=== PATIENT | female | born 1980 | race Caucasian/White ===

== ENCOUNTER 2016-08-10 13:18 | Emergency (ER) | payer MEDICARE, OTHER ==
[2016-08-10] MEDS ORDERED: SODIUM CHLORIDE 0.9% 1,000 ML IV ONE (17:32)
[2016-08-10] MEDS ORDERED: ONDANSETRON 4 MG/2 ML VIAL IVP STA ×2 (17:33→19:52)
[2016-08-10 17:48] LABS: Basophils # (A) 0.3 k/uL (0-0.2); Basophils % (A) 2 %; CH 31.5; CHCM 34.5; Eosinophils # (A) 0.4 k/uL (0-0.7); Eosinophils % (A) 3 %; HCT 42.1 % (34.0-46.0); HDW 2.36; HGB 14.2 gm/dL (11.4-16.0); Luc # (Auto) 0.11; Luc % (Auto) 1; Lymphocytes # (A) 3.6 k/uL (1.0-4.8); Lymphocytes % (A) 23 %; MCHC 33.8 g/dL (31.0-37.0); MCV 91.7 fL (80.0-100.0); Mean Platelet Volume 8.2; Monocytes # (A) 0.7 k/uL (0-1.0); Monocytes % (A) 4 %; Neutrophils % (A) 68 %; RBC 4.59 m/uL (3.80-5.40); RDW 12.4 % (11.5-15.5); WBC 16.1 k/uL (3.8-10.6); WBC (Perox) 16.97
[2016-08-10 17:57] LABS: ALT 35 U/L (9-52); AST 26 U/L (14-36); Alkaline Phosphatase 75 U/L (38-126); Amylase 57 U/L (30-110); Anion Gap 15 mmol/L; Blood Urea Nitrogen 8 mg/dL (7-17); Calcium 8.8 mg/dL (8.4-10.2); Carbon Dioxide 18 mmol/L (22-30); Chloride 107 mmol/L (98-107); Glucose 98 mg/dL (74-99); Non-African American GFR(MDRD) >60 (>60 ml/min/1.73 sqM); Potassium 3.8 mmol/L (3.5-5.1); Sodium 140 mmol/L (137-145); Total Bilirubin 0.5 mg/dL (0.2-1.3); Total Protein 7.7 g/dL (6.3-8.2)
--- NOTE | 2016-08-10 18:13 | ED ---
Nausea/Vomiting/Diarrhea HPI - General Chief complaint: Nausea/Vomiting/Diarrhea Stated complaint: Abd Pain,Vomiting Time Seen by Provider: 08/10/16 17:03 Source: patient, RN notes reviewed Mode of arrival: ambulatory - History of Present Illness Initial comments: Patient is a 36-year-old female presents to the emergency room for evaluation of lower abdominal pain. Patient states that she has been having abdominal pain for the past 3 days. Patient states been getting worse over the past day. Patient states that she is having nausea, vomiting or diarrhea. Patient states her pain is located in her left lower quadrant and right lower quadrant. Patient states she has a history of tubal ligation and partial hysterectomy. Patient denies vaginal bleeding. Patient denies pain or burning during urination, trouble urinating or blood in urine. Patient denies fevers or chills. Patient denies chest pain or shortness of breath. Patient denies headache or dizziness. Patient denies any history of STDs. Patient has recent travel outside the country. Patient denies sick contacts. Patient denies trying a new foods. - Related Data Home Medications Medication Instructions Recorded Confirmed Albuterol Sulfate [Proair Hfa] 2 puff INHALATION Q4H PRN 07/08/16 08/10/16 Atorvastatin [Lipitor] 40 mg PO HS 07/08/16 08/10/16 Divalproex ER [Depakote ER] 500 mg PO BID 07/08/16 08/10/16 Lipase/Protease/Amylase [[place] 1 cap PO AC-TID 07/08/16 08/10/16 36,000 Units Capsule] Omeprazole 20 mg PO DAILY 07/08/16 08/10/16 QUEtiapine [SEROquel] 200 mg PO HS 07/08/16 08/10/16 Sertraline [Zoloft] 50 mg PO DAILY 07/08/16 08/10/16 Sertraline [Zoloft] 100 mg PO DAILY 07/08/16 08/10/16 clonazePAM [KlonoPIN] 1 mg PO TID PRN 07/08/16 08/10/16 Previous Rx's Medication Instructions Recorded Nicotine 14Mg/24Hr Patch [Habitrol] 1 patch TRANSDERM DAILY 14 Days 07/11/16 traZODone HCL [Desyrel] 100 mg PO HS 30 Days 07/11/16 Dicyclomine [Bentyl] 10 mg PO TID PRN #12 capsule 08/10/16 Ondansetron Odt [Zofran Odt] 4 mg PO Q8HR PRN #12 tab 08/10/16 Allergies Allergy/AdvReac Type Severity Reaction Status Date / Time cephalexin [From Keflex] Allergy Severe Swelling Verified 08/10/16 17:05 levofloxacin Allergy Rash/Hives Verified 08/10/16 17:05 Penicillins Allergy Swelling Verified 08/10/16 17:05 sulfamethoxazole Allergy Rash/Hives Verified 08/10/16 17:05 [From Bactrim] trimethoprim [From Bactrim] Allergy Rash/Hives Verified 08/10/16 17:05 Review of Systems ROS Statement: Those systems with pertinent positive or pertinent negative responses have been documented in the HPI. ROS Other: All systems not noted in ROS Statement are negative. Past Medical History Past Medical History: GERD/Reflux Additional Past Medical History / Comment(s): Migraines, Pancreatic Deficiency, Lower lumbar disease, hypoglycemia. History of Any Multi-Drug Resistant Organisms: MRSA Date of last positivie culture/infection: 2013 MDRO Source:: hip Past Surgical History: Cholecystectomy, Hysterectomy, Tonsillectomy Additional Past Surgical History / Comment(s): (R) hand surgery, (L) hip from spider bite r/t MRSA Past Anesthesia/Blood Transfusion Reactions: No Reported Reaction Past Psychological History: Anxiety, Depression Smoking Status: Current every day smoker Past Alcohol Use History: Occasional Additional Past Alcohol Use History / Comment(s): Pt. recently started drinking excessive amounts of alcohol. She reports her last drink was this past TuesdayJuly 03. Past Drug Use History: None Reported - Past Family History Father History Unknown: Yes Family Medical History: No Reported History (Father is 50 year old does not know much about him.) Mother Family Medical History: Cancer Additional Family Medical History / Comment(s): Mother at the age of 50 years from Cancer metastasis. Mother also had an aneurysm. Sister(s) Additional Family Medical History / Comment(s): Bipolar and Schizoprenia. Son(s) Family Medical History: No Reported History (one son no major medical problems.) Daughter(s) Family Medical History: No Reported History (2 daughters no major medical problems.) General Exam - General Exam Comments Initial Comments: Sitting in exam room no acute distress. Limitations: no limitations General appearance: alert, in no apparent distress Head exam: Present: atraumatic, normocephalic, normal inspection Eye exam: Present: normal appearance ENT exam: Present: normal exam Neck exam: Present: normal inspection Respiratory exam: Present: normal lung sounds bilaterally. Absent: respiratory distress Cardiovascular Exam: Present: regular rate, normal rhythm, normal heart sounds GI/Abdominal exam: Present: soft, tenderness (Right lower quadrant left lower quadrant), normal bowel sounds. Absent: distended, guarding, rebound, rigid Extremities exam: Present: normal inspection Back exam: Present: normal inspection Neurological exam: Present: alert, oriented X3, CN II-XII intact, normal gait Psychiatric exam: Present: normal affect, normal mood Skin exam: Present: warm, dry, intact, normal color. Absent: rash Course Vital Signs 08/10/16 14:06 Temperature 99.8 F H Pulse Rate 108 H Respiratory 18 Rate Blood Pressure 120/76 O2 Sat by Pulse 97 Oximetry Medical Decision Making - Medical Decision Making Patient is a 36-year-old female presents to the emergency room for evaluation of abdominal pain, nausea and vomiting. Patient does have an elevated white count. Other labs show no significant findings. Urinalysis shows no significant findings. CT of abdomen and pelvis show no significant findings. Patient states she is feeling better after medications given. Will send patient home with antinausea medications and bentyl. Advised patient to follow- up with her primary care provider for reevaluation in 24-48 hours. Patient states she understands everything that was discussed with her. Return parameters discussed. Case discussed with Dr. Hopper. - Lab Data Result diagrams: 08/10/16 17:30 08/10/16 17:30 Lab Results 08/10/16 08/10/16 08/10/16 Range/Units 17:30 17:30 18:25 WBC 16.1 H (3.8-10.6) k/uL RBC 4.59 (3.80-5.40) m/uL Hgb 14.2 (11.4-16.0) gm/dL Hct 42.1 (34.0-46.0) % MCV 91.7 (80.0-100.0) fL MCH 31.0 (25.0-35.0) pg MCHC 33.8 (31.0-37.0) g/dL RDW 12.4 (11.5-15.5) % Plt Count 298 (150-450) k/uL Neutrophils % 68 % Lymphocytes % 23 % Monocytes % 4 % Eosinophils % 3 % Basophils % 2 % Neutrophils # 11.0 H (1.3-7.7) k/uL Lymphocytes # 3.6 (1.0-4.8) k/uL Monocytes # 0.7 (0-1.0) k/uL Eosinophils # 0.4 (0-0.7) k/uL Basophils # 0.3 H (0-0.2) k/uL Sodium 140 (137-145) mmol/L Potassium 3.8 (3.5-5.1) mmol/L Chloride 107 (98-107) mmol/L Carbon Dioxide 18 L (22-30) mmol/L Anion Gap 15 mmol/L BUN 8 (7-17) mg/dL Creatinine 0.82 (0.52-1.04) mg/dL Est GFR (MDRD) Af Amer >60 (>60 ml/min/1.73 sqM) Est GFR (MDRD) Non-Af >60 (>60 ml/min/1.73 sqM) Glucose 98 (74-99) mg/dL Calcium 8.8 (8.4-10.2) mg/dL Total Bilirubin 0.5 (0.2-1.3) mg/dL AST 26 (14-36) U/L ALT 35 (9-52) U/L Alkaline Phosphatase 75 (38-126) U/L Total Protein 7.7 (6.3-8.2) g/dL Albumin 4.5 (3.5-5.0) g/dL Amylase 57 (30-110) U/L Lipase 144 (23-300) U/L Urine Color Yellow Urine Appearance Clear (Clear) Urine pH 6.0 (5.0-8.0) Ur Specific Lando 1.015 (1.001-1.035) Urine Protein Negative (Negative) Urine Glucose (UA) Negative (Negative) Urine Ketones Negative (Negative) Urine Blood Negative (Negative) Urine Nitrate Negative (Negative) Urine Bilirubin Negative (Negative) Urine Urobilinogen <2.0 (<2.0) mg/dL Ur Leukocyte Esterase Negative (Negative) - Radiology Data Radiology results: report reviewed, image reviewed Disposition Clinical Impression: Nausea vomiting and diarrhea Disposition: HOME SELF-CARE Condition: Good Instructions: Gastroenteritis (ED) Additional Instructions: Take medications as needed for nausea and pain. Drink plenty of fluids. Please follow up with primary care provider in 24-48 hours for reevaluation. If any new symptom arises or symptoms worsen, return to ER as soon as possible. Prescriptions: Ondansetron Odt [Zofran Odt] 4 mg PO Q8HR PRN #12 tab PRN Reason: Nausea Dicyclomine [Bentyl] 10 mg PO TID PRN #12 capsule PRN Reason: Pain Referrals: Nonstaff,Physician [Primary Care Provider] - 1-2 days Time of Disposition: 20:54
[2016-08-10 18:45] LABS: Appearance,Urine Clear (Clear); Bilirubin,Urine Negative (Negative); Glucose,Urine (UA) Negative (Negative); Ketones,Urine Negative (Negative); Leukocyte Esterase,Urine Negative (Negative); Nitrite,Urine Negative (Negative); Protein,Urine Negative (Negative); Specific Gravity,Urine 1.015 (1.001-1.035); UA Billing (MACRO vs. MICRO) CHEM; Urobilinogen,Urine <2.0 mg/dL (<2.0)
[2016-08-10] MEDS ORDERED: HYDROmorphone 1 MG/ML 1 ML SYRINGE IVP STA (19:52)
[2016-08-10] MEDS ORDERED: RX INFO: IV CONTRAST WAS GIVEN 1 EACH MISC MISCELLANE PRN (19:52)
--- NOTE | 2016-08-10 20:50 | CT ---
EXAMINATION TYPE: CT abdomen pelvis w con DATE OF EXAM: 08/10/2016 8:36 PM COMPARISON: NONE HISTORY: Pt states of upper abdominal pain, diarrhea, and vomiting. CT DLP: 1499.4 mGycm Automated exposure control for dose reduction was used. TECHNIQUE: Helical acquisition of images was performed from the lung bases through the pelvis. CONTRAST: Performed without Oral Contrast and with IV Contrast, patient injected with 100 mL of Omnipaque 300. FINDINGS: Lung bases are clear. There is no pleural effusion. Heart size is normal. Liver spleen pancreas appear normal. There are clips from cholecystectomy. Pelvis are not dilated. Th ere is no adrenal mass. Kidneys show satisfactory contrast opacification. There is no hydronephrosis. Ureters are not dilated. Appendix appears normal. There is no ascites. There is no retroperitoneal a denopathy. I see no intestinal wall thickening. There are no dilated loops. Bladder distends smoothly. There is no sign of a pelvic mass. The bony structures are intact. IMPRESSION: NEGATIVE CT SCAN OF THE ABDOMEN AND PELVIS. I DO NOT SEE A CAUSE FOR UPPER ABDOMINAL PAIN.
[2016-08-10 21:17] VITALS: BP 118/61; PULSE 85; RESP 16; TEMP 98.2
== END 2016-08-10 21:14 | disposition home or self-care (01) ==
LOC: EC 13:18
DX: R11.2 Nausea with vomiting, unspecified (principal); R19.7 Diarrhea, unspecified; Z79.899 Other long term (current) drug therapy; K21.9 Gastro-esophageal reflux disease without esophagitis; Z88.0 Allergy status to penicillin; Z88.1 Allergy status to other antibiotic agents; Z88.2 Allergy status to sulfonamides; Z88.8 Allergy status to other drugs, medicaments and biological substances; F41.9 Anxiety disorder, unspecified; F32.9 Major depressive disorder, single episode, unspecified; F17.200 Nicotine dependence, unspecified, uncomplicated
CPT/HCPCS: 36415; 80053; 82150; 83690; 85025; 81003; 74177; 96374; 96375; 96376; 96361; 99284; J2405; J1170; Q9967

== ENCOUNTER → 2016-08-24 | Outpatient (CLI) | payer MEDICAID, MEDICARE ==
--- NOTE | 2016-08-24 08:36 | US ---
EXAMINATION TYPE: US abdomen complete DATE OF EXAM: 08/24/2016 8:22 AM COMPARISON: CT abdomen and pelvis August 10, 2016. Complete abdominal ultrasound May 05, 2012. CLINICAL HISTORY: R10.13 EPIGASTRIC PAIN. EXAM MEASUREMENTS: Liver Length: 13.9 cm Gallbladder Wall: Surgically absent cm CBD: 0.3 cm Spleen: 9.4 cm Right Kidney: 10.7 x 4.2 x 5.4 cm Left Kidney: 11.9 x 4.7 x 4.8 cm TECHNOLOGIST IMPRESSION: Patient of large body habitus Pancreas: tail obscured by bowel gas, remainder pancreas within normal limits Liver: Increased attenuation Gallbladder: Surgically absent Evidence for sonographic Caraballo's sign: No CBD: wnl Spleen: wnl Right Kidney: wnl Left Kidney: wnl Upper IVC: wnl Abd Aorta: wnl The liver is heterogeneous hyperechoic without intrahepatic ductal dilatation. Evaluation for focal m asses is limited due to the heterogeneity. The intrahepatic portion of the IVC and visualized proxima l and mid abdominal aorta are within normal limits. Distal abdominal aorta is obscured by overlying b owel gas. Gallbladder surgically absent. Common bile duct is unremarkable. The visualized portions of the pancreas are homogenous. The spleen is unremarkable. Kidneys are symmetric and free of hydro nephrosis. No renal lesions are seen. IMPRESSION: No significant finding is seen to account for patient's symptoms. Mild diffuse fatty infi ltration of liver is suspected.
== END | disposition home or self-care (01) ==
LOC: RADUSWWP 07:58
PROVIDERS: ATTEND Legal Medicine
DX: R10.13 Epigastric pain (principal)
CPT/HCPCS: 76700

== ENCOUNTER 2017-04-03 10:41 | Emergency (ER) | payer MEDICARE, OTHER ==
--- NOTE | 2017-04-03 11:58 | ED ---
General Adult HPI - General Chief complaint: Skin/Abscess/Foreign Body Stated complaint: SKIN PROBLEM Time Seen by Provider: 04/03/17 11:45 Source: patient, RN notes reviewed Mode of arrival: ambulatory Limitations: no limitations - History of Present Illness Initial comments: 36-year-old female presents to the emergency department with a chief complaint of painful rash to the right back area. Patient states started a few days ago just continues to be painful and irritated so she was concerned. Patient denies any fever chills. Patient denies any nausea vomiting. Patient was concerned due to the continued discomfort from the rash so she thought that she should be evaluated. Patient denies any recent fever, chills, shortness of breath, chest pain, back pain, abdominal pain, nausea vomiting, numbness or tingling, dysuria or hematuria, constipation or diarrhea, headaches or visual changes, or any other current symptoms. - Related Data Home Medications Medication Instructions Recorded Confirmed Albuterol Sulfate [Proair Hfa] 2 puff INHALATION Q4H PRN 07/08/16 08/10/16 Atorvastatin [Lipitor] 40 mg PO HS 07/08/16 08/10/16 Divalproex ER [Depakote ER] 500 mg PO BID 07/08/16 08/10/16 Lipase/Protease/Amylase [Creon Dr 1 cap PO AC-TID 07/08/16 08/10/16 36,000 Units Capsule] Omeprazole 20 mg PO DAILY 07/08/16 08/10/16 QUEtiapine [SEROquel] 200 mg PO HS 07/08/16 08/10/16 Sertraline [Zoloft] 50 mg PO DAILY 07/08/16 08/10/16 Sertraline [Zoloft] 100 mg PO DAILY 07/08/16 08/10/16 clonazePAM [KlonoPIN] 1 mg PO TID PRN 07/08/16 08/10/16 Previous Rx's Medication Instructions Recorded Nicotine 14Mg/24Hr Patch [Habitrol] 1 patch TRANSDERM DAILY 14 Days 07/11/16 traZODone HCL [Desyrel] 100 mg PO HS 30 Days 07/11/16 Dicyclomine [Bentyl] 10 mg PO TID PRN #12 capsule 08/10/16 Ondansetron Odt [Zofran Odt] 4 mg PO Q8HR PRN #12 tab 08/10/16 Famciclovir [Famvir] 500 mg PO Q8HR #21 tablet 04/03/17 Hydrocodone/Acetaminophen [[place] 1 each PO Q6HR PRN #20 tab 04/03/17 5-325] predniSONE 50 mg PO DAILY #5 tab 04/03/17 Allergies Allergy/AdvReac Type Severity Reaction Status Date / Time cephalexin [From Keflex] Allergy Severe Swelling Verified 04/03/17 11:40 levofloxacin Allergy Rash/Hives Verified 04/03/17 11:40 Penicillins Allergy Swelling Verified 04/03/17 11:40 sulfamethoxazole Allergy Rash/Hives Verified 04/03/17 11:40 [From Bactrim] trimethoprim [From Bactrim] Allergy Rash/Hives Verified 04/03/17 11:40 Review of Systems ROS Statement: Those systems with pertinent positive or pertinent negative responses have been documented in the HPI. ROS Other: All systems not noted in ROS Statement are negative. Past Medical History Past Medical History: GERD/Reflux Additional Past Medical History / Comment(s): Migraines, Pancreatic Deficiency, Lower lumbar disease, hypoglycemia. History of Any Multi-Drug Resistant Organisms: MRSA Date of last positivie culture/infection: 2013 MDRO Source:: hip Past Surgical History: Cholecystectomy, Hysterectomy, Tonsillectomy Additional Past Surgical History / Comment(s): (R) hand surgery, (L) hip from spider bite r/t MRSA Past Anesthesia/Blood Transfusion Reactions: No Reported Reaction Past Psychological History: Anxiety, Depression Smoking Status: Current every day smoker Past Alcohol Use History: Heavy Past Drug Use History: None Reported - Past Family History Father History Unknown: Yes Family Medical History: No Reported History (Father is 50 year old does not know much about him.) Mother Family Medical History: Cancer Additional Family Medical History / Comment(s): Mother at the age of 50 years from Cancer metastasis. Mother also had an aneurysm. Sister(s) Additional Family Medical History / Comment(s): Bipolar and Schizoprenia. Son(s) Family Medical History: No Reported History (one son no major medical problems.) Daughter(s) Family Medical History: No Reported History (2 daughters no major medical problems.) General Exam Limitations: no limitations General appearance: alert, in no apparent distress Head exam: Present: atraumatic, normocephalic, normal inspection Neck exam: Present: normal inspection. Absent: tenderness, meningismus, lymphadenopathy Respiratory exam: Present: normal lung sounds bilaterally. Absent: respiratory distress, wheezes, rales, rhonchi, stridor Cardiovascular Exam: Present: regular rate, normal rhythm, normal heart sounds. Absent: systolic murmur, diastolic murmur, rubs, gallop, clicks Neurological exam: Present: alert, oriented X3 Psychiatric exam: Present: normal affect, normal mood Skin exam: Present: warm, dry, rash (Patient appears to have a vesicular type rash along the right shoulder into the right arm. Consistent with herpes zoster ) Course Vital Signs 04/03/17 11:38 Temperature 98.3 F Pulse Rate 110 H Respiratory 20 Rate Blood Pressure 124/78 O2 Sat by Pulse 99 Oximetry Medical Decision Making - Medical Decision Making 28-year-old female presents to the emergency department with what appears to be a herpes zoster rash. This time we was patient on appropriate treatment. We did discuss follow-up with her doctor. We discussed return parameters all patient's family's questions. They state [facility] management plan. All questions have been answered. This and will be discharged home. Disposition Clinical Impression: Herpes zoster dermatitis Disposition: HOME SELF-CARE Condition: Stable Instructions: Shingles (ED) Additional Instructions: Please use medication as discussed. Please follow up with family doctor if symptoms have not improved over the next two days. Please return to the emergency room if your symptoms increase or worsen or for any other concerns. Prescriptions: Famciclovir [Famvir] 500 mg PO Q8HR #21 tablet Hydrocodone/Acetaminophen [[place] 5-325] 1 each PO Q6HR PRN #20 tab PRN Reason: Pain predniSONE 50 mg PO DAILY #5 tab Referrals: Awais Lepe MD [Primary Care Provider] - 1-2 days Time of Disposition: 11:57
[2017-04-03 12:08] VITALS: BP 123/90; PULSE 112; RESP 18; TEMP 98.4
== END 2017-04-03 12:08 | disposition home or self-care (01) ==
LOC: EC 10:41
DX: B02.8 Zoster with other complications (principal); F32.9 Major depressive disorder, single episode, unspecified; F41.9 Anxiety disorder, unspecified; K21.9 Gastro-esophageal reflux disease without esophagitis; F17.200 Nicotine dependence, unspecified, uncomplicated; Z86.14 Personal history of Methicillin resistant Staphylococcus aureus infection; Z88.1 Allergy status to other antibiotic agents; Z88.0 Allergy status to penicillin; Z88.2 Allergy status to sulfonamides; Z79.899 Other long term (current) drug therapy
CPT/HCPCS: 99282

== ENCOUNTER 2019-08-05 11:27 | Emergency (ER) | payer MEDICARE, OTHER ==
[2019-08-05 12:18] VITALS: TEMP 98.1
[2019-08-05] MEDS ORDERED: SODIUM CHLORIDE 0.9% 1,000 ML IV STA (12:21)
[2019-08-05] MEDS ORDERED: DIAZEPAM 5 MG/ML 2 ML INJ IVP STA (12:21)
[2019-08-05] MEDS ORDERED: ONDANSETRON 4 MG/2 ML VIAL IVP STA (12:21)
[2019-08-05 12:49] LABS: Basophils # (A) 0.2 k/uL (0-0.2); Basophils % (A) 2 %; Eosinophils # (A) 0.3 k/uL (0-0.7); Eosinophils % (A) 2 %; HGB 14.6 gm/dL (11.4-16.0); Lymphocytes % (A) 51 %; MCH 30.7 pg (25.0-35.0); MCHC 33.1 g/dL (31.0-37.0); MCV 92.7 fL (80.0-100.0); Mean Platelet Volume 7.6; Monocytes # (A) 0.5 k/uL (0-1.0); Monocytes % (A) 4 %; Neutrophils # (A) 4.6 k/uL (1.3-7.7); Neutrophils % (A) 39 %; Platelet Count 321 k/uL (150-450); RBC 4.74 m/uL (3.80-5.40); RDW 12.2 % (11.5-15.5); WBC 11.8 k/uL (3.8-10.6)
[2019-08-05 12:57] LABS: ALT 56 U/L (4-34); AST 40 U/L (14-36); African American GFR (CKD) >90 (>60 ml/min/1.73 sqM); Albumin 4.3 g/dL (3.5-5.0); Alkaline Phosphatase 79 U/L (38-126); Anion Gap 8 mmol/L; Blood Urea Nitrogen 9 mg/dL (7-17); Calcium 9.5 mg/dL (8.4-10.2); Carbon Dioxide 22 mmol/L (22-30); Chloride 109 mmol/L (98-107); Glucose 113 mg/dL (74-99); Non-African American GFR(CKD) 88 (>60 ml/min/1.73 sqM); Potassium 3.8 mmol/L (3.5-5.1); Sodium 139 mmol/L (137-145); Total Bilirubin 0.5 mg/dL (0.2-1.3); Total Protein 7.5 g/dL (6.3-8.2)
[2019-08-05 13:02] LABS: Valproic Acid (Depakene) <10.0 ug/mL
--- NOTE | 2019-08-05 13:06 | ED ---
Dizziness HPI - General Chief Complaint: Dizziness Stated Complaint: lightheaded/fever Time Seen by Provider: 08/05/19 11:35 Source: patient Mode of arrival: wheelchair Limitations: no limitations - History of Present Illness Initial Comments: The patient is a 39-year-old female with past medical history of GERD, migraines and depression who presents to the emergency room with reported vertiginous symptoms. She states that the symptoms started approximatly 48 hours prior to arrival and have been worsening since onset. She states that she feels as if the room is spinning on her. Admits that it is worse with positional changes. No reported headache. No fevers or chills. Does admit to nausea with vomiting. It is nonbilious and nonbloody. No history of similar events in the past. No recent blunt head trauma. Denies unilateral numbness or weakness. Does admit to generalized weakness. Also states that she has blurred vision with loss of peripheral vision. Admits ataxia when ambulating. Did not take any medications at home for her symptoms. Denies any chest pain or shortness of breath. No abdominal pain. Denies any changes in her bowel or bladder habits. No recent medication changes. No reported drug use. There are no other alleviating, precipitating or modifying factors - Related Data Home Medications Medication Instructions Recorded Confirmed Albuterol Sulfate [Proair Hfa] 2 puff INHALATION Q4H PRN 07/08/16 08/10/16 Atorvastatin [Lipitor] 40 mg PO HS 07/08/16 08/10/16 Divalproex ER [Depakote ER] 500 mg PO BID 07/08/16 08/10/16 Lipase/Protease/Amylase [Homer Dr 1 cap PO AC-TID 07/08/16 08/10/16 36,000 Units Capsule] Omeprazole 20 mg PO DAILY 07/08/16 08/10/16 QUEtiapine [SEROquel] 200 mg PO HS 07/08/16 08/10/16 Sertraline [Zoloft] 50 mg PO DAILY 07/08/16 08/10/16 Sertraline [Zoloft] 100 mg PO DAILY 07/08/16 08/10/16 clonazePAM [KlonoPIN] 1 mg PO TID PRN 07/08/16 08/10/16 Previous Rx's Medication Instructions Recorded Nicotine 14Mg/24Hr Patch [Habitrol] 1 patch TRANSDERM DAILY 14 Days 07/11/16 patch traZODone HCL [Desyrel] 100 mg PO HS 30 Days tab 07/11/16 Dicyclomine [Bentyl] 10 mg PO TID PRN #12 capsule 08/10/16 Ondansetron Odt [Zofran Odt] 4 mg PO Q8HR PRN #12 tab 08/10/16 Famciclovir [Famvir] 500 mg PO Q8HR #21 tablet 04/03/17 Hydrocodone/Acetaminophen [Cammal 1 each PO Q6HR PRN #20 tab 04/03/17 5-325] predniSONE 50 mg PO DAILY #5 tab 04/03/17 Allergies Allergy/AdvReac Type Severity Reaction Status Date / Time cephalexin [From Keflex] Allergy Severe Swelling Verified 08/05/19 11:37 levofloxacin Allergy Rash/Hives Verified 08/05/19 11:37 Penicillins Allergy Swelling Verified 08/05/19 11:37 sulfamethoxazole Allergy Rash/Hives Verified 08/05/19 11:37 [From Bactrim] trimethoprim [From Bactrim] Allergy Rash/Hives Verified 08/05/19 11:37 Review of Systems ROS Statement: Those systems with pertinent positive or pertinent negative responses have been documented in the HPI. ROS Other: All systems not noted in ROS Statement are negative. Past Medical History Past Medical History: GERD/Reflux Additional Past Medical History / Comment(s): Migraines, Pancreatic Deficiency, Lower lumbar disease, hypoglycemia. History of Any Multi-Drug Resistant Organisms: MRSA Date of last positivie culture/infection: 2013 MDRO Source:: hip Past Surgical History: Cholecystectomy, Hysterectomy, Tonsillectomy Additional Past Surgical History / Comment(s): (R) hand surgery, (L) hip from spider bite r/t MRSA Past Anesthesia/Blood Transfusion Reactions: No Reported Reaction Past Psychological History: Anxiety, Depression Smoking Status: Current every day smoker Past Alcohol Use History: Heavy Past Drug Use History: None Reported - Past Family History Father History Unknown: Yes Family Medical History: No Reported History (Father is 50 year old does not know much about him.) Mother Family Medical History: Cancer Additional Family Medical History / Comment(s): Mother at the age of 50 years from Cancer metastasis. Mother also had an aneurysm. Sister(s) Additional Family Medical History / Comment(s): Bipolar and Schizoprenia. Son(s) Family Medical History: No Reported History (one son no major medical problems.) Daughter(s) Family Medical History: No Reported History (2 daughters no major medical problems.) General Exam Limitations: no limitations General appearance: alert, in no apparent distress Head exam: Present: atraumatic, normocephalic, normal inspection Eye exam: Present: normal appearance, PERRL, EOMI. Absent: scleral icterus, conjunctival injection, periorbital swelling ENT exam: Present: normal exam, mucous membranes moist Neck exam: Present: normal inspection. Absent: tenderness, meningismus, lymphadenopathy Respiratory exam: Present: normal lung sounds bilaterally. Absent: respiratory distress, wheezes, rales, rhonchi, stridor Cardiovascular Exam: Present: regular rate, normal rhythm, normal heart sounds. Absent: systolic murmur, diastolic murmur, rubs, gallop, clicks GI/Abdominal exam: Present: soft, normal bowel sounds. Absent: distended, tenderness, guarding, rebound, rigid Extremities exam: Present: normal inspection, full ROM, normal capillary refill. Absent: tenderness, pedal edema, joint swelling, calf tenderness Back exam: Present: normal inspection Neurological exam: Present: alert, oriented X3, CN II-XII intact, other (Heel to leach is symmetric bilaterally. Finger to nose is symmetric bilaterally. NIH is 0. No truncal ataxia. 5 out of 5 home coordinator strength in her bilateral upper extremity. 5/5 muscle strength in her bilateral lower extremities to include her hip flexors, knee extensors, ankle and great toe dorsiflexors and foot plantar flexors. 2 out of 4 reflexes in her bilateral upper and lower extremities. Patient has difficulty with peripheral vision testing and reports seeing double the count of fingers. Vision testing is 2/200 left, right and with both eyes.) Psychiatric exam: Present: normal affect, normal mood Skin exam: Present: warm, dry, intact, normal color. Absent: rash Course Vital Signs 08/05/19 08/05/19 08/05/19 11:34 12:00 12:12 Temperature 98 F 98.2 F 98.1 F Pulse Rate 103 H 97 97 Respiratory 16 20 18 Rate Blood Pressure 116/78 114/84 114/84 O2 Sat by Pulse 98 98 99 Oximetry 08/05/19 08/05/19 14:15 15:59 Temperature 98.1 F Pulse Rate 98 96 Respiratory 20 20 Rate Blood Pressure 109/79 116/80 O2 Sat by Pulse 100 98 Oximetry EKG Findings - EKG Comments: EKG Findings:: EKG demonstrates a normal sinus rhythm with a ventricular rate of 99. OK interval 150. QRS 78. QTC of 462. No acute ST segment elevations or depressions concerning for ischemic changes. Medical Decision Making - Medical Decision Making Upon arrival the patient is placed in room 7. A thorough history and physical exam was performed. I recommended laboratory studies and a CT of the patient's brain. PIV was established and the patient was given 5 mg of Valium. Lab oratory studies were performed and demonstrated leukocytosis of 11.8. 40 AST, 56 ALT. Troponin is negative. Urinalysis is clear. Valproic acid is undetectable. I did discuss this with the patient and she states she has forgotten her dose over the past couple of days. CT of the patient's brain d [facility] no acute findings. I reevaluated the patient she continues to complain of vertiginous symptoms and blurred vision. Because of this I did provide the patient with a dose of meclizine. The patient sent back for a CT angios of her head and neck because reported ataxia symptoms persist which demonstrates no significant abnormality. Patient is reevaluated and continues to complain of her similar symptoms present at admission. Because of this I did discuss diagnosis, differential and treatment options. Neurology is not available at her facility and therefore the patient will be transferred to [facility] as this is her hospital choice. I discussed the case with Dr. Shelton who accepted transfer the patient. The patient signed COBRA forms and will be transferred in stable condition - Lab Data Result diagrams: 08/05/19 12:40 08/05/19 12:40 Lab Results 08/05/19 08/05/19 08/05/19 Range/Units 12:40 12:40 12:40 WBC 11.8 H (3.8-10.6) k/uL RBC 4.74 (3.80-5.40) m/uL Hgb 14.6 (11.4-16.0) gm/dL Hct 44.0 (34.0-46.0) % MCV 92.7 (80.0-100.0) fL MCH 30.7 (25.0-35.0) pg MCHC 33.1 (31.0-37.0) g/dL RDW 12.2 (11.5-15.5) % Plt Count 321 (150-450) k/uL Neutrophils % 39 % Lymphocytes % 51 % Monocytes % 4 % Eosinophils % 2 % Basophils % 2 % Neutrophils # 4.6 (1.3-7.7) k/uL Lymphocytes # 6.0 H (1.0-4.8) k/uL Monocytes # 0.5 (0-1.0) k/uL Eosinophils # 0.3 (0-0.7) k/uL Basophils # 0.2 (0-0.2) k/uL Manual Slide Review Performed Sodium 139 (137-145) mmol/L Potassium 3.8 (3.5-5.1) mmol/L Chloride 109 H (98-107) mmol/L Carbon Dioxide 22 (22-30) mmol/L Anion Gap 8 mmol/L BUN 9 (7-17) mg/dL Creatinine 0.83 (0.52-1.04) mg/dL Est GFR (CKD-EPI)AfAm >90 (>60 ml/min/1.73 sqM) Est GFR (CKD-EPI)NonAf 88 (>60 ml/min/1.73 sqM) Glucose 113 H (74-99) mg/dL Calcium 9.5 (8.4-10.2) mg/dL Total Bilirubin 0.5 (0.2-1.3) mg/dL AST 40 H (14-36) U/L ALT 56 H (4-34) U/L Alkaline Phosphatase 79 (38-126) U/L Troponin I <0.012 (0.000-0.034) ng/mL Total Protein 7.5 (6.3-8.2) g/dL Albumin 4.3 (3.5-5.0) g/dL Urine Color Urine Appearance (Clear) Urine pH (5.0-8.0) Ur Specific [place] (1.001-1.035) Urine Protein (Negative) Urine Glucose (UA) (Negative) Urine Ketones (Negative) Urine Blood (Negative) Urine Nitrite (Negative) Urine Bilirubin (Negative) Urine Urobilinogen (<2.0) mg/dL Ur Leukocyte Esterase (Negative) Urine HCG, Qual (Not Detectd) Valproic Acid <10.0 ug/mL 08/05/19 08/05/19 Range/Units 14:11 14:11 WBC (3.8-10.6) k/uL RBC (3.80-5.40) m/uL Hgb (11.4-16.0) gm/dL Hct (34.0-46.0) % MCV (80.0-100.0) fL MCH (25.0-35.0) pg MCHC (31.0-37.0) g/dL RDW (11.5-15.5) % Plt Count (150-450) k/uL Neutrophils % % Lymphocytes % % Monocytes % % Eosinophils % % Basophils % % Neutrophils # (1.3-7.7) k/uL Lymphocytes # (1.0-4.8) k/uL Monocytes # (0-1.0) k/uL Eosinophils # (0-0.7) k/uL Basophils # (0-0.2) k/uL Manual Slide Review Sodium (137-145) mmol/L Potassium (3.5-5.1) mmol/L Chloride (98-107) mmol/L Carbon Dioxide (22-30) mmol/L Anion Gap mmol/L BUN (7-17) mg/dL Creatinine (0.52-1.04) mg/dL Est GFR (CKD-EPI)AfAm (>60 ml/min/1.73 sqM) Est GFR (CKD-EPI)NonAf (>60 ml/min/1.73 sqM) Glucose (74-99) mg/dL Calcium (8.4-10.2) mg/dL Total Bilirubin (0.2-1.3) mg/dL AST (14-36) U/L ALT (4-34) U/L Alkaline Phosphatase (38-126) U/L Troponin I (0.000-0.034) ng/mL Total Protein (6.3-8.2) g/dL Albumin (3.5-5.0) g/dL Urine Color Yellow Urine Appearance Clear (Clear) Urine pH 5.5 (5.0-8.0) Ur Specific [place] 1.010 (1.001-1.035) Urine Protein Negative (Negative) Urine Glucose (UA) Negative (Negative) Urine Ketones Negative (Negative) Urine Blood Negative (Negative) Urine Nitrite Negative (Negative) Urine Bilirubin Negative (Negative) Urine Urobilinogen <2.0 (<2.0) mg/dL Ur Leukocyte Esterase Negative (Negative) Urine HCG, Qual Not Detected (Not Detectd) Valproic Acid ug/mL Disposition Clinical Impression: Vertigo, Ataxia, Nausea & vomiting Disposition: OTHER INSTITUTION NOT DEFINED Condition: Stable Is patient prescribed a controlled substance at d/c from ED?: No Referrals: Awais Lepe MD [Primary Care Provider] - 1-2 days - Out of Hospital Transfer - Req. Specs Out of Hospital Transfer - Requested Specifics: Other Emergency Center ([facility])
--- NOTE | 2019-08-05 13:15 | CT ---
EXAMINATION TYPE: CT brain wo con DATE OF EXAM: 08/05/2019 COMPARISON: NONE HISTORY: Lightheadedness and fever CT DLP: 1048.4 mGycm Automated exposure control for dose reduction was used. FINDINGS: Central structures are midline. There is no evidence of hydrocephalus. No acute focal lesion, mass ef fect or midline shift is seen. I do not see evidence of intracranial blood. Visualized portions of the paranasal sinuses and mastoids are clear. The bony calvarium is intact. IMPRESSION: NORMAL CT SCAN OF THE BRAIN.
[2019-08-05] MEDS ORDERED: MECLIZINE 12.5 MG TAB PO STA (14:14)
[2019-08-05 14:16] VITALS: RESP 20
[2019-08-05 14:23] LABS: Appearance,Urine Clear (Clear); Bilirubin,Urine Negative (Negative); Blood,Urine Negative (Negative); Color,Urine Yellow; Glucose,Urine (UA) Negative (Negative); Ketones,Urine Negative (Negative); Leukocyte Esterase,Urine Negative (Negative); Nitrite,Urine Negative (Negative); PH, Urine 5.5 (5.0-8.0); Protein,Urine Negative (Negative); Urobilinogen,Urine <2.0 mg/dL (<2.0)
--- NOTE | 2019-08-05 15:03 | CT ---
EXAMINATION TYPE: CT angio head neck DATE OF EXAM: 08/05/2019 COMPARISON: None HISTORY: Intractable vertigo. CT DLP: 546.2 mGycm CONTRAST: Performed with IV Contrast, patient injected with 65 mL of Isovue 370. Combination Contrast CTA cervical carotids and [place] CTA cervical carotids with 3-D recons truction Contrast CTA of the cervical carotids was performed 3-D reconstruction imaging obtained at a separate workstation. Right carotid system: No significant plaque is seen of the right common carotid artery. There is No significant plaque also noted at the carotid bulb and proximal ICA. No significant diameter reductio n. ECA is patent. Right vertebral artery appears unremarkable. Left carotid system: No significant plaque is seen of the left common carotid artery. There is No si gnificant plaque also noted at the carotid bulb and proximal ICA. No significant diameter reduction. ECA is patent. Left vertebral artery appears unremarkable. IMPRESSION: 1. No significant diameter reduction to account for the patient's symptoms. CTA [place] with 3-D reconstruction Contrast CTA of the [place] was performed 3-D reconstruction imaging obtained at a separate workstation. Vertebrobasilar system as well as intracranial portions of the internal carotid arteries and their ma charan tributaries are patent. I do not see evidence for sizable aneurysm or vascular malformation. Pl ease note MRI provides greater sensitivity and specificity. Visualized brain appears grossly unremar kable. IMPRESSION: 1. No significant abnormality.
[2019-08-05 16:00] VITALS: BP 116/80; PULSE 96
== END 2019-08-05 16:56 | disposition other institution (70) ==
LOC: EC 11:27
DX: R42 Dizziness and giddiness (principal); R11.2 Nausea with vomiting, unspecified; R53.1 Weakness; H53.8 Other visual disturbances; R50.9 Fever, unspecified; K21.9 Gastro-esophageal reflux disease without esophagitis; F41.9 Anxiety disorder, unspecified; F32.9 Major depressive disorder, single episode, unspecified; F17.200 Nicotine dependence, unspecified, uncomplicated; Z86.14 Personal history of Methicillin resistant Staphylococcus aureus infection; Z79.899 Other long term (current) drug therapy; Z88.1 Allergy status to other antibiotic agents; Z88.0 Allergy status to penicillin; Z88.2 Allergy status to sulfonamides
CPT/HCPCS: 36415; 93005; 80164; 80053; 84484; 85025; 81003; 81025; 70496; 70450; 70498; 99285; 96374; 96375; 96361; J3360; J2405; Q9967

== ENCOUNTER 2020-04-07 11:07 | Inpatient (IN) | payer MEDICARE, OTHER ==
[2020-04-07] MEDS ORDERED: MORPHINE SULFATE 4 MG/ML SYRINGE IV STA (11:29)
[2020-04-07] MEDS ORDERED: ONDANSETRON 4 MG/2 ML VIAL IVP STA (11:29)
[2020-04-07] MEDS ORDERED: SODIUM CHLORIDE 0.9% 1,000 ML IV STA ×2 (11:29→12:59)
[2020-04-07] MEDS ORDERED: MORPHINE SULFATE 4 MG/ML SYRINGE IVP STA (11:48)
[2020-04-07 12:11] LABS: Albumin 4.1 g/dL (3.5-5.0); Calcium 9.5 mg/dL (8.4-10.2); Total Protein 7.6 g/dL (6.3-8.2)
[2020-04-07 12:13] LABS: Basophils # (A) 0.1 k/uL (0-0.2); Basophils % (A) 0 %; Eosinophils # (A) 0.3 k/uL (0-0.7); Eosinophils % (A) 1 %; HCT 47.3 % (34.0-46.0); HGB 15.7 gm/dL (11.4-16.0); Lymphocytes % (A) 9 %; MCH 29.8 pg (25.0-35.0); MCHC 33.2 g/dL (31.0-37.0); MCV 89.6 fL (80.0-100.0); Monocytes # (A) 0.8 k/uL (0-1.0); Monocytes % (A) 3 %; Neutrophils # (A) 19.6 k/uL (1.3-7.7); Neutrophils % (A) 86 %; Platelet Count 232 k/uL (150-450); RBC 5.27 m/uL (3.80-5.40); RDW 11.9 % (11.5-15.5)
--- NOTE | 2020-04-07 12:19 | ED ---
Abdominal Pain HPI - General Source: patient Mode of arrival: ambulatory Limitations: no limitations <Kaila Leon - Last Filed: 04/07/20 15:13> <May Henderson - Last Filed: 04/12/20 13:47> - General Chief Complaint: Abdominal Pain Stated Complaint: appendix pain Time Seen by Provider: 04/07/20 11:18 - History of Present Illness Initial Comments: Patient is a 40-year-old female presenting to the emergency Department with complaints of severe right lower quadrant pain that started 3 days ago. Patient states she has had some nausea and vomiting as well. She states the pain has been very severe of the last few days but she did not want to come into the ER right away. Patient admits to history of hysterectomy, cholecystectomy, no other abdominal surgeries. She states she thinks she still has her ovaries in, has history of ovarian cyst. Patient denies any fever or chills. She denies any chest pain or shortness of breath. She has no further complaints at this time. Upon arrival to the ER, patient's pulse is elevated at 121, rest of vitals are normal, patient is in severe amount of pain. (Kaila Leon) - Related Data Previous Rx's Medication Instructions Recorded Docusate [Colace] 100 mg PO BID #30 capsule 04/11/20 Hydrocodone/Acetaminophen [Dendron 1 tab PO Q4HR PRN 3 Days #18 tab 04/11/20 5-325] Allergies Allergy/AdvReac Type Severity Reaction Status Date / Time cephalexin [From Keflex] Allergy Severe Swelling Verified 04/07/20 12:58 levofloxacin Allergy Rash/Hives Verified 04/07/20 12:58 Penicillins Allergy Swelling Verified 04/07/20 12:58 sulfamethoxazole Allergy Rash/Hives Verified 04/07/20 12:58 [From Bactrim] trimethoprim [From Bactrim] Allergy Rash/Hives Verified 04/07/20 12:58 Review of Systems ROS Other: All systems not noted in ROS Statement are negative. <Kaila Leon - Last Filed: 04/07/20 15:13> ROS Other: All systems not noted in ROS Statement are negative. <May Henderson - Last Filed: 04/12/20 13:47> ROS Statement: Those systems with pertinent positive or pertinent negative responses have been documented in the HPI. Past Medical History Past Medical History: GERD/Reflux Additional Past Medical History / Comment(s): Migraines, Pancreatic Deficiency, Lower lumbar disease, hypoglycemia. History of Any Multi-Drug Resistant Organisms: MRSA Date of last positivie culture/infection: 2013 MDRO Source:: hip Past Surgical History: Cholecystectomy, Hysterectomy, Tonsillectomy Additional Past Surgical History / Comment(s): (R) hand surgery, (L) hip from spider bite r/t MRSA Past Anesthesia/Blood Transfusion Reactions: No Reported Reaction Past Psychological History: Anxiety, Depression Smoking Status: Current every day smoker Past Alcohol Use History: None Reported Past Drug Use History: None Reported - Past Family History Father History Unknown: Yes Family Medical History: No Reported History (Father is 50 year old does not know much about him.) Mother Family Medical History: Cancer Additional Family Medical History / Comment(s): Mother at the age of 50 years from Cancer metastasis. Mother also had an aneurysm. Sister(s) Additional Family Medical History / Comment(s): Bipolar and Schizoprenia. Son(s) Family Medical History: No Reported History (one son no major medical problems.) Daughter(s) Family Medical History: No Reported History (2 daughters no major medical problems.) <Kaila Leon L - Last Filed: 04/07/20 15:13> General Exam Limitations: no limitations <Kaila Leon - Last Filed: 04/07/20 15:13> - General Exam Comments Initial Comments: GENERAL: Patient is well-developed and well-nourished. Patient is in moderate distress holding lower abdominal region. HEAD: Atraumatic, normocephalic. EYES: Pupils equal round and reactive to light, extraocular movements intact, sclera anicteric, conjunctiva are normal. Eyelids were unremarkable. ENT: TMs normal, nares patent, oropharynx clear without exudates. Moist mucous membranes. NECK: Normal range of motion, supple without lymphadenopathy or JVD. LUNGS: Unlabored respirations. Breath sounds clear to auscultation bilaterally and equal. No wheezes rales or rhonchi. HEART: Regular rate and rhythm without murmurs, rubs or gallops. ABDOMEN: Severe tenderness with palpation of the right lower quadrant, right side of the abdomen. Patient is guarding significantly. Hypoactive bowel sounds. No masses appreciated. : Deferred MUSCULOSKELETAL: Normal extremities with adequate strength and normal range of motion, no pitting or edema. No clubbing or cyanosis. NEUROLOGICAL: Patient is alert and oriented x 3. Motor and sensory are also intact. Cranial nerves II through XII grossly intact. Symmetrical smile. Normal speech, normal gait. PSYCH: Normal mood, normal affect. SKIN: Warm, Dry, normal turgor, no rashes or lesions noted. (Kaila Leon) Course Vital Signs 04/07/20 04/07/20 04/07/20 11:11 12:29 13:00 Temperature 98.1 F 99.3 F Pulse Rate 121 H 99 Pulse Rate [ 87 Pulse Oximetery ] Respiratory 16 18 18 Rate Blood Pressure 110/74 105/71 Blood Pressure 115/79 [Left Arm] O2 Sat by Pulse 98 96 99 Oximetry 04/07/20 04/07/20 13:53 13:54 Temperature 98.1 F Pulse Rate 89 89 Pulse Rate [ Pulse Oximetery ] Respiratory 18 18 Rate Blood Pressure 113/75 113/75 Blood Pressure [Left Arm] O2 Sat by Pulse 96 96 Oximetry Medical Decision Making - Lab Data Result diagrams: 04/07/20 11:44 04/07/20 11:44 <Kaila Leon - Last Filed: 04/07/20 15:13> - Lab Data Result diagrams: 04/12/20 05:25 04/12/20 05:25 <May Henderson - Last Filed: 04/12/20 13:47> - Medical Decision Making Patient is a 40-year-old female here for severe right lower quadrant pain that started 3 days ago. Patient was extremely uncomfortable upon arrival, tach at 121, afebrile. Labs reveal a white count of 23, lactic acid was 3.3, liver enzymes slightly elevated. CT of the abdomen and pelvis shows appendicitis with focal collection of fluid suggestive of an abscess or possible rupture. Patient is given fluids, pain control, Zofran. Patient will be admitted, Dr. Flowers is accepting. Patient was started on antibiotics. Case discussed with Dr. Henderson. (Kaila Leon) I was available for consultation in the emergency department. The history and physical exam were done by the midlevel provider. I was consulted for this patients care. I reviewed the case with the midlevel provider and based on their presentation of the patient, I agree with the assessment, medical decision making and plan of care as documented. I evaluated the patient myself. Updated as to CT findings and need for hospitalization. Patient understood. Antibiotics are being administered. Chart was dictated using My[employer] dictation software. Attempts were made to correct any dictation errors however some typographical errors may persist. Patient was seen during a national state of emergency due to the Covid-19 pandemic. (May Henderson) - Lab Data Lab Results 04/07/20 04/07/20 04/07/20 Range/Units 11:44 11:44 11:44 WBC 23.0 H (3.8-10.6) k/uL RBC 5.27 (3.80-5.40) m/uL Hgb 15.7 (11.4-16.0) gm/dL Hct 47.3 H (34.0-46.0) % MCV 89.6 (80.0-100.0) fL MCH 29.8 (25.0-35.0) pg MCHC 33.2 (31.0-37.0) g/dL RDW 11.9 (11.5-15.5) % Plt Count 232 (150-450) k/uL Neutrophils % 86 % Lymphocytes % 9 % Monocytes % 3 % Eosinophils % 1 % Basophils % 0 % Neutrophils # 19.6 H (1.3-7.7) k/uL Lymphocytes # 2.0 (1.0-4.8) k/uL Monocytes # 0.8 (0-1.0) k/uL Eosinophils # 0.3 (0-0.7) k/uL Basophils # 0.1 (0-0.2) k/uL PT 9.4 (9.0-12.0) sec INR 0.9 (<1.2) APTT 28.0 (22.0-30.0) sec Sodium (137-145) mmol/L Potassium (3.5-5.1) mmol/L Chloride (98-107) mmol/L Carbon Dioxide (22-30) mmol/L Anion Gap mmol/L BUN (7-17) mg/dL Creatinine (0.52-1.04) mg/dL Est GFR (CKD-EPI)AfAm (>60 ml/min/1.73 sqM) Est GFR (CKD-EPI)NonAf (>60 ml/min/1.73 sqM) Glucose (74-99) mg/dL Lactic Ac Sepsis Rflx Plasma Lactic Acid [place] (0.7-2.0) mmol/L Calcium (8.4-10.2) mg/dL Total Bilirubin (0.2-1.3) mg/dL AST (14-36) U/L ALT (4-34) U/L Alkaline Phosphatase (38-126) U/L Total Protein (6.3-8.2) g/dL Albumin (3.5-5.0) g/dL Amylase (30-110) U/L Lipase (23-300) U/L Urine Color Yellow Urine Appearance Cloudy H (Clear) Urine pH 6.5 (5.0-8.0) Ur Specific [place] 1.041 H (1.001-1.035) Urine Protein Negative (Negative) Urine Glucose (UA) Negative (Negative) Urine Ketones Negative (Negative) Urine Blood Negative (Negative) Urine Nitrite Negative (Negative) Urine Bilirubin Negative (Negative) Urine Urobilinogen <2.0 (<2.0) mg/dL Ur Leukocyte Esterase Negative (Negative) Urine RBC 1 (0-5) /hpf Urine WBC 3 (0-5) /hpf Ur Squamous Epith Cells 11 H (0-4) /hpf 04/07/20 04/07/20 04/07/20 Range/Units 11:44 11:44 12:22 WBC (3.8-10.6) k/uL RBC (3.80-5.40) m/uL Hgb (11.4-16.0) gm/dL Hct (34.0-46.0) % MCV (80.0-100.0) fL MCH (25.0-35.0) pg MCHC (31.0-37.0) g/dL RDW (11.5-15.5) % Plt Count (150-450) k/uL Neutrophils % % Lymphocytes % % Monocytes % % Eosinophils % % Basophils % % Neutrophils # (1.3-7.7) k/uL Lymphocytes # (1.0-4.8) k/uL Monocytes # (0-1.0) k/uL Eosinophils # (0-0.7) k/uL Basophils # (0-0.2) k/uL PT (9.0-12.0) sec INR (<1.2) APTT (22.0-30.0) sec Sodium 131 L (137-145) mmol/L Potassium 4.7 (3.5-5.1) mmol/L Chloride 102 (98-107) mmol/L Carbon Dioxide 15 L (22-30) mmol/L Anion Gap 14 mmol/L BUN 9 (7-17) mg/dL Creatinine 0.97 (0.52-1.04) mg/dL Est GFR (CKD-EPI)AfAm 84 (>60 ml/min/1.73 sqM) Est GFR (CKD-EPI)NonAf 73 (>60 ml/min/1.73 sqM) Glucose 130 H (74-99) mg/dL Lactic Ac Sepsis Rflx Y Plasma Lactic Acid [place] 3.3 H* (0.7-2.0) mmol/L Calcium 9.5 (8.4-10.2) mg/dL Total Bilirubin 1.0 (0.2-1.3) mg/dL AST 48 H (14-36) U/L ALT 36 H (4-34) U/L Alkaline Phosphatase 115 (38-126) U/L Total Protein 7.6 (6.3-8.2) g/dL Albumin 4.1 (3.5-5.0) g/dL Amylase 32 (30-110) U/L Lipase 39 (23-300) U/L Urine Color Urine Appearance (Clear) Urine pH (5.0-8.0) Ur Specific [place] (1.001-1.035) Urine Protein (Negative) Urine Glucose (UA) (Negative) Urine Ketones (Negative) Urine Blood (Negative) Urine Nitrite (Negative) Urine Bilirubin (Negative) Urine Urobilinogen (<2.0) mg/dL Ur Leukocyte Esterase (Negative) Urine RBC (0-5) /hpf Urine WBC (0-5) /hpf Ur Squamous Epith Cells (0-4) /hpf Disposition Decision Date: 04/07/20 Decision Time: 13:06 <Kaila Leon - Last Filed: 04/07/20 15:13> <May Henderson - Last Filed: 04/12/20 13:47> Clinical Impression: Acute appendicitis with appendiceal abscess, Leukocytosis, Lactic acidosis Disposition: ADMITTED IP TO THIS HOSP Condition: Stable
[2020-04-07 12:23] LABS: Potassium 4.7 mmol/L (3.5-5.1)
[2020-04-07] MEDS ORDERED: HYDROmorphone 0.5 MG/0.5 ML SYRINGE IVP STA (12:34)
--- NOTE | 2020-04-07 12:40 | CT ---
EXAMINATION TYPE: CT abdomen pelvis w con DATE OF EXAM: 04/07/2020 COMPARISON: Prior CT 08/10/2016 HISTORY: RLQ pain with nausea for [address] DLP: 1656.4 mGycm Automated exposure control for dose reduction was used. TECHNIQUE: Helical acquisition of images from the lung bases through the pelvis have been completed. CONTRAST: Performed without Oral Contrast and with IV Contrast, patient injected with 100 mL of Isovue 300. FINDINGS: LUNG BASES: No significant abnormality is appreciated. AORTA: No significant abnormality is appreciated. LIVER/GB: Patient is post cholecystectomy. Low attenuation within the liver likely due to hepatic kristina atosis, no evident mass PANCREAS: No significant abnormality is seen. SPLEEN: No significant abnormality is seen. ADRENALS: Right adrenal mass has grown and now measures approximately 2.7 cm in AP dimension compared to prior exam when it measured 1.6 cm, there is some associated low-attenuation. KIDNEYS: No significant abnormality is seen. REPRODUCTIVE ORGANS: Uterus is not seen, ovaries thought to be in place there are small BOWEL: There is inflammatory change in the periappendiceal location. The appendix shows abnormal thi ckening. Small extraluminal fluid collection is present adjacent to the appendix measuring 3 cm in AP dimension by 3.2 cm in transverse dimension on coronal image 60, there is some local inflammatory ch arnoldo at the terminal ileum level, local wall thickening. FREE AIR: No Free Air visible. ASCITES: None visible. PELVIC ADENOPATHY: None visualized. RETROPERITONEAL ADENOPATHY: No Retroperitoneal Adenopathy visible. URINARY BLADDER: No significant abnormality is seen. OSSEOUS STRUCTURES: No significant abnormality is seen. IMPRESSION: APPENDICITIS WITH FOCAL EXTRALUMINAL SMALL COLLECTION OF FLUID without clear wall to suggest abscess. Hepatic steatosis. Postop changes. Probable right adrenal adenoma.
[2020-04-07 12:48] LABS: INR 0.9 (<1.2); Prothrombin Time 9.4 sec (9.0-12.0)
[2020-04-07] MEDS ORDERED: metroNIDAZOLE-NS PMX 500 MG in SALINE 1 100ML.BAG IVPB STA (12:59)
[2020-04-07] MEDS ORDERED: LEVOFLOXACIN 500MG-D5W PMX 500 MG in DEXTROSE/WATER 1 100ML.BAG IVPB STA (13:01)
[2020-04-07] MEDS ORDERED: NALOXONE 0.4 MG/ML 1 ML VIAL IV PRN ×2 (13:03→17:33)
[2020-04-07] MEDS ORDERED: diphenhydrAMINE 50 MG/ML 1 ML VIAL IVP STA (13:14)
[2020-04-07 13:20] LABS: Appearance,Urine Cloudy (Clear); Bilirubin,Urine Negative (Negative); Blood,Urine Negative (Negative); Color,Urine Yellow; Glucose,Urine (UA) Negative (Negative); Ketones,Urine Negative (Negative); Leukocyte Esterase,Urine Negative (Negative); Nitrite,Urine Negative (Negative); PH, Urine 6.5 (5.0-8.0); Protein,Urine Negative (Negative); RBC,Urine 1 /hpf (0-5); Specific Gravity,Urine 1.041 (1.001-1.035); Squamous Epithelial Cell,Urine 11 /hpf (0-4); Urobilinogen,Urine <2.0 mg/dL (<2.0); WBC,Urine 3 /hpf (0-5)
--- NOTE | 2020-04-07 14:15 | P.GSHP ---
History of Present Illness H&P Date: 04/07/20 CHIEF COMPLAINT: Right lower quadrant abdominal pain HISTORY OF PRESENT ILLNESS: This is a 40-year-old female with a known history of hyperlipidemia, GERD, degenerative disc disease of the lumbar spine, chronic pancreatitis related to prior history of chronic alcohol use and history of depression. Patient presents to the emergency room with complaints of right lower quadrant abdominal pain for the last 4 days. Patient has had some nausea and vomiting. Patient has had very severe sharp right lower quadrant pain. She come to the ER right away because it was her birthday celebration. She also has a prior history of hysterectomy and cholecystectomy. She denies any fever or chills. Computed tomography scan has shown evidence of appendicitis with focal extraluminal small collection of fluid without clear wall to suggest abscess. PAST MEDICAL HISTORY: See list. PAST SURGICAL HISTORY: See list. MEDICATIONS: See list. ALLERGIES: See list. SOCIAL HISTORY: No illicit drug use. REVIEW OF SYSTEMS: CONSTITUTIONAL: Denies fever or chills. HEENT: Denies blurred vision, vision changes, or eye pain. Denies hemoptysis CARDIOVASCULAR: Denies chest pain or pressure. RESPIRATORY: No shortness of breath. GASTROINTESTINAL: See HPI for pertinent findings HEMATOLOGIC: Denies bleeding disorders. GENITOURINARY: Denies any blood in urine or increased urinary frequency. SKIN: Denies pruitis. Denies rash. PHYSICAL EXAM: VITAL SIGNS: Reviewed GENERAL: Well-developed in no acute distress. HEENT: No sclera icterus. Extraocular movements grossly intact. Moist buccal mucosa. Head is atraumatic, normocephalic. No nasal drainage. ABDOMEN: Soft. Tenderness in the right lower quadrant NEUROLOGIC: Alert and oriented. Cranial nerves II through XII grossly intact. LABORATORY DATA: WBC 23 lactic 3.3 AST 48 ALT 36 lipase 39 IMAGING: Computed tomography scan abdomen and pelvis shown evidence of appendicitis with focal extraluminal small collection of fluid without clear wall to suggest abscess. ASSESSMENT: 1. Acute appendicitis 2. Hyperlipidemia 3. GERD 4. History of chronic pancreatitis related to prior history of chronic alcohol use PLAN: -Patient scheduled for laparoscopic appendectomy today with Dr. Reddy -Keep patient nothing by mouth -Continue with IV antibiotics -Continue with IV pain medication as needed -Consult medicine for medical management Physician Public Address System Installer note has been reviewed by physician. Signing provider agrees with the documented findings, assessment, and plan of care. Past Medical History Past Medical History: GERD/Reflux Additional Past Medical History / Comment(s): Migraines, Pancreatic Deficiency, Lower lumbar disease, hypoglycemia. History of Any Multi-Drug Resistant Organisms: MRSA Date of last positivie culture/infection: 2013 MDRO Source:: hip Past Surgical History: Cholecystectomy, Hysterectomy, Tonsillectomy Additional Past Surgical History / Comment(s): (R) hand surgery, (L) hip from spider bite r/t MRSA Past Anesthesia/Blood Transfusion Reactions: No Reported Reaction Past Psychological History: Anxiety, Depression Smoking Status: Current every day smoker Past Alcohol Use History: None Reported Past Drug Use History: None Reported - Past Family History Father History Unknown: Yes Family Medical History: No Reported History (Father is 50 year old does not know much about him.) Mother Family Medical History: Cancer Additional Family Medical History / Comment(s): Mother at the age of 50 years from Cancer metastasis. Mother also had an aneurysm. Sister(s) Additional Family Medical History / Comment(s): Bipolar and Schizoprenia. Son(s) Family Medical History: No Reported History (one son no major medical problems.) Daughter(s) Family Medical History: No Reported History (2 daughters no major medical problems.) Medications and Allergies Home Medications Medication Instructions Recorded Confirmed Type No Known Home Medications 04/07/20 04/07/20 History Allergies Allergy/AdvReac Type Severity Reaction Status Date / Time cephalexin [From Keflex] Allergy Severe Swelling Verified 04/07/20 12:58 levofloxacin Allergy Rash/Hives Verified 04/07/20 12:58 Penicillins Allergy Swelling Verified 04/07/20 12:58 sulfamethoxazole Allergy Rash/Hives Verified 04/07/20 12:58 [From Bactrim] trimethoprim [From Bactrim] Allergy Rash/Hives Verified 04/07/20 12:58 Surgical - Exam Vital Signs Temp Pulse Resp BP Pulse Ox 98.1 F 121 H 16 110/74 98 04/07/20 11:11 04/07/20 11:11 04/07/20 11:11 04/07/20 11:11 04/07/20 11:11 Results - Labs 04/07/20 11:44 04/07/20 11:44 Abnormal Lab Results - Last 24 Hours (Table) 04/07/20 04/07/20 04/07/20 Range/Units 11:44 11:44 11:44 WBC 23.0 H (3.8-10.6) k/uL Hct 47.3 H (34.0-46.0) % Neutrophils # 19.6 H (1.3-7.7) k/uL Sodium 131 L (137-145) mmol/L Carbon Dioxide 15 L (22-30) mmol/L Glucose 130 H (74-99) mg/dL Plasma Lactic Acid Maykel (0.7-2.0) mmol/L AST 48 H (14-36) U/L ALT 36 H (4-34) U/L Urine Appearance Cloudy H (Clear) Ur Specific [place] 1.041 H (1.001-1.035) Ur Squamous Epith Cells 11 H (0-4) /hpf 04/07/20 Range/Units 11:44 WBC (3.8-10.6) k/uL Hct (34.0-46.0) % Neutrophils # (1.3-7.7) k/uL Sodium (137-145) mmol/L Carbon Dioxide (22-30) mmol/L Glucose (74-99) mg/dL Plasma Lactic Acid Maykel 3.3 H* (0.7-2.0) mmol/L AST (14-36) U/L ALT (4-34) U/L Urine Appearance (Clear) Ur Specific [place] (1.001-1.035) Ur Squamous Epith Cells (0-4) /hpf Diabetes panel 04/07/20 Range/Units 11:44 Sodium 131 L (137-145) mmol/L Potassium 4.7 (3.5-5.1) mmol/L Chloride 102 (98-107) mmol/L Carbon Dioxide 15 L (22-30) mmol/L BUN 9 (7-17) mg/dL Creatinine 0.97 (0.52-1.04) mg/dL Glucose 130 H (74-99) mg/dL Calcium 9.5 (8.4-10.2) mg/dL AST 48 H (14-36) U/L ALT 36 H (4-34) U/L Alkaline Phosphatase 115 (38-126) U/L Total Protein 7.6 (6.3-8.2) g/dL Albumin 4.1 (3.5-5.0) g/dL Calcium panel 04/07/20 Range/Units 11:44 Calcium 9.5 (8.4-10.2) mg/dL Albumin 4.1 (3.5-5.0) g/dL Pituitary panel 04/07/20 Range/Units 11:44 Sodium 131 L (137-145) mmol/L Potassium 4.7 (3.5-5.1) mmol/L Chloride 102 (98-107) mmol/L Carbon Dioxide 15 L (22-30) mmol/L BUN 9 (7-17) mg/dL Creatinine 0.97 (0.52-1.04) mg/dL Glucose 130 H (74-99) mg/dL Calcium 9.5 (8.4-10.2) mg/dL Adrenal panel 04/07/20 Range/Units 11:44 Sodium 131 L (137-145) mmol/L Potassium 4.7 (3.5-5.1) mmol/L Chloride 102 (98-107) mmol/L Carbon Dioxide 15 L (22-30) mmol/L BUN 9 (7-17) mg/dL Creatinine 0.97 (0.52-1.04) mg/dL Glucose 130 H (74-99) mg/dL Calcium 9.5 (8.4-10.2) mg/dL Total Bilirubin 1.0 (0.2-1.3) mg/dL AST 48 H (14-36) U/L ALT 36 H (4-34) U/L Alkaline Phosphatase 115 (38-126) U/L Total Protein 7.6 (6.3-8.2) g/dL Albumin 4.1 (3.5-5.0) g/dL
[2020-04-07] MEDS: SODIUM CHLORIDE 0.9% 1,000 ML IV SCH ×2 (15:09→19:18)
--- NOTE | 2020-04-07 16:14 | P.CONS ---
History of Present Illness - Reason for Consult Consult date: 04/07/20 Medical management Requesting physician: Jamie Reddy - Chief Complaint Appendicitis - History of Present Illness 40-year-old F with PMH of dyslipidemia, GERD, chronic pancreatitis, history of alcohol abuse presents to the ED for abdominal pain. Patient states that she was eating dinner on [place] night when she experienced sudden onset right lower quadrant abdominal pain. Pain was sharp and stabbing in nature and twisting. Pain was 10 out of 10 in severity. Pain was nonradiating. There are no alleviating or aggravating factors. Her pain was associated with nausea and chills. She also had an episode of loose stool. When her pain did not improve this prompted patient to come to the ED for evaluation. In the ED, she had a pulse of 121 and T-max of 99.3 Fahrenheit. CBC showed leukocytosis of 23. CMP showed sodium 131, bicarb of 15, glucose of 130. Lactic acid was 3.3. AST was 48, ALT 36. CT of the abdomen and pelvis showed appendicitis with focal extraluminal small collection of fluid with right adrenal adenoma. Review of Systems Pertinent positives and negatives as discussed in HPI, a complete review of systems was performed and all other systems are negative. Past Medical History Past Medical History: GERD/Reflux Additional Past Medical History / Comment(s): Migraines, Pancreatic Deficiency, Lower lumbar disease, hypoglycemia. History of Any Multi-Drug Resistant Organisms: MRSA Year Discovered:: 2013 MDRO Source:: hip Past Surgical History: Cholecystectomy, Hysterectomy, Tonsillectomy Additional Past Surgical History / Comment(s): (R) hand surgery, (L) hip from spider bite r/t MRSA Past Anesthesia/Blood Transfusion Reactions: No Reported Reaction Additional Past Anesthesia/Blood Transfusion Reaction / Comm: SEVERE CLAUSTERPHOBIA INCLUDING A MASK ON HER FACE. Past Psychological History: Anxiety, Depression Smoking Status: Current every day smoker Past Alcohol Use History: None Reported Past Drug Use History: None Reported - Past Family History Father History Unknown: Yes Family Medical History: No Reported History (Father is 50 year old does not know much about him.) Additional Family Medical History / Comment(s): Father is but pt does not know past medical history-they were not in much contact with each other. Mother Family Medical History: Cancer Additional Family Medical History / Comment(s): Mother at the age of 50 years from Cancer metastasis. Mother also had an aneurysm. Sister(s) Additional Family Medical History / Comment(s): Bipolar and Schizoprenia. Son(s) Family Medical History: No Reported History (one son no major medical problems.) Daughter(s) Family Medical History: No Reported History (2 daughters no major medical probl ems.) Medications and Allergies Home Medications Medication Instructions Recorded Confirmed Type No Known Home Medications 04/07/20 04/07/20 History Allergies Allergy/AdvReac Type Severity Reaction Status Date / Time cephalexin [From Keflex] Allergy Severe Swelling Verified 04/07/20 12:58 levofloxacin Allergy Rash/Hives Verified 04/07/20 12:58 Penicillins Allergy Swelling Verified 04/07/20 12:58 sulfamethoxazole Allergy Rash/Hives Verified 04/07/20 12:58 [From Bactrim] trimethoprim [From Bactrim] Allergy Rash/Hives Verified 04/07/20 12:58 Physical Exam Vitals: Vital Signs Temp Pulse Pulse Resp BP BP Pulse Ox 04/07/20 14:50 87 18 04/07/20 14:12 99.3 F 87 18 115/79 99 04/07/20 13:54 98.1 F 89 18 113/75 96 04/07/20 13:53 89 18 113/75 96 04/07/20 12:29 99 18 105/71 96 04/07/20 11:11 98.1 F 121 H 16 110/74 98 Intake and Output 04/07/20 04/07/20 04/07/20 06:59 14:59 22:59 Other: Voiding Method Toilet Weight 106.594 kg General: [non toxic], [no distress], [appears at stated age] Derm: [warm], [dry] Head: [atraumatic], [normocephalic], [symmetric] Eyes: [EOMI], [no lid lag], [anicteric sclera] Mouth: [no lip lesion], [mucus membranes moist] Cardiovascular: [S1S2 reg], [no murmur], [positive DP pulse bilateral], Lungs: [CTA bilateral], [no rhonchi, no rales] , [no accessory muscle use] Abdominal: [soft], [right lower quadrant tenderness to palpation without rebound], [no guarding], [no appreciable organomegaly] Ext: [no gross muscle atrophy], [no edema], [no contractures] Neuro: [ CN II-XI grossly intact], [no focal neuro deficits] Psych: [Alert], [oriented], [appropriate affect] Results CBC & Chem 7: 04/07/20 11:44 04/07/20 11:44 Labs: Abnormal Lab Results - Last 24 Hours (Table) 04/07/20 04/07/20 04/07/20 Range/Units 11:44 11:44 11:44 WBC 23.0 H (3.8-10.6) k/uL Hct 47.3 H (34.0-46.0) % Neutrophils # 19.6 H (1.3-7.7) k/uL Sodium 131 L (137-145) mmol/L Carbon Dioxide 15 L (22-30) mmol/L Glucose 130 H (74-99) mg/dL Plasma Lactic Acid Maykel (0.7-2.0) mmol/L AST 48 H (14-36) U/L ALT 36 H (4-34) U/L Urine Appearance Cloudy H (Clear) Ur Specific [place] 1.041 H (1.001-1.035) Ur Squamous Epith Cells 11 H (0-4) /hpf 04/07/20 Range/Units 11:44 WBC (3.8-10.6) k/uL Hct (34.0-46.0) % Neutrophils # (1.3-7.7) k/uL Sodium (137-145) mmol/L Carbon Dioxide (22-30) mmol/L Glucose (74-99) mg/dL Plasma Lactic Acid Maykel 3.3 H* (0.7-2.0) mmol/L AST (14-36) U/L ALT (4-34) U/L Urine Appearance (Clear) Ur Specific [place] (1.001-1.035) Ur Squamous Epith Cells (0-4) /hpf Assessment and Plan Assessment: Sepsis related to acute appendicitis Lactic acidosis Transaminitis Adrenal adenoma GERD Chronic pancreatitis with history of alcohol abuse Smoker Morbid obesity with BMI 40.3 Patient meets sepsis criteria (tachycardia, leukocytosis positive source of infection). Plans: Continue Levaquin and Flagyl. Continue normal saline at 100 mL per hour. General surgery plans for appendectomy today. Patient is nothing by mouth. Follow blood culture. Plans: IV hydration as above. Repeat until negative. AST 48, ALT 36. Patient is postcholecystectomy. Plans: Continue to monitor. Incidental finding on CT. Plans: Follow-up with PCP. Plans: Continue Protonix. Plans: Continue to monitor. Plans: Patient offered nicotine patch. Plans: Patient would benefit from a structured loss program. [Patient admitted for acute appendicitis. Plans for appendectomy today. She is nothing by mouth.] Thank you for this consult. We will continue to follow the patient through their clinical course. Please do not hesitate to Contact sound physicians for further questions or concerns.
[2020-04-07] MEDS ORDERED: HEPARIN SODIUM,PORCINE 5,000 UNIT/ML 1 ML VIAL ONE (16:18)
[2020-04-07] MEDS ORDERED: LACTATED RINGERS 1,000 ML IV ONE ×4 (16:18→17:33)
[2020-04-07] MEDS ORDERED: fentaNYL (PF) 50 MCG/ML 2 ML AMP ONE (16:23)
[2020-04-07] MEDS ORDERED: SUCCINYLCHOLINE CHLORIDE 100 MG/5 ML SYR IV ONE (16:23)
[2020-04-07] MEDS ORDERED: GLYCOPYRROLATE 0.2 MG/ML 2 ML VIAL ONE (16:23)
[2020-04-07] MEDS ORDERED: KETOROLAC 15 MG/ML 1 ML VIAL ONE (16:23)
[2020-04-07] MEDS ORDERED: KETAMINE 10 MG/ML 20 ML VIAL ONE (16:23)
[2020-04-07] MEDS ORDERED: PROPOFOL 10 MG/ML 20 ML VIAL IV ONE (16:23)
[2020-04-07] MEDS ORDERED: ROCURONIUM 10 MG/ML (5 ML VIAL) IV ONE (16:23)
[2020-04-07] MEDS ORDERED: LIDOCAINE 1% INJ 10MG/ML (20 ML MDV) ONE (16:23)
[2020-04-07] MEDS ORDERED: HYDROmorphone (PF) 1 MG/ML ONE (16:23)
[2020-04-07] MEDS ORDERED: MIDAZOLAM 2 MG/2 ML VIAL ONE (16:23)
[2020-04-07] MEDS ORDERED: NEOSTIGMINE 1 MG/ML 10 ML VIAL ONE (16:23)
--- NOTE | 2020-04-07 17:33 | P.OP ---
Date of Procedure: 04/07/20 Preoperative Diagnosis: Acute appendicitis Postoperative Diagnosis: Acute ruptured appendicitis with abscess Procedure(s) Performed: Diagnostic laparoscopy Appendectomy Small bowel resection Anesthesia: YOANA Surgeon: Jamie Reddy Estimated Blood Loss (ml): 50 Pathology: other (Appendix) Condition: stable Disposition: PACU Description of Procedure: The patient's placed on the operating table in the supine position. The patient received general anesthesia. The abdomen was prepped and draped in the usual sterile fashion. The skin was anesthetized 1% local Xylocaine at the trocar sites. Using an 11 blade the skin was incised at the umbilicus. The umbilicus was grasped with a Hilham clamp and then a Veress needle was placed into the peritoneal cavity. Position of the Veress needle was confirmed with positive drop test. After adequate insufflation a 5 mm trocar was placed into the peritoneal cavity. The abdomen was further insufflated. And then the laparoscope was placed in the peritoneal cavity. Next a 5 mm trocar was placed in the midline suprapubic position. And then a 10 mm trocar was placed in the midline epigastric position. The patient was rotated with the right side up and in Trendelenburg. The appendix was visualized. The appendix appeared to be inflamed. There was dense inflammatory reaction around the appendix and terminal ileum. With gentle traction dissection and abscess cavity is entered. The appendix was grossly inflamed and was unable to be dissected off of the cecum. At this point the procedure was converted to a open procedure. The trochars withdrawn. The skin was incised in midline. Then using cautery and subcutaneous tissue divided. The fascia was then opened midline. The Bookwalter tract with wound. The cecum was mobilized from the wound. There appeared to be significantly inflamed or changes terminal ileum. The terminal ileum had been adherent to the appendix. There was dense scarring of the terminal ileum. At this point decided to perform a small bowel resection. The terminal ileum was then transected proximal and distally to the inflamed area and then using the Enseal device the mesentery the bowel was divided. The specimens of pathology. The appendix was then dissected off the cecum and then the appendiceal stump was ligated with a Endoloop. Specimens of pathology. A [id number] and then stabilized was then created between the terminal ileum and the cecum. Using the CHANTALE and TA stapler. 3-0 GI silk sutures used to use as a crotch stitch. The abdomen was areas of bleeding seen. A drain was placed in the right lower quadrant and brought through separate stab incision the fascia is closed loop #1 PDS suture. Skin was closed lilian. Telfa nico were placed in the wound. Patient top she will was sent to recovery room stable condition.
[2020-04-07] MEDS ORDERED: MEPERIDINE 50 MG/ML SYRINGE IVP ONE (17:45)
[2020-04-07] MEDS ORDERED: HYDROmorphone 1 MG/ML 1 ML SYRINGE IVP ONE ×2 (17:50→17:55)
[2020-04-07] MEDS ORDERED: MIDAZOLAM 2 MG/2 ML VIAL IVP ONE (18:00)
[2020-04-07] MEDS: KETOROLAC 15 MG/ML 1 ML VIAL IVP SCH ×2 (19:02→23:04)
[2020-04-07] MEDS: METOCLOPRAMIDE 5 MG/ML 2 ML VIAL IVP PRN (19:08)
[2020-04-07] MEDS: metroNIDAZOLE-NS PMX 500 MG in SALINE 1 100ML.BAG IVPB SCH (19:59)
[2020-04-07] MEDS: HYDROmorphone 1 MG/ML 1 ML SYRINGE IVP PRN (21:00)
[2020-04-07] MEDS: ONDANSETRON 4 MG/2 ML VIAL IVP PRN (23:08)
[2020-04-08] MEDS: HYDROmorphone 1 MG/ML 1 ML SYRINGE IVP PRN ×4 (03:39→19:58)
[2020-04-08] MEDS: KETOROLAC 15 MG/ML 1 ML VIAL IVP SCH ×4 (05:14→23:10)
[2020-04-08] MEDS: metroNIDAZOLE-NS PMX 500 MG in SALINE 1 100ML.BAG IVPB SCH ×4 (05:14→23:36)
[2020-04-08 05:17] LABS: Basophils # (A) 0.1 k/uL (0-0.2); Basophils % (A) 0 %; Eosinophils # (A) 0.1 k/uL (0-0.7); Eosinophils % (A) 0 %; HCT 41.3 % (34.0-46.0); HGB 13.1 gm/dL (11.4-16.0); Lymphocytes # (A) 1.7 k/uL (1.0-4.8); Lymphocytes % (A) 9 %; MCHC 31.8 g/dL (31.0-37.0); MCV 91.3 fL (80.0-100.0); Mean Platelet Volume 8.2; Monocytes # (A) 0.8 k/uL (0-1.0); Monocytes % (A) 4 %; Neutrophils # (A) 16.9 k/uL (1.3-7.7); Neutrophils % (A) 86 %; Platelet Count 210 k/uL (150-450); RBC 4.52 m/uL (3.80-5.40); WBC 19.8 k/uL (3.8-10.6)
[2020-04-08] MEDS: PANTOPRAZOLE 40 MG/10 ML VIAL IVP SCH (07:58)
[2020-04-08] MEDS: ENOXAPARIN 40 MG/0.4 ML SYRINGE SQ SCH (07:58)
[2020-04-08 09:55] LABS: African American GFR (CKD) 80.5 (60.0-200.0); Albumin 3.3 g/dL (3.80-4.90); Albumin/Globulin Ratio 1.83 (1.60-3.17); Anion Gap 11.8 mmol/L (4.00-12.00); Calcium 7.8 mg/dL (8.7-10.3); Carbon Dioxide 18.2 mmol/L (21.6-31.8); Globulin 1.8 g/dL (1.6-3.3); Non-African American GFR(CKD) 69.4 (60.0-200.0); Potassium 4.2 mmol/L (3.5-5.5); Total Protein 5.1 g/dL (6.2-8.2)
[2020-04-08] MEDS: ACETAMINOPHEN IV (For NPO) 1,000 MG in EMPTY BAG 1 BAG IVPB SCH ×2 (10:40→18:26)
--- NOTE | 2020-04-08 10:42 | CDI ---
Documentation Clarification Form Date: 04/08/2020 CDS: Chacha Mcgee RN, CCDS Admit Date: 04/07/2020 Patient Name: Lia Gates ATTENTION: The Clinical Documentation Specialists (CDI) and [facility] Coding Staff appreciate your assistance in clarifying documentation. Please respond to the clarification below the line at the bottom and electronically sign. The CDI & [facility] Coding staff will review the response and follow-up if needed. Please note: Queries are made part of the Legal Health Record. If you have any questions, please contact the author of this message via ITS. Dr. Reddy The diagnosis of Sepsis was documented in the medical consult 04/07/2020 History/Risk Factors: 40-year-old female presents to the ED with severe right lower quadrant pain that started three days prior. Medical History: Gerd and Pancreatic Deficiency Clinical Indicators: 04/07 Medical Consult Sepsis related to acute appendicitis Patient meets sepsis criteria (tachycardia, leukocytosis positive source of infection). 04/07 VSS: B/P: 110/74; HR: 121; Temp: 98.1 F; RR: 16; SpO2 98% room air 04/07 Labs: Wbc 23.0; Lactic acidosis 3.3; 04/07 Postoperative diagnosis: Acute ruptured appendicitis with abscess. Procedure: Diagnostic laparoscopy Appendectomy, small bowel resection Treatment: 04/07 - 0.9ns 2L bolus followed by 125cc/hr; Metronidazole IVPB, Levofloxacin IVPB, Please clarify if the Sepsis was: Present/active this admission POA Treated and resolved this admission POA Ruled out Other, please specify Clinically unable to determine (Last Query Form Revision: March 2019) Sepsis present on admission MTDD
[2020-04-08] MEDS: AZTREONAM 2 GM in SODIUM CHLORIDE 0.9% 100 ML IVPB SCH ×2 (12:16→20:30)
[2020-04-08] MEDS ORDERED: LEVOFLOXACIN 500MG-D5W PMX 500 MG in DEXTROSE/WATER 1 100ML.BAG IVPB SCH (13:00)
[2020-04-08] MEDS: SODIUM CHLORIDE 0.9% 1,000 ML IV SCH ×2 (14:16→18:26)
--- NOTE | 2020-04-08 14:50 | P.PN ---
Subjective Progress Note Date: 04/08/20 Patient was seen and examined. No acute events overnight. Underwent open appendectomy yesterday. Patient complains of some nausea. She complains of abdominal pain, generalized, 10 out of 10 in severity. Objective - Vital Signs Vital signs: Vital Signs Temp 98.6 F 04/08/20 11:40 Pulse 98 04/08/20 11:40 Resp 18 04/08/20 11:40 BP 108/67 04/08/20 11:40 Pulse Ox 96 04/08/20 11:40 Intake & Output 04/07/20 04/08/20 04/08/20 18:59 06:59 18:59 Intake Total 1000 1150 Output Total 50 50 Balance 950 1100 Weight 106.594 kg Intake: IV 1000 Intake, IV Titration 1150 Amount Sodium Chloride 0.9% 1, 1150 000 ml @ 125 mls/hr IV . Q8H [facility] Rx#:[id number] Output: Drainage 50 Right Abdomen 50 Estimated Blood Loss 50 Other: Voiding Method Toilet Toilet # Voids 1 1 - Exam General: [non toxic], [no distress], [appears at stated age] Derm: [warm], [dry] Head: [atraumatic], [normocephalic], [symmetric] Eyes: [EOMI], [no lid lag], [anicteric sclera] Mouth: [no lip lesion], [mucus membranes moist] Cardiovascular: [S1S2 reg], [tachycardic], [positive DP pulse bilateral], Lungs: [CTA bilateral], [no rhonchi, no rales] , [no accessory muscle use] Abdominal: [soft], [generalized tenderness without rebound, midline dressing clean dry and intact], [no guarding], [no appreciable organomegaly] Ext: [no gross muscle atrophy], [no edema], [no contractures] Neuro: [no focal neuro deficits] Psych: [Alert], [oriented], [appropriate affect] - Labs CBC & Chem 7: 04/08/20 04:17 04/08/20 04:17 Labs: Abnormal Lab Results - Last 24 Hours (Table) 04/08/20 04/08/20 Range/Units 04:17 04:17 WBC 19.8 H (3.8-10.6) k/uL Neutrophils # 16.9 H (1.3-7.7) k/uL Sodium 134 L (135-145) mmol/L Carbon Dioxide 18.2 L (21.6-31.8) mmol/L BUN/Creatinine Ratio 9.00 L (12.00-20.00) Ratio Calcium 7.8 L (8.7-10.3) mg/dL AST 37 H (13-35) U/L Total Protein 5.1 L (6.2-8.2) g/dL Albumin 3.30 L (3.80-4.90) g/dL Assessment and Plan Assessment: Sepsis related to acute appendicitis Transaminitis Adrenal adenoma GERD Chronic pancreatitis with history of alcohol abuse Smoker Morbid obesity with BMI 40.3 Resolved: Lactic acidosis Patient meets sepsis criteria (tachycardia, leukocytosis positive source of infection). POD 1 appendectomy. Plans: Levaquin discontinued and patient started on aztreonam and Flagyl continued. Continue normal saline at 125 mL per hour. Patient is nothing by mouth. Follow blood culture. General surgery on board. Needs better pain control. AST 48, ALT 36. Patient is postcholecystectomy. Plans: Continue to monitor. Incidental finding on CT. Plans: Follow-up with PCP. Plans: Continue Protonix. Plans: Continue to monitor. Plans: Patient offered nicotine patch. Plans: Patient would benefit from a structured loss program. [Patient admitted for acute appendicitis. POD 1 appendectomy. She is nothing by mouth. Continues to have uncontrolled pain. ID on board for antibiotics. She is pending clinical improvement.] Thank you for this consult. We will continue to follow the patient through their clinical course. Please do not hesitate to Contact sound physicians for further questions or concerns.
--- NOTE | 2020-04-08 15:13 | P.PN ---
Subjective Progress Note Date: 04/08/20 CHIEF COMPLAINT: Abdominal pain HISTORY OF PRESENT ILLNESS: Patient is being followed for an acute ruptured appendicitis with abscess. She is status post diagnostic laparoscopy with appendectomy and small bowel resection. Patient is reporting pain this morning. She is rating it 7 out of 10. She is receiving the Toradol and Dilaudid. IV, will be added. She is currently nothing by mouth. She is passing gas. She did have a temp of 100.3 this a.m. She is down to 98.6. She's also having some ta chycardia. White count 19.8 PHYSICAL EXAM: VITAL SIGNS: Reviewed. GENERAL: Well-developed in no acute distress. HEENT: No sclera icterus. Extraocular movements grossly intact. Moist buccal mucosa. Head is atraumatic, normocephalic. ABDOMEN: Soft. Mildly distended. Dressing with blood saturation noted at the top with dressing NEUROLOGIC: Alert and oriented. Cranial nerves II through XII grossly intact. ASSESSMENT: 1. Acute ruptured appendicitis with abscess status post diagnostic laparoscopy with appendectomy and small bowel resection. Postop day #1 PLAN: -Keep patient nothing by mouth -IV Tylenol added for pain control -Continue IV Dilaudid and Toradol -Continue IV antibiotics -Incentive spirometer ordered -Increase IV fluids to normal saline at 125 per hour -DVT prophylaxis Lovenox and GI prophylaxis Protonix Physician Manager Project note has been reviewed by physician. Signing provider agrees with the documented findings, assessment, and plan of care. Objective - Vital Signs Vital signs: Vital Signs Temp 98.6 F 04/08/20 11:40 Pulse 98 04/08/20 11:40 Resp 18 04/08/20 11:40 BP 108/67 04/08/20 11:40 Pulse Ox 96 04/08/20 11:40 Intake & Output 04/07/20 04/08/20 04/08/20 18:59 06:59 18:59 Intake Total 1000 1150 Output Total 50 50 Balance 950 1100 Weight 106.594 kg Intake: IV 1000 Intake, IV Titration 1150 Amount Sodium Chloride 0.9% 1, 1150 000 ml @ 125 mls/hr IV . Q8H [facility] Rx#:[id number] Output: Drainage 50 Right Abdomen 50 Estimated Blood Loss 50 Other: Voiding Method Toilet Toilet # Voids 1 1 - Labs CBC & Chem 7: 04/08/20 04:17 04/08/20 04:17 Labs: Abnormal Lab Results - Last 24 Hours (Table) 04/08/20 04/08/20 Range/Units 04:17 04:17 WBC 19.8 H (3.8-10.6) k/uL Neutrophils # 16.9 H (1.3-7.7) k/uL Sodium 134 L (135-145) mmol/L Carbon Dioxide 18.2 L (21.6-31.8) mmol/L BUN/Creatinine Ratio 9.00 L (12.00-20.00) Ratio Calcium 7.8 L (8.7-10.3) mg/dL AST 37 H (13-35) U/L Total Protein 5.1 L (6.2-8.2) g/dL Albumin 3.30 L (3.80-4.90) g/dL
[2020-04-08] MEDS: ONDANSETRON 4 MG/2 ML VIAL IVP PRN (17:16)
[2020-04-08] MEDS: METOCLOPRAMIDE 5 MG/ML 2 ML VIAL IVP PRN (20:30)
--- NOTE | 2020-04-08 22:34 | P.CONS ---
History of Present Illness - Reason for Consult Consult date: 04/08/20 Sepsis and perforated appendicitis Requesting physician: Jamie Reddy - Chief Complaint Abdominal pain x 3 days - History of Present Illness Patient is a 40 year female presenting to the ER at [facility] yesterday morning with chief complaints of right lower quadrant abdominal pain that has been going on for 3 days before she presented to hospital patient describes the pain has gradually increased in severity to be almost 10 out of 10 pain is sharp in nature and worse with movement of the body patient did have a nausea and vomiting along with it and a fever and chills with these symptoms the patient was evaluated by the ER physician on arrival to the ER, the patient did have a low ejection 100.3 patient did have a white count of 23,000, patient did have CT of abdominal pelvis with evidence of appendicitis with focal extraluminal small collection of fluid, patient was taken to the OR and the patient is status post laparotomy with evidence of extensive appendicitis perforated and abscess, patient did have a appendectomy and small bowel resection, because of her multiple antibiotic ALLERGIES she has been started on Levaquin and Flagyl infectious disease was consulted for further management of antibiotic therapy Review of Systems Positive point has been mentioned in the HPI rest of the systems are negative Past Medical History Past Medical History: GERD/Reflux Additional Past Medical History / Comment(s): Migraines, Pancreatic Deficiency, Lower lumbar disease, hypoglycemia. History of Any Multi-Drug Resistant Organisms: MRSA Year Discovered:: 2013 MDRO Source:: hip Past Surgical History: Cholecystectomy, Hysterectomy, Tonsillectomy Additional Past Surgical History / Comment(s): (R) hand surgery, (L) hip from spider bite r/t MRSA Past Anesthesia/Blood Transfusion Reactions: No Reported Reaction Additional Past Anesthesia/Blood Transfusion Reaction / Comm: SEVERE CLAUSTERPHOBIA INCLUDING A MASK ON HER FACE. Past Psychological History: Anxiety, Depression Smoking Status: Current every day smoker Past Alcohol Use History: None Reported Past Drug Use History: None Reported - Past Family History Father History Unknown: Yes Family Medical History: No Reported History (Father is 50 year old does not know much about him.) Additional Family Medical History / Comment(s): Father is but pt does not know past medical history-they were not in much contact with each other. Mother Family Medical History: Cancer Additional Family Medical History / Comment(s): Mother at the age of 50 years from Cancer metastasis. Mother also had an aneurysm. Sister(s) Additional Family Medical History / Comment(s): Bipolar and Schizoprenia. Son(s) Family Medical History: No Reported History (one son no major medical problems.) Daughter(s) Family Medical History: No Reported History (2 daughters no major medical problems.) Medications and Allergies Home Medications Medication Instructions Recorded Confirmed Type No Known Home Medications 04/07/20 04/07/20 History Allergies Allergy/AdvReac Type Severity Reaction Status Date / Time cephalexin [From Keflex] Allergy Severe Swelling Verified 04/07/20 12:58 levofloxacin Allergy Rash/Hives Verified 04/07/20 12:58 Penicillins Allergy Swelling Verified 04/07/20 12:58 sulfamethoxazole Allergy Rash/Hives Verified 04/07/20 12:58 [From Bactrim] trimethoprim [From Bactrim] Allergy Rash/Hives Verified 04/07/20 12:58 Physical Exam Vitals: Vital Signs Temp Pulse Pulse Resp BP BP Pulse Ox 04/08/20 11:40 98.6 F 98 18 108/67 96 04/08/20 09:11 98.6 F 104 H 20 109/70 95 04/08/20 08:14 99.5 F 04/08/20 04:00 100.3 F H 121 H 18 116/78 94 L 04/08/20 03:45 110 H 119/77 95 04/08/20 02:45 106 H 110/70 95 04/08/20 01:45 110 H 107/65 95 04/08/20 01:15 110 H 108/74 94 L 04/08/20 01:00 109 H 112/77 94 L 04/08/20 00:30 106 H 113/76 95 04/08/20 00:00 107 H 111/76 94 L 04/07/20 23:30 104 H 112/78 96 04/07/20 22:45 98 109/74 99 04/07/20 22:15 104 H 106/72 98 04/07/20 21:45 104 H 123/84 98 04/07/20 21:15 102 H 107/71 98 04/07/20 19:51 96 102/70 95 04/07/20 19:35 94 104/69 97 04/07/20 19:21 95 110/74 98 04/07/20 19:05 90 100/71 97 04/07/20 18:50 98.1 F 95 20 120/82 95 04/07/20 18:15 120 H 18 125/60 100 04/07/20 18:00 108 H 16 132/66 92 L 04/07/20 17:45 104 H 22 113/72 100 04/07/20 17:37 98.5 F 107 H 18 125/74 94 L 04/07/20 16:15 98.6 F 94 16 110/65 98 04/07/20 14:50 87 18 04/07/20 14:12 99.3 F 87 18 115/79 99 04/07/20 13:54 98.1 F 89 18 113/75 96 04/07/20 13:53 89 18 113/75 96 04/07/20 13:00 99.3 F 87 18 115/79 99 Intake and Output 04/07/20 04/08/20 04/08/20 22:59 06:59 14:59 Intake Total 1350 800 Output Total 100 Balance 1250 800 Intake: IV 1000 Intake, IV Titration 350 800 Amount Sodium Chloride 0.9% 1, 350 800 000 ml @ 100 mls/hr IV . Q10H [facility] Rx#:[id number] Output: Drainage 50 Right Abdomen 50 Estimated Blood Loss 50 Other: Voiding Method Toilet # Voids 1 1 GENERAL DESCRIPTION: Middle-aged female lying in bed, no distress. No tachypnea or accessory muscle of respiration use. HEENT: Shows Pallor , no scleral icterus. Oral mucous membrane is dry. No pharyngeal erythema or thrush NECK: Trachea central, no thyromegaly. LUNGS: Unlabored breathing. Clear to auscultation anteriorly. No wheeze or crackle. HEART: S1, S2, regular rate and rhythm. No loud murmur ABDOMEN: Soft, right lower quadrant tenderness , mild guarding EXTREMITIES: No edema of feet. SKIN: No rash, no masses palpable. NEUROLOGICAL: The patient is awake, alert, oriented x3, mood and affect normal. Results CBC & Chem 7: 04/08/20 04:17 04/08/20 04:17 Labs: Abnormal Lab Results - Last 24 Hours (Table) 04/07/20 04/08/20 04/08/20 Range/Units 11:44 04:17 04:17 WBC 19.8 H (3.8-10.6) k/uL Neutrophils # 16.9 H (1.3-7.7) k/uL Sodium 134 L (135-145) mmol/L Carbon Dioxide 18.2 L (21.6-31.8) mmol/L BUN/Creatinine Ratio 9.00 L (12.00-20.00) Ratio Calcium 7.8 L (8.7-10.3) mg/dL AST 37 H (13-35) U/L Total Protein 5.1 L (6.2-8.2) g/dL Albumin 3.30 L (3.80-4.90) g/dL Urine Appearance Cloudy H (Clear) Ur Specific [place] 1.041 H (1.001-1.035) Ur Squamous Epith Cells 11 H (0-4) /hpf Assessment and Plan Assessment: 1- patient presented to hospital with sepsis in this patient who did have a fever tachycardia and elevated white count source is perforated appendicitis with intra-abdominal abscess requiring extensive open surgery status post appendectomy and small bowel dissection 2-Patient with multiple antibiotic ALLERGIES that would limit the number of antibiotic safe to use (1) Sepsis Current Visit: Yes Status: Acute Code(s): A41.9 - SEPSIS, UNSPECIFIED ORGANISM SNOMED Code(s): 28548812 (2) Allergy to multiple antibiotics Current Visit: Yes Status: Acute Code(s): Z88.1 - ALLERGY STATUS TO OTHER ANTIBIOTIC AGENTS STATUS SNOMED Code(s): 651920539 (3) Acute appendicitis with appendiceal abscess Current Visit: Yes Status: Acute Code(s): K35.33 - ACUTE APPENDICITIS WITH PERF AND LOC PERITONITIS, WITH ABSCS SNOMED Code(s): 314493148 Plan: 1-discontinue Levaquin 2- Azactam 2 g every 8 hours 3-Flagyl 500 IV every 8 hours We will follow on clinical condition and cultures to further adjust medication if needed Thank you for this consultation will follow this patient with you Time with Patient: Greater than 30
[2020-04-09] MEDS: ACETAMINOPHEN IV (For NPO) 1,000 MG in EMPTY BAG 1 BAG IVPB SCH ×2 (00:42→07:17)
[2020-04-09] MEDS: SODIUM CHLORIDE 0.9% 1,000 ML IV SCH ×3 (00:42→19:00)
[2020-04-09] MEDS: HYDROmorphone 1 MG/ML 1 ML SYRINGE IVP PRN ×2 (01:48→17:13)
[2020-04-09] MEDS: AZTREONAM 2 GM in SODIUM CHLORIDE 0.9% 100 ML IVPB SCH ×3 (03:34→20:22)
[2020-04-09] MEDS: KETOROLAC 15 MG/ML 1 ML VIAL IVP SCH ×2 (05:29→12:09)
[2020-04-09] MEDS: PANTOPRAZOLE 40 MG/10 ML VIAL IVP SCH (08:38)
[2020-04-09] MEDS: ENOXAPARIN 40 MG/0.4 ML SYRINGE SQ SCH (08:38)
[2020-04-09] MEDS: metroNIDAZOLE-NS PMX 500 MG in SALINE 1 100ML.BAG IVPB SCH ×3 (08:39→23:59)
[2020-04-09 09:17] LABS: Basophils # (A) 0.1 k/uL (0-0.2); Basophils % (A) 0 %; Eosinophils # (A) 0.1 k/uL (0-0.7); Eosinophils % (A) 1 %; HCT 36.6 % (34.0-46.0); HGB 11.4 gm/dL (11.4-16.0); Lymphocytes # (A) 1.9 k/uL (1.0-4.8); Lymphocytes % (A) 10 %; MCH 28.6 pg (25.0-35.0); MCHC 31.2 g/dL (31.0-37.0); MCV 91.9 fL (80.0-100.0); Mean Platelet Volume 8.1; Monocytes # (A) 0.7 k/uL (0-1.0); Monocytes % (A) 4 %; Neutrophils # (A) 16.2 k/uL (1.3-7.7); Neutrophils % (A) 84 %; Platelet Count 247 k/uL (150-450); RBC 3.98 m/uL (3.80-5.40); RDW 12.2 % (11.5-15.5); WBC 19.3 k/uL (3.8-10.6)
[2020-04-09 09:33] LABS: ALT 22 U/L (4-34); AST 37 U/L (14-36); African American GFR (CKD) >90 (>60 ml/min/1.73 sqM); Albumin 2.4 g/dL (3.5-5.0); Alkaline Phosphatase 95 U/L (38-126); Anion Gap 7 mmol/L; Blood Urea Nitrogen 11 mg/dL (7-17); Calcium 7.8 mg/dL (8.4-10.2); Carbon Dioxide 19 mmol/L (22-30); Chloride 110 mmol/L (98-107); Globulin 2.5 g/dL; Glucose 75 mg/dL (74-99); Non-African American GFR(CKD) >90 (>60 ml/min/1.73 sqM); Potassium 3.7 mmol/L (3.5-5.1); Sodium 136 mmol/L (137-145); Total Bilirubin 0.9 mg/dL (0.2-1.3); Total Protein 4.9 g/dL (6.3-8.2)
--- NOTE | 2020-04-09 14:26 | P.PN ---
Subjective Progress Note Date: 04/09/20 CHIEF COMPLAINT: Abdominal pain HISTORY OF PRESENT ILLNESS: Patient is being followed for an acute ruptured appendicitis with abscess. She is status post diagnostic laparoscopy with appendectomy and small bowel resection. Patient is still reporting abdominal pain radiating to 7 out of 10. But does report that it has decreased from yesterday. She is passing gas. No nausea or vomiting. She is hungry. She had a temp of 100.3 yesterday morning. She is now afebrile. WBC 19.3 PHYSICAL EXAM: VITAL SIGNS: Reviewed. GENERAL: Well-developed in no acute distress. HEENT: No sclera icterus. Extraocular movements grossly intact. Moist buccal mucosa. Head is atraumatic, normocephalic. ABDOMEN: Soft. Mildly distended. Dressing clean dry and intact NEUROLOGIC: Alert and oriented. Cranial nerves II through XII grossly intact. ASSESSMENT: 1. Acute ruptured appendicitis with abscess status post diagnostic laparoscopy with appendectomy and small bowel resection. Postop day #2 PLAN: -start clear liquid diet -Continue IV Dilaudid as needed for pain -Continue IV antibiotics -Encourage incentive spirometer use and to increase activity -Continue IV fluids -DVT prophylaxis Lovenox and GI prophylaxis Protonix Physician Shoemaking Cutter note has been reviewed by physician. Signing provider agrees with the documented findings, assessment, and plan of care. Objective - Vital Signs Vital signs: Vital Signs Temp 98.1 F 04/09/20 11:27 Pulse 82 04/09/20 11:27 Resp 16 04/09/20 11:27 BP 100/67 04/09/20 11:27 Pulse Ox 98 04/09/20 11:27 Intake & Output 04/08/20 04/09/20 04/09/20 18:59 06:59 18:59 Intake Total 1375 975 Output Total 40 120 30 Balance -40 1255 945 Intake: Intake, IV Titration 1375 975 Amount Lactated Ringers 1,000 ml 375 @ 125 mls/hr IV .Q8H [facility] Rx#:[id number] Sodium Chloride 0.9% 1, 1000 875 000 ml @ 125 mls/hr IV . Q8H [facility] Rx#:[id number] metroNIDAZOLE-NS PMX 500 100 mg In Saline 1 100ml.bag @ 100 mls/hr IVPB 1600, 0000,0800 [facility] Rx#: [id number] Output: Drainage 40 120 30 Right Abdomen 40 120 30 Other: Voiding Method Toilet Toilet Toilet # Voids 1 1 2 - Labs CBC & Chem 7: 04/09/20 08:48 04/09/20 08:48 Labs: Abnormal Lab Results - Last 24 Hours (Table) 04/09/20 04/09/20 Range/Units 08:48 08:48 WBC 19.3 H (3.8-10.6) k/uL Neutrophils # 16.2 H (1.3-7.7) k/uL Sodium 136 L (137-145) mmol/L Chloride 110 H (98-107) mmol/L Carbon Dioxide 19 L (22-30) mmol/L Calcium 7.8 L (8.4-10.2) mg/dL AST 37 H (14-36) U/L Total Protein 4.9 L (6.3-8.2) g/dL Albumin 2.4 L (3.5-5.0) g/dL Microbiology - Last 24 Hours (Table) 04/07/20 13:12 Blood Culture - Preliminary Blood No Growth after 24 hours
--- NOTE | 2020-04-09 16:13 | PN ---
PROGRESS NOTE DATE OF SERVICE: 04/09/2020 REASON FOR FOLLOWUP: Abdominal abscess from perforated appendicitis. INTERVAL HISTORY: The patient is currently afebrile. The patient's abdominal pain is slightly controlled. Denies having any chest pain, no shortness of breath, no cough. No nausea, vomiting or diarrhea. PHYSICAL EXAMINATION: Blood pressure 108/67, pulse of 82, temperature 98.1, she is 98% on room air. General description is a middle-aged female, lying in bed in no distress. RESPIRATORY SYSTEM: Unlabored breathing, clear to auscultation anteriorly. HEART: S1, S2. Regular rate and rhythm. ABDOMEN: Soft, mildly tender, no guarding or rigidity. LABS: Hemoglobin is 9.4, white count 19.3 with a BUN of 11, creatinine 0.74. Blood cultures have been negative. No OR cultures were done. DIAGNOSTIC IMPRESSION AND PLAN: Patient with abdominal abscess from perforated appendicitis, status post extensive surgery requiring appendectomy and partial small-bowel resection and drainage of the abscess. No cultures. The patient did have multiple antibiotic allergies currently covered with Azactam and Flagyl to continue. White count will be monitored closely. Continue supportive care. MMODL / IJN: [id number] /
--- NOTE | 2020-04-09 16:15 | P.PN ---
Subjective Progress Note Date: 04/09/20 Patient was seen and examined. No acute events overnight. POD 2 appendectomy. Patient complains of some nausea. She complains of abdominal pain, localized to the right lower quadrant, 6 out of 10 in severity with movement. Objective - Vital Signs Vital signs: Vital Signs Temp 98.1 F 04/09/20 11:27 Pulse 82 04/09/20 11:27 Resp 16 04/09/20 11:27 BP 100/67 04/09/20 11:27 Pulse Ox 98 04/09/20 11:27 Intake & Output 04/08/20 04/09/20 04/09/20 18:59 06:59 18:59 Intake Total 1375 975 Output Total 40 120 30 Balance -40 1255 945 Intake: Intake, IV Titration 1375 975 Amount Lactated Ringers 1,000 ml 375 @ 125 mls/hr IV .Q8H [facility] Rx#:[id number] Sodium Chloride 0.9% 1, 1000 875 000 ml @ 125 mls/hr IV . Q8H [facility] Rx#:[id number] metroNIDAZOLE-NS PMX 500 100 mg In Saline 1 100ml.bag @ 100 mls/hr IVPB 1600, 0000,0800 [facility] Rx#: [id number] Output: Drainage 40 120 30 Right Abdomen 40 120 30 Other: Voiding Method Toilet Toilet Toilet # Voids 1 1 2 - Exam General: [non toxic], [no distress], [appears at stated age] Derm: [warm], [dry] Head: [atraumatic], [normocephalic], [symmetric] Eyes: [EOMI], [no lid lag], [anicteric sclera] Mouth: [no lip lesion], [mucus membranes moist] Cardiovascular: [S1S2 reg], [tachycardic], [positive DP pulse bilateral], Lungs: [CTA bilateral], [no rhonchi, no rales] , [no accessory muscle use] Abdominal: [soft], [generalized tenderness without rebound, midline dressing clean dry and intact], [no guarding], [no appreciable organomegaly], TANA drain intact Ext: [no gross muscle atrophy], [no edema], [no contractures] Neuro: [no focal neuro deficits] Psych: [Alert], [oriented], [appropriate affect] - Labs CBC & Chem 7: 04/09/20 08:48 04/09/20 08:48 Labs: Abnormal Lab Results - Last 24 Hours (Table) 04/09/20 04/09/20 Range/Units 08:48 08:48 WBC 19.3 H (3.8-10.6) k/uL Neutrophils # 16.2 H (1.3-7.7) k/uL Sodium 136 L (137-145) mmol/L Chloride 110 H (98-107) mmol/L Carbon Dioxide 19 L (22-30) mmol/L Calcium 7.8 L (8.4-10.2) mg/dL AST 37 H (14-36) U/L Total Protein 4.9 L (6.3-8.2) g/dL Albumin 2.4 L (3.5-5.0) g/dL Microbiology - Last 24 Hours (Table) 04/07/20 13:12 Blood Culture - Preliminary Blood No Growth after 48 hours Assessment and Plan Assessment: Sepsis related to acute appendicitis Transaminitis Adrenal adenoma GERD Chronic pancreatitis with history of alcohol abuse Smoker Morbid obesity with BMI 40.3 Resolved: Lactic acidosis Patient meets sepsis criteria (tachycardia, leukocytosis positive source of infection). POD 2 appendectomy. Blood cultures negative at 48 hours. Plans: Levaquin discontinued and patient started on aztreonam and Flagyl continued. Continue normal saline at 125 mL per hour. Clear liquid diet and advance as to lerated. Follow blood culture. General surgery on board. Needs better pain control. AST 48-37, ALT 36-within normal limits. Patient is postcholecystectomy. Plans: Continue to monitor. Incidental finding on CT. Plans: Follow-up with PCP. Plans: Continue Protonix. Plans: Continue to monitor. Plans: Patient offered nicotine patch. Plans: Patient would benefit from a structured loss program. [Patient admitted for acute appendicitis. POD 2 appendectomy. Diet advanced. Continues to have uncontrolled pain. ID on board for antibiotics. She is pending clinical improvement.] Thank you for this consult. We will continue to follow the patient through their clinical course. Please do not hesitate to Contact sound physicians for further questions or concerns.
[2020-04-09] MEDS: HYDROmorphone 0.5 MG/0.5 ML SYRINGE IVP PRN (20:35)
[2020-04-10] MEDS: HYDROmorphone 1 MG/ML 1 ML SYRINGE IVP PRN ×5 (00:17→19:19)
[2020-04-10] MEDS: SODIUM CHLORIDE 0.9% 1,000 ML IV SCH ×2 (03:40→12:57)
[2020-04-10] MEDS: ONDANSETRON 4 MG/2 ML VIAL IVP PRN ×2 (03:48→17:29)
[2020-04-10] MEDS: AZTREONAM 2 GM in SODIUM CHLORIDE 0.9% 100 ML IVPB SCH ×3 (03:48→21:24)
[2020-04-10 05:34] LABS: Basophils # (A) 0.1 k/uL (0-0.2); Basophils % (A) 0 %; Eosinophils # (A) 0.2 k/uL (0-0.7); Eosinophils % (A) 1 %; HCT 32.9 % (34.0-46.0); Lymphocytes # (A) 3.1 k/uL (1.0-4.8); Lymphocytes % (A) 18 %; MCH 30.4 pg (25.0-35.0); MCHC 33.3 g/dL (31.0-37.0); MCV 91.2 fL (80.0-100.0); Monocytes # (A) 0.7 k/uL (0-1.0); Monocytes % (A) 4 %; Neutrophils # (A) 13.2 k/uL (1.3-7.7); Neutrophils % (A) 75 %; Platelet Count 303 k/uL (150-450); RBC 3.61 m/uL (3.80-5.40); RDW 12.7 % (11.5-15.5); WBC 17.6 k/uL (3.8-10.6)
[2020-04-10] MEDS: METOCLOPRAMIDE 5 MG/ML 2 ML VIAL IVP PRN (07:12)
[2020-04-10] MEDS: PANTOPRAZOLE 40 MG/10 ML VIAL IVP SCH (09:03)
[2020-04-10] MEDS: metroNIDAZOLE-NS PMX 500 MG in SALINE 1 100ML.BAG IVPB SCH ×2 (09:03→16:57)
[2020-04-10] MEDS: ENOXAPARIN 40 MG/0.4 ML SYRINGE SQ SCH (09:08)
[2020-04-10 09:18] LABS: African American GFR (CKD) 130.3 (60.0-200.0); Anion Gap 6.7 mmol/L (4.00-12.00); BUN/Creat Ratio 11.67 Ratio (12.00-20.00); Calcium 7.5 mg/dL (8.7-10.3); Carbon Dioxide 23.3 mmol/L (21.6-31.8); Non-African American GFR(CKD) 112.4 (60.0-200.0); Potassium 3.3 mmol/L (3.5-5.5)
[2020-04-10] MEDS: HYDROcodone/APAP 5-325MG 1 EACH TAB PO PRN ×2 (12:49→17:27)
[2020-04-10 13:56] VITALS: BMI 40.3
--- NOTE | 2020-04-10 15:34 | P.PN ---
Subjective Progress Note Date: 04/10/20 CHIEF COMPLAINT: Abdominal pain HISTORY OF PRESENT ILLNESS: Patient is being followed for an acute ruptured appendicitis with abscess. She is status post diagnostic laparoscopy with appendectomy and small bowel resection. Patient is still reporting abdominal pain, but it is better than yesterday. She did have a bowel movement. She denies any nausea or vomiting. Afebrile. White count 17.6 hemoglobin 11 she's currently on a clear liquid diet PHYSICAL EXAM: VITAL SIGNS: Reviewed. GENERAL: Well-developed in no acute distress. HEENT: No sclera icterus. Extraocular movements grossly intact. Moist buccal mucosa. Head is atraumatic, normocephalic. ABDOMEN: Soft. Mildly distended. Incision sites show some dried blood. No evidence of infection. No drainage. Dressing did have blood present. TANA tube has serosanguineous fluid NEUROLOGIC: Alert and oriented. Cranial nerves II through XII grossly intact. ASSESSMENT: 1. Acute ruptured appendicitis with abscess status post diagnostic laparoscopy with appendectomy and small bowel resection. Postop day #3 PLAN: -Advance diet to full liquids -Add [place] for pain control -Continue IV Dilaudid as needed for pain -Continue IV antibiotics per ID -Encourage incentive spirometer use and to increase activity -Continue IV fluids -DVT prophylaxis Lovenox and GI prophylaxis Protonix Physician Instrument/Control Technician note has been reviewed by physician. Signing provider agrees with the documented findings, assessment, and plan of care. Objective - Vital Signs Vital signs: Vital Signs Temp 98.9 F 04/10/20 11:28 Pulse 89 04/10/20 11:28 Resp 18 04/10/20 11:28 BP 94/73 04/10/20 11:28 Pulse Ox 98 04/10/20 11:28 Intake & Output 04/09/20 04/10/20 04/10/20 18:59 06:59 18:59 Intake Total 975 2089 Output Total 55 40 90 Balance 920 2049 - Weight 106.594 kg Intake: Intake, IV Titration 975 1500 Amount Sodium Chloride 0.9% 1, 875 1500 000 ml @ 125 mls/hr IV . Q8H [facility] Rx#:[id number] metroNIDAZOLE-NS PMX 500 100 mg In Saline 1 100ml.bag @ 100 mls/hr IVPB 1600, 0000,0800 [facility] Rx#: [id number] Oral 590 Output: Drainage 55 40 90 Right Abdomen 55 40 90 Other: Voiding Method Toilet Toilet # Voids 1 2 - Labs CBC & Chem 7: 04/10/20 04:38 04/10/20 04:38 Labs: Abnormal Lab Results - Last 24 Hours (Table) 04/10/20 04/10/20 Range/Units 04:38 04:38 WBC 17.6 H (3.8-10.6) k/uL RBC 3.61 L (3.80-5.40) m/uL Hgb 11.0 L (11.4-16.0) gm/dL Hct 32.9 L (34.0-46.0) % Neutrophils # 13.2 H (1.3-7.7) k/uL Potassium 3.3 L (3.5-5.5) mmol/L BUN 7.0 L (9.0-27.0) mg/dL BUN/Creatinine Ratio 11.67 L (12.00-20.00) Ratio Calcium 7.5 L (8.7-10.3) mg/dL Microbiology - Last 24 Hours (Table) 04/07/20 13:12 Blood Culture - Preliminary Blood No Growth after 72 hours
[2020-04-10] MEDS ORDERED: Potassium Replacement Protocol 1 EACH MISC MISCELLANE PRN (16:59)
--- NOTE | 2020-04-10 17:22 | PN ---
PROGRESS NOTE DATE OF SERVICE: 04/10/2020 REASON FOR FOLLOWUP: Perforated appendicitis. INTERVAL HISTORY: The patient is currently afebrile. The patient is breathing comfortably. Abdominal pain has slightly improved. Denies having any chest pain or shortness of breath or cough. No nausea or vomiting. PHYSICAL EXAMINATION: Her blood pressure is 130/78 with a pulse of 86, temperature of 98.2. She is 98% on room air. General description is a middle-aged female up in the chair in no distress. RESPIRATORY SYSTEM: Unlabored breathing. Clear to auscultation anteriorly. HEART: S1, S2. Regular rate and rhythm. ABDOMEN: Soft. Mildly distended. No guarding or rigidity. LABS: Hemoglobin is 11, white count 17.6, BUN of 7, creatinine 0.6. DIAGNOSTIC IMPRESSION AND PLAN: Patient with perforated appendicitis with abdominal abscess requiring extensive surgery. Plan at this time is to continue the patient on the Azactam and Flagyl. Will try to arrange for midline and outpatient IV Invanz 1 gram daily for 2 weeks. This was discussed with the case management assistant. Continue with supportive care. MMODL / IJN: [id number] /
[2020-04-10] MEDS: POTASSIUM CHLORIDE ER 20 MEQ TAB.ER PO SCH (18:20)
--- NOTE | 2020-04-10 18:52 | P.PN ---
Subjective Progress Note Date: 04/10/20 Patient was seen and examined. No acute events overnight. POD 3 appendectomy. Patient complains of some nausea but able to tolerate full liquid diet slowly eating. She continues to complain of right lower quadrant abdominal pain, attempting to wean Dilaudid. Objective - Vital Signs Vital signs: Vital Signs Temp 98.4 F 04/10/20 17:52 Pulse 77 04/10/20 17:52 Resp 22 04/10/20 17:52 BP 109/72 04/10/20 17:52 Pulse Ox 96 04/10/20 17:52 Intake & Output 04/09/20 04/10/20 04/10/20 18:59 06:59 18:59 Intake Total 975 2090 1460 Output Total 55 40 180 Balance 920 2050 1280 Weight 106.594 kg Intake: Intake, IV Titration 975 1500 1100 Amount Sodium Chloride 0.9% 1, 875 1500 1000 000 ml @ 125 mls/hr IV . Q8H [facility] Rx#:[id number] metroNIDAZOLE-NS PMX 500 100 100 mg In Saline 1 100ml.bag @ 100 mls/hr IVPB 1600, 0000,0800 [facility] Rx#: [id number] Oral 590 360 Output: Drainage 55 40 180 Right Abdomen 55 40 180 Other: Voiding Method Toilet Toilet # Voids 1 2 3 - Exam General: [non toxic], [no distress], [appears at stated age] Derm: [warm], [dry] Head: [atraumatic], [normocephalic], [symmetric] Eyes: [EOMI], [no lid lag], [anicteric sclera] Mouth: [no lip lesion], [mucus membranes moist] Cardiovascular: [S1S2 reg], [no murmur], [positive DP pulse bilateral], Lungs: [CTA bilateral], [no rhonchi, no rales] , [no accessory muscle use] Abdominal: [soft], [generalized tenderness without rebound, midline dressing clean dry and intact], [no guarding], [no appreciable organomegaly], TANA drain intact Ext: [no gross muscle atrophy], [no edema], [no contractures] Neuro: [no focal neuro deficits] Psych: [Alert], [oriented], [appropriate affect] - Labs CBC & Chem 7: 04/10/20 04:38 04/10/20 04:38 Labs: Abnormal Lab Results - Last 24 Hours (Table) 04/10/20 04/10/20 Range/Units 04:38 04:38 WBC 17.6 H (3.8-10.6) k/uL RBC 3.61 L (3.80-5.40) m/uL Hgb 11.0 L (11.4-16.0) gm/dL Hct 32.9 L (34.0-46.0) % Neutrophils # 13.2 H (1.3-7.7) k/uL Potassium 3.3 L (3.5-5.5) mmol/L BUN 7.0 L (9.0-27.0) mg/dL BUN/Creatinine Ratio 11.67 L (12.00-20.00) Ratio Calcium 7.5 L (8.7-10.3) mg/dL Microbiology - Last 24 Hours (Table) 04/07/20 13:12 Blood Culture - Preliminary Blood No Growth after 72 hours Assessment and Plan Assessment: Sepsis related to acute appendicitis Transaminitis Adrenal adenoma GERD Chronic pancreatitis with history of alcohol abuse Smoker Morbid obesity with BMI 40.3 Resolved: Lactic acidosis Patient meets sepsis criteria (tachycardia, leukocytosis positive source of infection). POD 3 appendectomy. Blood cultures negative at 72 hours. Plans: Levaquin discontinued and patient started on aztreonam and Flagyl continued. DC IVF. Clear liquid diet and advance as tolerated. Follow blood culture. G eneral surgery on board. AST 48-37, ALT 36-within normal limits. Patient is postcholecystectomy. Plans: Continue to monitor. Incidental finding on CT. Plans: Follow-up with PCP. Plans: Continue Protonix. Plans: Continue to monitor. Plans: Patient offered nicotine patch. Plans: Patient would benefit from a structured loss program. [Patient admitted for acute appendicitis. POD 3 appendectomy. Diet advanced. Continues to have uncontrolled pain. ID on board for antibiotics. She is pending clinical improvement. Anticipate DC home tomorrow.] Thank you for this consult. We will continue to follow the patient through their clinical course. Please do not hesitate to Contact sound physicians for further questions or concerns.
[2020-04-10 20:15] LABS: Glucose,Whole Blood 105 mg/dL (75-99)
[2020-04-10] MEDS: KETOROLAC 15 MG/ML 1 ML VIAL IVP SCH (21:37)
[2020-04-11] MEDS: POTASSIUM CHLORIDE ER 20 MEQ TAB.ER PO SCH (00:47)
[2020-04-11] MEDS: metroNIDAZOLE-NS PMX 500 MG in SALINE 1 100ML.BAG IVPB SCH ×2 (00:48→07:26)
[2020-04-11] MEDS: AZTREONAM 2 GM in SODIUM CHLORIDE 0.9% 100 ML IVPB SCH (03:53)
[2020-04-11] MEDS: KETOROLAC 15 MG/ML 1 ML VIAL IVP SCH ×4 (03:53→21:29)
[2020-04-11] MEDS: SODIUM CHLORIDE 0.9% 1,000 ML IV SCH (05:13)
[2020-04-11] MEDS: PANTOPRAZOLE 40 MG/10 ML VIAL IVP SCH (07:22)
[2020-04-11] MEDS: ENOXAPARIN 40 MG/0.4 ML SYRINGE SQ SCH (07:23)
[2020-04-11] MEDS: HYDROmorphone 1 MG/ML 1 ML SYRINGE IVP PRN ×3 (07:23→19:41)
[2020-04-11] MEDS: ONDANSETRON 4 MG/2 ML VIAL IVP PRN ×2 (07:41→19:45)
[2020-04-11 08:21] LABS: Basophils # (A) 0.1 k/uL (0-0.2); Basophils % (A) 1 %; Eosinophils # (A) 0.3 k/uL (0-0.7); Eosinophils % (A) 2 %; HCT 34.6 % (34.0-46.0); HGB 11.1 gm/dL (11.4-16.0); Lymphocytes # (A) 3.3 k/uL (1.0-4.8); Lymphocytes % (A) 22 %; MCH 29.4 pg (25.0-35.0); MCHC 32.1 g/dL (31.0-37.0); MCV 91.6 fL (80.0-100.0); Monocytes # (A) 0.8 k/uL (0-1.0); Monocytes % (A) 5 %; Neutrophils # (A) 10.1 k/uL (1.3-7.7); Neutrophils % (A) 68 %; Platelet Count 370 k/uL (150-450); RBC 3.78 m/uL (3.80-5.40); RDW 12.6 % (11.5-15.5); WBC 14.8 k/uL (3.8-10.6)
[2020-04-11] MEDS: ERTAPENEM 1 GM in SODIUM CHLORIDE 0.9% 50 ML IVPB SCH (12:17)
--- NOTE | 2020-04-11 13:57 | P.PN ---
Subjective Progress Note Date: 04/11/20 CHIEF COMPLAINT: Abdominal pain HISTORY OF PRESENT ILLNESS: Patient is being followed for an acute ruptured appendicitis with abscess. She is status post diagnostic laparoscopy with appendectomy and small bowel resection. Toradol was admitted through the night to help with pain control. Patient now reporting improvement in her abdominal pain. She did have a bowel movement. Denies any nausea or vomiting. Reports decrease in appetite. TANA drain had 500 out of serosanguineous fluid. Afebrile. WBC down from 17.6 to 14.8 BMP pending PHYSICAL EXAM: VITAL SIGNS: Reviewed. GENERAL: Well-developed in no acute distress. HEENT: No sclera icterus. Extraocular movements grossly intact. Moist buccal mucosa. Head is atraumatic, normocephalic. ABDOMEN: Soft. Mildly distended. Incision sites show some dried blood. No evidence of infection. No drainage. TANA tube has serosanguineous fluid NEUROLOGIC: Alert and oriented. Cranial nerves II through XII grossly intact. ASSESSMENT: 1. Acute ruptured appendicitis with abscess status post diagnostic laparoscopy with appendectomy and small bowel resection. Postop day #4 PLAN: -Advance diet to regular -[place] and dressing changed today -Continue IV antibiotics per ID -Continue current pain medications -Encourage incentive spirometer use and to increase activity -Continue IV fluids -DVT prophylaxis Lovenox and GI prophylaxis Protonix -Anticipating possible discharge home tomorrow with home care and IV antibiotics Physician Aviation Engineer note has been reviewed by physician. Signing provider agrees with the documented findings, assessment, and plan of care. Objective - Vital Signs Vital signs: Vital Signs Temp 97.8 F 04/11/20 13:05 Pulse 80 04/11/20 13:05 Resp 18 04/11/20 13:05 BP 117/82 04/11/20 13:05 Pulse Ox 100 04/11/20 13:05 Intake & Output 04/10/20 04/11/20 04/11/20 18:59 06:59 18:59 Intake Total 1460 840 240 Output Total 180 330 195 Balance 1280 510 45 Weight 106.594 kg Intake: Intake, IV Titration 1100 250 Amount Sodium Chloride 0.9% 1, 1000 250 000 ml @ 125 mls/hr IV . Q8H [facility] Rx#:[id number] metroNIDAZOLE-NS PMX 500 100 mg In Saline 1 100ml.bag @ 100 mls/hr IVPB 1600, 0000,0800 [facility] Rx#: [id number] Oral 360 590 240 Output: Drainage 180 330 195 Right Abdomen 180 330 195 Other: Voiding Method Toilet Toilet # Voids 3 2 # Bowel Movements 1 - Labs CBC & Chem 7: 04/11/20 06:39 04/10/20 20:57 Labs: Abnormal Lab Results - Last 24 Hours (Table) 04/10/20 04/11/20 Range/Units 20:04 06:39 WBC 14.8 H (3.8-10.6) k/uL RBC 3.78 L (3.80-5.40) m/uL Hgb 11.1 L (11.4-16.0) gm/dL Neutrophils # 10.1 H (1.3-7.7) k/uL POC Glucose (mg/dL) 105 H (75-99) mg/dL Microbiology - Last 24 Hours (Table) 04/07/20 13:12 Blood Culture - Preliminary Blood No Growth after 72 hours
--- NOTE | 2020-04-11 15:49 | P.DS ---
Providers Date of admission: 04/07/20 13:30 Expected date of discharge: 04/12/20 Attending physician: Jamie Reddy Consults: 04/07/20 14:18 Consult Physician Routine Consulting Provider: Perla Howard Consult Reason/Comments: Medical management Do you want consulting provider notified?: Yes 04/07/20 17:41 Consult Physician Routine Consulting Provider: Dara Galo Consult Reason/Comments: Perforated appendicitis Do you want consulting provider notified?: Yes Primary care physician: Awais Lepe Hospital Course: Discharge diagnosis 1. Acute ruptured appendicitis with abscess status post diagnostic laparoscopy with appendectomy and small bowel resection. Hospital course This is a 40-year-old female with a known history of hyperlipidemia, GERD, degen erative disc disease of the lumbar spine, chronic pancreatitis related to prior history of chronic alcohol use and history of depression. Patient presents to the emergency room with complaints of right lower quadrant abdominal pain for the last 4 days. Patient has had some nausea and vomiting. Patient has had very severe sharp right lower quadrant pain. She come to the ER right away because it was her birthday celebration. She also has a prior history of hysterectomy and cholecystectomy. Computed tomography scan has shown evidence of appendicitis with focal extraluminal small collection of fluid without clear wall to suggest abscess. Patient was taken to the OR and underwent diagnostic laparoscopy with appendectomy and small bowel resection for acute ruptured appendicitis with abscess. She's been on IV antibiotics. She is afebrile. She is stable for discharge. She'll be discharged home on 04/12/2020 with home IV antibiotics. Antibiotics per ID recommendations. Physician Armament Repairer note has been reviewed by physician. Signing provider agrees with the documented findings, assessment, and plan of care. Patient Condition at Discharge: Stable Plan - Discharge Summary Discharge Rx Participant: No New Discharge Prescriptions: New Docusate [Colace] 100 mg PO BID #30 capsule Hydrocodone/Acetaminophen [[place] 5-325] 1 tab PO Q4HR PRN 3 Days #18 tab PRN Reason: Pain Discharge Medication List Docusate [Colace] 100 mg PO BID #30 capsule 04/11/20 [Rx] Hydrocodone/Acetaminophen [[place] 5-325] 1 tab PO Q4HR PRN 3 Days #18 tab 04/11/20 [Rx] Follow up Appointment(s)/Referral(s): [facility], [NON-STAFF] - 1-2 Days [facility] [NON-STAFF] - 1-2 Days Awais Lepe MD [Primary Care Provider] - 1-2 days Jamie Reddy MD [STAFF PHYSICIAN] - 1 Week Patient Instructions/Handouts: How to Stop Smoking (DC), Allen-Cannon Drain Care (DC), Open Appendectomy (DC) Activity/Diet/Wound Care/Special Instructions: Antibiotics per ID No driving while taking [place] No lifting over 10 pounds You may shower. No soaking or tub baths for 2 weeks Very light activity until you are reevaluated at your follow up appointment with your surgeon
--- NOTE | 2020-04-11 16:26 | PN ---
PROGRESS NOTE DATE OF SERVICE: 04/11/2020 REASON FOR FOLLOWUP: Abdominal abscess from perforated appendix. INTERVAL HISTORY: The patient is currently afebrile. The patient is feeling slightly better, breathing comfortably. Pain is slightly better controlled. No chest pain, shortness of breath or cough. No nausea, no vomiting. No diarrhea. PHYSICAL EXAMINATION: Blood pressure 117/82 with a pulse of 80, temperature 97.8. She is 100% on room air. General description is a middle-aged female lying in bed in no distress. RESPIRATORY SYSTEM: Unlabored breathing. Clear to auscultation anteriorly. HEART: S1, S2. Regular rate and rhythm. ABDOMEN: Soft. Mildly tender. No guarding or rigidity. LABS: White count down to 14,000. DIAGNOSTIC IMPRESSION AND PLAN: Patient with perforated appendicitis and abscess, status post open appendectomy and small bowel resection. White count is slowly trending down. In view of the extensive infection, antibiotic will be transitioned to ertapenem 1 gram daily to continue in the outpatient setting for 2 weeks with close outpatient followup. MMODL / IJN: [id number] /
--- NOTE | 2020-04-11 16:31 | P.PN ---
Subjective Progress Note Date: 04/11/20 Patient was seen and examined. No acute events overnight. POD 4 appendectomy. Patient complains of some nausea but able to tolerate full liquid diet slowly eating. Complained of some nausea with regular diet. Pain improving. States that TANA drain continues to fill up. Objective - Vital Signs Vital signs: Vital Signs Temp 97.8 F 04/11/20 13:05 Pulse 80 04/11/20 13:05 Resp 18 04/11/20 13:05 BP 117/82 04/11/20 13:05 Pulse Ox 100 04/11/20 13:05 Intake & Output 04/10/20 04/11/20 04/11/20 18:59 06:59 18:59 Intake Total 1460 840 240 Output Total 180 330 260 Balance 1280 510 -20 Weight 106.594 kg Intake: Intake, IV Titration 1100 250 Amount Sodium Chloride 0.9% 1, 1000 250 000 ml @ 125 mls/hr IV . Q8H [facility] Rx#:[id number] metroNIDAZOLE-NS PMX 500 100 mg In Saline 1 100ml.bag @ 100 mls/hr IVPB 1600, 0000,0800 [facility] Rx#: [id number] Oral 360 590 240 Output: Drainage 180 330 260 Right Abdomen 180 330 260 Other: Voiding Method Toilet Toilet # Voids 3 2 1 # Bowel Movements 1 - Exam General: [non toxic], [no distress], [appears at stated age] Derm: [warm], [dry] Head: [atraumatic], [normocephalic], [symmetric] Eyes: [EOMI], [no lid lag], [anicteric sclera] Mouth: [no lip lesion], [mucus membranes moist] Cardiovascular: [S1S2 reg], [no murmur], [positive DP pulse bilateral], Lungs: [CTA bilateral], [no rhonchi, no rales] , [no accessory muscle use] Abdominal: [soft], [generalized tenderness without rebound, midline dressing clean dry and intact], [no guarding], [no appreciable organomegaly], TANA drain intact Ext: [no gross muscle atrophy], [no edema], [no contractures] Neuro: [no focal neuro deficits] Psych: [Alert], [oriented], [appropriate affect] - Labs CBC & Chem 7: 04/11/20 06:39 04/10/20 20:57 Labs: Abnormal Lab Results - Last 24 Hours (Table) 04/10/20 04/11/20 Range/Units 20:04 06:39 WBC 14.8 H (3.8-10.6) k/uL RBC 3.78 L (3.80-5.40) m/uL Hgb 11.1 L (11.4-16.0) gm/dL Neutrophils # 10.1 H (1.3-7.7) k/uL POC Glucose (mg/dL) 105 H (75-99) mg/dL Microbiology - Last 24 Hours (Table) 04/07/20 13:12 Blood Culture - Preliminary Blood No Growth after 96 hours Assessment and Plan Assessment: Sepsis related to acute appendicitis Transaminitis Adrenal adenoma GERD Chronic pancreatitis with history of alcohol abuse Smoker Morbid obesity with BMI 40.3 Resolved: Lactic acidosis Patient meets sepsis criteria (tachycardia, leukocytosis positive source of infection). POD 4 appendectomy. Blood cultures negative at 96 hours. Plans: Levaquin discontinued and patient started on aztreonam and Flagyl continued. DC IVF. Clear liquid diet and advance as tolerated. Plans for midline today for IV antibiotics on discharge. Follow blood culture. General surgery on board. AST 48-37, ALT 36-within normal limits. Patient is postcholecystectomy. Plans: Continue to monitor. Incidental finding on CT. Plans: Follow-up with PCP. Plans: Continue Protonix. Plans: Continue to monitor. Plans: Patient offered nicotine patch. Plans: Patient would benefit from a structured loss program. [Patient admitted for acute appendicitis. POD 4 appendectomy. Diet advanced. Pain improving slowly. ID on board for antibiotics. She is pending clinical improvement. Anticipate DC home tomorrow.] Thank you for this consult. We will continue to follow the patient through their clinical course. Please do not hesitate to Contact sound physicians for further questions or concerns.
[2020-04-12] MEDS: HYDROmorphone 0.5 MG/0.5 ML SYRINGE IVP PRN (01:09)
[2020-04-12] MEDS: KETOROLAC 15 MG/ML 1 ML VIAL IVP SCH ×4 (03:11→21:11)
[2020-04-12 06:30] LABS: Basophils # (A) 0.1 k/uL (0-0.2); Basophils % (A) 0 %; Eosinophils # (A) 0.2 k/uL (0-0.7); Eosinophils % (A) 1 %; HCT 33.9 % (34.0-46.0); HGB 11.4 gm/dL (11.4-16.0); Lymphocytes # (A) 3.5 k/uL (1.0-4.8); Lymphocytes % (A) 23 %; MCH 30.4 pg (25.0-35.0); MCHC 33.6 g/dL (31.0-37.0); MCV 90.5 fL (80.0-100.0); Mean Platelet Volume 7.5; Monocytes # (A) 0.9 k/uL (0-1.0); Monocytes % (A) 6 %; Neutrophils # (A) 10.5 k/uL (1.3-7.7); Neutrophils % (A) 69 %; Platelet Count 457 k/uL (150-450); RBC 3.74 m/uL (3.80-5.40); RDW 12.9 % (11.5-15.5); WBC 15.4 k/uL (3.8-10.6)
[2020-04-12] MEDS: ERTAPENEM 1 GM in SODIUM CHLORIDE 0.9% 50 ML IVPB SCH (07:29)
[2020-04-12] MEDS: HYDROcodone/APAP 5-325MG 1 EACH TAB PO PRN ×2 (07:30→19:54)
[2020-04-12] MEDS: PANTOPRAZOLE 40 MG/10 ML VIAL IVP SCH (07:30)
[2020-04-12] MEDS: ENOXAPARIN 40 MG/0.4 ML SYRINGE SQ SCH (07:30)
[2020-04-12 09:35] LABS: African American GFR (CKD) 138.4 (60.0-200.0); Anion Gap 7.1 mmol/L (4.00-12.00); C Reactive Protein 5.6 mg/dL (0.0-0.8); Calcium 8.1 mg/dL (8.7-10.3); Carbon Dioxide 24.9 mmol/L (21.6-31.8); Non-African American GFR(CKD) 119.4 (60.0-200.0); Potassium 3.5 mmol/L (3.5-5.5)
--- NOTE | 2020-04-12 12:13 | P.PN ---
Subjective Progress Note Date: 04/12/20 Principal diagnosis: Appendicitis Patient still complaining of pain although this states it is gradually improving. White blood cell count remains elevated at 15.4. She is afebrile. Tolerating low volume of diet she is having bowel movements. Objective - Vital Signs Vital signs: Vital Signs Temp 97.7 F 04/12/20 05:00 Pulse 77 04/12/20 05:00 Resp 16 04/12/20 05:00 BP 108/72 04/12/20 05:00 Pulse Ox 95 04/12/20 05:00 Intake & Output 04/11/20 04/12/20 04/12/20 18:59 06:59 18:59 Intake Total 240 780 Output Total 350 180 85 Balance -110 600 -85 Intake: Oral 240 780 Output: Drainage 350 180 85 Right Abdomen 350 180 85 Other: Voiding Method Toilet Toilet Toilet # Voids 1 1 # Bowel Movements 1 - Exam Abdomen: Soft, mild distention, mild tenderness, incision with seropurulent drainage at which sites - Labs CBC & Chem 7: 04/12/20 05:25 04/12/20 05:25 Labs: Abnormal Lab Results - Last 24 Hours (Table) 04/12/20 04/12/20 Range/Units 05:25 05:25 WBC 15.4 H (3.8-10.6) k/uL RBC 3.74 L (3.80-5.40) m/uL Hct 33.9 L (34.0-46.0) % Plt Count 457 H (150-450) k/uL Neutrophils # 10.5 H (1.3-7.7) k/uL BUN 6.0 L (9.0-27.0) mg/dL Creatinine 0.5 L (0.6-1.5) mg/dL Calcium 8.1 L (8.7-10.3) mg/dL C-Reactive Protein 5.6 H (0.0-0.8) mg/dL Microbiology - Last 24 Hours (Table) 04/07/20 13:12 Blood Culture - Preliminary Blood No Growth after 96 hours Assessment and Plan (1) Acute appendicitis with appendiceal abscess Narrative/Plan: Patient gradually improving. Continue to follow white blood cell count. Continue diet. Local wound care. Increase activity. Recheck labs tomorrow. Current Visit: Yes Status: Acute Code(s): K35.33 - ACUTE APPENDICITIS WITH PERF AND LOC PERITONITIS, WITH ABSCS SNOMED Code(s): 459922933
--- NOTE | 2020-04-12 12:53 | P.PN ---
Subjective Progress Note Date: 04/12/20 Patient was seen and examined. No acute events overnight. POD 5 appendectomy. Patient complains of some nausea but able to tolerate full liquid diet slowly eating. Complains of improving pain in her abdomen at the site of surgical incision. She denies any chest pain, shortness of breath or palpitations. Objective - Vital Signs Vital signs: Vital Signs Temp 97.8 F 04/12/20 12:19 Pulse 78 04/12/20 12:19 Resp 16 04/12/20 12:19 BP 110/77 04/12/20 12:19 Pulse Ox 93 L 04/12/20 12:19 Intake & Output 04/11/20 04/12/20 04/12/20 18:59 06:59 18:59 Intake Total 240 780 Output Total 350 180 85 Balance -110 600 -85 Intake: Oral 240 780 Output: Drainage 350 180 85 Right Abdomen 350 180 85 Other: Voiding Method Toilet Toilet Toilet # Voids 1 1 # Bowel Movements 1 - Exam General: [non toxic], [no distress], [appears at stated age] Derm: [warm], [dry] Head: [atraumatic], [normocephalic], [symmetric] Eyes: [EOMI], [no lid lag], [anicteric sclera] Mouth: [no lip lesion], [mucus membranes moist] Cardiovascular: [S1S2 reg], [no murmur], [positive DP pulse bilateral], Lungs: [CTA bilateral], [no rhonchi, no rales] , [no accessory muscle use] Abdominal: [soft], [generalized tenderness without rebound, midline dressing clean dry and intact], [no guarding], [no appreciable organomegaly], TANA drain intact Ext: [no gross muscle atrophy], [no edema], [no contractures] Neuro: [no focal neuro deficits] Psych: [Alert], [oriented], [appropriate affect] - Labs CBC & Chem 7: 04/12/20 05:25 04/12/20 05:25 Labs: Abnormal Lab Results - Last 24 Hours (Table) 04/12/20 04/12/20 Range/Units 05:25 05:25 WBC 15.4 H (3.8-10.6) k/uL RBC 3.74 L (3.80-5.40) m/uL Hct 33.9 L (34.0-46.0) % Plt Count 457 H (150-450) k/uL Neutrophils # 10.5 H (1.3-7.7) k/uL BUN 6.0 L (9.0-27.0) mg/dL Creatinine 0.5 L (0.6-1.5) mg/dL Calcium 8.1 L (8.7-10.3) mg/dL C-Reactive Protein 5.6 H (0.0-0.8) mg/dL Microbiology - Last 24 Hours (Table) 04/07/20 13:12 Blood Culture - Preliminary Blood No Growth after 96 hours Assessment and Plan Assessment: Sepsis related to acute appendicitis Transaminitis Adrenal adenoma GERD Chronic pancreatitis with history of alcohol abuse Smoker Morbid obesity with BMI 40.3 Resolved: Lactic acidosis Patient meets sepsis criteria (tachycardia, leukocytosis positive source of infection). Her vital signs have improved but she continues to have leukocytosis of 15.4. POD 5 appendectomy. Blood cultures negative at 96 hours. Plans: Levaquin discontinued and patient continued on aztreonam. DC IVF. Regular diet and advance as tolerated. Obtained midline today for IV antibiotics on discharge. Follow blood culture. General surgery on board. AST 48-37, ALT 36-within normal limits. Patient is postcholecystectomy. Plans: Continue to monitor. Incidental finding on CT. Plans: Follow-up with PCP. Plans: Continue Protonix. Plans: Continue to monitor. Plans: Patient offered nicotine patch. Plans: Patient would benefit from a structured loss program. [Patient admitted for acute appendicitis. POD 5 appendectomy. Diet advanced. Pain improving slowly. ID on board for antibiotics. She is pending clinical improvement. Anticipate DC home tomorrow.] Thank you for this consult. We will continue to follow the patient through their clinical course. Please do not hesitate to Contact sound physicians for further questions or concerns.
--- NOTE | 2020-04-12 14:12 | PN ---
PROGRESS NOTE DATE OF SERVICE: 04/12/2020 REASON FOR FOLLOWUP: Perforated appendicitis with an abscess. INTERVAL HISTORY: Patient is currently afebrile. Patient is breathing comfortably. The patient denies having any chest pain. No shortness of breath or cough. No nausea, vomiting. Overall abdominal pain has decreased intensity and wants to go home. PHYSICAL EXAMINATION: Blood pressure is 110/77 with a pulse of 78, temperature 97.8. She is 93% on room air. General description: The patient is a middle-aged female lying in bed in no distress. Respiratory system: Unlabored breathing, clear to auscultation anteriorly. Heart S1, S2. Regular rate and rhythm. Abdomen soft, no tenderness. LABS: Hemoglobin 11.4, white count 15.4. BUN of 6, creatinine 0.5. DIAGNOSTIC IMPRESSION AND PLAN: Patient with abdominal abscess from perforated appendicitis status post laparotomy, resection of small bowel and appendectomy. No wound cultures were done. The patient white count slightly elevated. She will continue on Invanz 1 g daily for 2 weeks with plan for weekly CBC and BMP, sedimentation rate and a CT of abdomen and pelvis two weeks before completion her antibiotics and close outpatient followup. MMODL / IJN: [id number] /
[2020-04-12 21:11] VITALS: RESP 18
[2020-04-13] MEDS: KETOROLAC 15 MG/ML 1 ML VIAL IVP SCH ×2 (02:16→08:38)
[2020-04-13 04:42] VITALS: BP 103/68; PULSE 84; TEMP 98.2
[2020-04-13 06:08] LABS: Basophils # (A) 0.1 k/uL (0-0.2); Basophils % (A) 1 %; Eosinophils # (A) 0.2 k/uL (0-0.7); Eosinophils % (A) 1 %; HGB 10.9 gm/dL (11.4-16.0); Lymphocytes # (A) 3.5 k/uL (1.0-4.8); Lymphocytes % (A) 26 %; MCH 29.6 pg (25.0-35.0); MCHC 32.9 g/dL (31.0-37.0); MCV 89.9 fL (80.0-100.0); Mean Platelet Volume 7.5; Monocytes # (A) 0.6 k/uL (0-1.0); Monocytes % (A) 4 %; Neutrophils # (A) 9.2 k/uL (1.3-7.7); Neutrophils % (A) 67 %; Platelet Count 463 k/uL (150-450); RBC 3.67 m/uL (3.80-5.40); RDW 12.8 % (11.5-15.5); WBC 13.6 k/uL (3.8-10.6)
[2020-04-13] MEDS: PANTOPRAZOLE 40 MG/10 ML VIAL IVP SCH (08:38)
[2020-04-13] MEDS: ERTAPENEM 1 GM in SODIUM CHLORIDE 0.9% 50 ML IVPB SCH (08:39)
[2020-04-13] MEDS: ENOXAPARIN 40 MG/0.4 ML SYRINGE SQ SCH (08:39)
--- NOTE | 2020-04-13 11:52 | P.PN ---
Subjective Progress Note Date: 04/13/20 Principal diagnosis: Appendicitis Patient apparently this morning became very frustrated with the nursing staff. She was unhappy with the choices of food that the cavitary was offering. She was upset that her son apparently could not visit the hospital today. She was threatening to leave AGAINST MEDICAL ADVICE. Patient states her pain is minimal at this time. She is tolerating her diet. She is having bowel function. She would like to be discharged at this time. TANA drain remained serosanguineous. White blood cell count 13.6. She is afebrile. Objective - Vital Signs Vital signs: Vital Signs Temp 98.2 F 04/13/20 04:40 Pulse 84 04/13/20 04:40 Resp 18 04/13/20 04:40 BP 103/68 04/13/20 04:40 Pulse Ox 98 04/13/20 04:40 Intake & Output 04/12/20 04/13/20 04/13/20 18:59 06:59 18:59 Intake Total 300 Output Total 175 170 50 Balance -175 130 -50 Intake: Oral 300 Output: Drainage 175 170 50 Right Abdomen 175 170 50 Other: Voiding Method Toilet Toilet # Voids 1 3 # Bowel Movements 1 - Exam Abdomen: Soft, mild distention, wick dressings with some seropurulent drainage, minimal tenderness - Labs CBC & Chem 7: 04/13/20 05:33 04/12/20 05:25 Labs: Abnormal Lab Results - Last 24 Hours (Table) 04/13/20 Range/Units 05:33 WBC 13.6 H (3.8-10.6) k/uL RBC 3.67 L (3.80-5.40) m/uL Hgb 10.9 L (11.4-16.0) gm/dL Hct 33.0 L (34.0-46.0) % Plt Count 463 H (150-450) k/uL Neutrophils # 9.2 H (1.3-7.7) k/uL Microbiology - Last 24 Hours (Table) 04/07/20 13:12 Blood Culture - Preliminary Blood No Growth after 120 hours Assessment and Plan (1) Acute appendicitis with appendiceal abscess Narrative/Plan: At this time given the patient's current clinical condition and I think it's reasonable to consider discharge. Patient will be getting IV antibiotics at home. Continue local wound care post discharge. Will make arrangements for discharge if cleared by medicine. Current Visit: Yes Status: Acute Code(s): K35.33 - ACUTE APPENDICITIS WITH PERF AND LOC PERITONITIS, WITH ABSCS SNOMED Code(s): 826255360
--- NOTE | 2020-04-13 15:14 | PN ---
PROGRESS NOTE DATE OF SERVICE: 04/13/2020 REASON FOR FOLLOWUP: Abdominal abscess from perforated appendicitis. INTERVAL HISTORY: The patient is currently afebrile. The patient is feeling better. Breathing comfortably. Patient denies having any chest pain. No shortness or cough. No nausea, no vomiting. Has slight abdominal wound dehiscence that has been packed and with Aquacel Silver. Patient currently has no symptoms relative to that. EXAMINATION: Her blood pressure is 103/60 with a pulse of 84, temperature 98.2. She is 98% on room air. General description is a middle-aged female up in the chair in no distress. Respiratory system: Unlabored breathing, clear to auscultation anteriorly. Heart S1, S2. Regular rate and rhythm. Abdomen is soft, no tenderness. Wound is currently packed. LABS: Hemoglobin is 10.8, white count 13.6, creatinine 0.5. DIAGNOSTIC IMPRESSION AND PLAN: Patient with an abdominal abscess from perforated appendicitis. This patient is status post open appendectomy and small bowel resection. The patient seems to be feeling better today. White count showing a downward trend. She will continue with the Invanz 1 g daily for 2 weeks and close outpatient followup. MMODL / IJN: [id number] / LOR[facility]
== END 2020-04-13 14:15 | disposition home health service (06) | DRG 853 ==
LOC: EC 11:07 → 6NMEDSUR 13:30
PROVIDERS: ADMIT Surgery; ATTEND Surgery
PROC: 0DTJ0ZZ Resection of Appendix, Open Approach (ICD-10-PCS; principal; 2020-04-07 13:10)
PROC: 0DT80ZZ Resection of Small Intestine, Open Approach (ICD-10-PCS; principal; 2020-04-07 13:10)
PROC: 0WJG4ZZ Inspection of Peritoneal Cavity, Percutaneous Endoscopic Approach (ICD-10-PCS; principal; 2020-04-07 13:10)
DX: A41.9 Sepsis, unspecified organism (principal); K35.33 Acute appendicitis with perforation, localized peritonitis, and gangrene, with abscess; E87.2 Acidosis; Z68.41 Body mass index [BMI] 40.0-44.9, adult; K86.1 Other chronic pancreatitis; E78.5 Hyperlipidemia, unspecified; M51.36 Other intervertebral disc degeneration, lumbar region; Z53.31 Laparoscopic surgical procedure converted to open procedure; D35.01 Benign neoplasm of right adrenal gland; E66.01 Morbid (severe) obesity due to excess calories; K21.9 Gastro-esophageal reflux disease without esophagitis; G43.909 Migraine, unspecified, not intractable, without status migrainosus; F32.9 Major depressive disorder, single episode, unspecified; F41.9 Anxiety disorder, unspecified; F17.200 Nicotine dependence, unspecified, uncomplicated; Z80.9 Family history of malignant neoplasm, unspecified; Z86.14 Personal history of Methicillin resistant Staphylococcus aureus infection; Z90.89 Acquired absence of other organs; Z98.890 Other specified postprocedural states; Z90.49 Acquired absence of other specified parts of digestive tract; Z90.710 Acquired absence of both cervix and uterus; Z88.1 Allergy status to other antibiotic agents; Z88.0 Allergy status to penicillin; Z88.2 Allergy status to sulfonamides; Z82.49 Family history of ischemic heart disease and other diseases of the circulatory system; Z81.8 Family history of other mental and behavioral disorders
CPT/HCPCS: 36410; 36415; 74177; 76937; 80048; 80053; 81001; 82150; 83605; 83690; 84132; 85025; 85610; 85730; 86140; 87040; 88307; 96365; 96368; 96375; 99285

== ENCOUNTER 2020-05-13 04:17 | Observation (INO) | payer MEDICARE, OTHER ==
--- NOTE | 2020-05-13 04:41 | ED ---
General Adult HPI - General Chief complaint: Recheck/Abnormal Lab/Rx Stated complaint: post op infection Time Seen by Provider: 05/13/20 04:18 Source: patient Mode of arrival: ambulatory Limitations: no limitations - History of Present Illness Initial comments: Lia is a 40-year-old female with a history of perforated appendicitis requiring open appendectomy last month. Patient was charged home on 2 weeks of IV Invanz due to intra-abdominal abscess. Her abdominal pain had improved she was healing well, she's followed with Dr. Reddy and office she did have some of the lilian removed from the laparoscopic incisions however the midline abdominal incision still has lilian in place. This morning patient noted purulent drainage from her umbilical region and the abdominal incision. She also had worsening abdominal pain which prompted her to come to the ER for evaluation she is concerned she may have an infection in her incision. Was nancy eduled to follow-up with Dr. Reddy today for wound check. - Related Data Home Medications Medication Instructions Recorded Confirmed Naproxen Sodium [Aleve] 440 mg PO BID PRN 05/13/20 05/13/20 Allergies Allergy/AdvReac Type Severity Reaction Status Date / Time cephalexin [From Keflex] Allergy Severe Swelling Verified 05/13/20 06:37 levofloxacin Allergy Rash/Hives Verified 05/13/20 06:37 Penicillins Allergy Swelling Verified 05/13/20 06:37 sulfamethoxazole Allergy Rash/Hives Verified 05/13/20 06:37 [From Bactrim] trimethoprim [From Bactrim] Allergy Rash/Hives Verified 05/13/20 06:37 Review of Systems ROS Statement: Those systems with pertinent positive or pertinent negative responses have been documented in the HPI. ROS Other: All systems not noted in ROS Statement are negative. Past Medical History Past Medical History: GERD/Reflux Additional Past Medical History / Comment(s): Migraines, Pancreatic Deficiency, Lower lumbar disease, hypoglycemia. History of Any Multi-Drug Resistant Organisms: MRSA Date of last positivie culture/infection: 2013 MDRO Source:: hip Past Surgical History: Appendectomy, Cholecystectomy, Hysterectomy, Tonsillectomy Additional Past Surgical History / Comment(s): (R) hand surgery, (L) hip from spider bite r/t MRSA Past Anesthesia/Blood Transfusion Reactions: No Reported Reaction Additional Past Anesthesia/Blood Transfusion Reaction / Comment(s): SEVERE CLAUSTERPHOBIA INCLUDING A MASK ON HER FACE. Past Psychological History: Anxiety, Depression Smoking Status: Current every day smoker Past Alcohol Use History: None Reported Past Drug Use History: None Reported - Past Family History Father History Unknown: Yes Family Medical History: No Reported History (Father is 50 year old does not know much about him.) Additional Family Medical History / Comment(s): Father is but pt does not know past medical history-they were not in much contact with each other. Mother Family Medical History: Cancer Additional Family Medical History / Comment(s): Mother at the age of 50 years from Cancer metastasis. Mother also had an aneurysm. Sister(s) Additional Family Medical History / Comment(s): Bipolar and Schizoprenia. Son(s) Family Medical History: No Reported History (one son no major medical problems.) Daughter(s) Family Medical History: No Reported History (2 daughters no major medical problems.) General Exam - General Exam Comments Initial Comments: Physical Exam GENERAL: Patient is well-developed and well-nourished. Patient is nontoxic and well-hydrated and is in no distress. HENT: Normocephalic, Atraumatic. EYES: PERRL, EOMI PULMONARY: Unlabored respirations. CARDIOVASCULAR: RRR Warm and well perfused extremities ABDOMEN: Tender around incision SKIN: Well healing laprascopic incisions Midline surgical incision noted to have erythema and purulent drainage, erythema, drainage from lilian : Deferred NEUROLOGIC: Alert and oriented Normal speech Normal gait MUSCULOSKELETAL: Moving all extremities with no apparent injury PSYCHIATRIC: No SI/HI Limitations: no limitations Course Vital Signs 05/13/20 05/13/20 05/13/20 04:22 05:27 06:00 Temperature 97.9 F Pulse Rate 78 77 72 Respiratory 18 20 18 Rate Blood Pressure 124/84 126/82 123/77 O2 Sat by Pulse 99 97 97 Oximetry Medical Decision Making - Medical Decision Making She was seen and evaluated history obtained from patient and review of medical record Labs were obtained and were unremarkable mild leukocytosis but improved from previous no lactic acidosis Blood cultures were obtained Computed tomography scan confirms a fluid collection with air in the abdominal incision, this could be normal postoperative but given that we are 5 weeks out from surgery and a higher suspicion for abscess. These results were discussed with surgeon Dr. Reddy who recommends patient be admitted to observation he will evaluate the surgical incision later today. Agrees with plan for IV fluids, antibiotics pain management. - Lab Data Result diagrams: 05/13/20 04:48 05/13/20 04:48 Lab Results 05/13/20 05/13/20 05/13/20 Range/Units 04:48 04:48 04:48 WBC 11.2 H (3.8-10.6) k/uL RBC 4.52 (3.80-5.40) m/uL Hgb 13.6 (11.4-16.0) gm/dL Hct 41.8 (34.0-46.0) % MCV 92.5 (80.0-100.0) fL MCH 30.1 (25.0-35.0) pg MCHC 32.5 (31.0-37.0) g/dL RDW 12.8 (11.5-15.5) % Plt Count 343 (150-450) k/uL Neutrophils % 60 % Lymphocytes % 31 % Monocytes % 4 % Eosinophils % 3 % Basophils % 1 % Neutrophils # 6.7 (1.3-7.7) k/uL Lymphocytes # 3.5 (1.0-4.8) k/uL Monocytes # 0.5 (0-1.0) k/uL Eosinophils # 0.3 (0-0.7) k/uL Basophils # 0.1 (0-0.2) k/uL Sodium 139 (137-145) mmol/L Potassium 3.3 L (3.5-5.1) mmol/L Chloride 105 (98-107) mmol/L Carbon Dioxide 27 (22-30) mmol/L Anion Gap 7 mmol/L BUN 5 L (7-17) mg/dL Creatinine 0.89 (0.52-1.04) mg/dL Est GFR (CKD-EPI)AfAm >90 (>60 ml/min/1.73 sqM) Est GFR (CKD-EPI)NonAf 80 (>60 ml/min/1.73 sqM) Glucose 122 H (74-99) mg/dL Plasma Lactic Acid Maykel 1.8 (0.7-2.0) mmol/L Calcium 9.5 (8.4-10.2) mg/dL Total Bilirubin 0.4 (0.2-1.3) mg/dL AST 25 (14-36) U/L ALT 27 (4-34) U/L Alkaline Phosphatase 68 (38-126) U/L Total Protein 7.1 (6.3-8.2) g/dL Albumin 4.0 (3.5-5.0) g/dL Disposition Clinical Impression: Post op infection Disposition: ADMITTED IP TO THIS HOSP Condition: Stable Is patient prescribed a controlled substance at d/c from ED?: No
[2020-05-13] MEDS: SODIUM CHLORIDE 0.9% 500 ML 500 ML IV SCH ×2 (05:14→06:21)
[2020-05-13 05:20] LABS: Basophils # (A) 0.1 k/uL (0-0.2); Basophils % (A) 1 %; Eosinophils # (A) 0.3 k/uL (0-0.7); Eosinophils % (A) 3 %; HCT 41.8 % (34.0-46.0); HGB 13.6 gm/dL (11.4-16.0); Lymphocytes # (A) 3.5 k/uL (1.0-4.8); Lymphocytes % (A) 31 %; MCH 30.1 pg (25.0-35.0); MCHC 32.5 g/dL (31.0-37.0); MCV 92.5 fL (80.0-100.0); Mean Platelet Volume 6.9; Monocytes # (A) 0.5 k/uL (0-1.0); Monocytes % (A) 4 %; Neutrophils # (A) 6.7 k/uL (1.3-7.7); Neutrophils % (A) 60 %; Platelet Count 343 k/uL (150-450); RBC 4.52 m/uL (3.80-5.40); RDW 12.8 % (11.5-15.5); WBC 11.2 k/uL (3.8-10.6)
[2020-05-13 05:31] LABS: ALT 27 U/L (4-34); AST 25 U/L (14-36); African American GFR (CKD) >90 (>60 ml/min/1.73 sqM); Alkaline Phosphatase 68 U/L (38-126); Anion Gap 7 mmol/L; Blood Urea Nitrogen 5 mg/dL (7-17); Calcium 9.5 mg/dL (8.4-10.2); Carbon Dioxide 27 mmol/L (22-30); Chloride 105 mmol/L (98-107); Glucose 122 mg/dL (74-99); Non-African American GFR(CKD) 80 (>60 ml/min/1.73 sqM); Potassium 3.3 mmol/L (3.5-5.1); Sodium 139 mmol/L (137-145); Total Bilirubin 0.4 mg/dL (0.2-1.3); Total Protein 7.1 g/dL (6.3-8.2)
--- NOTE | 2020-05-13 05:55 | CT ---
EXAM: CT Abdomen and Pelvis With Intravenous Contrast CLINICAL HISTORY: ITS.REASON CT Reason: post op infection s/p ruptured appy last month TECHNIQUE: Axial computed tomography images of the abdomen and pelvis with intravenous contrast. CTDI is 33.77 mGy and DLP is 1529.8 mGy-cm. This CT exam was performed using one or more of the following dose reduction techniques: automated exposure control, adjustment of the mA and/or kV according to patient size, and/or use of iterative reconstruction technique. COMPARISON: 04/07/2020 FINDINGS: Lung bases: Unremarkable. No mass. No consolidation. ABDOMEN: Liver: Unremarkable. No mass. Gallbladder and bile ducts: Cholecystectomy No ductal dilation. Pancreas: Unremarkable. No mass. No ductal dilation. Spleen: Unremarkable. No splenomegaly. Adrenals: Stable 2 cm heterogeneous right adrenal nodule, not characterized as adenomas on this study. Kidneys and ureters: Unremarkable. No solid mass. No hydronephrosis. Stomach and bowel: Unremarkable. No obstruction. No mucosal thickening. PELVIS: Appendix: Interval postoperative changes in the right lower quadrant. Correlates with appendectomy. Mild fat stranding in the right lower quadrant. Bladder: Unremarkable. No mass. Reproductive: Hysterectomy. ABDOMEN and PELVIS: Intraperitoneal space: Unremarkable. No free air. No significant fluid collection. Bones/joints: No acute fracture. No dislocation. Soft tissues: Postoperative changes of the midline lower abdominal/pelvic wall with small amount of fluid, gas bubble. Skin lilian. Vasculature: Unremarkable. No abdominal aortic aneurysm. Lymph nodes: Multiple small retroperitoneal and mesenteric nodes, nonspecific. IMPRESSION: 1. Interval appendectomy. Mild fat stranding in the right lower quadrant. May reflect scarring or mild inflammatory changes. 2. Postoperative changes of the midline lower abdominal/pelvic wall with small amount of fluid, gas bubble. May reflect recent postoperative changes, although infection and small abscess not excluded. 3. Stable 2 cm heterogeneous right adrenal nodule, not characterized as adenomas on this study. Correlate with other prior workup if available or consider nonemergent adrenal protocol CT/MR.
[2020-05-13] MEDS ORDERED: NALOXONE 0.4 MG/ML 1 ML VIAL IV PRN (06:13)
[2020-05-13] MEDS ORDERED: ERTAPENEM 1 GM in SODIUM CHLORIDE 0.9% 50 ML IVPB STA (06:16)
[2020-05-13] MEDS: SODIUM CHLORIDE 0.9% 1,000 ML IV SCH ×2 (06:21→21:21)
[2020-05-13] MEDS: ONDANSETRON 4 MG/2 ML VIAL IVP PRN (06:24)
[2020-05-13] MEDS: MORPHINE SULFATE 4 MG/ML SYRINGE IV PRN ×2 (06:26→21:21)
[2020-05-13] MEDS: POTASSIUM CHLORIDE 10 MEQ in WATER FOR INJECTION 1 100ML.BAG IVPB SCH ×2 (09:31→10:57)
--- NOTE | 2020-05-13 11:45 | P.GSHP ---
History of Present Illness H&P Date: 05/13/20 CHIEF COMPLAINT: Abdominal Incision infection HISTORY OF PRESENT ILLNESS: This is a 40-year-old female with history of an acute ruptured appendicitis with abscess status post diagnostic Laparoscopy with appendectomy and small bowel resection with Dr. Reddy on 04/07/2020. She also has a history of hyperlipidemia, GERD, degenerative disc disease of the lumbar spine, chronic pancreatitis related to prior history of chronic alcohol use and history of depression. Patient presents to the emergency room with complaints of greenish discharge from her incision site at the umbilicus area. Patient reports since surgery there has been continuous yellowish drainage. She has been to her follow-up appointments with Dr. Reddy. She reports completing her Invanz outpatient antibiotics about 2 weeks ago. Within the last 24 hours she noted that the discharge from the incision site had turned a greenish color. She was very chilled. She became concerned and came into the emergency room for further evaluation and treatment. Computed tomography scan of the abdomen and pelvis shows interval appendectomy. Mild fat stranding in the right lower quadrant. May reflect scarring or mild inflammatory changes. Postoperative changes of the midline lower abdomen pelvic wall with small amount of fluid, gas bubble. May reflect recent post operative changes although infection and small abscess not excluded. Stable 2 cm heterogenous right adrenal nodule. Patient denies any nausea or vomiting. Reports that she's had chronic diarrhea since the surgery. No blood reported in stools. She's been re started on her IV Invanz for possible incisional infection. PAST MEDICAL HISTORY: See list. PAST SURGICAL HISTORY: See list. MEDICATIONS: See list. ALLERGIES: See list. SOCIAL HISTORY: No illicit drug use. REVIEW OF SYSTEMS: CONSTITUTIONAL: Denies fever or chills. HEENT: Denies blurred vision, vision changes, or eye pain. Denies hemoptysis CARDIOVASCULAR: Denies chest pain or pressure. RESPIRATORY: No shortness of breath. GASTROINTESTINAL: See HPI for pertinent findings HEMATOLOGIC: Denies bleeding disorders. GENITOURINARY: Denies any blood in urine or increased urinary frequency. SKIN: Denies pruitis. Denies rash. PHYSICAL EXAM: VITAL SIGNS: Reviewed GENERAL: Well-developed in no acute distress. HEENT: No sclera icterus. Extraocular movements grossly intact. Moist buccal mucosa. Head is atraumatic, normocephalic. No nasal drainage. ABDOMEN: Soft. Obese. Patient's incision site in the umbilicus area is filled with yellowish drainage. Erythema noted along the incision. Tenderness with palpation around the incision. Lilian are still intact redness and scabbing noted around lilian NEUROLOGIC: Alert and oriented. Cranial nerves II through XII grossly intact. LABORATORY DATA: WBC 11.2 hemoglobin 13.6 potassium is 3.3 lactic acid 1.8 liver enzymes normal IMAGING: Computed tomography scan of the abdomen and pelvis shows interval appendectomy. Mild fat stranding in the right lower quadrant. May reflect scarring or mild inflammatory changes. Postoperative changes of the midline lower abdomen pelvic wall with small amount of fluid, gas bubble. May reflect recent post operative changes although infection and small abscess not excluded. Stable 2 cm heterogenous right adrenal nodule. ASSESSMENT: 1. Abdominal wound infection 2. Recent laparoscopy with appendectomy and small bowel resection for an acute ruptured appendicitis with abscess on 04/07/2020 3. Hypokalemia 4. Hyperlipidemia 5. GERD 6. History of chronic pancreatitis With prior history of chronic alcohol use PLAN: -we'll resume patient's IV Invanz -Continue to monitor CBC -Check blood cultures -Continue IV fluids -Consult medicine for medical management -Remove lilian from incision -Place patient on regular diet -Replace potassium -GI and DVT prophylaxis Physician Photographic Hand Developer note has been reviewed by physician. Signing provider agrees with the documented findings, assessment, and plan of care. Past Medical History Past Medical History: GERD/Reflux Additional Past Medical History / Comment(s): Migraines, Pancreatic Deficiency, Lower lumbar disease, hypoglycemia. History of Any Multi-Drug Resistant Organisms: MRSA Date of last positivie culture/infection: 2013 MDRO Source:: hip Past Surgical History: Appendectomy, Cholecystectomy, Hysterectomy, Tonsillectomy Additional Past Surgical History / Comment(s): (R) hand surgery, (L) hip from spider bite r/t MRSA Past Anesthesia/Blood Transfusion Reactions: No Reported Reaction Additional Past Anesthesia/Blood Transfusion Reaction / Comment(s): SEVERE CLAUSTERPHOBIA INCLUDING A MASK ON HER FACE. Past Psychological History: Anxiety, Bipolar, Depression Additional Psychological History / Comment(s): Pt resides with her spouse. She does not drive, her spouse drives. Otherwise, she is independent. Smoking Status: Current every day smoker Past Alcohol Use History: None Reported Additional Past Alcohol Use History / Comment(s): Pt started smoking in 1992 and is a half a ppd smoker. She states she is a recovering alcoholic-last drank 1.5 years ago. Past Drug Use History: None Reported - Past Family History Father History Unknown: Yes Family Medical History: No Reported History Additional Family Medical History / Comment(s): Father is but pt does not know past medical history-they were not in much contact with each other. Mother Family Medical History: Cancer Additional Family Medical History / Comment(s): Mother at the age of 50 years from Cancer metastasis. Mother also had an aneurysm. Sister(s) Additional Family Medical History / Comment(s): Bipolar and Schizoprenia. Son(s) Family Medical History: No Reported History (one son no major medical problems.) Daughter(s) Family Medical History: No Reported History (2 daughters no major medical problems.) Medications and Allergies Home Medications Medication Instructions Recorded Confirmed Type Naproxen Sodium [Aleve] 440 mg PO BID PRN 05/13/20 05/13/20 History Allergies Allergy/AdvReac Type Severity Reaction Status Date / Time cephalexin [From Keflex] Allergy Severe Swelling Verified 05/13/20 06:37 levofloxacin Allergy Rash/Hives Verified 05/13/20 06:37 Penicillins Allergy Swelling Verified 05/13/20 06:37 sulfamethoxazole Allergy Rash/Hives Verified 05/13/20 06:37 [From Bactrim] trimethoprim [From Bactrim] Allergy Rash/Hives Verified 05/13/20 06:37 Surgical - Exam Vital Signs Temp Pulse Resp BP Pulse Ox 97.9 F 78 18 124/84 99 05/13/20 04:22 05/13/20 04:22 05/13/20 04:22 05/13/20 04:22 05/13/20 04:22 Results - Labs 05/13/20 04:48 05/13/20 04:48 Abnormal Lab Results - Last 24 Hours (Table) 05/13/20 05/13/20 Range/Units 04:48 04:48 WBC 11.2 H (3.8-10.6) k/uL Potassium 3.3 L (3.5-5.1) mmol/L BUN 5 L (7-17) mg/dL Glucose 122 H (74-99) mg/dL Diabetes panel 05/13/20 Range/Units 04:48 Sodium 139 (137-145) mmol/L Potassium 3.3 L (3.5-5.1) mmol/L Chloride 105 (98-107) mmol/L Carbon Dioxide 27 (22-30) mmol/L BUN 5 L (7-17) mg/dL Creatinine 0.89 (0.52-1.04) mg/dL Glucose 122 H (74-99) mg/dL Calcium 9.5 (8.4-10.2) mg/dL AST 25 (14-36) U/L ALT 27 (4-34) U/L Alkaline Phosphatase 68 (38-126) U/L Total Protein 7.1 (6.3-8.2) g/dL Albumin 4.0 (3.5-5.0) g/dL Calcium panel 05/13/20 Range/Units 04:48 Calcium 9.5 (8.4-10.2) mg/dL Albumin 4.0 (3.5-5.0) g/dL Pituitary panel 05/13/20 Range/Units 04:48 Sodium 139 (137-145) mmol/L Potassium 3.3 L (3.5-5.1) mmol/L Chloride 105 (98-107) mmol/L Carbon Dioxide 27 (22-30) mmol/L BUN 5 L (7-17) mg/dL Creatinine 0.89 (0.52-1.04) mg/dL Glucose 122 H (74-99) mg/dL Calcium 9.5 (8.4-10.2) mg/dL Adrenal panel 05/13/20 Range/Units 04:48 Sodium 139 (137-145) mmol/L Potassium 3.3 L (3.5-5.1) mmol/L Chloride 105 (98-107) mmol/L Carbon Dioxide 27 (22-30) mmol/L BUN 5 L (7-17) mg/dL Creatinine 0.89 (0.52-1.04) mg/dL Glucose 122 H (74-99) mg/dL Calcium 9.5 (8.4-10.2) mg/dL Total Bilirubin 0.4 (0.2-1.3) mg/dL AST 25 (14-36) U/L ALT 27 (4-34) U/L Alkaline Phosphatase 68 (38-126) U/L Total Protein 7.1 (6.3-8.2) g/dL Albumin 4.0 (3.5-5.0) g/dL
[2020-05-13] MEDS ORDERED: POTASSIUM CHLORIDE ER 20 MEQ TAB.ER PO STA (12:46)
--- NOTE | 2020-05-13 18:11 | P.CONS ---
History of Present Illness - Reason for Consult Consult date: 05/13/20 Medical management Requesting physician: Jamie Reddy - Chief Complaint Abdominal wound discharge - History of Present Illness 40-year-old female with history of ruptured appendicitis post appendectomy and small bowel resection on April 07, history of chronic pancreatitis due to alcohol abuse presents to the ED for wound discharge. She reports greenish pus discharge from her incision site at the umbilicus area. She completed her outpatient IV antibiotic Invanz therapy on May 02. She reports some chills but denies any fever. She denies any headache, lower extremity edema, nausea or vomiting, chest pain, shortness of breath, palpitations, changes in urination. She reports chronic diarrhea since her surgery but denies any hematochezia. No changes in appetite or weight. In the ED, her vital signs are normal. CBC showed WBC count of 11.2. CMP showed potassium of 3.3, B1 of 5 and glucose of 122. Lactic acid was negative. Patient is admitted for infected wound at the umbilicus. Review of Systems Pertinent positives and negatives as discussed in HPI, a complete review of systems was performed and all other systems are negative. Past Medical History Past Medical History: GERD/Reflux Additional Past Medical History / Comment(s): Migraines, Pancreatic Deficiency, Lower lumbar disease, hypoglycemia. History of Any Multi-Drug Resistant Organisms: MRSA Year Discovered:: 2013 MDRO Source:: hip Past Surgical History: Appendectomy, Cholecystectomy, Hysterectomy, Tonsillectomy Additional Past Surgical History / Comment(s): (R) hand surgery, (L) hip from spider bite r/t MRSA Past Anesthesia/Blood Transfusion Reactions: No Reported Reaction Additional Past Anesthesia/Blood Transfusion Reaction / Comm: SEVERE CLAUSTERPHOBIA INCLUDING A MASK ON HER FACE. Past Psychological History: Anxiety, Bipolar, Depression Additional Psychological History / Comment(s): Pt resides with her spouse. She does not drive, her spouse drives. Otherwise, she is independent. Smoking Status: Current every day smoker Past Alcohol Use History: None Reported Additional Past Alcohol Use History / Comment(s): Pt started smoking in 1992 and is a half a ppd smoker. She states she is a recovering alcoholic-last drank 1.5 years ago. Past Drug Use History: None Reported - Past Family History Father History Unknown: Yes Family Medical History: No Reported History Additional Family Medical History / Comment(s): Father is but pt does not know past medical history-they were not in much contact with each other. Mother Family Medical History: Cancer Additional Family Medical History / Comment(s): Mother at the age of 50 years from Cancer metastasis. Mother also had an aneurysm. Sister(s) Additional Family Medical History / Comment(s): Bipolar and Schizoprenia. Son(s) Family Medical History: No Reported History (one son no major medical problems.) Daughter(s) Family Medical History: No Reported History (2 daughters no major medical p roblems.) Medications and Allergies Home Medications Medication Instructions Recorded Confirmed Type Naproxen Sodium [Aleve] 440 mg PO BID PRN 05/13/20 05/13/20 History Allergies Allergy/AdvReac Type Severity Reaction Status Date / Time cephalexin [From Keflex] Allergy Severe Swelling Verified 05/13/20 06:37 levofloxacin Allergy Rash/Hives Verified 05/13/20 06:37 Penicillins Allergy Swelling Verified 05/13/20 06:37 sulfamethoxazole Allergy Rash/Hives Verified 05/13/20 06:37 [From Bactrim] trimethoprim [From Bactrim] Allergy Rash/Hives Verified 05/13/20 06:37 Physical Exam Vitals: Vital Signs Temp Pulse Pulse Resp BP BP Pulse Ox 05/13/20 13:56 98.2 F 86 16 112/69 05/13/20 09:00 81 16 05/13/20 08:23 97.9 F 81 16 119/76 97 05/13/20 06:52 98.2 F 89 18 111/77 96 05/13/20 06:39 98.1 F 70 18 127/72 97 05/13/20 06:00 72 18 123/77 97 05/13/20 05:27 77 20 126/82 97 05/13/20 04:22 97.9 F 78 18 124/84 99 Intake and Output 05/13/20 05/13/20 05/13/20 06:59 14:59 22:59 Other: Voiding Method Toilet # Voids 1 Weight 99.609 kg 99.609 kg General: [non toxic], [no distress], [appears at stated age] Derm: [warm], [dry] Head: [atraumatic], [normocephalic], [symmetric] Eyes: [EOMI], [no lid lag], [anicteric sclera] Mouth: [no lip lesion], [mucus membranes moist] Cardiovascular: [S1S2 reg], [no murmur], [positive DP pulse bilateral], Lungs: [CTA bilateral], [no rhonchi, no rales] , [no accessory muscle use] Abdominal: [soft], [mild tenderness to palpation generalized without rebound], [ no guarding], [no appreciable organomegaly], [midline dressing soaked with drainage] Ext: [no gross muscle atrophy], [no edema], [no contractures] Neuro: [ CN II-XI grossly intact], [no focal neuro deficits] Psych: [Alert], [oriented], [appropriate affect] Results CBC & Chem 7: 05/13/20 04:48 05/13/20 04:48 Labs: Abnormal Lab Results - Last 24 Hours (Table) 05/13/20 05/13/20 Range/Units 04:48 04:48 WBC 11.2 H (3.8-10.6) k/uL Potassium 3.3 L (3.5-5.1) mmol/L BUN 5 L (7-17) mg/dL Glucose 122 H (74-99) mg/dL Assessment and Plan Assessment: Hypokalemia Abdominal wound infection with history of laparoscopic appendectomy and small bowel resection on April 07 Adrenal nodule Dyslipidemia Tobacco abuse History of chronic pancreatitis with chronic alcohol abuse Patient's potassium is 3.3. Plans: Replaced via protocol. Repeat BMP tomorrow morning. CT abdomen and pelvis shows postoperative changes with small amount of fluid, gas bubble of the midline lower abdominal/pelvic wall. Leukocytosis of 11.2. Afebrile. Lactic acid negative. Plans: Continue Invanz. Follow blood culture. Follow surgery recommendations. Plans: Patient is adequate outpatient follow-up for incidental nodule seen in her adrenal gland. Plans: Low-fat diet. Offered nicotine patch. She refused. Patient denies drinking alcohol currently. Plans: Continue to monitor. DVT prophylaxis: [Heparin] Discussed with: [Patient and nursing] Anticipated discharge: [2-3 days] Anticipated discharge place: [Home] A total of [45] minutes was spent on the care of this complex patient more than 50% of the time was spent in counseling and care coordination. Patient names her Daryn decision maker if she can't make decisions for herself. Patient elected to be full code.
[2020-05-13 18:38] LABS: Basophils # (A) 0.1 k/uL (0-0.2); Basophils % (A) 1 %; Eosinophils # (A) 0.3 k/uL (0-0.7); Eosinophils % (A) 3 %; HCT 38.4 % (34.0-46.0); HGB 12.3 gm/dL (11.4-16.0); Lymphocytes # (A) 3.6 k/uL (1.0-4.8); Lymphocytes % (A) 37 %; MCH 30.1 pg (25.0-35.0); MCHC 32.1 g/dL (31.0-37.0); MCV 93.9 fL (80.0-100.0); Monocytes # (A) 0.5 k/uL (0-1.0); Monocytes % (A) 5 %; Neutrophils # (A) 5.2 k/uL (1.3-7.7); Neutrophils % (A) 53 %; Platelet Count 324 k/uL (150-450); RDW 12.8 % (11.5-15.5); WBC 9.7 k/uL (3.8-10.6)
[2020-05-13] MEDS: HEPARIN SODIUM,PORCINE 5,000 UNIT/ML 1 ML VIAL SQ SCH (21:20)
[2020-05-14] MEDS: MORPHINE SULFATE 4 MG/ML SYRINGE IV PRN ×2 (02:46→08:01)
[2020-05-14 06:50] LABS: Basophils # (A) 0.1 k/uL (0-0.2); Basophils % (A) 1 %; Eosinophils # (A) 0.3 k/uL (0-0.7); Eosinophils % (A) 3 %; HCT 38.7 % (34.0-46.0); HGB 12.3 gm/dL (11.4-16.0); Lymphocytes # (A) 3.9 k/uL (1.0-4.8); Lymphocytes % (A) 49 %; MCH 29.7 pg (25.0-35.0); MCHC 31.8 g/dL (31.0-37.0); MCV 93.6 fL (80.0-100.0); Mean Platelet Volume 7.6; Monocytes # (A) 0.4 k/uL (0-1.0); Monocytes % (A) 5 %; Neutrophils # (A) 3.3 k/uL (1.3-7.7); Neutrophils % (A) 41 %; Platelet Count 305 k/uL (150-450); RBC 4.14 m/uL (3.80-5.40); RDW 12.6 % (11.5-15.5); WBC 7.9 k/uL (3.8-10.6)
[2020-05-14 06:58] LABS: ALT 21 U/L (4-34); AST 22 U/L (14-36); African American GFR (CKD) >90 (>60 ml/min/1.73 sqM); Albumin 3.1 g/dL (3.5-5.0); Alkaline Phosphatase 62 U/L (38-126); Anion Gap 5 mmol/L; Blood Urea Nitrogen 5 mg/dL (7-17); Calcium 8.3 mg/dL (8.4-10.2); Carbon Dioxide 22 mmol/L (22-30); Chloride 110 mmol/L (98-107); Glucose 107 mg/dL (74-99); Non-African American GFR(CKD) >90 (>60 ml/min/1.73 sqM); Potassium 3.8 mmol/L (3.5-5.1); Sodium 137 mmol/L (137-145); Total Bilirubin 0.3 mg/dL (0.2-1.3); Total Protein 5.7 g/dL (6.3-8.2)
[2020-05-14 07:54] VITALS: BP 115/77; PULSE 78; RESP 14; TEMP 98.1
[2020-05-14] MEDS: SODIUM CHLORIDE 0.9% 1,000 ML IV SCH (08:00)
[2020-05-14] MEDS: ONDANSETRON 4 MG/2 ML VIAL IVP PRN (08:01)
[2020-05-14] MEDS: HEPARIN SODIUM,PORCINE 5,000 UNIT/ML 1 ML VIAL SQ SCH (08:01)
[2020-05-14] MEDS ORDERED: SODIUM CHLORIDE 0.9% 1,000 ML IV SCH (08:15)
[2020-05-14] MEDS ORDERED: ERTAPENEM 1 GM in SODIUM CHLORIDE 0.9% 50 ML IVPB SCH (09:00)
--- NOTE | 2020-05-14 13:57 | P.DS ---
Providers Date of admission: 05/13/20 11:15 Expected date of discharge: 05/14/20 Attending physician: Jamie Reddy Consults: 05/13/20 11:30 Consult Physician Routine Consulting Provider: Tk Kahn Consult Reason/Comments: medical managment Do you want consulting provider notified?: Yes Primary care physician: Stated None Hospital Course: Discharge diagnosis 1. Abdominal wound infection 2. Recent laparoscopy with appendectomy and small bowel resection for an acute ruptured appendicitis with abscess on 04/07/2020 3. Hypokalemia Resolved 4. Hyperlipidemia 5. GERD 6. History of chronic pancreatitis With prior history of chronic alcohol use Hospital course This is a 40-year-old female with history of an acute ruptured appendicitis with abscess status post diagnostic Laparoscopy with appendectomy and small bowel resection with Dr. Reddy on 04/07/2020. She also has a history of hyperlipidemia, GERD, degenerative disc disease of the lumbar spine, chronic pancreatitis related to prior history of chronic alcohol use and history of depression. Patient presents to the emergency room with complaints of greenish discharge from her incision site at the umbilicus area. Patient reports since surgery there has been continuous yellowish drainage. She has been to her follow-up appointments with Dr. Reddy. She reports completing her Invanz outpatient antibiotics about 2 weeks ago. Within the last 24 hours she noted that the discharge from the incision site had turned a greenish color. She was very chilled. She became concerned and came into the emergency room for further evaluation and treatment. Computed tomography scan of the abdomen and pelvis shows interval appendectomy. Mild fat stranding in the right lower quadrant. May reflect scarring or mild inflammatory changes. Postoperative changes of the midline lower abdomen pelvic wall with small amount of fluid, gas bubble. May reflect recent post operative changes although infection and small abscess not excluded. Stable 2 cm heterogenous right adrenal nodule. Patient was restarted on her IV Invanz. She has been afebrile. WBC normalized. Blood cultures are negative so far. Drainage from abdominal wound is pending. Patient is stable for discharge. She is tolerating diet. She is afebrile. She will be discharged on clindamycin 300 mg every 6 hours for 10 days. Patient does have multiple antibiotic ALLERGIES. Patient will follow-up with Dr. Reddy in 1 week. Physician Insurance Associate note has been reviewed by physician. Signing provider agrees with the documented findings, assessment, and plan of care. Patient Condition at Discharge: Stable Plan - Discharge Summary Discharge Rx Participant: No New Discharge Prescriptions: New clindamycin HCL [Cleocin] 300 mg PO Q6HR 10 Days #40 cap Continue Naproxen Sodium [Aleve] 440 mg PO BID PRN PRN Reason: Pain Discharge Medication List Naproxen Sodium [Aleve] 440 mg PO BID PRN 05/13/20 [History] clindamycin HCL [Cleocin] 300 mg PO Q6HR 10 Days #40 cap 05/14/20 [Rx] Follow up Appointment(s)/Referral(s): [facility], [NON-STAFF] - 1-2 Days None,Stated [Primary Care Provider] - 1-2 days Jamie Reddy MD [STAFF PHYSICIAN] - 1 Week Activity/Diet/Wound Care/Special Instructions: Diet: Regular, low fat Activity: as tolerated Keep abdominal incision clean, dry and covered with ABD dressing Patient can shower and clean abdominal incision with soap and water Discharge Disposition: HOME WITH HOME HEALTH SERVICES
== END 2020-05-14 15:41 | disposition home health service (06) ==
LOC: EC 04:17 → 1SOBS 06:13 → OBSVTOIN 11:15 → INTOOBSV 11:15 → UNDODISIN 05-14 15:41
PROVIDERS: ADMIT Surgery; ATTEND Surgery
DX: T81.49XA Infection following a procedure, other surgical site, initial encounter (principal); E78.5 Hyperlipidemia, unspecified; E87.6 Hypokalemia; K52.9 Noninfective gastroenteritis and colitis, unspecified; M51.36 Other intervertebral disc degeneration, lumbar region; K21.9 Gastro-esophageal reflux disease without esophagitis; G43.909 Migraine, unspecified, not intractable, without status migrainosus; F41.9 Anxiety disorder, unspecified; F17.210 Nicotine dependence, cigarettes, uncomplicated; K86.0 Alcohol-induced chronic pancreatitis; E27.8 Other specified disorders of adrenal gland; F10.21 Alcohol dependence, in remission; F40.240 Claustrophobia; F31.9 Bipolar disorder, unspecified; Z16.29 Resistance to other single specified antibiotic; E16.2 Hypoglycemia, unspecified; Z90.710 Acquired absence of both cervix and uterus; Z90.89 Acquired absence of other organs; Z90.49 Acquired absence of other specified parts of digestive tract; Z79.1 Long term (current) use of non-steroidal anti-inflammatories (NSAID); Z88.0 Allergy status to penicillin; Z88.2 Allergy status to sulfonamides; Z88.1 Allergy status to other antibiotic agents; Z86.14 Personal history of Methicillin resistant Staphylococcus aureus infection; Z80.9 Family history of malignant neoplasm, unspecified; Z81.8 Family history of other mental and behavioral disorders; Z82.49 Family history of ischemic heart disease and other diseases of the circulatory system
CPT/HCPCS: 96361 ×2; 96365; 96366; 96367; 96372 ×2; 96376 ×2; 96375; 99285; 36415; 83880; 80053 ×2; 83605; 85025 ×2; 87040; 87070; 87205; 87075; 87077; 87186; 74177; G0378 ×2; J2270 ×2; J1644 ×2; J2405 ×2; J1335 ×2; J3480; Q9967; 96374

== ENCOUNTER 2020-05-23 21:40 | Emergency (ER) | payer MEDICARE, OTHER ==
[2020-05-23] MEDS ORDERED: SODIUM CHLORIDE 0.9% 500 ML 500 ML IV STA (22:32)
[2020-05-23] MEDS ORDERED: MORPHINE SULFATE 4 MG/ML SYRINGE IV STA (22:32)
--- NOTE | 2020-05-23 22:36 | ED ---
Abdominal Pain HPI - General Chief Complaint: Abdominal Pain Stated Complaint: Infection Source: patient Mode of arrival: ambulatory Limitations: no limitations - History of Present Illness Initial Comments: 's patient is a 40-year-old woman with history of having appendectomy performed in March and subsequently developing surgical site infection at the umbilicus. The patient had been admitted and had course of Invanz and is currently taking Bactrim. She denies fever or chills. She does continue to have purulent drainage from the surgical site. Currently pain is just to the left of the umbilicus. She states that she is out of pain medication. MD Complaint: abdominal pain -: days(s) Location: LLQ Radiation: none Migration to: no migration Severity: moderate Quality: aching Consistency: constant Improves With: nothing Worsens With: nothing Associated Symptoms: nausea - Related Data Home Medications Medication Instructions Recorded Confirmed Sulfamethox-Tmp 800-160Mg [Bactrim 1 tab PO BID 05/23/20 05/23/20 DS 800-160 mg] diphenhydrAMINE HCL [Benadryl] 25 mg PO TID 05/23/20 05/23/20 Previous Rx's Medication Instructions Recorded Hydrocodone/Acetaminophen [[place] 1 each PO Q6HR PRN #20 tab 05/24/20 5-325] Allergies Allergy/AdvReac Type Severity Reaction Status Date / Time cephalexin [From Keflex] Allergy Severe Swelling Verified 05/23/20 22:48 clindamycin [From Cleocin] Allergy Anaphylaxis Verified 05/23/20 22:48 levofloxacin Allergy Rash/Hives Verified 05/23/20 22:48 Penicillins Allergy Swelling Verified 05/23/20 22:48 sulfamethoxazole AdvReac Itching Verified 05/23/20 22:48 [From Bactrim] trimethoprim [From Bactrim] AdvReac Itching Verified 05/23/20 22:48 Review of Systems ROS Statement: Those systems with pertinent positive or pertinent negative responses have been documented in the HPI. ROS Other: All systems not noted in ROS Statement are negative. Constitutional: Denies: fever, chills Respiratory: Denies: cough, dyspnea Cardiovascular: Denies: chest pain, palpitations, edema Gastrointestinal: Reports: as per HPI, abdominal pain, nausea. Denies: vomiting , diarrhea, constipation, melena, hematochezia Genitourinary: Denies: dysuria, frequency, hematuria Musculoskeletal: Denies: back pain Skin: Denies: rash Neurological: Denies: headache Past Medical History Past Medical History: GERD/Reflux Additional Past Medical History / Comment(s): Migraines, Pancreatic Deficiency, Lower lumbar disease, hypoglycemia. History of Any Multi-Drug Resistant Organisms: MRSA Date of last positivie culture/infection: 05/13/20 MDRO Source:: ABDOMEN Past Surgical History: Appendectomy, Cholecystectomy, Hysterectomy, Tonsillectomy Additional Past Surgical History / Comment(s): (R) hand surgery, (L) hip from spider bite r/t MRSA Past Anesthesia/Blood Transfusion Reactions: No Reported Reaction Additional Past Anesthesia/Blood Transfusion Reaction / Comment(s): SEVERE CLAUSTERPHOBIA INCLUDING A MASK ON HER FACE. Past Psychological History: Anxiety, Bipolar, Depression Smoking Status: Current every day smoker Past Alcohol Use History: None Reported Past Drug Use History: None Reported - Past Family History Father History Unknown: Yes Family Medical History: No Reported History Additional Family Medical History / Comment(s): Father is but pt does not know past medical history-they were not in much contact with each other. Mother Family Medical History: Cancer Additional Family Medical History / Comment(s): Mother at the age of 50 years from Cancer metastasis. Mother also had an aneurysm. Sister(s) Additional Family Medical History / Comment(s): Bipolar and Schizoprenia. Son(s) Family Medical History: No Reported History (one son no major medical problems.) Daughter(s) Family Medical History: No Reported History (2 daughters no major medical problems.) General Exam Limitations: no limitations General appearance: alert, in no apparent distress Head exam: Present: atraumatic, normocephalic Eye exam: Present: normal appearance. Absent: scleral icterus, conjunctival injection ENT exam: Present: normal oropharynx Respiratory exam: Present: normal lung sounds bilaterally. Absent: respiratory distress, wheezes, rales, rhonchi, stridor Cardiovascular Exam: Present: regular rate, normal rhythm, normal heart sounds. Absent: systolic murmur, diastolic murmur, rubs, gallop GI/Abdominal exam: Present: soft, tenderness (Ur is mild tenderness adjacent to the surgical site at the umbilicus. There is no erythema or warmth, but there is small amount of purulent drainage). Absent: distended, guarding, rebound, rigid, mass, pulsatile mass, hernia Extremities exam: Present: normal inspection, normal capillary refill. Absent: pedal edema, calf tenderness Back exam: Present: normal inspection. Absent: CVA tenderness (R), CVA tenderness (L) Neurological exam: Present: alert Skin exam: Present: warm, dry, intact, normal color. Absent: rash, erythema Course Vital Signs 05/23/20 21:51 Temperature 98.8 F Pulse Rate 103 H Respiratory 22 Rate Blood Pressure 116/81 O2 Sat by Pulse 99 Oximetry Medical Decision Making - Medical Decision Making patient's 40-year-old woman with purulent drainage from her umbilical surgical site. This is sent for culture and sensitivity. There are no peritoneal signs. The patient's case discussed with her surgeon. She did just start the Bactrim less than 48 hours ago, and is requested that she continue this and follow in the clinic. The patient's main concern is that she has run out of pain medication, and this will be extended for 3 days. Patient is feeling better and does want to go home. We discussed return parameters and the appropriate follow-up and further care. - Lab Data Result diagrams: 05/23/20 22:40 05/23/20 22:40 Lab Results 05/23/20 05/23/20 05/23/20 Range/Units 22:40 22:40 22:40 WBC 12.6 H (3.8-10.6) k/uL RBC 4.17 (3.80-5.40) m/uL Hgb 13.0 (11.4-16.0) gm/dL Hct 38.6 (34.0-46.0) % MCV 92.5 (80.0-100.0) fL MCH 31.2 (25.0-35.0) pg MCHC 33.7 (31.0-37.0) g/dL RDW 12.9 (11.5-15.5) % Plt Count 348 (150-450) k/uL Neutrophils % 63 % Lymphocytes % 29 % Monocytes % 5 % Eosinophils % 2 % Basophils % 1 % Neutrophils # 8.0 H (1.3-7.7) k/uL Lymphocytes # 3.6 (1.0-4.8) k/uL Monocytes # 0.6 (0-1.0) k/uL Eosinophils # 0.2 (0-0.7) k/uL Basophils # 0.1 (0-0.2) k/uL Sodium 136 L (137-145) mmol/L Potassium 3.9 (3.5-5.1) mmol/L Chloride 108 H (98-107) mmol/L Carbon Dioxide 21 L (22-30) mmol/L Anion Gap 7 mmol/L BUN 3 L (7-17) mg/dL Creatinine 0.78 (0.52-1.04) mg/dL Est GFR (CKD-EPI)AfAm >90 (>60 ml/min/1.73 sqM) Est GFR (CKD-EPI)NonAf >90 (>60 ml/min/1.73 sqM) Glucose 109 H (74-99) mg/dL Plasma Lactic Acid Maykel 1.1 (0.7-2.0) mmol/L Calcium 9.1 (8.4-10.2) mg/dL Total Bilirubin 0.5 (0.2-1.3) mg/dL AST 49 H (14-36) U/L ALT 55 H (4-34) U/L Alkaline Phosphatase 86 (38-126) U/L Total Protein 6.8 (6.3-8.2) g/dL Albumin 3.7 (3.5-5.0) g/dL Amylase 56 (30-110) U/L Lipase 183 (23-300) U/L Urine Color Urine Appearance (Clear) Urine pH (5.0-8.0) Ur Specific [place] (1.001-1.035) Urine Protein (Negative) Urine Glucose (UA) (Negative) Urine Ketones (Negative) Urine Blood (Negative) Urine Nitrite (Negative) Urine Bilirubin (Negative) Urine Urobilinogen (<2.0) mg/dL Ur Leukocyte Esterase (Negative) 05/24/20 Range/Units 00:11 WBC (3.8-10.6) k/uL RBC (3.80-5.40) m/uL Hgb (11.4-16.0) gm/dL Hct (34.0-46.0) % MCV (80.0-100.0) fL MCH (25.0-35.0) pg MCHC (31.0-37.0) g/dL RDW (11.5-15.5) % Plt Count (150-450) k/uL Neutrophils % % Lymphocytes % % Monocytes % % Eosinophils % % Basophils % % Neutrophils # (1.3-7.7) k/uL Lymphocytes # (1.0-4.8) k/uL Monocytes # (0-1.0) k/uL Eosinophils # (0-0.7) k/uL Basophils # (0-0.2) k/uL Sodium (137-145) mmol/L Potassium (3.5-5.1) mmol/L Chloride (98-107) mmol/L Carbon Dioxide (22-30) mmol/L Anion Gap mmol/L BUN (7-17) mg/dL Creatinine (0.52-1.04) mg/dL Est GFR (CKD-EPI)AfAm (>60 ml/min/1.73 sqM) Est GFR (CKD-EPI)NonAf (>60 ml/min/1.73 sqM) Glucose (74-99) mg/dL Plasma Lactic Acid Maykel (0.7-2.0) mmol/L Calcium (8.4-10.2) mg/dL Total Bilirubin (0.2-1.3) mg/dL AST (14-36) U/L ALT (4-34) U/L Alkaline Phosphatase (38-126) U/L Total Protein (6.3-8.2) g/dL Albumin (3.5-5.0) g/dL Amylase (30-110) U/L Lipase (23-300) U/L Urine Color Light Yellow Urine Appearance Clear (Clear) Urine pH 6.0 (5.0-8.0) Ur Specific [place] 1.004 (1.001-1.035) Urine Protein Negative (Negative) Urine Glucose (UA) Negative (Negative) Urine Ketones Negative (Negative) Urine Blood Negative (Negative) Urine Nitrite Negative (Negative) Urine Bilirubin Negative (Negative) Urine Urobilinogen <2.0 (<2.0) mg/dL Ur Leukocyte Esterase Negative (Negative) Disposition Clinical Impression: Wound infection after surgery Disposition: HOME SELF-CARE Condition: Good Prescriptions: Hydrocodone/Acetaminophen [[place] 5-325] 1 each PO Q6HR PRN #20 tab PRN Reason: Pain Is patient prescribed a controlled substance at d/c from ED?: Yes When asked, does pt state using other controlled substances?: No If prescribed controlled substance>3 days was MAPS reviewed?: Prescribed <3 Days If opioid is for acute pain is fill amount 7 days or less?: Yes If Rx opioid, was Start Talking consent form obtained?: Yes Referrals: None,Stated [Primary Care Provider] - 1-2 days
[2020-05-23 22:59] LABS: ALT 55 U/L (4-34); AST 49 U/L (14-36); African American GFR (CKD) >90 (>60 ml/min/1.73 sqM); Albumin 3.7 g/dL (3.5-5.0); Alkaline Phosphatase 86 U/L (38-126); Amylase 56 U/L (30-110); Anion Gap 7 mmol/L; Blood Urea Nitrogen 3 mg/dL (7-17); Calcium 9.1 mg/dL (8.4-10.2); Carbon Dioxide 21 mmol/L (22-30); Chloride 108 mmol/L (98-107); Glucose 109 mg/dL (74-99); Lipase 183 U/L (23-300); Non-African American GFR(CKD) >90 (>60 ml/min/1.73 sqM); Potassium 3.9 mmol/L (3.5-5.1); Sodium 136 mmol/L (137-145); Total Bilirubin 0.5 mg/dL (0.2-1.3); Total Protein 6.8 g/dL (6.3-8.2)
[2020-05-23 23:18] LABS: Basophils # (A) 0.1 k/uL (0-0.2); Basophils % (A) 1 %; Eosinophils # (A) 0.2 k/uL (0-0.7); Eosinophils % (A) 2 %; HCT 38.6 % (34.0-46.0); Lymphocytes # (A) 3.6 k/uL (1.0-4.8); Lymphocytes % (A) 29 %; MCH 31.2 pg (25.0-35.0); MCHC 33.7 g/dL (31.0-37.0); MCV 92.5 fL (80.0-100.0); Mean Platelet Volume 8.1; Monocytes # (A) 0.6 k/uL (0-1.0); Monocytes % (A) 5 %; Neutrophils % (A) 63 %; Platelet Count 348 k/uL (150-450); RBC 4.17 m/uL (3.80-5.40); RDW 12.9 % (11.5-15.5); WBC 12.6 k/uL (3.8-10.6)
[2020-05-24 00:22] LABS: Appearance,Urine Clear (Clear); Bilirubin,Urine Negative (Negative); Blood,Urine Negative (Negative); Color,Urine Light Yellow; Glucose,Urine (UA) Negative (Negative); Ketones,Urine Negative (Negative); Leukocyte Esterase,Urine Negative (Negative); Nitrite,Urine Negative (Negative); Protein,Urine Negative (Negative); Specific Gravity,Urine 1.004 (1.001-1.035); Urobilinogen,Urine <2.0 mg/dL (<2.0)
[2020-05-24] MEDS ORDERED: MORPHINE SULFATE 4 MG/ML SYRINGE IV STA (01:54)
[2020-05-24 02:10] VITALS: BP 117/77; PULSE 77; RESP 20; TEMP 98.6
== END 2020-05-24 02:12 | disposition home or self-care (01) ==
LOC: EC 21:40
DX: T81.41XA Infection following a procedure, superficial incisional surgical site, initial encounter (principal); B95.62 Methicillin resistant Staphylococcus aureus infection as the cause of diseases classified elsewhere; F17.200 Nicotine dependence, unspecified, uncomplicated; R10.9 Unspecified abdominal pain; R11.0 Nausea; Z88.1 Allergy status to other antibiotic agents; Z88.0 Allergy status to penicillin; Z88.2 Allergy status to sulfonamides; Z90.49 Acquired absence of other specified parts of digestive tract
CPT/HCPCS: 99284 ×2; 96374 ×2; 96376 ×2; 96361 ×2; 36415; 80053; 82150; 83605; 83690; 85025; 81003; 87040; 87070; 87205; 87077; 87186; J2270 ×2

== ENCOUNTER 2020-06-02 15:34 | Observation (INO) | payer MEDICARE, OTHER ==
[2020-06-02] MEDS ORDERED: ONDANSETRON 4 MG/2 ML VIAL IVP STA (17:24)
[2020-06-02] MEDS ORDERED: KETOROLAC 15 MG/ML 1 ML VIAL IVP STA (17:24)
[2020-06-02] MEDS ORDERED: SODIUM CHLORIDE 0.9% 1,000 ML IV STA (17:24)
[2020-06-02 18:06] LABS: Basophils # (A) 0.1 k/uL (0-0.2); Basophils % (A) 0 %; Eosinophils # (A) 0.2 k/uL (0-0.7); Eosinophils % (A) 2 %; HGB 13.4 gm/dL (11.4-16.0); Lymphocytes # (A) 4.6 k/uL (1.0-4.8); Lymphocytes % (A) 32 %; MCH 28.4 pg (25.0-35.0); MCHC 31.9 g/dL (31.0-37.0); MCV 88.9 fL (80.0-100.0); Mean Platelet Volume 7.3; Monocytes # (A) 0.5 k/uL (0-1.0); Monocytes % (A) 4 %; Neutrophils # (A) 8.9 k/uL (1.3-7.7); Neutrophils % (A) 62 %; Platelet Count 442 k/uL (150-450); RBC 4.73 m/uL (3.80-5.40); WBC 14.5 k/uL (3.8-10.6)
[2020-06-02 18:16] LABS: INR 0.9 (<1.2); Partial Thromboplastin Time 25.9 sec (22.0-30.0); Prothrombin Time 9.4 sec (9.0-12.0)
[2020-06-02 18:28] LABS: ALT 29 U/L (4-34); AST 27 U/L (14-36); African American GFR (CKD) >90 (>60 ml/min/1.73 sqM); Albumin 3.9 g/dL (3.5-5.0); Alkaline Phosphatase 72 U/L (38-126); Anion Gap 7 mmol/L; Blood Urea Nitrogen 6 mg/dL (7-17); Calcium 9.5 mg/dL (8.4-10.2); Carbon Dioxide 22 mmol/L (22-30); Chloride 108 mmol/L (98-107); Glucose 94 mg/dL (74-99); Lipase 276 U/L (23-300); Non-African American GFR(CKD) >90 (>60 ml/min/1.73 sqM); Potassium 4.2 mmol/L (3.5-5.1); Sodium 137 mmol/L (137-145); Total Bilirubin 0.3 mg/dL (0.2-1.3); Total Protein 7.1 g/dL (6.3-8.2)
--- NOTE | 2020-06-02 19:14 | ED ---
Recheck HPI <Tha French - Last Filed: 06/02/20 19:44> - General Source: patient Mode of arrival: wheelchair Limitations: no limitations <Kaila Leon - Last Filed: 06/02/20 21:33> - General Chief Complaint: Recheck/Abnormal Lab/Rx Stated Complaint: +MRSA Time Seen by Provider: 06/02/20 16:58 - History of Present Illness Initial Comments: Patient is a 40-year-old female presenting to the emergency Department with complaints of weakness, fatigue, a wound infection for the last few days. Patie nt states she had acute appendicitis with an abscess in the middle of March, was repaired by Dr. Reddy. Patient states about a month later she developed a postoperative infection and was started on Bactrim. Patient states she finished the Bactrim medication about 2-3 days ago. Patient states she has continued to feel weak, is not able to eat or drink, still having large amount of yellow drainage from her belly button wound. Patient states she discovered a call today that her wound culture was positive for MRSA. Patient states she does not have a PCP to follow up with ischemic the ER. She does admit to some nausea, no vomiting. She's had loose bowel movements. In addition to the appendectomy she has a history of cholecystectomy, hysterectomy. Patient states she's been no fever in the last few days but has had intermittent fevers since her surgery. She denies any chest pain or shortness of breath, cough. She has no further complaints at this time. Upon arrival to the ER, she is afebrile, rest of vitals normal. (Kaila Leon) - Related Data Home Medications Medication Instructions Recorded Confirmed diphenhydrAMINE HCL [Benadryl] 25 mg PO TID 05/23/20 06/02/20 Previous Rx's Medication Instructions Recorded Hydrocodone/Acetaminophen [[place] 1 each PO Q6HR PRN #20 tab 05/24/20 5-325] Allergies Allergy/AdvReac Type Severity Reaction Status Date / Time cephalexin [From Keflex] Allergy Severe Swelling Verified 06/02/20 20:30 clindamycin [From Cleocin] Allergy Anaphylaxis Verified 06/02/20 20:30 levofloxacin Allergy Rash/Hives Verified 06/02/20 20:30 Penicillins Allergy Swelling Verified 06/02/20 20:30 sulfamethoxazole AdvReac Itching Verified 06/02/20 20:30 [From Bactrim] trimethoprim [From Bactrim] AdvReac Itching Verified 06/02/20 20:30 Review of Systems ROS Other: All systems not noted in ROS Statement are negative. <Tha French - Last Filed: 06/02/20 19:44> ROS Other: All systems not noted in ROS Statement are negative. <Kaila Leon - Last Filed: 06/02/20 21:33> ROS Statement: Those systems with pertinent positive or pertinent negative responses have been documented in the HPI. Past Medical History Past Medical History: GERD/Reflux Additional Past Medical History / Comment(s): Migraines, Pancreatic Deficiency, Lower lumbar disease, hypoglycemia. History of Any Multi-Drug Resistant Organisms: MRSA Date of last positivie culture/infection: 05/23/20 MDRO Source:: ABDOMEN Past Surgical History: Appendectomy, Cholecystectomy, Hysterectomy, Tonsillectomy Additional Past Surgical History / Comment(s): (R) hand surgery, (L) hip from spider bite r/t MRSA Past Anesthesia/Blood Transfusion Reactions: No Reported Reaction Additional Past Anesthesia/Blood Transfusion Reaction / Comment(s): SEVERE CLAUSTERPHOBIA INCLUDING A MASK ON HER FACE. Past Psychological History: Anxiety, Bipolar, Depression Smoking Status: Current every day smoker Past Alcohol Use History: None Reported Past Drug Use History: None Reported - Past Family History Father History Unknown: Yes Family Medical History: No Reported History Additional Family Medical History / Comment(s): Father is but pt does not know past medical history-they were not in much contact with each other. Mother Family Medical History: Cancer Additional Family Medical History / Comment(s): Mother at the age of 50 years from Cancer metastasis. Mother also had an aneurysm. Sister(s) Additional Family Medical History / Comment(s): Bipolar and Schizoprenia. Son(s) Family Medical History: No Reported History (one son no major medical problems.) Daughter(s) Family Medical History: No Reported History (2 daughters no major medical problems.) <Kaila Leon - Last Filed: 06/02/20 21:33> General Exam Limitations: no limitations <Kaila Leon - Last Filed: 06/02/20 21:33> - General Exam Comments Initial Comments: GENERAL: Patient is well-developed and well-nourished. Patient is nontoxic and in mild distress. HEAD: Atraumatic, normocephalic. EYES: Pupils equal round and reactive to light, extraocular movements intact, sclera anicteric, conjunctiva are normal. Eyelids were unremarkable. ENT: TMs normal, nares patent, oropharynx clear without exudates. Moist mucous membranes. NECK: Normal range of motion, supple without lymphadenopathy or JVD. LUNGS: Unlabored respirations. Breath sounds clear to auscultation bilaterally and equal. No wheezes rales or rhonchi. HEART: Regular rate and rhythm without murmurs, rubs or gallops. ABDOMEN: Diffuse abdominal tenderness with palpation, no specific area of pain. Soft, normoactive bowel sounds. No guarding, no rebound. No masses appreciated. : Deferred MUSCULOSKELETAL: Normal extremities with adequate strength and normal range of motion, no pitting or edema. No clubbing or cyanosis. NEUROLOGICAL: Patient is alert and oriented x 3. Motor and sensory are also intact. Cranial nerves II through XII grossly intact. Symmetrical smile. Normal speech, normal gait. PSYCH: Normal mood, normal affect. SKIN: Warm, Dry, normal turgor, no rashes. Patient has purlenent drainage from surgical incision in her belly button, no significant surrounding erythema (Kaila Leon) Course Vital Signs 06/02/20 06/02/20 06/02/20 16:12 20:00 20:47 Temperature 97.7 F 98.7 F 98.7 F Pulse Rate 102 H 95 94 Respiratory 16 18 17 Rate Blood Pressure 130/93 127/85 128/87 O2 Sat by Pulse 97 97 97 Oximetry Medical Decision Making - Lab Data Result diagrams: 06/02/20 17:46 06/02/20 17:46 <Tha French - Last Filed: 06/02/20 19:44> - Lab Data Result diagrams: 06/02/20 17:46 06/02/20 17:46 <Kaila Leon - Last Filed: 06/02/20 21:33> - Medical Decision Making Patient reevaluated and reexamined by myself, Dr. French. Patient resting comfortably in bed. Patient does have some purulent yellow drainage from the umbilical region. Patient states she's been on Bactrim for 2 weeks. Recent culture done. Case discussed with Dr. Reddy, who will admit his patient with IV antibiotics, vancomycin as well as consult with Dr. Castillo. I do agree with PA findings. This includes diagnostic intoxication and treatment plan. (Tha French) Patient is a 40-year-old female here with a postop infection, feeling weak and fatigued as well. Patient arrived afebrile, slightly tachycardia at 102, rest of vitals normal. She had an appendectomy and March, and dealing with postop infection of her umbilical area. She recently completed course of Bactrim, recent wound culture was positive for MRSA. She continues to have purulent drainage from her wound. Patient has a white count of 14.5, lactic acid is normal. CT of the abdomen demonstrates a post surgical changes related to appendectomy also residual small amount of fluid and gas within the ventral w all persistent with possible abscess. Patient was given fluids, pain control. Patient will be admitted for IV antibiotics, patient accepted by Dr. Reddy, infectious disease on consult. Case discussed with Dr. French. (Kaila Leon) - Lab Data Lab Results 06/02/20 06/02/20 06/02/20 Range/Units 17:46 17:46 17:46 WBC 14.5 H (3.8-10.6) k/uL RBC 4.73 (3.80-5.40) m/uL Hgb 13.4 (11.4-16.0) gm/dL Hct 42.0 (34.0-46.0) % MCV 88.9 (80.0-100.0) fL MCH 28.4 (25.0-35.0) pg MCHC 31.9 (31.0-37.0) g/dL RDW 13.0 (11.5-15.5) % Plt Count 442 (150-450) k/uL MPV 7.3 Neutrophils % 62 % Lymphocytes % 32 % Monocytes % 4 % Eosinophils % 2 % Basophils % 0 % Neutrophils # 8.9 H (1.3-7.7) k/uL Lymphocytes # 4.6 (1.0-4.8) k/uL Monocytes # 0.5 (0-1.0) k/uL Eosinophils # 0.2 (0-0.7) k/uL Basophils # 0.1 (0-0.2) k/uL PT 9.4 (9.0-12.0) sec INR 0.9 (<1.2) APTT 25.9 (22.0-30.0) sec Sodium 137 (137-145) mmol/L Potassium 4.2 (3.5-5.1) mmol/L Chloride 108 H (98-107) mmol/L Carbon Dioxide 22 (22-30) mmol/L Anion Gap 7 mmol/L BUN 6 L (7-17) mg/dL Creatinine 0.73 (0.52-1.04) mg/dL Est GFR (CKD-EPI)AfAm >90 (>60 ml/min/1.73 sqM) Est GFR (CKD-EPI)NonAf >90 (>60 ml/min/1.73 sqM) Glucose 94 (74-99) mg/dL Plasma Lactic Acid [place] (0.7-2.0) mmol/L Calcium 9.5 (8.4-10.2) mg/dL Total Bilirubin 0.3 (0.2-1.3) mg/dL AST 27 (14-36) U/L ALT 29 (4-34) U/L Alkaline Phosphatase 72 (38-126) U/L Total Protein 7.1 (6.3-8.2) g/dL Albumin 3.9 (3.5-5.0) g/dL Lipase 276 (23-300) U/L 06/02/20 Range/Units 17:46 WBC (3.8-10.6) k/uL RBC (3.80-5.40) m/uL Hgb (11.4-16.0) gm/dL Hct (34.0-46.0) % MCV (80.0-100.0) fL MCH (25.0-35.0) pg MCHC (31.0-37.0) g/dL RDW (11.5-15.5) % Plt Count (150-450) k/uL MPV Neutrophils % % Lymphocytes % % Monocytes % % Eosinophils % % Basophils % % Neutrophils # (1.3-7.7) k/uL Lymphocytes # (1.0-4.8) k/uL Monocytes # (0-1.0) k/uL Eosinophils # (0-0.7) k/uL Basophils # (0-0.2) k/uL PT (9.0-12.0) sec INR (<1.2) APTT (22.0-30.0) sec Sodium (137-145) mmol/L Potassium (3.5-5.1) mmol/L Chloride (98-107) mmol/L Carbon Dioxide (22-30) mmol/L Anion Gap mmol/L BUN (7-17) mg/dL Creatinine (0.52-1.04) mg/dL Est GFR (CKD-EPI)AfAm (>60 ml/min/1.73 sqM) Est GFR (CKD-EPI)NonAf (>60 ml/min/1.73 sqM) Glucose (74-99) mg/dL Plasma Lactic Acid [place] 1.4 (0.7-2.0) mmol/L Calcium (8.4-10.2) mg/dL Total Bilirubin (0.2-1.3) mg/dL AST (14-36) U/L ALT (4-34) U/L Alkaline Phosphatase (38-126) U/L Total Protein (6.3-8.2) g/dL Albumin (3.5-5.0) g/dL Lipase (23-300) U/L Disposition <Tha Frecnh - Last Filed: 06/02/20 19:44> Decision Date: 06/02/20 Decision Time: 19:50 <Kaila Leon - Last Filed: 06/02/20 21:33> Clinical Impression: Wound infection after surgery, Failure of outpatient treatment, Leukocytosis Disposition: ADMITTED IP TO THIS HOSP Condition: Stable Referrals: None,Stated [Primary Care Provider] - 1-2 days
--- NOTE | 2020-06-02 19:24 | CT ---
EXAMINATION TYPE: CT abdomen pelvis w con DATE OF EXAM: 06/02/2020 COMPARISON: 05/13/2020. HISTORY: Pain, post-op infection. Appendectomy 04-07-20. CT DLP: 1505.5 mGycm Automated exposure control for dose reduction was used. TECHNIQUE: Helical acquisition of images was performed from the lung bases through the pelvis. CONTRAST: Performed without Oral Contrast and with IV Contrast, patient injected with 100 mL of Isovue 300. FINDINGS: LUNG BASES: No significant abnormality is appreciated. LIVER/GB: No acute abnormality is appreciated. Hepatic steatosis noted. PANCREAS: No significant abnormality is seen. SPLEEN: No significant abnormality is seen. ADRENALS: No acute abnormality is seen. Unchanged 2.1 cm right adrenal nodule. KIDNEYS: No significant abnormality is seen. FREE AIR: No free air is visualized. RETROPERITONEAL ADENOPATHY: None visualized REPRODUCTIVE ORGANS: No significant abnormality is seen URINARY BLADDER: No significant abnormality is seen. PELVIC ADENOPATHY: None visualized. OSSEOUS STRUCTURES: No significant abnormality is seen. BOWEL: No significant abnormality is seen. OTHER: Redemonstrated are postsurgical changes related to appendectomy with residual mild fat strandi ng and soft tissue emphysema about the lower abdominal ventral wall at the midline and minimal in the right lower quadrant. There is also residual small amount of fluid fluid within the abdominal wall s urgical site. No significant intraperitoneal fluid collection or free air. IMPRESSION: Redemonstrated postsurgical changes related to appendectomy. Residual mild inflammatory changes in th e right lower quadrant and lower abdominal wall surgical sites seen. Also residual small amount of fl uid and gas within the ventral wall persists without evidence of progression. Otherwise no new abnormality. Stable 2 cm right adrenal nodule.
[2020-06-02] MEDS ORDERED: IBUPROFEN 400 MG TAB PO PRN (19:50)
[2020-06-02] MEDS ORDERED: MORPHINE SULFATE 4 MG/ML SYRINGE IV PRN (19:50)
[2020-06-02] MEDS ORDERED: NALOXONE 0.4 MG/ML 1 ML VIAL IV PRN (19:50)
[2020-06-02] MEDS ORDERED: VANCOMYCIN IV PER PHARMACY 1 EACH MISC MISCELLANE PRN (19:52)
[2020-06-02] MEDS ORDERED: GENTAMICIN PER PHARMACY MISCELLANE PRN (20:06)
[2020-06-02] MEDS ORDERED: VANCOMYCIN 1,750 MG in SODIUM CHLORIDE 0.9% 500 ML 500 ML IVPB ONE (20:30)
[2020-06-02] MEDS ORDERED: GENTAMICIN 500 MG in SODIUM CHLORIDE 0.9% 100 ML IVPB ONE (21:00)
[2020-06-02] MEDS: SODIUM CHLORIDE 0.9% 1,000 ML IV SCH (21:35)
[2020-06-03] MEDS: VANCOMYCIN 1,750 MG in SODIUM CHLORIDE 0.9% 500 ML 500 ML IVPB SCH ×2 (07:27→20:34)
[2020-06-03] MEDS: SODIUM CHLORIDE 0.9% 1,000 ML IV SCH ×2 (10:41→23:29)
--- NOTE | 2020-06-03 11:58 | P.GSHP ---
History of Present Illness H&P Date: 06/03/20 CHIEF COMPLAINT: Infection abdominal incision site HISTORY OF PRESENT ILLNESS: This is a 40-year-old female with a history of ruptured appendicitis with abscess status post diagnostic laparoscopy, ap pendectomy and small bowel resection on 04/07/[address] Reddy. She also had prior admission on 05/14/2024 abdominal wound infection. She was discharged on clindamycin. Culture did come back with MRSA. And her antibiotic was switched to Bactrim in the outpatient setting. Per patient she finished 2 weeks of Bactrim. She reports over the last couple a days as she had felt weak and tired and was still having yellowish greenish drainage from her abdominal incision. She pain back to the emergency room for further evaluation and treatment. She's been started on gentamicin and vancomycin. Consult for infectious disease was placed. WBC 14.5 computed tomography scan of the abdomen and pelvis redemonstrated postsurgical changes related to appendectomy. Residual mild inflammatory changes in the right lower quadrant and lower abdominal wall surgical site seen. Also residual small amount of fluid and gas within the ventral wall persists without evidence of progression. Patient de nies any nausea or vomiting. Denies any bowel movement changes or urinary symptoms. Denies any fever. She does admit to having chills. PAST MEDICAL HISTORY: See list. PAST SURGICAL HISTORY: See list. MEDICATIONS: See list. ALLERGIES: See list. SOCIAL HISTORY: No illicit drug use. REVIEW OF SYSTEMS: CONSTITUTIONAL: Denies fever or chills. HEENT: Denies blurred vision, vision changes, or eye pain. Denies hemoptysis CARDIOVASCULAR: Denies chest pain or pressure. RESPIRATORY: No shortness of breath. GASTROINTESTINAL: See HPI for pertinent findings HEMATOLOGIC: Denies bleeding disorders. GENITOURINARY: Denies any blood in urine or increased urinary frequency. SKIN: Denies pruitis. Denies rash. PHYSICAL EXAM: VITAL SIGNS: Reviewed GENERAL: Well-developed in no acute distress. HEENT: No sclera icterus. Extraocular movements grossly intact. Moist buccal mucosa. Head is atraumatic, normocephalic. No nasal drainage. ABDOMEN: Soft. Nondistended. Tenderness with palpation around incision site. Yellowish greenish discharge noted from the incision site near the umbilicus NEUROLOGIC: Alert and oriented. Cranial nerves II through XII grossly intact. LABORATORY DATA: WBC 14.5 hemoglobin 13.4 lactic 1.4 LFTs normal. IMAGING: computed tomography scan of the abdomen and pelvis redemonstrated postsurgical changes related to appendectomy. Residual mild inflammatory changes in the right lower quadrant and lower abdominal wall surgical site seen. Also residual small amount of fluid and gas within the ventral wall persists without evidence of progression. ASSESSMENT: 1. Infection abdominal incision site with culture from drainage positive for MRSA 2. History of ruptured appendicitis with abscess status post diagnostic laparoscopy, appendectomy and small bowel resection on 04/07/2020 3. Prior admission with infection at abdominal incision site PLAN: -Consult infectious disease for antibiotic recommendations -Continue vancomycin and gentamicin -Consult medicine for medical management -Continue IV fluids -Continue regular diet -No plans for surgical intervention at this time Physician Reading Professor note has been reviewed by physician. Signing provider agrees with the documented findings, assessment, and plan of care. Past Medical History Past Medical History: GERD/Reflux Additional Past Medical History / Comment(s): Migraines, Pancreatic Deficiency, Lower lumbar disease, hypoglycemia. History of Any Multi-Drug Resistant Organisms: MRSA Date of last positivie culture/infection: 05/23/20 MDRO Source:: ABDOMEN Past Surgical History: Appendectomy, Cholecystectomy, Hysterectomy, T onsillectomy Additional Past Surgical History / Comment(s): (R) hand surgery, (L) hip from spider bite r/t MRSA Past Anesthesia/Blood Transfusion Reactions: No Reported Reaction Additional Past Anesthesia/Blood Transfusion Reaction / Comment(s): SEVERE CLAUSTERPHOBIA INCLUDING A MASK ON HER FACE. Past Psychological History: Anxiety, Bipolar, Depression Smoking Status: Current every day smoker Past Alcohol Use History: None Reported Past Drug Use History: None Reported - Past Family History Father History Unknown: Yes Family Medical History: No Reported History Additional Family Medical History / Comment(s): Father is but pt does not know past medical history-they were not in much contact with each other. Mother Family Medical History: Cancer Additional Family Medical History / Comment(s): Mother at the age of 50 years from Cancer metastasis. Mother also had an aneurysm. Sister(s) Additional Family Medical History / Comment(s): Bipolar and Schizoprenia. Son(s) Family Medical History: No Reported History (one son no major medical problems.) Daughter(s) Family Medical History: No Reported History (2 daughters no major medical problems.) Medications and Allergies Home Medications Medication Instructions Recorded Confirmed Type diphenhydrAMINE HCL [Benadryl] 25 mg PO TID 05/23/20 06/02/20 History Hydrocodone/Acetaminophen [[place] 1 each PO Q6HR PRN #20 tab 05/24/20 06/02/20 Rx 5-325] Allergies Allergy/AdvReac Type Severity Reaction Status Date / Time cephalexin [From Keflex] Allergy Severe Swelling Verified 06/02/20 20:30 clindamycin [From Cleocin] Allergy Anaphylaxis Verified 06/02/20 20:30 levofloxacin Allergy Rash/Hives Verified 06/02/20 20:30 Penicillins Allergy Swelling Verified 06/02/20 20:30 sulfamethoxazole AdvReac Itching Verified 06/02/20 20:30 [From Bactrim] trimethoprim [From Bactrim] AdvReac Itching Verified 06/02/20 20:30 Surgical - Exam Vital Signs Temp Pulse Resp BP Pulse Ox 97.7 F 102 H 16 130/93 97 06/02/20 16:12 06/02/20 16:12 06/02/20 16:12 06/02/20 16:12 06/02/20 16:12 Results - Labs 06/02/20 17:46 06/02/20 17:46 Abnormal Lab Results - Last 24 Hours (Table) 06/02/20 06/02/20 Range/Units 17:46 17:46 WBC 14.5 H (3.8-10.6) k/uL Neutrophils # 8.9 H (1.3-7.7) k/uL Chloride 108 H (98-107) mmol/L BUN 6 L (7-17) mg/dL Diabetes panel 06/02/20 Range/Units 17:46 Sodium 137 (137-145) mmol/L Potassium 4.2 (3.5-5.1) mmol/L Chloride 108 H (98-107) mmol/L Carbon Dioxide 22 (22-30) mmol/L BUN 6 L (7-17) mg/dL Creatinine 0.73 (0.52-1.04) mg/dL Glucose 94 (74-99) mg/dL Calcium 9.5 (8.4-10.2) mg/dL AST 27 (14-36) U/L ALT 29 (4-34) U/L Alkaline Phosphatase 72 (38-126) U/L Total Protein 7.1 (6.3-8.2) g/dL Albumin 3.9 (3.5-5.0) g/dL Calcium panel 06/02/20 Range/Units 17:46 Calcium 9.5 (8.4-10.2) mg/dL Albumin 3.9 (3.5-5.0) g/dL Pituitary panel 06/02/20 Range/Units 17:46 Sodium 137 (137-145) mmol/L Potassium 4.2 (3.5-5.1) mmol/L Chloride 108 H (98-107) mmol/L Carbon Dioxide 22 (22-30) mmol/L BUN 6 L (7-17) mg/dL Creatinine 0.73 (0.52-1.04) mg/dL Glucose 94 (74-99) mg/dL Calcium 9.5 (8.4-10.2) mg/dL Adrenal panel 06/02/20 Range/Units 17:46 Sodium 137 (137-145) mmol/L Potassium 4.2 (3.5-5.1) mmol/L Chloride 108 H (98-107) mmol/L Carbon Dioxide 22 (22-30) mmol/L BUN 6 L (7-17) mg/dL Creatinine 0.73 (0.52-1.04) mg/dL Glucose 94 (74-99) mg/dL Calcium 9.5 (8.4-10.2) mg/dL Total Bilirubin 0.3 (0.2-1.3) mg/dL AST 27 (14-36) U/L ALT 29 (4-34) U/L Alkaline Phosphatase 72 (38-126) U/L Total Protein 7.1 (6.3-8.2) g/dL Albumin 3.9 (3.5-5.0) g/dL
--- NOTE | 2020-06-03 12:10 | P.CONS ---
History of Present Illness - Reason for Consult Consult date: 06/03/20 Medical management - Chief Complaint Abdominal pain - History of Present Illness This is a 40-year-old female with past medical history significant for ruptured appendicitis status post laparoscopic appendectomy with small bowel resection in March 2020 and had a complicated infection of the umbilicus surgical incision and subsequently treated with antibiotic. Patient recently finished antibiotic course with Bactrim for 2 weeks. Patient said that she was having more abdominal pain over the last few days and increased drainage out of the incision. She described the drainage is yellowish. She is having nausea but no vomiting. She denies fevers or chills. No other complaints otherwise. She was evaluated in the ER and currently placed in observation for IV antibiotic. Review of Systems Review of system: 14 points review of systems were obtained and were negative except to what were mentioned in the HPI. Past Medical History Past Medical History: GERD/Reflux Additional Past Medical History / Comment(s): Migraines, Pancreatic Deficiency, Lower lumbar disease, hypoglycemia. History of Any Multi-Drug Resistant Organisms: MRSA Year Discovered:: 05/23/20 MDRO Source:: ABDOMEN Past Surgical History: Appendectomy, Cholecystectomy, Hysterectomy, Tonsillectomy Additional Past Surgical History / Comment(s): (R) hand surgery, (L) hip from spider bite r/t MRSA Past Anesthesia/Blood Transfusion Reactions: No Reported Reaction Additional Past Anesthesia/Blood Transfusion Reaction / Comm: SEVERE CLAUSTERPHOBIA INCLUDING A MASK ON HER FACE. Past Psychological History: Anxiety, Bipolar, Depression Smoking Status: Current every day smoker Past Alcohol Use History: None Reported Past Drug Use History: None Reported - Past Family History Father History Unknown: Yes Family Medical History: No Reported History Additional Family Medical History / Comment(s): Father is but pt does not know past medical history-they were not in much contact with each other. Mother Family Medical History: Cancer Additional Family Medical History / Comment(s): Mother at the age of 50 years from Cancer metastasis. Mother also had an aneurysm. Sister(s) Additional Family Medical History / Comment(s): Bipolar and Schizoprenia. Son(s) Family Medical History: No Reported History (one son no major medical problems.) Daughter(s) Family Medical History: No Reported History (2 daughters no major medical problems.) Medications and Allergies Home Medications Medication Instructions Recorded Confirmed Type diphenhydrAMINE HCL [Benadryl] 25 mg PO TID 05/23/20 06/02/20 History Hydrocodone/Acetaminophen [[place] 1 each PO Q6HR PRN #20 tab 05/24/20 06/02/20 Rx 5-325] Allergies Allergy/AdvReac Type Severity Reaction Status Date / Time cephalexin [From Keflex] Allergy Severe Swelling Verified 06/02/20 20:30 clindamycin [From Cleocin] Allergy Anaphylaxis Verified 06/02/20 20:30 levofloxacin Allergy Rash/Hives Verified 06/02/20 20:30 Penicillins Allergy Swelling Verified 06/02/20 20:30 sulfamethoxazole AdvReac Itching Verified 06/02/20 20:30 [From Bactrim] trimethoprim [From Bactrim] AdvReac Itching Verified 06/02/20 20:30 Physical Exam Vitals: Vital Signs Temp Pulse Pulse Resp BP BP Pulse Ox 06/03/20 09:00 97.9 F 54 L 16 130/70 95 06/03/20 02:41 98.6 F 87 16 107/64 97 06/02/20 21:00 98.3 F 90 16 110/73 99 06/02/20 20:47 98.7 F 94 17 128/87 97 06/02/20 20:00 98.7 F 95 18 127/85 97 06/02/20 16:12 97.7 F 102 H 16 130/93 97 Intake and Output 06/02/20 06/03/20 06/03/20 22:59 06:59 14:59 Other: Voiding Method Toilet Toilet # Voids 1 1 Weight 98.43 kg General: The patient is awake and alert, in no distress Eye: there is normal conjunctiva bilaterally. Neck: The neck is supple, there is no JVD. Cardiovascular: Normal S1-S2, no S3-S4, no murmurs. Respiratory: Lungs clear to auscultation bilaterally Gastrointestinal: Abdomen is soft, nontender. There is minimal yellowish drainage out of the umbilical incision wound Musculoskeletal: There is no pedal edema. Neurological:. Speech is normal. Skin: Skin is warm and dry Results CBC & Chem 7: 06/02/20 17:46 06/02/20 17:46 Labs: Abnormal Lab Results - Last 24 Hours (Table) 06/02/20 06/02/20 Range/Units 17:46 17:46 WBC 14.5 H (3.8-10.6) k/uL Neutrophils # 8.9 H (1.3-7.7) k/uL Chloride 108 H (98-107) mmol/L BUN 6 L (7-17) mg/dL Assessment and Plan Assessment: This is a 40-year-old female with past medical history noted below who presented to the hospital with worsening drainage out of the abdominal incision wound. Patient was evaluated in the ER and placed on observation for further management of her medical problems noted below. 1. Infected umbilical incision wound with prior culture growing MRSA resistant to clindamycin. Recently finished antibiotic course with Bactrim. Currently on IV vancomycin awaiting ID evaluation. Computed tomography scan of the abdomen showed a small residual amount of fluid and gas within the ventral wall without evidence of progression 2. History of ruptured appendicitis with abscess status post laparoscopic appendectomy and small bowel resection on 04/07/2020 3. Leukocytosis, mild with no evidence of sepsis. Lactic acid is normal 4. DVT prophylaxis with subcu heparin Today, I reviewed her medication list and lab work results. Continue IV fluid hydration. Pain control and anti-emetic as needed. Thank you very much for the consultation. I will continue to follow up on the patient closely with you.
[2020-06-03] MEDS: ONDANSETRON 4 MG/2 ML VIAL IVP PRN ×2 (13:43→20:35)
[2020-06-03] MEDS: HYDROcodone/APAP 5-325MG 1 EACH TAB PO PRN (13:46)
[2020-06-03 14:30] VITALS: BMI 37.2
[2020-06-03] MEDS: MORPHINE SULFATE 2 MG/ML SYRINGE IV PRN ×2 (15:25→20:36)
[2020-06-03] MEDS: HEPARIN SODIUM,PORCINE 5,000 UNIT/ML 1 ML VIAL SQ SCH (20:35)
--- NOTE | 2020-06-03 23:20 | P.CONS ---
History of Present Illness - Reason for Consult Consult date: 06/03/20 Abdominal infection Requesting physician: Jamie Reddy - Chief Complaint Abdominal pain and drainage x few weeks - History of Present Illness Patient is a 40-year-old female who was recently admitted at this facility with perforated appendicitis in this patient who is status post appendectomy and small bowel resection on 04/07/2020 in be of the extensive infe ction patient was advised a two-week course of IV Invanz on discharge and the patient was last evaluated in the office on 04/28/2020 at that point the patient has nonfunctioning midline and redness 2 days of IV to by therapy peripheral IV was placed so the patient will complete her IV antibiotics as the patient white count sed rate and CRP were normal no further antibiotic will advise patient currently seemed to have some drainage from the midline abdominal incision and the patient has been following with the surgeon on a weekly basis patient never contacted the office with this issue, patient was seen in the [facility] ER on 05/13/2020 at that point. Did have CT abdomen and pelvis which did show some postoperative changes and possible abdominal wall cellulitis versus questionable small abscess patient has been treated with oral antibiotic therapy patient not sure about the name and she did have some local wound cultures obtained, Cultures Were positive for MRSA, patient presented back to [facility] yesterday with weakness fatigue and non-healing, wound along with pu rulent drainage from the belly button area patient was complaining of some nausea and vomiting pain has been mostly dull aching to sharp 6-7 out of 10 and no radiation patient presented to hospital was afebrile she did have elevated white count 12.7 blood culture has been obtained patient was started on vancomycin, the patient also have CT of abdominal pelvis with did shows postsurgical changes related to appendectomy his residual mild inflammatory changes in the right lower quadrant and lower abdominal wall surgical site small amount of fluid and gas within the plantar wart persists without evidence of progression infectious disease was consulted for further management of antibiotic therapy Review of Systems Positive point has been mentioned in the HPI rest of the systems are negative Past Medical History Past Medical History: GERD/Reflux Additional Past Medical History / Comment(s): Migraines, Pancreatic Deficiency, Lower lumbar disease, hypoglycemia. History of Any Multi-Drug Resistant Organisms: MRSA Year Discovered:: 05/23/20 MDRO Source:: ABDOMEN Past Surgical History: Appendectomy, Cholecystectomy, Hysterectomy, Tonsillectomy Additional Past Surgical History / Comment(s): (R) hand surgery, (L) hip from spider bite r/t MRSA Past Anesthesia/Blood Transfusion Reactions: No Reported Reaction Additional Past Anesthesia/Blood Transfusion Reaction / Comm: SEVERE CLAUSTERPHOBIA INCLUDING A MASK ON HER FACE. Past Psychological History: Anxiety, Bipolar, Depression Smoking Status: Current every day smoker Past Alcohol Use History: None Reported Past Drug Use History: None Reported - Past Family History Father History Unknown: Yes Family Medical History: No Reported History Additional Family Medical History / Comment(s): Father is but pt does not know past medical history-they were not in much contact with each other. Mother Family Medical History: Cancer Additional Family Medical History / Comment(s): Mother at the age of 50 years from Cancer metastasis. Mother also had an aneurysm. Sister(s) Additional Family Medical History / Comment(s): Bipolar and Schizoprenia. Son(s) Family Medical History: No Reported History (one son no major medical problems.) Daughter(s) Family Medical History: No Reported History (2 daughters no major medical problems.) Medications and Allergies Home Medications Medication Instructions Recorded Confirmed Type diphenhydrAMINE HCL [Benadryl] 25 mg PO TID 05/23/20 06/02/20 History Hydrocodone/Acetaminophen [[place] 1 each PO Q6HR PRN #20 tab 05/24/20 06/02/20 Rx 5-325] Allergies Allergy/AdvReac Type Severity Reaction Status Date / Time cephalexin [From Keflex] Allergy Severe Swelling Verified 06/02/20 20:30 clindamycin [From Cleocin] Allergy Anaphylaxis Verified 06/02/20 20:30 levofloxacin Allergy Rash/Hives Verified 06/02/20 20:30 Penicillins Allergy Swelling Verified 06/02/20 20:30 sulfamethoxazole AdvReac Itching Verified 06/02/20 20:30 [From Bactrim] trimethoprim [From Bactrim] AdvReac Itching Verified 06/02/20 20:30 Physical Exam Vitals: Vital Signs Temp Pulse Resp BP Pulse Ox 06/03/20 20:02 76 15 112/70 99 06/03/20 14:53 98.1 F 77 16 106/70 96 06/03/20 09:00 97.9 F 54 L 16 130/70 95 06/03/20 02:41 98.6 F 87 16 107/64 97 Intake and Output 06/03/20 06/03/20 06/04/20 14:59 22:59 06:59 Intake Total 200 Balance 200 Intake: Other 200 Other: Voiding Method Toilet # Voids 1 Weight 98.43 kg GENERAL DESCRIPTION: Middle-aged female lying in bed, no distress. No tachypnea or accessory muscle of respiration use. HEENT: Shows Pallor , no scleral icterus. Oral mucous membrane is dry. No pharyngeal erythema or thrush NECK: Trachea central, no thyromegaly. LUNGS: Unlabored breathing. Clear to auscultation anteriorly. No wheeze or crackle. HEART: S1, S2, regular rate and rhythm. No loud murmur ABDOMEN: Soft, midline abdominal incision did have purulent drainage no sniffing surrounding swelling redness slightly tender to touch EXTREMITIES: No edema of feet. SKIN: No rash, no masses palpable. NEUROLOGICAL: The patient is awake, alert, oriented x3, mood and affect normal. Results CBC & Chem 7: 06/02/20 17:46 06/02/20 17:46 Labs: Microbiology - Last 24 Hours (Table) 06/02/20 19:07 Blood Culture - Preliminary Blood No Growth after 24 hours Assessment and Plan Assessment: 1- patient with abdominal wound infection in this patient who is status post laparotomy for perforated appendicitis in this patient status post appendectomy and small bowel resection patient with abdominal wall drainage from the midline incision site and culture positive for MRSA failing outpatient oral Bactrim DS therapy CT abdomen and pelvis did not mention any evidence of pulmonary week though mention some postoperative changes and inflammatory changes in abdominal wall, (1) Post op infection Current Visit: No Status: Acute Code(s): T81.40XA - INFECTION FOLLOWING A PROCEDURE, UNSPECIFIED, INIT SNOMED Code(s): 27061110 (2) Allergy to multiple antibiotics Current Visit: Yes Status: Acute Code(s): Z88.1 - ALLERGY STATUS TO OTHER ANTIBIOTIC AGENTS SNOMED Code(s): 991251254 Plan: 1- Vancomycin pharmacy to dose target trough of 15 while watching kidney function and Vanco trough closely 2-patient with a PICC line for outpatient IV antibiotic therapy at least 2-3 weeks We will follow on clinical condition and cultures to further adjust medication if needed Thank you for this consultation will follow this patient with you Time with Patient: Greater than 30
[2020-06-04] MEDS ORDERED: GENTAMICIN 500 MG in SODIUM CHLORIDE 0.9% 100 ML IVPB SCH (01:00)
[2020-06-04] MEDS: MORPHINE SULFATE 2 MG/ML SYRINGE IV PRN ×4 (02:24→21:42)
[2020-06-04 08:03] LABS: Basophils # (A) 0.1 k/uL (0-0.2); Basophils % (A) 1 %; Eosinophils # (A) 0.2 k/uL (0-0.7); Eosinophils % (A) 2 %; HCT 37.5 % (34.0-46.0); HGB 12.5 gm/dL (11.4-16.0); Lymphocytes % (A) 36 %; MCH 30.2 pg (25.0-35.0); MCHC 33.4 g/dL (31.0-37.0); MCV 90.5 fL (80.0-100.0); Mean Platelet Volume 7.5; Monocytes # (A) 0.3 k/uL (0-1.0); Monocytes % (A) 3 %; Neutrophils # (A) 4.7 k/uL (1.3-7.7); Neutrophils % (A) 57 %; Platelet Count 332 k/uL (150-450); RBC 4.14 m/uL (3.80-5.40); RDW 12.8 % (11.5-15.5); WBC 8.3 k/uL (3.8-10.6)
[2020-06-04 08:21] LABS: ALT 21 U/L (4-34); AST 21 U/L (14-36); African American GFR (CKD) >90 (>60 ml/min/1.73 sqM); Albumin 3.1 g/dL (3.5-5.0); Alkaline Phosphatase 66 U/L (38-126); Anion Gap 5 mmol/L; Blood Urea Nitrogen 4 mg/dL (7-17); Calcium 8.5 mg/dL (8.4-10.2); Carbon Dioxide 23 mmol/L (22-30); Chloride 110 mmol/L (98-107); Glucose 121 mg/dL (74-99); Non-African American GFR(CKD) >90 (>60 ml/min/1.73 sqM); Potassium 3.8 mmol/L (3.5-5.1); Sodium 138 mmol/L (137-145); Total Bilirubin 0.3 mg/dL (0.2-1.3); Total Protein 5.8 g/dL (6.3-8.2)
[2020-06-04] MEDS: VANCOMYCIN 1,750 MG in SODIUM CHLORIDE 0.9% 500 ML 500 ML IVPB SCH ×2 (08:57→21:41)
[2020-06-04] MEDS: HEPARIN SODIUM,PORCINE 5,000 UNIT/ML 1 ML VIAL SQ SCH ×2 (08:57→21:43)
[2020-06-04] MEDS: ONDANSETRON 4 MG/2 ML VIAL IVP PRN ×2 (09:14→16:31)
[2020-06-04 09:57] LABS: Erythrocyte Sedimentation Rate 13 mm/hr (0-20)
[2020-06-04 10:09] LABS: C Reactive Protein <5.0 mg/L (<10.0)
[2020-06-04] MEDS ORDERED: LIDOCAINE 1% INJ 10MG/ML (20 ML MDV) ONE (11:05)
[2020-06-04] MEDS ORDERED: LIDOCAINE 1% INJ 10MG/ML (20 ML MDV) SQ ONE (11:38)
--- NOTE | 2020-06-04 12:18 | PN ---
PROGRESS NOTE DATE OF SERVICE: 06/04/2020 REASON FOR FOLLOWUP: Abdominal wall cellulitis MRSA. INTERVAL HISTORY: Patient is currently afebrile. The patient is breathing comfortably, overall pain discomfort abdominal slightly decreased. No chest pain, no cough, no diarrhea. PHYSICAL EXAMINATION: Blood pressure 98/57, pulse of 76, temperature 98.1, she is 97% on room air. General description is a middle-aged female, lying in bed in no distress. RESPIRATORY SYSTEM: Unlabored breathing, clear to auscultation anteriorly. HEART: S1, S2. Regular rate and rhythm. ABDOMEN: Soft, wound is currently dressed. No significant drainage on the dressing. LABS: Hemoglobin is 12.4, white count normalized to 8.3, creatinine 0.80. DIAGNOSTIC IMPRESSION AND PLAN: Patient with abdominal wall cellulitis. No evidence of any drainable abscess, culture has been positive for MRSA, failing outpatient Bactrim therapy. She will continue vancomycin, pharmacy to dose target of 15 for at least 2-3 weeks and close outpatient followup. Questions and concerns were answered. MMODL / IJN: [id number] /
--- NOTE | 2020-06-04 13:20 | P.PN ---
Subjective Progress Note Date: 06/04/20 CHIEF COMPLAINT: Infection abdominal incision site HISTORY OF PRESENT ILLNESS: Patient is being followed for infected abdominal incision. Culture had grown MRSA. She had failed treatment with Bactrim. S he's been started on IV vancomycin. She's been seen for it by infectious disease. She is scheduled for PICC line placement today. Infectious diseases recommending vancomycin for 2-3 weeks. Patient still reporting some abdominal pain and yellowish drainage from the incision site. She is afebrile. WBC is 8.3 PHYSICAL EXAM: VITAL SIGNS: Reviewed. GENERAL: Well-developed in no acute distress. HEENT: No sclera icterus. Extraocular movements grossly intact. Moist buccal mucosa. Head is atraumatic, normocephalic. ABDOMEN: Soft. Nondistended. Tender incision site. Yellowish drainage from the umbilicus NEUROLOGIC: Alert and oriented. Cranial nerves II through XII grossly intact. ASSESSMENT: 1. Infection abdominal incision site with culture from drainage positive for MRSA. Failed outpatient treatment with Bactrim 2. History of ruptured appendicitis with abscess status post diagnostic laparoscopy, appendectomy and small bowel resection on 04/07/2020 3. Prior admission with infection at abdominal incision site PLAN: -Patient scheduled for PICC line placement today for outpatient IV antibiotics -Continue IV antibiotics per infectious disease recommendations -Anticipate discharge tomorrow Physician Social Media Manager note has been reviewed by physician. Signing provider agrees with the documented findings, assessment, and plan of care. Objective - Vital Signs Vital signs: Vital Signs Temp 98.0 F 06/04/20 09:00 Pulse 75 06/04/20 09:00 Resp 18 06/04/20 09:00 BP 110/68 06/04/20 09:00 Pulse Ox 97 06/04/20 02:28 Intake & Output 06/03/20 06/04/20 06/04/20 18:59 06:59 18:59 Intake Total 200 500 240 Balance 200 500 240 Weight 98.43 kg Intake: Intake, IV Titration 500 Amount Vancomycin 1,750 mg In 500 Sodium Chloride 0.9% 500 ml 500 ml @ 167 mls/hr IVPB Q12H [facility] Rx#: [id number] Oral 240 Other 200 Other: Voiding Method Toilet # Voids 1 - Labs CBC & Chem 7: 06/04/20 07:43 06/04/20 07:43 Labs: Abnormal Lab Results - Last 24 Hours (Table) 06/04/20 Range/Units 07:43 Chloride 110 H (98-107) mmol/L BUN 4 L (7-17) mg/dL Glucose 121 H (74-99) mg/dL Total Protein 5.8 L (6.3-8.2) g/dL Albumin 3.1 L (3.5-5.0) g/dL Microbiology - Last 24 Hours (Table) 06/02/20 19:07 Blood Culture - Preliminary Blood No Growth after 24 hours
--- NOTE | 2020-06-04 14:42 | P.PN ---
Subjective Patient is doing well today. She denies any abdominal pain or nausea. Objective - Vital Signs Vital signs: Vital Signs Temp 98.0 F 06/04/20 09:00 Pulse 75 06/04/20 09:00 Resp 18 06/04/20 09:00 BP 110/68 06/04/20 09:00 Pulse Ox 97 06/04/20 02:28 Intake & Output 06/03/20 06/04/20 06/04/20 18:59 06:59 18:59 Intake Total 200 500 240 Balance 200 500 240 Weight 98.43 kg Intake: Intake, IV Titration 500 Amount Vancomycin 1,750 mg In 500 Sodium Chloride 0.9% 500 ml 500 ml @ 167 mls/hr IVPB Q12H [facility] Rx#: [id number] Oral 240 Other 200 Other: Voiding Method Toilet # Voids 1 - Exam General: The patient is awake and alert, in no distress Eye: there is normal conjunctiva bilaterally. Neck: The neck is supple, there is no JVD. Cardiovascular: Normal S1-S2, no S3-S4, no murmurs. Respiratory: Lungs clear to auscultation bilaterally Gastrointestinal: Abdomen is soft, nontender. Umbilical area covered with clean/dry dressing Musculoskeletal: There is no pedal edema. Neurological:. Speech is normal. Skin: Skin is warm and dry - Labs CBC & Chem 7: 06/04/20 07:43 06/04/20 07:43 Labs: Abnormal Lab Results - Last 24 Hours (Table) 06/04/20 Range/Units 07:43 Chloride 110 H (98-107) mmol/L BUN 4 L (7-17) mg/dL Glucose 121 H (74-99) mg/dL Total Protein 5.8 L (6.3-8.2) g/dL Albumin 3.1 L (3.5-5.0) g/dL Microbiology - Last 24 Hours (Table) 06/02/20 19:07 Blood Culture - Preliminary Blood No Growth after 24 hours Assessment and Plan Assessment: This is a 40-year-old female with past medical history noted below who presented to the hospital with worsening drainage out of the abdominal incision wound. Patient was evaluated in the ER and placed on observation for further management of her medical problems noted below. 1. Infected umbilical incision wound with prior culture growing MRSA resistant to clindamycin. Seen and evaluated by infectious disease. Plan for PICC line placement and to course of antibiotic treatment with vancomycin 2. History of ruptured appendicitis with abscess status post laparoscopic appendectomy and small bowel resection on 04/07/2020 3. Leukocytosis, mild with no evidence of sepsis. Lactic acid is normal. Leukocytosis resolved 4. DVT prophylaxis with subcu heparin Today, I reviewed her medication list and lab work results. Plan for PICC line placement today and discharged home with home infusion to finish vancomycin course
[2020-06-04] MEDS: SODIUM CHLORIDE 0.9% 1,000 ML IV SCH (15:31)
--- NOTE | 2020-06-04 15:46 | IR ---
EXAMINATION TYPE: IR cvc insert >=5 years DATE OF EXAM: 06/04/2020 COMPARISON: NONE CLINICAL HISTORY: Infection Needs long-term intravenous access for antibiotics. PROCEDURE: Hand hygiene obtained with soap and water and alcohol-based hand rub. After informed consent, the skin overlying the left basilic vein was localized with ultrasound and no tunde to be compressible and patent. An ultrasound image was obtained and submitted on the patient's c pickard. The overlying skin was prepped and draped and Lidocaine was used for local anesthesia. A skin aissatou was made with a scalpel. Access was gained to the vein under ultrasound guidance with a 21 gau ge needle and a 0.018 inch wire was advanced. Access site was dilated with Peel-Away sheath and cath eter tailored to the appropriate length and advanced such that the distal tip is at the cavoatrial ju nction. Spot image was obtained verifying placement. Catheter was fixed to the skin and a sterile d ressing was placed following hemostasis. Catheter was aspirated and flushed with saline. Patient wa s discharged in stable condition without complication. Maximal barrier technique is utilized. Ultras ound image is documented on the chart. Ultrasound used with sterile technique. Fluoro time and fluoroscopic images submitted to document procedure: 21 intraoperative images, 0.3 mi nutes fluoroscopy time IMPRESSION: STATUS POST ULTRASOUND AND FLUOROSCOPIC GUIDED PICC LINE PLACEMENT, READY FOR USE. THIS PROCEDURE WAS PERFORMED BY THE UNDERSIGNED.
[2020-06-04] MEDS ORDERED: VANCOMYCIN TROUGH DUE 1 EACH MISC MISCELLANE ONE (19:00)
[2020-06-05] MEDS: MORPHINE SULFATE 2 MG/ML SYRINGE IV PRN ×2 (01:44→13:59)
[2020-06-05] MEDS: SODIUM CHLORIDE 0.9% 1,000 ML IV SCH (02:19)
[2020-06-05 02:53] VITALS: RESP 16
[2020-06-05] MEDS: HEPARIN SODIUM,PORCINE 5,000 UNIT/ML 1 ML VIAL SQ SCH (07:27)
[2020-06-05] MEDS: VANCOMYCIN 1,750 MG in SODIUM CHLORIDE 0.9% 500 ML 500 ML IVPB SCH ×2 (07:28→16:09)
[2020-06-05] MEDS: HYDROcodone/APAP 5-325MG 1 EACH TAB PO PRN (07:28)
[2020-06-05 09:58] LABS: Basophils # (A) 0.1 k/uL (0-0.2); Basophils % (A) 1 %; Eosinophils # (A) 0.1 k/uL (0-0.7); Eosinophils % (A) 1 %; HCT 39.9 % (34.0-46.0); HGB 12.9 gm/dL (11.4-16.0); Lymphocytes # (A) 2.7 k/uL (1.0-4.8); Lymphocytes % (A) 29 %; MCH 29.2 pg (25.0-35.0); MCHC 32.2 g/dL (31.0-37.0); MCV 90.5 fL (80.0-100.0); Mean Platelet Volume 7.4; Monocytes # (A) 0.4 k/uL (0-1.0); Monocytes % (A) 4 %; Neutrophils % (A) 64 %; Platelet Count 315 k/uL (150-450); RBC 4.41 m/uL (3.80-5.40); RDW 12.9 % (11.5-15.5); WBC 9.3 k/uL (3.8-10.6)
[2020-06-05 10:26] LABS: ALT 21 U/L (4-34); AST 24 U/L (14-36); African American GFR (CKD) >90 (>60 ml/min/1.73 sqM); Albumin 3.3 g/dL (3.5-5.0); Alkaline Phosphatase 74 U/L (38-126); Anion Gap 6 mmol/L; Blood Urea Nitrogen 4 mg/dL (7-17); Carbon Dioxide 24 mmol/L (22-30); Chloride 108 mmol/L (98-107); Glucose 113 mg/dL (74-99); Non-African American GFR(CKD) >90 (>60 ml/min/1.73 sqM); Potassium 4.3 mmol/L (3.5-5.1); Sodium 138 mmol/L (137-145); Total Bilirubin 0.3 mg/dL (0.2-1.3); Total Protein 6.2 g/dL (6.3-8.2)
--- NOTE | 2020-06-05 11:05 | P.DS ---
Providers Date of admission: 06/04/20 12:48 Expected date of discharge: 06/05/20 Attending physician: Jamie Reddy Consults: 06/02/20 19:45 Consult Physician Urgent Consulting Provider: Dara Galo Consult Reason/Comments: Postoperative infection Do you want consulting provider notified?: Yes 06/03/20 09:33 Consult Physician Routine Consulting Provider: Tk Kahn Consult Reason/Comments: medical management Do you want consulting provider notified?: Yes Primary care physician: Stated None Hospital Course: Discharge diagnosis 1. Infection abdominal incision site with culture from drainage positive for MRSA. Failed outpatient treatment with Bactrim 2. History of ruptured appendicitis with abscess status post diagnostic laparoscopy, appendectomy and small bowel resection on 04/07/2020 3. Prior admission with infection at abdominal incision site Hospital course This is a 40-year-old female with a history of ruptured appendicitis with abscess status post diagnostic laparoscopy, appendectomy and small bowel resection on 04/07/[address] Reddy. She also had prior admission on 05/14/2024 abdominal wound infection. She was discharged on clindamycin. Culture did come back with MRSA. And her antibiotic was switched to Bactrim in the outpatient setting. Per patient she finished 2 weeks of Bactrim. She reports over the last couple a days as she had felt weak and tired and was still having yellowish greenish drainage from her abdominal incision. She pain back to the emergency room for further evaluation and treatment. She's been started on gentamicin and vancomycin. Consult for infectious disease was placed. WBC 14.5 computed tomography scan of the abdomen and pelvis redemonstrated postsurgical changes related to appendectomy. Residual mild inflammatory changes in the right lower quadrant and lower abdominal wall surgical site seen. Also residual small amount of fluid and gas within the ventral wall persists without evidence of progression. Patient was seen by infectious disease and medicine service. Infectious disease is recommending vancomycin pharmacy to dose via PICC line for 3 weeks for her MRSA abdominal wound infection. Patient is afebrile. Her pain is controlled. She is stable for discharge. Please refer to chart for any further details. Physician Industrial Engineering note has been reviewed by physician. Signing provider agrees with the documented findings, assessment, and plan of care. Patient Condition at Discharge: Stable Plan - Discharge Summary Discharge Rx Participant: Yes New Discharge Prescriptions: Continue diphenhydrAMINE HCL [Benadryl] 25 mg PO TID Hydrocodone/Acetaminophen [[place] 5-325] 1 each PO Q6HR PRN #20 tab PRN Reason: Pain Discharge Medication List diphenhydrAMINE HCL [Benadryl] 25 mg PO TID 05/23/20 [History] Hydrocodone/Acetaminophen [[place] 5-325] 1 each PO Q6HR PRN #20 tab 05/24/20 [Rx] Follow up Appointment(s)/Referral(s): [facility], [NON-STAFF] - 06/05/20 [facility],Infusion [NON-STAFF] - 06/05/20 None,Stated [Primary Care Provider] - 1-2 days Activity/Diet/Wound Care/Special Instructions: Vancomycin pharmacy to dose for 3 weeks via PICC line as prescribed by infectious disease. Infectious disease has written prescription and given to case liner Diet regular Activity as tolerated Discharge Disposition: HOME WITH HOME HEALTH SERVICES
[2020-06-05 16:19] VITALS: BP 97/60; PULSE 73; TEMP 98.3
--- NOTE | 2020-06-05 17:17 | PN ---
PROGRESS NOTE DATE OF SERVICE: 06/05/2020 REASON FOR FOLLOWUP: Abdominal wall abscess, cellulitis. INTERVAL HISTORY: The patient is currently afebrile. The patient is breathing comfortably. Denies having any chest pain or shortness of breath or cough. Abdominal pain has improved. has decreased. No diarrhea. PHYSICAL EXAMINATION: Blood pressure 97/60 with a pulse of 73, temperature 98.3. She is 96% on room air. General description is a middle-aged female lying in bed in no distress. RESPIRATORY SYSTEM: Unlabored breathing. Clear to auscultation anteriorly. HEART: S1, S2. Regular rate and rhythm. ABDOMEN: Soft. Abdominal wall drainage resolved. There is no swelling. LABS: Hemoglobin 12.9, white count of 9.3, creatinine 0.78. DIAGNOSTIC IMPRESSION AND PLAN: Patient with abdominal wall cellulitis with no evidence of any drainable abscess. Culture positive for MRSA, failing Bactrim therapy. Patient clinically responded to vancomycin; to continue for another 2 weeks with close outpatient followup. Questions and concerns were answered. MMODL / IJN: [id number] /
== END 2020-06-05 20:15 | disposition home health service (06) ==
LOC: EC 15:34 → 1SOBS 19:45 → OBSVTOIN 06-04 12:48 → INTOOBSV 06-04 12:48 → UNDODISIN 06-05 20:15
PROVIDERS: ADMIT Surgery; ATTEND Surgery
PROC: 02HV33Z Insertion of Infusion Device into Superior Vena Cava, Percutaneous Approach (ICD-10-PCS; principal; 2020-06-04 09:55)
DX: T81.41XA Infection following a procedure, superficial incisional surgical site, initial encounter (principal); L02.211 Cutaneous abscess of abdominal wall; L03.311 Cellulitis of abdominal wall; B95.62 Methicillin resistant Staphylococcus aureus infection as the cause of diseases classified elsewhere; G43.909 Migraine, unspecified, not intractable, without status migrainosus; K86.81 Exocrine pancreatic insufficiency; F31.9 Bipolar disorder, unspecified; F41.9 Anxiety disorder, unspecified; K21.9 Gastro-esophageal reflux disease without esophagitis; F40.240 Claustrophobia; F17.200 Nicotine dependence, unspecified, uncomplicated; Z88.1 Allergy status to other antibiotic agents; Z88.2 Allergy status to sulfonamides; Z88.0 Allergy status to penicillin; Y83.8 Other surgical procedures as the cause of abnormal reaction of the patient, or of later complication, without mention of misadventure at the time of the procedure; Z90.49 Acquired absence of other specified parts of digestive tract; Z98.890 Other specified postprocedural states; Z90.710 Acquired absence of both cervix and uterus; Z86.39 Personal history of other endocrine, nutritional and metabolic disease; Z87.19 Personal history of other diseases of the digestive system; Z80.9 Family history of malignant neoplasm, unspecified; Z81.8 Family history of other mental and behavioral disorders; Z82.49 Family history of ischemic heart disease and other diseases of the circulatory system
CPT/HCPCS: 96361 ×2; 96366 ×5; 96368; 96372 ×3; 96375 ×2; 96376 ×3; 96365; 99285; 36415; 36573; 80053 ×3; 85652; 83605; 83690; 85025 ×3; 80202; 85610; 85730; 86140; 87040; 80170; 74177; G0378 ×4; C1751; C1769; J3370 ×4; J2270 ×4; J1644 ×3; J2405 ×3; J2001; J1580; J1885; Q9967; 96374; 99284

== ENCOUNTER → 2020-06-20 | Outpatient (CLI) | payer MEDICARE, OTHER ==
--- NOTE | 2020-06-22 20:32 | CT ---
EXAMINATION TYPE: CT abdomen w con DATE OF EXAM: 06/20/2020 COMPARISON: 06/02/2020, 05/13/2020, 04/07/2020 HISTORY: 40-year-old female Nausea, vomiting and generalized abdominal pain post abdominal surgery in 2019 to remove lump. K35.32, K65.1 (perforated appendicitis and abscess of abdominal cavity). TECHNIQUE: Contiguous axial scanning of the abdomen following administration of 100 ml Isovue 300 IV contrast. Delayed images through the kidneys and coronal/sagittal reconstructions performed. CT DLP: 1303.1 mGycm Automated exposure control for dose reduction was used. FINDINGS: Heart normal size without pericardial effusion. Mild dependent atelectasis in the visualized lower enrique ngs without pleural effusion. No focal liver lesion or biliary ductal dilatation. Portal venous system is patent. Cholecystectomy clips. There is a 2.4 cm nodule of the right adrenal gland, unchanged from 04/07/2020 but increased in size f rom 08/10/2016 where it measured 1.6 cm. Indolent behavior suggests an adrenal adenoma. Left adrenal gland, kidneys, spleen, and pancreas appear within normal limits. No dilated small bowel, free fluid, or free air. No mesenteric or retroperitoneal lymphadenopathy. A few prominent right-sided mesenteric lymph nodes remain measuring up to 7 mm. Some surgical changes noted at the cecum from prior appendectomy. Mild overall stone burden. Some int erval residual fat stranding remains in the right lower quadrant mesentery adjacent to the surgical s ite, for example, reference axial image 52. This has been gradually decreasing. Post laparotomy change. There is a fluid collection within the deep subcutaneous adipose layer along the umbilical and infraumbilical midline with surrounding fat stranding and internal foci of air. Thi s measures up to 5.7 cm wide by 3.3 cm AP by 8.0 cm craniocaudal. It has increased in size, previousl y poorly defined measuring up to 3.0 cm wide. Pelvis is not imaged. Bones: No osseous destructive process. IMPRESSION: 1. POST LAPAROTOMY CHANGE NOW WITH PROGRESSION TO ABSCESS FORMATION (8.0 X 5.7 X 3.3 CM) ALONG THE IN CISIONAL SITE LOCATED WITHIN THE DEEP SUBCUTANEOUS ADIPOSE LAYER OF THE UMBILICAL AND INFRAUMBILICAL MIDLINE. 2. STATUS POST APPENDECTOMY. MINIMAL RESIDUAL FAT STRANDING REMAINS IN THE RIGHT LOWER QUADRANT MESEN MAXIME AND IS NOTED TO BE GRADUALLY IMPROVING. 3. A 2.4 CM RIGHT ADRENAL NODULE STABLE FROM 04/07/2020 BUT SLIGHTLY ENLARGED FROM 2017 WHERE IT MEASU RED 1.6 CM. THE INDOLENT BEHAVIOR SUGGESTS A BENIGN ADRENAL ADENOMA.
== END | disposition home or self-care (01) ==
LOC: RADCTMAIN 17:15
PROVIDERS: ATTEND Internal Medicine Infectious Disease
DX: R93.5 Abnormal findings on diagnostic imaging of other abdominal regions, including retroperitoneum (principal); E27.8 Other specified disorders of adrenal gland; Z98.890 Other specified postprocedural states
CPT/HCPCS: 74160; Q9967

== ENCOUNTER 2020-06-24 12:16 | Inpatient (IN) | payer MEDICARE, OTHER ==
[2020-06-24] MEDS ORDERED: VANCOMYCIN IV PER PHARMACY 1 EACH MISC MISCELLANE PRN (12:44)
[2020-06-24] MEDS ORDERED: MORPHINE SULFATE 4 MG/ML SYRINGE IVP STA (12:45)
--- NOTE | 2020-06-24 12:48 | ED ---
Abdominal Pain HPI - General Chief Complaint: Abdominal Pain Stated Complaint: Abcess/abd pain Time Seen by Provider: 06/24/20 12:26 Source: patient, RN notes reviewed, old records reviewed Mode of arrival: ambulatory Limitations: no limitations - History of Present Illness Initial Comments: This is a 40-year-old female who presents emergency department today due to an outpatient abnormal CAT scan. Patient reports that she's had a complicated history of abdominal infection after ruptured appendicitis in March. Patient is currently on IV antibiotics vancomycin, seeing Dr. Galo from infectious disease. She reports that she's been having some increased drainage for her umbilicus, and abdominal pain and had an outpatient CAT scan performed 2 days ago. That computed tomography scan is reviewed and shows evidence of a 5 cm x 8 cm intra-abdominal abscess. She had a follow-up appointment today with Dr. Galo who discussed with the Patient to return to the ER for further evaluation. Patient's surgeon is Dr. Reddy. She reports that her drainage has previously been cultured and did test positive for MRSA. - Related Data Home Medications Medication Instructions Recorded Confirmed diphenhydrAMINE HCL [Benadryl] 25 mg PO TID 05/23/20 06/02/20 Previous Rx's Medication Instructions Recorded Hydrocodone/Acetaminophen [[place] 1 each PO Q6HR PRN #12 tab 06/05/20 5-325] Allergies Allergy/AdvReac Type Severity Reaction Status Date / Time cephalexin [From Keflex] Allergy Severe Swelling Verified 06/24/20 12:22 clindamycin [From Cleocin] Allergy Anaphylaxis Verified 06/24/20 12:22 levofloxacin Allergy Rash/Hives Verified 06/24/20 12:22 Penicillins Allergy Swelling Verified 06/24/20 12:22 sulfamethoxazole AdvReac Itching Verified 06/24/20 12:22 [From Bactrim] trimethoprim [From Bactrim] AdvReac Itching Verified 06/24/20 12:22 Review of Systems ROS Statement: Those systems with pertinent positive or pertinent negative responses have been documented in the HPI. ROS Other: All systems not noted in ROS Statement are negative. Past Medical History Past Medical History: GERD/Reflux Additional Past Medical History / Comment(s): Migraines, Pancreatic Deficiency, Lower lumbar disease, hypoglycemia. History of Any Multi-Drug Resistant Organisms: MRSA Date of last positivie culture/infection: 05/23/20 MDRO Source:: ABDOMEN Past Surgical History: Appendectomy, Bowel Resection, Cholecystectomy, Hysterectomy, Tonsillectomy Additional Past Surgical History / Comment(s): (R) hand surgery, (L) hip from spider bite r/t MRSA Past Anesthesia/Blood Transfusion Reactions: No Reported Reaction Additional Past Anesthesia/Blood Transfusion Reaction / Comment(s): SEVERE CLAUSTERPHOBIA INCLUDING A MASK ON HER FACE. Past Psychological History: Anxiety, Bipolar, Depression Smoking Status: Current every day smoker Past Alcohol Use History: None Reported Past Drug Use History: None Reported - Past Family History Father History Unknown: Yes Family Medical History: No Reported History Additional Family Medical History / Comment(s): Father is but pt does not know past medical history-they were not in much contact with each other. Mother Family Medical History: Cancer Additional Family Medical History / Comment(s): Mother at the age of 50 years from Cancer metastasis. Mother also had an aneurysm. Sister(s) Additional Family Medical History / Comment(s): Bipolar and Schizoprenia. Son(s) Family Medical History: No Reported History (one son no major medical problems.) Daughter(s) Family Medical History: No Reported History (2 daughters no major medical problems.) General Exam - General Exam Comments Initial Comments: 1-year-old female. Alert and oriented. Limitations: no limitations General appearance: alert Head exam: Present: atraumatic, normocephalic, normal inspection Eye exam: Present: normal appearance, PERRL, EOMI. Absent: scleral icterus, conjunctival injection, periorbital swelling ENT exam: Present: normal exam, mucous membranes moist Neck exam: Present: normal inspection. Absent: tenderness, meningismus, lymphadenopathy Respiratory exam: Present: normal lung sounds bilaterally. Absent: respiratory distress, wheezes, rales, rhonchi, stridor Cardiovascular Exam: Present: regular rate, normal rhythm, normal heart sounds. Absent: systolic murmur, diastolic murmur, rubs, gallop, clicks GI/Abdominal exam: Present: soft, normal bowel sounds, other (Midline incision with yellow purulent drainage near her umbilicus.). Absent: distended, guarding, rebound, rigid Extremities exam: Present: normal inspection, full ROM, normal capillary refill, other (Patient has contained PICC line in the left upper extremity. No erythema or induration at PICC line site). Absent: tenderness, pedal edema, joint swelling, calf tenderness Back exam: Present: normal inspection Neurological exam: Present: alert, oriented X3, CN II-XII intact Psychiatric exam: Present: normal affect, normal mood Skin exam: Present: warm, dry, intact, normal color. Absent: rash Course Vital Signs 06/24/20 12:19 Temperature 98.6 F Pulse Rate 101 H Respiratory 20 Rate Blood Pressure 126/89 O2 Sat by Pulse 99 Oximetry Medical Decision Making - Medical Decision Making [id number] female presents emergency room today with complaints of abnormal outpatient CAT scan. Patient's computed tomography scan shows evidence of intra-abdominal abscess incision site abscess measuring 5 x 8 cm. Patient is currently seeing infectious disease Dr. Castillo work had Patient come to the ER for evaluation. Her surgeon is Dr. Wells. He did want us to complete a small incision over her umbilicus to see if this would continue to drain more. Patient will be resumed on her vancomycin with consults to infectious disease and admitted to Dr. Reddy for incision site abscess - Radiology Data Radiology results: report reviewed Post laparotomy changes with no progression to abscess formation 8 x 5.7 x 3.3 along the incisional site located deep in subcutaneous adipose layer of the umbilical and on for umbilical midline. Status post appendectomy. Minimal residual fat stranding remains in the right lower quadrant mesentery and is noted to be gradually improving. A 2. for similar right adrenal nodule stable from 04/07/2020 but improved slightly enlarged from 2017 were measured 1.6. Indolent behavior suggests benign adrenal adenoma. Disposition Clinical Impression: Intra-abdominal abscess post-procedure, Failure of outpatient treatment Disposition: ADMITTED IP TO THIS HOSP Condition: Good Instructions (If sedation given, give patient instructions): Abscess (ED) Is patient prescribed a controlled substance at d/c from ED?: No Referrals: None,Stated [Primary Care Provider] - 1-2 days Time of Disposition: 13:14
[2020-06-24] MEDS ORDERED: NALOXONE 0.4 MG/ML 1 ML VIAL IV PRN (13:15)
[2020-06-24] MEDS ORDERED: ACETAMINOPHEN TAB 325 MG TAB PO PRN (13:15)
[2020-06-24] MEDS ORDERED: IBUPROFEN 400 MG TAB PO PRN (13:15)
[2020-06-24 13:35] LABS: Basophils # (A) 0.1 k/uL (0-0.2); Basophils % (A) 1 %; Eosinophils # (A) 0.3 k/uL (0-0.7); Eosinophils % (A) 3 %; HCT 38.8 % (34.0-46.0); HGB 13.2 gm/dL (11.4-16.0); Lymphocytes # (A) 2.9 k/uL (1.0-4.8); Lymphocytes % (A) 30 %; MCH 29.6 pg (25.0-35.0); MCV 87.3 fL (80.0-100.0); Monocytes # (A) 0.4 k/uL (0-1.0); Monocytes % (A) 4 %; Neutrophils # (A) 5.9 k/uL (1.3-7.7); Neutrophils % (A) 61 %; Platelet Count 275 k/uL (150-450); RBC 4.44 m/uL (3.80-5.40); RDW 13.1 % (11.5-15.5); WBC 9.6 k/uL (3.8-10.6)
[2020-06-24] MEDS: SODIUM CHLORIDE 0.9% 1,000 ML IV SCH ×2 (13:41→21:56)
[2020-06-24] MEDS: SODIUM CHLORIDE 0.9% 500 ML 500 ML IV SCH (13:41)
[2020-06-24 13:43] LABS: ALT 28 U/L (4-34); AST 23 U/L (14-36); African American GFR (CKD) >90 (>60 ml/min/1.73 sqM); Albumin 3.5 g/dL (3.5-5.0); Alkaline Phosphatase 69 U/L (38-126); Anion Gap 4 mmol/L; Blood Urea Nitrogen 9 mg/dL (7-17); Calcium 8.6 mg/dL (8.4-10.2); Carbon Dioxide 25 mmol/L (22-30); Chloride 108 mmol/L (98-107); Glucose 95 mg/dL (74-99); Non-African American GFR(CKD) >90 (>60 ml/min/1.73 sqM); Potassium 3.7 mmol/L (3.5-5.1); Sodium 137 mmol/L (137-145); Total Bilirubin 0.3 mg/dL (0.2-1.3); Total Protein 6.4 g/dL (6.3-8.2)
[2020-06-24] MEDS ORDERED: VANCOMYCIN 1,500 MG in SODIUM CHLORIDE 0.9% 250 ML IVPB ONE (13:45)
[2020-06-24 13:52] LABS: INR 0.9 (<1.2); Partial Thromboplastin Time 25.4 sec (22.0-30.0); Prothrombin Time 9.4 sec (9.0-12.0)
[2020-06-24 14:10] LABS: Appearance,Urine Cloudy (Clear); Bacteria,Urine Rare /hpf; Bilirubin,Urine Negative (Negative); Blood,Urine Negative (Negative); Color,Urine Colorless; Glucose,Urine (UA) Negative (Negative); Ketones,Urine Negative (Negative); Leukocyte Esterase,Urine Small (Negative); Mucus,Urine Rare /hpf; Nitrite,Urine Negative (Negative); Protein,Urine Negative (Negative); RBC,Urine 1 /hpf (0-5); Specific Gravity,Urine 1.005 (1.001-1.035); Squamous Epithelial Cell,Urine 11 /hpf (0-4); Urobilinogen,Urine <2.0 mg/dL (<2.0); WBC,Urine 3 /hpf (0-5)
[2020-06-24] MEDS: MORPHINE SULFATE 4 MG/ML SYRINGE IV PRN (17:05)
[2020-06-24] MEDS: ONDANSETRON 4 MG/2 ML VIAL IVP PRN (17:05)
[2020-06-24 17:45] LABS: Glucose,Whole Blood 93 mg/dL (75-99)
[2020-06-24] MEDS: VANCOMYCIN 1,500 MG in SODIUM CHLORIDE 0.9% 250 ML IVPB SCH (19:04)
[2020-06-24] MEDS: HYDROmorphone 0.5 MG/0.5 ML SYRINGE IVP PRN ×2 (19:20→21:54)
[2020-06-25] MEDS: HYDROmorphone 0.5 MG/0.5 ML SYRINGE IVP PRN ×2 (00:58→06:17)
[2020-06-25] MEDS: ONDANSETRON 4 MG/2 ML VIAL IVP PRN ×2 (00:59→09:26)
--- NOTE | 2020-06-25 01:35 | CONS ---
CONSULTATION DATE OF SERVICE: 06/24/2020. REASON FOR CONSULTATION: Abdominal abscess. HISTORY OF PRESENT ILLNESS: The patient is a 40-year-old female with recent complicated appendicitis status post appendectomy and partial bowel resection. Patient was treated with IV Invanz. Subsequently, the patient did develop minimal drainage from her midline abdominal incision that was cultured in outpatient setting and was positive with MRSA. The patient was treated with oral Bactrim by the surgeon and was subsequently admitted to the hospital. CT did not show any drainable abscess. The patient did get a PICC line and was advised a 2 week course of IV vancomycin that has to be extended as the patient did not follow up in the outpatient setting as advised. She was supposed to follow up in the office yesterday and could not come because of no ride available. She was supposed to follow up in the office today, did not have any ride available. However, the outpatient CT did show evidence of abdominal abscess and the patient was called. She did have a ride this time and ended up coming to the [facility] ER. The patient did mention she is having more pain to the abdominal area especially periumbilical area, more of a dull, aching at times sharp, can be 7 to 8/10, no radiation and did have minimal drainage. The patient CT obtained did show an abscess of 5 x 8 cm. The patient was evaluated by the ER physician. On arrival to the ER, the patient did have a normal no temperature. White count was normal. Renal function was normal. The patient was admitted to the hospital. She has been continued on vancomycin. Infectious Disease was consulted for further management of antibiotic therapy. REVIEW OF SYSTEMS: Positive points have been mentioned in HPI. Rest of systems are negative. PAST MEDICAL HISTORY: Gastroesophageal reflux disease, back pain, headache, perforated appendicitis and abdominal incision infection with MRSA. PAST SURGICAL HISTORY: Past surgical history of appendectomy, bowel resection, cholecystectomy, hysterectomy and tonsillectomy. SOCIAL HISTORY: Currently a smoker. No drinking or drug use. FAMILY HISTORY: Father history unknown. Mother did have metastatic cancer. ALLERGIES: TO CEPHALEXIN, CLINDAMYCIN, LEVAQUIN, PENICILLIN, SULFA, . MEDICATIONS: Currently the patient is on vancomycin 1500 mg q.12 hours. She is on IV fluids, Protonix, Zofran, Narcan, Motrin, Dilaudid, Tylenol. PHYSICAL EXAMINATION: Blood pressure 126/78 with a pulse of 75. Temperature 97.7. She is 98% on room air. General description: The patient is a middle-aged female lying in bed in no distress. No tachypnea or accessory muscles of respiration use. HEENT: Examination shows no pallor or scleral icterus. Oral mucous membrane is dry. Neck: Trachea central. No thyromegaly. Lungs unlabored breathing, clear to auscultation anteriorly. No wheeze or crackles. Heart S1, S2. Regular rate and rhythm. ABDOMEN: Soft. No tenderness. Minimal drainage from the periumbilical wound area. No significant swelling, redness, induration was noticed. Extremities: No edema of the feet. Neurologic: The patient is awake, alert and oriented times three. Mood and affect normal. LABS: Hemoglobin 13.3, white count 9.6, BUN of 89, creatinine 0.80. DIAGNOSTIC IMPRESSION AND PLAN: Patient with abdominal abscess in this patient previous culture positive for MRSA and has been responding to the IV vancomycin therapy. The patient likely needs drainage of this abscess in order to completely clear this infection. PLAN: 1. Vancomycin pharmacy to dose target of 15 while watching her kidney function and clinical course closely. 2. Await surgical drainage of this abscess. 3. We will follow on clinical condition and culture to further adjust medication if needed. Thank you for this consultation. We will follow this patient along with you. [id number] / IJN: [id number] /
[2020-06-25] MEDS: MORPHINE SULFATE 4 MG/ML SYRINGE IV PRN ×5 (04:10→21:30)
[2020-06-25] MEDS: VANCOMYCIN 1,500 MG in SODIUM CHLORIDE 0.9% 250 ML IVPB SCH ×2 (06:17→18:42)
[2020-06-25] MEDS: SODIUM CHLORIDE 0.9% 1,000 ML IV SCH ×3 (06:18→21:31)
[2020-06-25] MEDS: PANTOPRAZOLE 40 MG/10 ML VIAL IV SCH (09:31)
--- NOTE | 2020-06-25 12:04 | P.GSHP ---
History of Present Illness H&P Date: 06/25/20 CHIEF COMPLAINT: Abdominal abscess HISTORY OF PRESENT ILLNESS: This is a 40-year-old female with a history of ruptured appendicitis with abscess status post diagnostic laparoscopy, appendectomy and small bowel resection on 04/07/[address] luong. Patient has been dealing wound with abdominal wound infections. And in May she was admitted to the hospital for MRSA abdominal wound infection and had been receiving IV vancomycin and following with Dr. Galo in the outpatient setting. Patient was supposed to see Dr. Galo yesterday but did not make the appointment because she had no ride available. Dr. Galo had ordered a computed tomography scan of the abdomen and pelvis to be done outpatient. Computed tomography scan findings show post laparotomy change now with progression to abscess formation 8.0 x 5.7 x 3.3 cm along the incisional site located within the deep subcutaneous adipose layer of the umbilicus and infraumbilical midline. Patient admits to having some nausea chills and sweats. Denies any fever. She does admit to having a greenish yellowish discharge from the umbilicus that is intermittent. Patient is currently on IV antibiotics. She's been admitted to the hospital for an incision and drainage of the abscess. PAST MEDICAL HISTORY: See list. PAST SURGICAL HISTORY: See list. MEDICATIONS: See list. ALLERGIES: See list. SOCIAL HISTORY: No illicit drug use. REVIEW OF SYSTEMS: CONSTITUTIONAL: Denies fever or chills. HEENT: Denies blurred vision, vision changes, or eye pain. Denies hemoptysis CARDIOVASCULAR: Denies chest pain or pressure. RESPIRATORY: No shortness of breath. GASTROINTESTINAL: See HPI for pertinent findings HEMATOLOGIC: Denies bleeding disorders. GENITOURINARY: Denies any blood in urine or increased urinary frequency. SKIN: Denies pruitis. Denies rash. PHYSICAL EXAM: VITAL SIGNS: Reviewed GENERAL: Well-developed in no acute distress. HEENT: No sclera icterus. Extraocular movements grossly intact. Moist buccal mucosa. Head is atraumatic, normocephalic. No nasal drainage. ABDOMEN: Soft. Patient has tenderness along the right side of the abdominal incision. No erythema noted. No significant drainage from the umbilicus at this time. Nondistended. NEUROLOGIC: Alert and oriented. Cranial nerves II through XII grossly intact. LABORATORY DATA: WBC 9.6 hemoglobin 13.2 platelets 275 LFTs normal creatinine 0.80 IMAGING: computed tomography scan findings show post laparotomy change now with progression to abscess formation 8.0 x 5.7 x 3.3 cm along the incisional site located within the deep subcutaneous adipose layer of the umbilicus and infraumbilical midline ASSESSMENT: 1. Abdominal abscess along the incision site patient is status post bedside incision and drainage by Dr. Luong. Patient had about 2 tablespoons of pus drainage that was expelled. Cultures were obtained. Wound has been packed. 2. History of MRSA abdominal wound infection being treated with IV vancomycin in the outpatient setting 3. History of ruptured appendicitis with abscess status post diagnostic laparoscopy, appendectomy and small bowel resection on 04/07/2020 PLAN: -Continue IV vancomycin per infectious disease -Await culture results -Start regular diet -Continue pain medication as needed -Check labs in a.m. -GI prophylaxis Protonix and DVT prophylaxis subcu heparin Physician Fluoroscope Operator note has been reviewed by physician. Signing provider agrees with the documented findings, assessment, and plan of care. Past Medical History Past Medical History: GERD/Reflux Additional Past Medical History / Comment(s): Migraines, Pancreatic Deficiency, Lower lumbar disease, hypoglycemia. History of Any Multi-Drug Resistant Organisms: MRSA Date of last positivie culture/infection: 05/23/20 MDRO Source:: ABDOMEN Past Surgical History: Appendectomy, Bowel Resection, Cholecystectomy, Hysterectomy, Tonsillectomy Additional Past Surgical History / Comment(s): (R) hand surgery, (L) hip from spider bite r/t MRSA Past Anesthesia/Blood Transfusion Reactions: No Reported Reaction Additional Past Anesthesia/Blood Transfusion Reaction / Comment(s): SEVERE CLAUSTERPHOBIA INCLUDING A MASK ON HER FACE. Past Psychological History: Anxiety, Bipolar, Depression Smoking Status: Current every day smoker Past Alcohol Use History: None Reported Past Drug Use History: None Reported - Past Family History Father History Unknown: Yes Family Medical History: No Reported History Additional Family Medical History / Comment(s): Father is but pt does not know past medical history-they were not in much contact with each other. Mother Family Medical History: Cancer Additional Family Medical History / Comment(s): Mother at the age of 50 years from Cancer metastasis. Mother also had an aneurysm. Sister(s) Additional Family Medical History / Comment(s): Bipolar and Schizoprenia. Son(s) Family Medical History: No Reported History (one son no major medical problems.) Daughter(s) Family Medical History: No Reported History (2 daughters no major medical problems.) Medications and Allergies Home Medications Medication Instructions Recorded Confirmed Type Naproxen Sodium [Aleve] 880 mg PO DAILY PRN 06/24/20 06/24/20 History Vancomycin 1,500 mg IVPB Q12H 06/24/20 06/24/20 History Allergies Allergy/AdvReac Type Severity Reaction Status Date / Time cephalexin [From Keflex] Allergy Severe Swelling Verified 06/24/20 13:20 clindamycin [From Cleocin] Allergy Anaphylaxis Verified 06/24/20 13:20 levofloxacin Allergy Rash/Hives Verified 06/24/20 13:20 Penicillins Allergy Swelling Verified 06/24/20 13:20 sulfamethoxazole AdvReac Itching Verified 06/24/20 13:20 [From Bactrim] trimethoprim [From Bactrim] AdvReac Itching Verified 06/24/20 13:20 Surgical - Exam Vital Signs Temp Pulse Resp BP Pulse Ox 98.6 F 101 H 20 126/89 99 06/24/20 12:19 06/24/20 12:19 06/24/20 12:19 06/24/20 12:19 06/24/20 12:19 Results - Labs 06/24/20 12:59 06/24/20 12:59 Abnormal Lab Results - Last 24 Hours (Table) 06/24/20 06/24/20 Range/Units 12:59 12:59 Chloride 108 H (98-107) mmol/L Urine Appearance Cloudy H (Clear) Ur Leukocyte Esterase Small H (Negative) Ur Squamous Epith Cells 11 H (0-4) /hpf Urine Bacteria Rare H (None) /hpf Urine Mucus Rare H (None) /hpf Microbiology - Last 24 Hours (Table) 06/24/20 12:59 Gram Stain - Preliminary Abdomen Wound Culture - Preliminary Diabetes panel 06/24/20 Range/Units 12:59 Sodium 137 (137-145) mmol/L Potassium 3.7 (3.5-5.1) mmol/L Chloride 108 H (98-107) mmol/L Carbon Dioxide 25 (22-30) mmol/L BUN 9 (7-17) mg/dL Creatinine 0.80 (0.52-1.04) mg/dL Glucose 95 (74-99) mg/dL Calcium 8.6 (8.4-10.2) mg/dL AST 23 (14-36) U/L ALT 28 (4-34) U/L Alkaline Phosphatase 69 (38-126) U/L Total Protein 6.4 (6.3-8.2) g/dL Albumin 3.5 (3.5-5.0) g/dL Calcium panel 06/24/20 Range/Units 12:59 Calcium 8.6 (8.4-10.2) mg/dL Albumin 3.5 (3.5-5.0) g/dL Pituitary panel 06/24/20 Range/Units 12:59 Sodium 137 (137-145) mmol/L Potassium 3.7 (3.5-5.1) mmol/L Chloride 108 H (98-107) mmol/L Carbon Dioxide 25 (22-30) mmol/L BUN 9 (7-17) mg/dL Creatinine 0.80 (0.52-1.04) mg/dL Glucose 95 (74-99) mg/dL Calcium 8.6 (8.4-10.2) mg/dL Adrenal panel 06/24/20 Range/Units 12:59 Sodium 137 (137-145) mmol/L Potassium 3.7 (3.5-5.1) mmol/L Chloride 108 H (98-107) mmol/L Carbon Dioxide 25 (22-30) mmol/L BUN 9 (7-17) mg/dL Creatinine 0.80 (0.52-1.04) mg/dL Glucose 95 (74-99) mg/dL Calcium 8.6 (8.4-10.2) mg/dL Total Bilirubin 0.3 (0.2-1.3) mg/dL AST 23 (14-36) U/L ALT 28 (4-34) U/L Alkaline Phosphatase 69 (38-126) U/L Total Protein 6.4 (6.3-8.2) g/dL Albumin 3.5 (3.5-5.0) g/dL
[2020-06-25] MEDS: HEPARIN SODIUM,PORCINE 5,000 UNIT/ML 1 ML VIAL SQ SCH (21:31)
--- NOTE | 2020-06-26 00:29 | PN ---
PROGRESS NOTE DATE OF SERVICE: 06/25/2020 REASON FOR FOLLOWUP: Abdominal wall abscess, MRSA. INTERVAL HISTORY: The patient is currently afebrile. The patient did have a bedside drainage of the abdominal wall abscess. Patient tolerated the procedure. The patient denies having any chest pain. No shortness of breath or cough. No nausea, vomiting or diarrhea. PHYSICAL EXAMINATION: Blood pressure 105/70 with a pulse of 80, temperature 98.2. She is 96% on room air. General description is a middle-aged female lying in bed in no distress. Respiratory system: Unlabored breathing, clear to auscultation anteriorly. Heart S1, S2. Regular rate and rhythm. Abdomen soft. No tenderness. LABS: No new labs have been obtained today. DIAGNOSTIC IMPRESSION AND PLAN: Patient with abdominal wall abscess with MRSA, failing outpatient IV antibiotic therapy. The patient is status post surgical drainage and continue supportive care. MMODL / IJN: [id number] /
[2020-06-26] MEDS: MORPHINE SULFATE 4 MG/ML SYRINGE IV PRN ×5 (01:13→20:19)
[2020-06-26] MEDS: SODIUM CHLORIDE 0.9% 1,000 ML IV SCH ×4 (05:58→23:00)
[2020-06-26] MEDS ORDERED: VANCOMYCIN TROUGH DUE 1 EACH MISC MISCELLANE ONE (06:00)
[2020-06-26] MEDS: VANCOMYCIN 1,500 MG in SODIUM CHLORIDE 0.9% 250 ML IVPB SCH ×2 (06:57→18:46)
[2020-06-26 07:11] LABS: Basophils # (A) 0.1 k/uL (0-0.2); Basophils % (A) 1 %; Eosinophils # (A) 0.3 k/uL (0-0.7); Eosinophils % (A) 4 %; HCT 36.5 % (34.0-46.0); HGB 12.2 gm/dL (11.4-16.0); Lymphocytes # (A) 2.1 k/uL (1.0-4.8); Lymphocytes % (A) 23 %; MCH 29.5 pg (25.0-35.0); MCHC 33.5 g/dL (31.0-37.0); Mean Platelet Volume 7.5; Monocytes # (A) 0.5 k/uL (0-1.0); Monocytes % (A) 5 %; Neutrophils # (A) 6.2 k/uL (1.3-7.7); Neutrophils % (A) 67 %; Platelet Count 262 k/uL (150-450); RBC 4.15 m/uL (3.80-5.40); RDW 13.1 % (11.5-15.5); WBC 9.3 k/uL (3.8-10.6)
[2020-06-26 07:39] LABS: African American GFR (CKD) >90 (>60 ml/min/1.73 sqM); Anion Gap 2 mmol/L; Blood Urea Nitrogen 6 mg/dL (7-17); Calcium 8.5 mg/dL (8.4-10.2); Carbon Dioxide 26 mmol/L (22-30); Chloride 110 mmol/L (98-107); Glucose 105 mg/dL (74-99); Non-African American GFR(CKD) 83 (>60 ml/min/1.73 sqM); Potassium 3.7 mmol/L (3.5-5.1); Sodium 138 mmol/L (137-145)
[2020-06-26] MEDS: HEPARIN SODIUM,PORCINE 5,000 UNIT/ML 1 ML VIAL SQ SCH ×2 (08:40→20:27)
[2020-06-26] MEDS: PANTOPRAZOLE 40 MG/10 ML VIAL IV SCH (08:40)
[2020-06-26] MEDS: ONDANSETRON 4 MG/2 ML VIAL IVP PRN ×2 (10:04→20:21)
--- NOTE | 2020-06-26 12:51 | P.PN ---
Subjective Progress Note Date: 06/26/20 CHIEF COMPLAINT: Abdominal abscess HISTORY OF PRESENT ILLNESS: Patient is being followed for her abdominal abscess. She had a bedside I&D yesterday with Dr. Reddy. Cultures were obtained. Cultures are pending. Patient is currently on IV vancomycin. She is also followed by infectious disease. She's afebrile. WBC 9.3 patient reports some abdominal pain at incision site PHYSICAL EXAM: VITAL SIGNS: Reviewed. GENERAL: Well-developed in no acute distress. HEENT: No sclera icterus. Extraocular movements grossly intact. Moist buccal mucosa. Head is atraumatic, normocephalic. ABDOMEN: Soft. Minimal drainage noted on incision dressing. Nondistended. Nontender. NEUROLOGIC: Alert and oriented. Cranial nerves II through XII grossly intact. ASSESSMENT: 1. Abdominal abscess along the incision site patient is status post bedside incision and drainage by Dr. Reddy. Patient had about 2 tablespoons of pus drainage that was expelled. Cultures were obtained. Wound has been packed. 2. History of MRSA abdominal wound infection being treated with IV vancomycin in the outpatient setting 3. History of ruptured appendicitis with abscess status post diagnostic laparoscopy, appendectomy and small bowel resection on 04/07/2020 PLAN: -Continue IV vancomycin per infectious disease -Await culture results -Continue regular diet -Continue pain medication as needed -GI prophylaxis Protonix and DVT prophylaxis subcu heparin Physician Director Technical note has been reviewed by physician. Signing provider agrees with the documented findings, assessment, and plan of care. Objective - Vital Signs Vital signs: Vital Signs Temp 98.7 F 06/26/20 09:05 Pulse 79 06/26/20 09:05 Resp 24 06/26/20 09:05 BP 112/73 06/26/20 09:05 Pulse Ox 96 06/26/20 09:05 Intake & Output 06/25/20 06/26/20 06/26/20 18:59 06:59 18:59 Intake Total 240 Output Total 300 2200 900 Balance -60 -2200 -900 Intake: Oral 240 Output: Urine 300 2200 900 Other: Voiding Method Toilet Toilet # Voids 5 1 - Labs CBC & Chem 7: 06/26/20 06:43 06/26/20 06:43 Labs: Abnormal Lab Results - Last 24 Hours (Table) 06/26/20 Range/Units 06:43 Chloride 110 H (98-107) mmol/L BUN 6 L (7-17) mg/dL Glucose 105 H (74-99) mg/dL Microbiology - Last 24 Hours (Table) 06/25/20 13:20 Gram Stain - Preliminary Abdomen Wound Culture - Preliminary 06/25/20 13:20 Anaerobic Culture - Preliminary Abdominal Fluid 06/24/20 12:59 Blood Culture - Preliminary Blood No Growth after 24 hours 06/24/20 12:59 Gram Stain - Preliminary Abdomen Wound Culture - Preliminary
--- NOTE | 2020-06-26 15:28 | P.DS ---
Providers Date of admission: 06/24/20 12:56 Expected date of discharge: 06/26/20 Attending physician: Jamie Luong Consults: 06/24/20 13:15 Consult Physician Stat Consulting Provider: Dara Galo Consult Reason/Comments: postop abscess Do you want consulting provider notified?: Yes Primary care physician: Stated None Hospital Course: Discharge diagnosis 1. Abdominal abscess along the incision site with MRSA. Patient failed outpatient IV antibiotic treatment. patient is status post bedside incision and drainage by Dr. Luong 2. History of MRSA abdominal wound infection being treated with IV vancomycin in the outpatient setting 3. History of ruptured appendicitis with abscess status post diagnostic laparoscopy, appendectomy and small bowel resection on 04/07/2020 Hospital course This is a 40-year-old female with a history of ruptured appendicitis with abscess status post diagnostic laparoscopy, appendectomy and small bowel resection on 04/07/[address] luong. Patient has been dealing wound with abdominal wound infections. And in May she was admitted to the hospital for MRSA abdominal wound infection and had been receiving IV vancomycin and following with Dr. Galo in the outpatient setting. Patient was supposed to see Dr. Galo yesterday but did not make the appointment because she had no ride available. Dr. Galo had ordered a computed tomography scan of the abdomen and pelvis to be done outpatient. Computed tomography scan findings show post laparotomy change now with progression to abscess formation 8.0 x 5.7 x 3.3 cm along the incisional site located within the deep subcutaneous adipose layer of the umbilicus and infraumbilical midline. Patient is status post bedside incision and drainage by Dr. luong. Cultures were obtained. They are pending. Patient has previous cultures positive for MRSA from that abdominal wound. She will continue the IV vancomycin per infectious disease via her PICC line. Home care has been arranged for patient. Patient is currently afebrile. WBC is normal. Patient is tolerating diet. Her pain is controlled. Patient is stable for discharge home. Please refer to chart for further details. Physician Director Of Residence Life note has been reviewed by physician. Signing provider agrees with the documented findings, assessment, and plan of care. Patient Condition at Discharge: Stable Plan - Discharge Summary Discharge Rx Participant: Yes New Discharge Prescriptions: New Ibuprofen [Motrin] 400 mg PO Q6HR PRN #20 tab PRN Reason: Pain Acetaminophen Tab [Tylenol Tab] 650 mg PO Q4H PRN #30 tablet PRN Reason: Pain Continue Vancomycin 1,500 mg IVPB Q12H Discontinued Naproxen Sodium [Aleve] 880 mg PO DAILY PRN PRN Reason: Pain Discharge Medication List Vancomycin 1,500 mg IVPB Q12H 06/24/20 [History] Acetaminophen Tab [Tylenol Tab] 650 mg PO Q4H PRN #30 tablet 06/26/20 [Rx] Ibuprofen [Motrin] 400 mg PO Q6HR PRN #20 tab 06/26/20 [Rx] Follow up Appointment(s)/Referral(s): [facility], [NON-STAFF] - [facility],Infusion [NON-STAFF] - None,Stated [Primary Care Provider] - 1-2 days Dara Galo MD [STAFF PHYSICIAN] - 1 Week Jamie Luong MD [STAFF PHYSICIAN] - 1 Week Patient Instructions/Handouts: Abscess (ED) Activity/Diet/Wound Care/Special Instructions: Diet regular No lifting over 10 pounds You may shower. No soaking or tub baths for 2 weeks Very light activity until you are reevaluated at your follow up appointment with your surgeon Discharge Disposition: HOME SELF-CARE
[2020-06-26] MEDS: HYDROmorphone 0.5 MG/0.5 ML SYRINGE IVP PRN (21:44)
--- NOTE | 2020-06-26 23:01 | PN ---
PROGRESS NOTE DATE OF SERVICE: 06/26/2020 REASON FOR FOLLOWUP: MRSA abdominal wall abscess. INTERVAL HISTORY: The patient is currently afebrile. The patient is breathing comfortably. Denies any chest pain or shortness of breath or cough. Abdominal pain is currently controlled and no diarrhea. PHYSICAL EXAMINATION: Blood pressure 122/84 with pulse of 73, temperature 98. She is 98% on room air. General description is a middle-aged female lying in bed in no distress. Respiratory system: Unlabored breathing, clear to auscultation anteriorly. Heart S1, S2. Regular rate and rhythm. ABDOMEN: Soft. No tenderness. Wound is currently packed. Extremities: No edema of the feet. LABS: Hemoglobin is 12.2, white count 9.3, creatinine 0.87. DIAGNOSTIC IMPRESSION AND PLAN: Patient with abdominal wall abscess status post drainage. Wound culture positive for MRSA. Patient to continue vancomycin for at least 2 ,pre weeks. Local wound care with Aquacel packing. Once antibiotic arranged, she should be able to go home from ID standpoint and continue supportive care. MMODL / IJN: [id number] /
[2020-06-27] MEDS: MORPHINE SULFATE 4 MG/ML SYRINGE IV PRN ×3 (01:59→11:34)
[2020-06-27] MEDS: ONDANSETRON 4 MG/2 ML VIAL IVP PRN (06:05)
[2020-06-27] MEDS: VANCOMYCIN 1,500 MG in SODIUM CHLORIDE 0.9% 250 ML IVPB SCH (06:09)
[2020-06-27 08:48] VITALS: BP 143/84; PULSE 72; RESP 20; TEMP 98.5
[2020-06-27] MEDS ORDERED: PANTOPRAZOLE 40 MG TABLET PO SCH (09:00)
[2020-06-27] MEDS: HEPARIN SODIUM,PORCINE 5,000 UNIT/ML 1 ML VIAL SQ SCH (09:53)
--- NOTE | 2020-06-30 01:27 | CDI ---
Documentation Clarification Form Date: 06/30/20 From: Moise Renteria Phone: If you have a question about this query, please contact Feli Underwood [employer] Home Park Manager at [phone] between 8am and 5pm. Admit Date: 06/24/2020 12:56:00 PM Patient Name: Lia Gates Visit Number: [id number] Discharge Date: 06/27/2020 12:14:00 PM ATTENTION: The Clinical Documentation Specialists (CDI) and [facility] Coding Staff appreciate your assistance in clarifying documentation. Please respond to the clarification below the line at the bottom and electronically sign. The CDI & [facility] Coding staff will review the response and follow-up if needed. Please note: Queries are made part of the Legal Health Record. If you have any questions, please contact the author of this message via ITS. Dr. Dara Galo MD., Documentation in the Operative Report included "The patient did have a bedside drainage of the abdominal wall abscess." History/Risk factors: This is a 40-year-old female with a history of ruptured appendicitis with abscess status post diagnostic laparoscopy, appendectomy and small bowel resection on 04/07/[address] luong Pre-Operative Diagnosis: Intra- Abdominal Abscess Postoperative Diagnosis: Intra- Abdominal Abscess Treatment: Bedside I and D 06/25 Progress notes states as "The patient did have a bedside drainage of the abdominal wall abscess.Patient tolerated the procedure". In order to capture the severity of condition, please specify the Approach of Bedside drainage ? Abdominal drainage involving subcutaneous tissue and fascia- Open approach Abdominal drainage involving subcutaneous tissue and fascia - Percutaneous approach _ MTDD
--- NOTE | 2020-07-01 20:59 | CDI ---
Documentation Clarification Form Date: 07/02/2020 From: Moise Renteria Phone: If you have a question about this query, please contact Feli Underwood Dock Builder at [phone] between 8am and 5pm. Admit Date: 06/24/2020 12:56:00 PM Patient Name: Lia Gates Visit Number: [id number] Discharge Date: 06/27/2020 12:14:00 PM ATTENTION: The Clinical Documentation Specialists (CDI) and [facility] Coding Staff appreciate your assistance in clarifying documentation. Please respond to the clarification below the line at the bottom and electronically sign. The CDI & [facility] Coding staff will review the response and follow-up if needed. Please note: Queries are made part of the Legal Health Record. If you have any questions, please contact the author of this message via ITS. Dr. Jamie Luong MD., Documentation in the Operative Report included "The patient did have a bedside drainage of the abdominal wall abscess. History/Risk factors: This is a 40-year-old female with a history of ruptured appendicitis with abscess status post diagnostic laparoscopy, appendectomy and small bowel resection on 04/07/[address] luong Pre-Operative Diagnosis: Intra- Abdominal Abscess Postoperative Diagnosis: Intra- Abdominal Abscess Treatment: Bedside I and D 06/25 Progress notes states as "The patient did have a bedside drainage of the abdominal wall abscess.Patient tolerated the procedure". In order to capture the severity of condition, please specify the Approach of Bedside drainage ? Abdominal drainage involving subcutaneous tissue and fascia- Open approach Abdominal drainage involving subcutaneous tissue and fascia - Percutaneous approach Open approach abdominal wall abscess drainage MTDD
== END 2020-06-27 12:14 | disposition home or self-care (01) | DRG 856 ==
LOC: EC 12:16 → 6PED 12:56
PROVIDERS: ADMIT Surgery; ATTEND Surgery
PROC: 0W9F0ZX Drainage of Abdominal Wall, Open Approach, Diagnostic (ICD-10-PCS; principal; 2020-06-25)
DX: T81.41XA Infection following a procedure, superficial incisional surgical site, initial encounter (principal); K65.1 Peritoneal abscess; B95.62 Methicillin resistant Staphylococcus aureus infection as the cause of diseases classified elsewhere; F41.9 Anxiety disorder, unspecified; F31.9 Bipolar disorder, unspecified; F17.200 Nicotine dependence, unspecified, uncomplicated; Z90.710 Acquired absence of both cervix and uterus; Z90.49 Acquired absence of other specified parts of digestive tract
CPT/HCPCS: 36415; 80048; 80053; 80202; 81001; 82565; 83605; 85025; 85610; 85730; 87040; 87070; 87075; 87205; 93005; 94760; 96361; 96374; 99285

== ENCOUNTER → 2020-07-23 | Outpatient (CLI) | payer MEDICARE, OTHER ==
--- NOTE | 2020-07-23 20:56 | CT ---
EXAMINATION TYPE: CT abdomen w con DATE OF EXAM: 07/23/2020 COMPARISON: 06/20/2020 INDICATION: Follow up abscess. DLP: 1356.8 mGycm, Automated exposure control for dose reduction was used. CONTRAST: 100 mL of Isovue 300. Study performed with Oral Contrast TECHNIQUE: Axial images were obtained from above the diaphragm to the pubic rami in the axial plane a t 5 mm thick sections. Reconstructed images are reviewed on the computer in the coronal plane. FINDINGS: Limited CT sections are obtained the lung bases. The lung bases are clear. CT ABDOMEN: Liver: Normal Spleen: Normal Pancreas: Normal Adrenal glands: Right adrenal gland is thickened at 1.6 cm. Gallbladder: Surgically absent Kidneys: No masses are evident. No hydronephrosis is present. No cysts are present. Delayed images were obtained through the kidneys, which remain unremarkable. Aorta: Vascular calcification is within the aorta. Inferior vena cava: Normal. In the anterior abdominal wall anterior to the peritoneal lining there is a 3.6 x 1.5 cm low-density collection with a single punctate areas of air. This can be related to a resolving abscess. Previous measurement 3.3 x 5.7 cm. IMPRESSIONS: 1. Anterior abdominal wall abscess appears to be resolving and is smaller than the comparison study.
== END | disposition home or self-care (01) ==
LOC: RADPROMAIN 10:52
PROVIDERS: ATTEND Internal Medicine Infectious Disease
DX: L02.211 Cutaneous abscess of abdominal wall (principal); Z88.0 Allergy status to penicillin; Z88.2 Allergy status to sulfonamides; Z88.1 Allergy status to other antibiotic agents
CPT/HCPCS: 74160; Q9967

== ENCOUNTER → 2020-07-23 | Outpatient (CLI) | payer MEDICARE, OTHER ==
--- NOTE | 2020-07-24 07:30 | US ---
EXAMINATION TYPE: US venous doppler duplex UE LT DATE OF EXAM: 07/23/2020 COMPARISON: NONE CLINICAL HISTORY: Z12.31 Screening Mammogram. PICC line removed today from left arm. Patient s/o jose martínez at PICC insert site. Patient stated is on Heparin with PICC. SIDE PERFORMED: left Left Arm: Negative for DVT. Non occluding short segment superficial vein thrombosisin left Basilic V ein at mid upper arm for 0.5cm segment length. IMPRESSION: 1. Left upper extremity ultrasound negative for deep venous thrombosis. 2. Superficial short segment of thrombus in the left basilic vein.
== END | disposition home or self-care (01) ==
LOC: RADUSWWP 16:08
PROVIDERS: ATTEND Internal Medicine Infectious Disease
DX: I82.612 Acute embolism and thrombosis of superficial veins of left upper extremity (principal); Z88.0 Allergy status to penicillin; Z88.1 Allergy status to other antibiotic agents

== ENCOUNTER 2020-07-25 10:13 | Day surgery (SDC) | payer MEDICARE, OTHER ==
[2020-07-25 10:35] VITALS: BP 133/88; PULSE 97; RESP 16; TEMP 98.7
== END 2020-07-25 10:48 | disposition home health service (06) ==
LOC: CATHCVL 10:13
PROVIDERS: ATTEND Internal Medicine Infectious Disease
DX: K65.1 Peritoneal abscess (principal); Z86.14 Personal history of Methicillin resistant Staphylococcus aureus infection; Z88.1 Allergy status to other antibiotic agents; Z88.0 Allergy status to penicillin; Z88.2 Allergy status to sulfonamides
CPT/HCPCS: 36410; 76937; C1751

== ENCOUNTER 2020-07-26 18:45 | Emergency (ER) | payer MEDICARE, OTHER ==
[2020-07-26 19:00] VITALS: BP 133/86; PULSE 105; RESP 18; TEMP 98.1
--- NOTE | 2020-07-26 19:30 | ED ---
General Adult HPI - General Chief complaint: Abdominal Pain Stated complaint: belly button infection/growth Source: patient, RN notes reviewed Mode of arrival: ambulatory Limitations: no limitations - History of Present Illness Initial comments: 40-year-old female presents to the emergency room for a chief complaint of possible growth on belly button. Patient reports that she had surgery 2 months ago and has been on IV vancomycin through her PICC line since that time. In the past couple days she noticed a bump developing in her umbilicus. States it has been draining some clear fluid. States it is strains to person but denies it being significantly painful. Denies any fevers at home. Patient states she called her surgeon who was office staff reported she should call back on Tuesday as he will be in the office then. She denies any significant abdominal pain. Patient has no other complaints at this time including shortness of breath, chest pain, abdominal pain, nausea or vomiting, headache, or visual changes. - Related Data Home Medications Medication Instructions Recorded Confirmed Vancomycin 1,500 mg IVPB Q12H 06/24/20 06/24/20 Previous Rx's Medication Instructions Recorded Acetaminophen Tab [Tylenol Tab] 650 mg PO Q4H PRN #30 tablet 06/26/20 Ibuprofen [Motrin] 400 mg PO Q6HR PRN #20 tab 06/26/20 Allergies Allergy/AdvReac Type Severity Reaction Status Date / Time cephalexin [From Keflex] Allergy Severe Swelling Verified 07/26/20 19:00 clindamycin [From Cleocin] Allergy Anaphylaxis Verified 07/26/20 19:00 levofloxacin Allergy Rash/Hives Verified 07/26/20 19:00 Penicillins Allergy Swelling Verified 07/26/20 19:00 sulfamethoxazole AdvReac Itching Verified 07/26/20 19:00 [From Bactrim] trimethoprim [From Bactrim] AdvReac Itching Verified 07/26/20 19:00 Review of Systems ROS Statement: Those systems with pertinent positive or pertinent negative responses have been documented in the HPI. ROS Other: All systems not noted in ROS Statement are negative. Past Medical History Past Medical History: GERD/Reflux Additional Past Medical History / Comment(s): Migraines, Pancreatic Deficiency, Lower lumbar disease, hypoglycemia. History of Any Multi-Drug Resistant Organisms: MRSA Date of last positivie culture/infection: 05/23/20 MDRO Source:: ABDOMEN Past Surgical History: Appendectomy, Bowel Resection, Cholecystectomy, Hysterectomy, Tonsillectomy Additional Past Surgical History / Comment(s): (R) hand surgery, (L) hip from spider bite r/t MRSA Past Anesthesia/Blood Transfusion Reactions: No Reported Reaction Additional Past Anesthesia/Blood Transfusion Reaction / Comment(s): SEVERE CLAUSTERPHOBIA INCLUDING A MASK ON HER FACE. Past Psychological History: Anxiety, Bipolar, Depression Smoking Status: Current every day smoker Past Alcohol Use History: None Reported Past Drug Use History: None Reported - Past Family History Father History Unknown: Yes Family Medical History: No Reported History Additional Family Medical History / Comment(s): Father is but pt does not know past medical history-they were not in much contact with each other. Mother Family Medical History: Cancer Additional Family Medical History / Comment(s): Mother at the age of 50 years from Cancer metastasis. Mother also had an aneurysm. Sister(s) Additional Family Medical History / Comment(s): Bipolar and Schizoprenia. Son(s) Family Medical History: No Reported History (one son no major medical problems.) Daughter(s) Family Medical History: No Reported History (2 daughters no major medical problems.) General Exam Limitations: no limitations General appearance: alert Head exam: Present: atraumatic Eye exam: Present: normal appearance ENT exam: Present: normal exam, mucous membranes moist Neck exam: Present: normal inspection, full ROM Respiratory exam: Present: normal lung sounds bilaterally. Absent: respiratory distress Cardiovascular Exam: Present: regular rate, normal rhythm, normal heart sounds GI/Abdominal exam: Present: soft, normal bowel sounds, other (Patient has mid abdominal scar noted. She does have a 1 cm x 1 cm serous fluid-filled cystic stretcher likely seroma noted. No purulent material. No tenderness of this area. No erythema). Absent: distended, tenderness, guarding, rebound, rigid Neurological exam: Present: alert Course Vital Signs 07/26/20 18:57 Temperature 98.1 F Pulse Rate 105 H Respiratory 18 Rate Blood Pressure 133/86 O2 Sat by Pulse 100 Oximetry Medical Decision Making - Medical Decision Making Vitals are stable. Patient is well-appearing. She does have a 1.5 x 1.5 cm cystic area noted to the umbilicus along incision line. There is clear serous drainage. There is no purulent material or erythema. Nontender. At this time symptoms are likely consistent with seroma. I recommend patient closely monitor this and if it is worsening she is to return to the emergency room. Otherwise she will follow-up with her surgeon by calling the office first thing Tuesday morning or Tuesday. She'll return here for any worsening symptoms.I discussed this case with attending Dr. Calloway who agrees with this assessment and treatment plan. Disposition Clinical Impression: Seroma after procedure Disposition: HOME SELF-CARE Condition: Good Instructions (If sedation given, give patient instructions): Seroma (DC) Additional Instructions: Please monitor for any worsening symptoms and return if this occurs. Otherwise follow-up with your surgeon by calling for earliest appointment. Is patient prescribed a controlled substance at d/c from ED?: No Referrals: Jamie Reddy MD [STAFF PHYSICIAN] - 1-2 days Time of Disposition: 19:29
== END 2020-07-26 19:37 | disposition home or self-care (01) ==
LOC: EC 18:45
DX: L76.34 Postprocedural seroma of skin and subcutaneous tissue following other procedure (principal); F17.200 Nicotine dependence, unspecified, uncomplicated; Z88.0 Allergy status to penicillin; Z88.1 Allergy status to other antibiotic agents; Z88.2 Allergy status to sulfonamides; Z90.49 Acquired absence of other specified parts of digestive tract; Z86.14 Personal history of Methicillin resistant Staphylococcus aureus infection
CPT/HCPCS: 99283

== ENCOUNTER 2020-08-08 09:50 | Day surgery (SDC) | payer MEDICARE, OTHER ==
[2020-08-07 08:43] VITALS: BMI 37.0
[2020-08-08 12:18] VITALS: BP 131/75; PULSE 109; RESP 16; TEMP 98.1
[2020-08-08] MEDS ORDERED: LIDOCAINE 1% INJ 10MG/ML (20 ML MDV) SQ ONE (12:49)
--- NOTE | 2020-08-08 13:24 | IR ---
Fluoroscopy HISTORY: Pain EXAMINATION TYPE: IR cvc insert >=5 years DATE OF EXAM: 08/08/2020 COMPARISON: NONE CLINICAL HISTORY: Infection Needs long-term intravenous access for antibiotics. PROCEDURE: Hand hygiene obtained with soap and water and alcohol-based hand rub. After informed consent, the skin overlying the right basilic vein was localized with ultrasound and n oted to be compressible and patent. An ultrasound image was obtained and submitted on the patient's chart. The overlying skin was prepped and draped and Lidocaine was used for local anesthesia. A ski n aissatou was made with a scalpel. Access was gained to the vein under ultrasound guidance with a 21 ga uge needle and a 0.018 inch wire was advanced. Access site was dilated with Peel-Away sheath and cat heter tailored to the appropriate length and advanced such that the distal tip is at the cavoatrial j unction. Spot image was obtained verifying placement. Catheter was fixed to the skin and a sterile dressing was placed following hemostasis. Catheter was aspirated and flushed with saline. Patient w as discharged in stable condition without complication. Maximal barrier technique is utilized. Ultra sound image is documented on the chart. Ultrasound used with sterile technique. Fluoro time and fluoroscopic images submitted to document procedure: 0.5 minutes fluoroscopy time, at 118 intraoperative images document the procedure IMPRESSION: STATUS POST ULTRASOUND AND FLUOROSCOPIC GUIDED PICC LINE PLACEMENT, READY FOR USE. THIS PROCEDURE WAS PERFORMED BY THE UNDERSIGNED.
== END 2020-08-08 13:14 | disposition home or self-care (01) ==
LOC: CATHCVL 09:50
PROVIDERS: ATTEND Radiology Diagnostic Radiology
DX: T81.49XA Infection following a procedure, other surgical site, initial encounter (principal); L02.211 Cutaneous abscess of abdominal wall; B95.62 Methicillin resistant Staphylococcus aureus infection as the cause of diseases classified elsewhere; T36.8X6A Underdosing of other systemic antibiotics, initial encounter; K21.9 Gastro-esophageal reflux disease without esophagitis; E66.9 Obesity, unspecified; Z98.890 Other specified postprocedural states; Z88.1 Allergy status to other antibiotic agents; Z88.0 Allergy status to penicillin; Z88.2 Allergy status to sulfonamides; Z90.49 Acquired absence of other specified parts of digestive tract; Z68.37 Body mass index [BMI] 37.0-37.9, adult
CPT/HCPCS: 36573; 81025; C1751; C1769; J2001

== ENCOUNTER → 2020-08-29 | Outpatient (CLI) | payer MEDICARE, OTHER ==
--- NOTE | 2020-08-29 21:14 | CT ---
EXAMINATION TYPE: CT abdomen pelvis w con DATE OF EXAM: 08/29/2020 COMPARISON: 07/23/2020. HISTORY: Follow up for abscess of abdominal cavity. CT DLP: 1608.1 mGycm Automated exposure control for dose reduction was used. TECHNIQUE: Helical acquisition of images was performed from the lung bases through the pelvis. CONTRAST: Performed with Oral Contrast and with IV Contrast, patient injected with 100ml mL of Isovue 300. FINDINGS: LUNG BASES: No significant abnormality is appreciated. LIVER/GB: No acute abnormality is appreciated. Cholecystectomy seen. PANCREAS: No significant abnormality is seen. SPLEEN: No significant abnormality is seen. ADRENALS: No acute abnormality is seen. Stable 2.3 cm right adrenal nodule. KIDNEYS: No significant abnormality is seen. FREE AIR: No free air is visualized. RETROPERITONEAL ADENOPATHY: None visualized REPRODUCTIVE ORGANS: No significant abnormality is seen URINARY BLADDER: No significant abnormality is seen. PELVIC ADENOPATHY: None visualized. OSSEOUS STRUCTURES: No significant abnormality is seen. BOWEL: There is residual mild to moderate fat stranding within the anterior abdominal wall subcutane ous soft tissues at site of previous abscess. No significant residual fluid or gas is seen. Appendect ignacio noted. OTHER: None. IMPRESSION: RESIDUAL MILD TO MODERATE INFLAMMATORY CHANGES WITHIN THE ANTERIOR ABDOMINAL WALL SOFT TISSUES AT SIT E OF PREVIOUS ABSCESS. NO SIGNIFICANT RESIDUAL FLUID OR GAS SEEN. Stable right adrenal nodule.
== END | disposition home or self-care (01) ==
LOC: RADCTMAIN 17:40
PROVIDERS: ATTEND Internal Medicine Infectious Disease
DX: M79.89 Other specified soft tissue disorders (principal); K65.1 Peritoneal abscess
CPT/HCPCS: 74177; Q9967

== ENCOUNTER 2020-10-04 15:05 | Emergency (ER) | payer MEDICARE, OTHER ==
[2020-10-04] MEDS ORDERED: SODIUM CHLORIDE 0.9% 500 ML 500 ML IV STA (16:12)
[2020-10-04] MEDS ORDERED: MORPHINE SULFATE 4 MG/ML SYRINGE IV STA (16:12)
--- NOTE | 2020-10-04 16:17 | ED ---
General Adult HPI - General Chief complaint: Abdominal Pain Stated complaint: Abd Pain Time Seen by Provider: 10/04/20 15:55 Source: patient, RN notes reviewed, old records reviewed Mode of arrival: ambulatory Limitations: no limitations - History of Present Illness Initial comments: 40-year-old female presenting for evaluation of abdominal pain. Patient had complicated medical history including intra-abdominal abscess, appendicitis, she was on a long course of both oral and IV antibiotics. She's been off antibiotics and has developed some pain in her abdomen which is generalized and also surrounding her umbilicus. She previously had purulent drainage from the umbilicus which has resolved. No measured fever, T-max at home was 99. No significant vomiting. No diarrhea. - Related Data Home Medications Medication Instructions Recorded Confirmed Vancomycin 1,500 mg IVPB Q12H 06/24/20 08/07/20 Previous Rx's Medication Instructions Recorded Ibuprofen [Motrin] 400 mg PO Q6HR PRN #20 tab 06/26/20 Allergies Allergy/AdvReac Type Severity Reaction Status Date / Time cephalexin [From Keflex] Allergy Severe Swelling Verified 10/04/20 15:41 clindamycin [From Cleocin] Allergy Anaphylaxis Verified 10/04/20 15:41 levofloxacin Allergy Rash/Hives Verified 10/04/20 15:41 Penicillins Allergy Swelling Verified 10/04/20 15:41 sulfamethoxazole AdvReac Itching Verified 10/04/20 15:41 [From Bactrim] trimethoprim [From Bactrim] AdvReac Itching Verified 10/04/20 15:41 Review of Systems ROS Statement: Those systems with pertinent positive or pertinent negative responses have been documented in the HPI. ROS Other: All systems not noted in ROS Statement are negative. Past Medical History Past Medical History: GERD/Reflux Additional Past Medical History / Comment(s): Midline catheter for iv infusions, current small opening at umbilicus from appendectomy incision, Migraines, Pancreatic Deficiency, Lower lumbar disease, hypoglycemia. History of Any Multi-Drug Resistant Organisms: MRSA Date of last positivie culture/infection: 05/23/20 MDRO Source:: ABDOMEN Past Surgical History: Appendectomy, Bowel Resection, Cholecystectomy, Hysterectomy, Orthopedic Surgery, Tonsillectomy Additional Past Surgical History / Comment(s): I&D of abdominal incision from appendectomy, (R) hand surgery, (L) hip I&D from spider bite r/t MRSA Past Anesthesia/Blood Transfusion Reactions: No Reported Reaction Additional Past Anesthesia/Blood Transfusion Reaction / Comment(s): SEVERE CLAUSTERPHOBIA INCLUDING A MASK ON HER FACE. Past Psychological History: Anxiety, Bipolar, Depression Smoking Status: Current every day smoker Past Alcohol Use History: None Reported Past Drug Use History: None Reported - Past Family History Father History Unknown: Yes Family Medical History: No Reported History Additional Family Medical History / Comment(s): Father is but pt does not know past medical history-they were not in much contact with each other. Mother Family Medical History: Cancer Additional Family Medical History / Comment(s): Mother at the age of 50 years from Cancer metastasis. Mother also had an aneurysm. Sister(s) Additional Family Medical History / Comment(s): Bipolar and Schizoprenia. Son(s) Family Medical History: No Reported History (one son no major medical problems.) Daughter(s) Family Medical History: No Reported History (2 daughters no major medical problems.) General Exam Limitations: no limitations General appearance: alert, in no apparent distress Head exam: Present: atraumatic, normocephalic Eye exam: Present: normal appearance, PERRL ENT exam: Present: normal exam, mucous membranes dry Neck exam: Present: normal inspection Respiratory exam: Present: normal lung sounds bilaterally. Absent: respiratory distress, wheezes Cardiovascular Exam: Present: regular rate, normal rhythm GI/Abdominal exam: Present: soft, tenderness (Minimal generalized tenderness, surgical incisions are well-healed with no purulent drainage. There is some dried crusting in the umbilicus.). Absent: distended, rebound, rigid Extremities exam: Present: normal inspection, normal capillary refill. Absent: pedal edema, calf tenderness Neurological exam: Present: alert, oriented X3, CN II-XII intact. Absent: motor sensory deficit Psychiatric exam: Present: normal affect, normal mood Skin exam: Present: warm, dry, intact. Absent: cyanosis, diaphoretic Course Vital Signs 10/04/20 10/04/20 15:38 16:45 Temperature 98.4 F Pulse Rate 112 H 98 Respiratory 18 20 Rate Blood Pressure 116/76 124/88 O2 Sat by Pulse 97 97 Oximetry Medical Decision Making - Medical Decision Making 40 yo Female with abdominal pain, CT repeated, shows no significant change, no drainable abscess or fluid collection. Patient has a mild leukocytosis which is improved from prior 12.0. She has otherwise normal laboratories studies, stable hemoglobin, normal electrolytes, normal urinalysis, lactic acid of 2.4. She will continue to follow up as an outpatient. With her primary care physician and her general surgeon. - Lab Data Result diagrams: 10/04/20 16:32 10/04/20 16:32 Lab Results 10/04/20 10/04/20 10/04/20 Range/Units 16:32 16:32 16:32 WBC 12.0 H (3.8-10.6) k/uL RBC 4.60 (3.80-5.40) m/uL Hgb 13.3 (11.4-16.0) gm/dL Hct 40.4 (34.0-46.0) % MCV 87.9 (80.0-100.0) fL MCH 28.9 (25.0-35.0) pg MCHC 32.9 (31.0-37.0) g/dL RDW 13.6 (11.5-15.5) % Plt Count 380 (150-450) k/uL MPV 7.0 Neutrophils % 64 % Lymphocytes % 29 % Monocytes % 3 % Eosinophils % 3 % Basophils % 1 % Neutrophils # 7.7 (1.3-7.7) k/uL Lymphocytes # 3.5 (1.0-4.8) k/uL Monocytes # 0.4 (0-1.0) k/uL Eosinophils # 0.3 (0-0.7) k/uL Basophils # 0.1 (0-0.2) k/uL PT 9.7 (9.0-12.0) sec INR 0.9 (<1.2) APTT 23.6 (22.0-30.0) sec Sodium (137-145) mmol/L Potassium (3.5-5.1) mmol/L Chloride (98-107) mmol/L Carbon Dioxide (22-30) mmol/L Anion Gap mmol/L BUN (7-17) mg/dL Creatinine (0.52-1.04) mg/dL Est GFR (CKD-EPI)AfAm (>60 ml/min/1.73 sqM) Est GFR (CKD-EPI)NonAf (>60 ml/min/1.73 sqM) Glucose (74-99) mg/dL Plasma Lactic Acid [place] (0.7-2.0) mmol/L Calcium (8.4-10.2) mg/dL Total Bilirubin (0.2-1.3) mg/dL AST (14-36) U/L ALT (4-34) U/L Alkaline Phosphatase (38-126) U/L Total Protein (6.3-8.2) g/dL Albumin (3.5-5.0) g/dL Amylase (30-110) U/L Lipase (23-300) U/L Urine Color Colorless Urine Appearance Clear (Clear) Urine pH 5.5 (5.0-8.0) Ur Specific [place] 1.001 (1.001-1.035) Urine Protein Negative (Negative) Urine Glucose (UA) Negative (Negative) Urine Ketones Negative (Negative) Urine Blood Negative (Negative) Urine Nitrite Negative (Negative) Urine Bilirubin Negative (Negative) Urine Urobilinogen <2.0 (<2.0) mg/dL Ur Leukocyte Esterase Negative (Negative) 10/04/20 10/04/20 Range/Units 16:32 16:32 WBC (3.8-10.6) k/uL RBC (3.80-5.40) m/uL Hgb (11.4-16.0) gm/dL Hct (34.0-46.0) % MCV (80.0-100.0) fL MCH (25.0-35.0) pg MCHC (31.0-37.0) g/dL RDW (11.5-15.5) % Plt Count (150-450) k/uL MPV Neutrophils % % Lymphocytes % % Monocytes % % Eosinophils % % Basophils % % Neutrophils # (1.3-7.7) k/uL Lymphocytes # (1.0-4.8) k/uL Monocytes # (0-1.0) k/uL Eosinophils # (0-0.7) k/uL Basophils # (0-0.2) k/uL PT (9.0-12.0) sec INR (<1.2) APTT (22.0-30.0) sec Sodium 138 (137-145) mmol/L Potassium 4.2 (3.5-5.1) mmol/L Chloride 106 (98-107) mmol/L Carbon Dioxide 22 (22-30) mmol/L Anion Gap 10 mmol/L BUN 8 (7-17) mg/dL Creatinine 0.98 (0.52-1.04) mg/dL Est GFR (CKD-EPI)AfAm 82 (>60 ml/min/1.73 sqM) Est GFR (CKD-EPI)NonAf 71 (>60 ml/min/1.73 sqM) Glucose 122 H (74-99) mg/dL Plasma Lactic Acid Maykel 2.4 H* (0.7-2.0) mmol/L Calcium 9.6 (8.4-10.2) mg/dL Total Bilirubin 0.2 (0.2-1.3) mg/dL AST 28 (14-36) U/L ALT 31 (4-34) U/L Alkaline Phosphatase 66 (38-126) U/L Total Protein 7.0 (6.3-8.2) g/dL Albumin 4.2 (3.5-5.0) g/dL Amylase 64 (30-110) U/L Lipase 225 (23-300) U/L Urine Color Urine Appearance (Clear) Urine pH (5.0-8.0) Ur Specific [place] (1.001-1.035) Urine Protein (Negative) Urine Glucose (UA) (Negative) Urine Ketones (Negative) Urine Blood (Negative) Urine Nitrite (Negative) Urine Bilirubin (Negative) Urine Urobilinogen (<2.0) mg/dL Ur Leukocyte Esterase (Negative) Disposition Clinical Impression: Leukocytosis, Abdominal pain Disposition: HOME SELF-CARE Condition: Good Instructions (If sedation given, give patient instructions): Abdominal Pain (ED) Is patient prescribed a controlled substance at d/c from ED?: No Referrals: None,Stated [Primary Care Provider] - 1-2 days Jamie Reddy MD [STAFF PHYSICIAN] - 1-2 days Time of Disposition: 17:45
[2020-10-04] MEDS ORDERED: diphenhydrAMINE 50 MG/ML 1 ML VIAL IVP STA (16:26)
[2020-10-04 16:43] LABS: Appearance,Urine Clear (Clear); Basophils # (A) 0.1 k/uL (0-0.2); Basophils % (A) 1 %; Bilirubin,Urine Negative (Negative); Blood,Urine Negative (Negative); Color,Urine Colorless; Eosinophils # (A) 0.3 k/uL (0-0.7); Eosinophils % (A) 3 %; Glucose,Urine (UA) Negative (Negative); HCT 40.4 % (34.0-46.0); HGB 13.3 gm/dL (11.4-16.0); Ketones,Urine Negative (Negative); Leukocyte Esterase,Urine Negative (Negative); Lymphocytes # (A) 3.5 k/uL (1.0-4.8); Lymphocytes % (A) 29 %; MCH 28.9 pg (25.0-35.0); MCHC 32.9 g/dL (31.0-37.0); MCV 87.9 fL (80.0-100.0); Monocytes # (A) 0.4 k/uL (0-1.0); Monocytes % (A) 3 %; Neutrophils # (A) 7.7 k/uL (1.3-7.7); Neutrophils % (A) 64 %; Nitrite,Urine Negative (Negative); PH, Urine 5.5 (5.0-8.0); Platelet Count 380 k/uL (150-450); Protein,Urine Negative (Negative); RDW 13.6 % (11.5-15.5); Specific Gravity,Urine 1.001 (1.001-1.035); Urobilinogen,Urine <2.0 mg/dL (<2.0)
[2020-10-04 16:51] LABS: INR 0.9 (<1.2); Partial Thromboplastin Time 23.6 sec (22.0-30.0); Prothrombin Time 9.7 sec (9.0-12.0)
[2020-10-04 17:04] LABS: Calcium 9.6 mg/dL (8.4-10.2); Total Bilirubin 0.2 mg/dL (0.2-1.3)
--- NOTE | 2020-10-04 17:06 | CT ---
EXAMINATION TYPE: CT abdomen pelvis w con DATE OF EXAM: 10/04/2020 COMPARISON: 08/29/2020 HISTORY: Abdominal pain, history of appendectomy with abscess. CT DLP: 1641.3 mGycm Automated exposure control for dose reduction was used. CONTRAST: Performed with IV Contrast, patient injected with 100ml mL of Isovue 300. Images obtained from the diaphragm to the floor the pelvis with IV contrast. Lung bases are clear of consolidation. There is no pleural effusion. Heart size is normal. Liver spleen stomach pancreas appear intact. Bile ducts are not dilated. There are clips from cholecy stectomy. There is no adrenal mass. Kidneys show satisfactory contrast opacification. There is no hydronephrosi s. Ureters are not dilated. Delayed images show normal renal excretion. There is no retroperitoneal a denopathy. Bladder distends smoothly. There are a few sigmoid diverticula. There is no sign of divert iculitis. There is no free fluid in the pelvis. There is subcutaneous density at the umbilicus consis tent with surgery. There are clips from appendectomy. There is no mesenteric edema. There is no ascites or free air. There is no sign of a bowel obstructio n. The lumbar vertebra have normal alignment. Posterior elements are intact. There is no compression fra cture. Bony pelvis is intact. Hip joints are intact. IMPRESSION: Postsurgical changes at the anterior abdominal wall and in subcutaneous fat appear unchanged. No acut e intra-abdominal abnormality. No change compared to old exam. No discrete drainable fluid collection .
[2020-10-04 17:20] LABS: Albumin 4.2 g/dL (3.5-5.0); Potassium 4.2 mmol/L (3.5-5.1)
[2020-10-04 18:01] VITALS: BP 128/86; PULSE 96; RESP 18; TEMP 98.1
== END 2020-10-04 18:00 | disposition home or self-care (01) ==
LOC: EC 15:05
DX: R10.84 Generalized abdominal pain (principal); D72.829 Elevated white blood cell count, unspecified; Z88.0 Allergy status to penicillin; Z88.1 Allergy status to other antibiotic agents; Z88.2 Allergy status to sulfonamides; F17.200 Nicotine dependence, unspecified, uncomplicated; Z86.14 Personal history of Methicillin resistant Staphylococcus aureus infection; Z90.49 Acquired absence of other specified parts of digestive tract; Z90.710 Acquired absence of both cervix and uterus
CPT/HCPCS: 36415; 80053; 82150; 83605; 83690; 85025; 85610; 85730; 81003; 87040; 74177; 99284; 96374; 96375; J2270; J1200; Q9967

== ENCOUNTER 2020-11-16 17:46 | Emergency (ER) | payer MEDICARE, OTHER ==
[2020-11-16 17:57] VITALS: BP 119/83; PULSE 113; RESP 18; TEMP 98.8
[2020-11-16] MEDS ORDERED: HYDROmorphone 1 MG/ML 1 ML SYRINGE IVP STA (19:06)
[2020-11-16] MEDS ORDERED: ONDANSETRON 4 MG/2 ML VIAL IVP STA (19:06)
[2020-11-16] MEDS ORDERED: SODIUM CHLORIDE 0.9% 1,000 ML IV STA (19:06)
[2020-11-16 19:32] LABS: Appearance,Urine Clear (Clear); Basophils # (A) 0.1 k/uL (0-0.2); Basophils % (A) 1 %; Bilirubin,Urine Negative (Negative); Blood,Urine Negative (Negative); Color,Urine Colorless; Eosinophils # (A) 0.2 k/uL (0-0.7); Eosinophils % (A) 1 %; Glucose,Urine (UA) Negative (Negative); HCT 41.4 % (34.0-46.0); HGB 13.3 gm/dL (11.4-16.0); Ketones,Urine Negative (Negative); Leukocyte Esterase,Urine Negative (Negative); Lymphocytes # (A) 3.9 k/uL (1.0-4.8); Lymphocytes % (A) 28 %; MCHC 32.2 g/dL (31.0-37.0); MCV 90.1 fL (80.0-100.0); Mean Platelet Volume 7.8; Monocytes # (A) 0.6 k/uL (0-1.0); Monocytes % (A) 4 %; Neutrophils # (A) 9.1 k/uL (1.3-7.7); Neutrophils % (A) 65 %; Nitrite,Urine Negative (Negative); PH, Urine 5.5 (5.0-8.0); Platelet Count 376 k/uL (150-450); Protein,Urine Negative (Negative); RBC 4.59 m/uL (3.80-5.40); RDW 13.1 % (11.5-15.5); Specific Gravity,Urine 1.003 (1.001-1.035); Urobilinogen,Urine <2.0 mg/dL (<2.0)
--- NOTE | 2020-11-16 19:42 | ED ---
Abdominal Pain HPI - General Chief Complaint: Abdominal Pain Stated Complaint: Abd pain Time Seen by Provider: 11/16/20 19:02 Source: patient Mode of arrival: ambulatory Limitations: no limitations - History of Present Illness Initial Comments: 40 year-old female patient presents to the emergency department for evaluation of abdominal pain and nausea. States that her symptoms started about 3-4 days ago. Reports that she has had some vomit into her mouth. Denies any constipation or diarrhea. Denies any radiation of the pain into her back. Denies any h ematuria, dysuria, urinary urgency, or urinary frequency. Denies fever or chills. Has had appendectomy, cholecystectomy, and hysterectomy. Patient denies any recent rash, cough, shortness of breath, chest pain, numbness, tingling, dizziness, weakness, headache, visual changes, or any other complai nts. - Related Data Home Medications Medication Instructions Recorded Confirmed Vancomycin 1,500 mg IVPB Q12H 06/24/20 08/07/20 Previous Rx's Medication Instructions Recorded Ibuprofen [Motrin] 400 mg PO Q6HR PRN #20 tab 06/26/20 Ondansetron [Zofran ODT] 4 mg PO Q8HR PRN #10 tab 11/16/20 Allergies Allergy/AdvReac Type Severity Reaction Status Date / Time cephalexin [From Keflex] Allergy Severe Swelling Verified 11/16/20 17:57 clindamycin [From Cleocin] Allergy Anaphylaxis Verified 11/16/20 17:57 levofloxacin Allergy Rash/Hives Verified 11/16/20 17:57 Penicillins Allergy Swelling Verified 11/16/20 17:57 sulfamethoxazole AdvReac Itching Verified 11/16/20 17:57 [From Bactrim] trimethoprim [From Bactrim] AdvReac Itching Verified 11/16/20 17:57 Review of Systems ROS Statement: Those systems with pertinent positive or pertinent negative responses have been documented in the HPI. ROS Other: All systems not noted in ROS Statement are negative. Past Medical History Past Medical History: GERD/Reflux Additional Past Medical History / Comment(s): Midline catheter for iv infusions, current small opening at umbilicus from appendectomy incision, Migraines, Pancreatic Deficiency, Lower lumbar disease, hypoglycemia. History of Any Multi-Drug Resistant Organisms: MRSA Date of last positivie culture/infection: 05/23/20 MDRO Source:: ABDOMEN Past Surgical History: Appendectomy, Bowel Resection, Cholecystectomy, Hysterectomy, Orthopedic Surgery, Tonsillectomy Additional Past Surgical History / Comment(s): I&D of abdominal incision from appendectomy, (R) hand surgery, (L) hip I&D from spider bite r/t MRSA Past Anesthesia/Blood Transfusion Reactions: No Reported Reaction Additional Past Anesthesia/Blood Transfusion Reaction / Comment(s): SEVERE CLAUSTERPHOBIA INCLUDING A MASK ON HER FACE. Past Psychological History: Anxiety, Bipolar, Depression Smoking Status: Current every day smoker Past Alcohol Use History: None Reported Past Drug Use History: None Reported - Past Family History Father History Unknown: Yes Family Medical History: No Reported History Additional Family Medical History / Comment(s): Father is but pt does not know past medical history-they were not in much contact with each other. Mother Family Medical History: Cancer Additional Family Medical History / Comment(s): Mother at the age of 50 years from Cancer metastasis. Mother also had an aneurysm. Sister(s) Additional Family Medical History / Comment(s): Bipolar and Schizoprenia. Son(s) Family Medical History: No Reported History (one son no major medical problems.) Daughter(s) Family Medical History: No Reported History (2 daughters no major medical problems.) General Exam Limitations: no limitations General appearance: alert, in no apparent distress, other (This is a well- developed, well-nourished adult female patient in no acute distress. Vital signs upon presentation are temperature 98.8F, pulse 113, respirations 18, bl ood pressure 119/83, pulse ox 98% on room air.) Eye exam: Present: normal appearance, PERRL, EOMI. Absent: scleral icterus, conjunctival injection, periorbital swelling ENT exam: Present: normal exam, normal oropharynx, mucous membranes moist Respiratory exam: Present: normal lung sounds bilaterally. Absent: respiratory distress, wheezes, rales, rhonchi, stridor Cardiovascular Exam: Present: regular rate, normal rhythm, normal heart sounds. Absent: systolic murmur, diastolic murmur, rubs, gallop, clicks GI/Abdominal exam: Present: soft, tenderness (Periumbilical, right lower quadrant), normal bowel sounds. Absent: distended, guarding, rebound, rigid Neurological exam: Present: alert, oriented X3, CN II-XII intact Psychiatric exam: Present: normal affect, normal mood Skin exam: Present: warm, dry, intact, normal color. Absent: rash Course Vital Signs 11/16/20 17:54 Temperature 98.8 F Pulse Rate 113 H Respiratory 18 Rate Blood Pressure 119/83 O2 Sat by Pulse 98 Oximetry Medical Decision Making - Medical Decision Making 40-year-old female patient presented to the emergency department today for evaluation of abdominal pain, nausea, vomiting. Physical examination did reveal tenderness of. Umbilical area as well as the right lower quadrant. Labs reviewed and did reveal white blood cell count of 14.0 with neutrophils at 9.1. Creatinine 1.05. Lactic acid 2.1. Urinalysis negative for signs of infection. CT abdomen and pelvis was obtained and showed no acute abnormalities. I did discuss findings results with her. She will be discharged to follow-up with her surgeon Dr. Reddy and infectious disease Dr. Castillo. Instructed to follow-up with her primary care physician for recheck in 1-2 days. Return parameters were discussed in detail. She verbalizes understanding and agrees with this plan. - Lab Data Result diagrams: 11/16/20 19:18 11/16/20 19:18 Lab Results 11/16/20 11/16/20 11/16/20 Range/Units 19:18 19:18 19:18 WBC 14.0 H (3.8-10.6) k/uL RBC 4.59 (3.80-5.40) m/uL Hgb 13.3 (11.4-16.0) gm/dL Hct 41.4 (34.0-46.0) % MCV 90.1 (80.0-100.0) fL MCH 29.0 (25.0-35.0) pg MCHC 32.2 (31.0-37.0) g/dL RDW 13.1 (11.5-15.5) % Plt Count 376 (150-450) k/uL MPV 7.8 Neutrophils % 65 % Lymphocytes % 28 % Monocytes % 4 % Eosinophils % 1 % Basophils % 1 % Neutrophils # 9.1 H (1.3-7.7) k/uL Lymphocytes # 3.9 (1.0-4.8) k/uL Monocytes # 0.6 (0-1.0) k/uL Eosinophils # 0.2 (0-0.7) k/uL Basophils # 0.1 (0-0.2) k/uL Sodium 140 (137-145) mmol/L Potassium 3.9 (3.5-5.1) mmol/L Chloride 107 (98-107) mmol/L Carbon Dioxide 26 (22-30) mmol/L Anion Gap 7 mmol/L BUN 8 (7-17) mg/dL Creatinine 1.05 H (0.52-1.04) mg/dL Est GFR (CKD-EPI)AfAm 76 (>60 ml/min/1.73 sqM) Est GFR (CKD-EPI)NonAf 66 (>60 ml/min/1.73 sqM) Glucose 105 H (74-99) mg/dL Lactic Ac Sepsis Rflx Plasma Lactic Acid Maykel (0.7-2.0) mmol/L Calcium 9.9 (8.4-10.2) mg/dL Total Bilirubin 0.2 (0.2-1.3) mg/dL AST 26 (14-36) U/L ALT 33 (4-34) U/L Alkaline Phosphatase 70 (38-126) U/L Total Protein 6.8 (6.3-8.2) g/dL Albumin 4.1 (3.5-5.0) g/dL Lipase 266 (23-300) U/L Urine Color Colorless Urine Appearance Clear (Clear) Urine pH 5.5 (5.0-8.0) Ur Specific [place] 1.003 (1.001-1.035) Urine Protein Negative (Negative) Urine Glucose (UA) Negative (Negative) Urine Ketones Negative (Negative) Urine Blood Negative (Negative) Urine Nitrite Negative (Negative) Urine Bilirubin Negative (Negative) Urine Urobilinogen <2.0 (<2.0) mg/dL Ur Leukocyte Esterase Negative (Negative) 11/16/20 11/16/20 Range/Units 19:18 19:53 WBC (3.8-10.6) k/uL RBC (3.80-5.40) m/uL Hgb (11.4-16.0) gm/dL Hct (34.0-46.0) % MCV (80.0-100.0) fL MCH (25.0-35.0) pg MCHC (31.0-37.0) g/dL RDW (11.5-15.5) % Plt Count (150-450) k/uL MPV Neutrophils % % Lymphocytes % % Monocytes % % Eosinophils % % Basophils % % Neutrophils # (1.3-7.7) k/uL Lymphocytes # (1.0-4.8) k/uL Monocytes # (0-1.0) k/uL Eosinophils # (0-0.7) k/uL Basophils # (0-0.2) k/uL Sodium (137-145) mmol/L Potassium (3.5-5.1) mmol/L Chloride (98-107) mmol/L Carbon Dioxide (22-30) mmol/L Anion Gap mmol/L BUN (7-17) mg/dL Creatinine (0.52-1.04) mg/dL Est GFR (CKD-EPI)AfAm (>60 ml/min/1.73 sqM) Est GFR (CKD-EPI)NonAf (>60 ml/min/1.73 sqM) Glucose (74-99) mg/dL Lactic Ac Sepsis Rflx Y Plasma Lactic Acid Maykel 2.1 H* (0.7-2.0) mmol/L Calcium (8.4-10.2) mg/dL Total Bilirubin (0.2-1.3) mg/dL AST (14-36) U/L ALT (4-34) U/L Alkaline Phosphatase (38-126) U/L Total Protein (6.3-8.2) g/dL Albumin (3.5-5.0) g/dL Lipase (23-300) U/L Urine Color Urine Appearance (Clear) Urine pH (5.0-8.0) Ur Specific [place] (1.001-1.035) Urine Protein (Negative) Urine Glucose (UA) (Negative) Urine Ketones (Negative) Urine Blood (Negative) Urine Nitrite (Negative) Urine Bilirubin (Negative) Urine Urobilinogen (<2.0) mg/dL Ur Leukocyte Esterase (Negative) - Radiology Data Radiology results: report reviewed, image reviewed CT abdomen and pelvis with contrast was obtained. Report was reviewed in its entirety. Impression by Dr. Romo shows no acute abdomen abnormality of the abdomen pelvis. There is overall no adverse change compared to old exam. Disposition Clinical Impression: Abdominal pain, Vomiting Disposition: HOME SELF-CARE Condition: Good Instructions (If sedation given, give patient instructions): Acute Nausea and Vomiting (ED), Abdominal Pain (ED) Additional Instructions: Take medications as directed. Follow-up with the primary care physician for recheck in 1-2 days. Return for any new, worsening, or concerning symptoms. Prescriptions: Ondansetron [Zofran ODT] 4 mg PO Q8HR PRN #10 tab PRN Reason: Nausea Is patient prescribed a controlled substance at d/c from ED?: No Referrals: Jamie Reddy MD [STAFF PHYSICIAN] - 1-2 days Dara Galo MD [STAFF PHYSICIAN] - 1-2 days Time of Disposition: 20:46
[2020-11-16 19:49] LABS: Albumin 4.1 g/dL (3.5-5.0); Calcium 9.9 mg/dL (8.4-10.2); Potassium 3.9 mmol/L (3.5-5.1); Total Bilirubin 0.2 mg/dL (0.2-1.3); Total Protein 6.8 g/dL (6.3-8.2)
[2020-11-16] MEDS ORDERED: SODIUM CHLORIDE 0.9% 500 ML 500 ML IV ONE (19:57)
[2020-11-16] MEDS ORDERED: SODIUM CHLORIDE 0.9% 1,000 ML IV SCH (20:00)
--- NOTE | 2020-11-16 20:19 | CT ---
EXAMINATION TYPE: CT abdomen pelvis w con DATE OF EXAM: 11/16/2020 COMPARISON: 10/04/2020 HISTORY: RUQ and RLQ pain. CT DLP: 1627 mGycm Automated exposure control for dose reduction was used. CONTRAST: Performed with IV Contrast, patient injected with 100 mL of Isovue 300. There is minimal subsegmental atelectasis at the lung bases. There is no pleural effusion. Heart size is normal. There is no pericardial effusion. Liver spleen stomach pancreas appear intact. Bile ducts are not dilated. There are clips from cholecy stectomy. There is 2 cm low-density right adrenal mass unchanged. Kidneys show satisfactory contrast opacificat ion. There is no hydronephrosis. Ureters are not dilated. Delayed images show normal renal excretion. There is no retroperitoneal adenopathy. Bladder distends smoothly. There is no inguinal hernia. Ther e is no free fluid in the pelvis. There are multiple sigmoid diverticula. There is no diverticulitis. There is some fat stranding in thickening at the umbilicus consistent with umbilical hernia repair. T here is no mesenteric edema. There is no ascites or free air. There is no bowel obstruction. There ar e clips at the cecum. The lumbar vertebra have normal alignment. There is no compression fracture. Posterior elements are i ntact. Sacroiliac joints appear normal. Hip joints are intact. Bony pelvis is intact. IMPRESSION: No acute abnormality of the abdomen pelvis. There is overall no adverse change compared to old exam.
[2020-11-16] MEDS ORDERED: ACET/COD 300 MG/30 MG STARTER PACK 6 TAB BTL PO STA (20:46)
== END 2020-11-16 21:33 | disposition home or self-care (01) ==
LOC: EC 17:46
DX: R10.33 Periumbilical pain (principal); R10.31 Right lower quadrant pain; R11.2 Nausea with vomiting, unspecified; K21.9 Gastro-esophageal reflux disease without esophagitis; F17.200 Nicotine dependence, unspecified, uncomplicated; Z79.1 Long term (current) use of non-steroidal anti-inflammatories (NSAID); Z79.899 Other long term (current) drug therapy; Z88.0 Allergy status to penicillin; Z88.1 Allergy status to other antibiotic agents; Z88.2 Allergy status to sulfonamides; Z90.49 Acquired absence of other specified parts of digestive tract; Z90.710 Acquired absence of both cervix and uterus
CPT/HCPCS: 36415; 80053; 83605; 83690; 85025; 81003; 74177; 99284; 96374; 96375; 96361; J2405; J1170; Q9967

== ENCOUNTER 2020-12-14 18:15 | Inpatient (IN) | payer MEDICARE, OTHER ==
[2020-12-14] MEDS ORDERED: SODIUM CHLORIDE 0.9% 1,000 ML IV STA (18:40)
[2020-12-14] MEDS ORDERED: MORPHINE SULFATE 4 MG/ML SYRINGE IV STA ×2 (18:40→21:17)
[2020-12-14] MEDS ORDERED: SODIUM CHLORIDE 0.9% 500 ML 500 ML IV STA (18:40)
[2020-12-14] MEDS ORDERED: ONDANSETRON 4 MG/2 ML VIAL IVP STA (18:40)
--- NOTE | 2020-12-14 19:05 | ED ---
Abdominal Pain HPI - General Chief Complaint: Abdominal Pain Stated Complaint: abd pain/back pain Time Seen by Provider: 12/14/20 18:35 Source: patient Mode of arrival: ambulatory Limitations: no limitations - History of Present Illness Initial Comments: This patient is a 40-year-old woman who presents with complaint of abdominal pain. The patient states that this is been present probably since early September. Patient also is having nausea. She has not had vomiting today. Last bowel movement was earlier and was normal. No change in urination. MD Complaint: abdominal pain Onset/Timin -: month(s) Location: RLQ Radiation: none Migration to: no migration Severity: severe Quality: sharp Consistency: constant Improves With: nothing Worsens With: nothing Associated Symptoms: nausea - Related Data Home Medications Medication Instructions Recorded Confirmed No Known Home Medications 12/14/20 12/14/20 Allergies Allergy/AdvReac Type Severity Reaction Status Date / Time cephalexin [From Keflex] Allergy Severe Swelling Verified 12/14/20 21:52 clindamycin [From Cleocin] Allergy Anaphylaxis Verified 12/14/20 21:52 levofloxacin Allergy Rash/Hives Verified 12/14/20 21:52 Penicillins Allergy Swelling Verified 12/14/20 21:52 sulfamethoxazole AdvReac Itching Verified 12/14/20 21:52 [From Bactrim] trimethoprim [From Bactrim] AdvReac Itching Verified 12/14/20 21:52 Review of Systems ROS Statement: Those systems with pertinent positive or pertinent negative responses have been documented in the HPI. ROS Other: All systems not noted in ROS Statement are negative. Constitutional: Denies: fever, chills Respiratory: Denies: cough, dyspnea Cardiovascular: Denies: chest pain, palpitations, edema Gastrointestinal: Reports: abdominal pain, nausea. Denies: vomiting, diarrhea, constipation, melena, hematochezia Genitourinary: Denies: urgency, dysuria, frequency, hematuria, discharge Musculoskeletal: Denies: back pain Skin: Denies: rash Neurological: Denies: headache, weakness, numbness Past Medical History Past Medical History: GERD/Reflux Additional Past Medical History / Comment(s): Midline catheter for iv infusions, current small opening at umbilicus from appendectomy incision, Migraines, Pancreatic Deficiency, Lower lumbar disease, hypoglycemia. History of Any Multi-Drug Resistant Organisms: MRSA Date of last positivie culture/infection: 05/23/20 MDRO Source:: ABDOMEN Past Surgical History: Appendectomy, Bowel Resection, Cholecystectomy, Hysterectomy, Orthopedic Surgery, Tonsillectomy Additional Past Surgical History / Comment(s): I&D of abdominal incision from appendectomy, (R) hand surgery, (L) hip I&D from spider bite r/t MRSA Past Anesthesia/Blood Transfusion Reactions: No Reported Reaction Additional Past Anesthesia/Blood Transfusion Reaction / Comment(s): SEVERE CLAUSTERPHOBIA INCLUDING A MASK ON HER FACE. Past Psychological History: Anxiety, Bipolar, Depression Smoking Status: Current every day smoker Past Alcohol Use History: None Reported Past Drug Use History: None Reported - Past Family History Father History Unknown: Yes Family Medical History: No Reported History Additional Family Medical History / Comment(s): Father is but pt does not know past medical history-they were not in much contact with each other. Mother Family Medical History: Cancer Additional Family Medical History / Comment(s): Mother at the age of 50 years from Cancer metastasis. Mother also had an aneurysm. Sister(s) Additional Family Medical History / Comment(s): Bipolar and Schizoprenia. Son(s) Family Medical History: No Reported History (one son no major medical problems.) Daughter(s) Family Medical History: No Reported History (2 daughters no major medical problems.) General Exam Limitations: no limitations General appearance: alert, in no apparent distress Head exam: Present: atraumatic, normocephalic Eye exam: Present: normal appearance. Absent: scleral icterus, conjunctival injection ENT exam: Present: normal oropharynx Neck exam: Present: normal inspection Respiratory exam: Present: normal lung sounds bilaterally. Absent: respiratory distress, wheezes, rales, rhonchi, stridor Cardiovascular Exam: Present: regular rate, normal rhythm, normal heart sounds. Absent: systolic murmur, diastolic murmur, rubs, gallop GI/Abdominal exam: Present: soft, tenderness, mass. Absent: distended, guarding, rebound, rigid, pulsatile mass, hernia Extremities exam: Present: normal inspection, normal capillary refill. Absent: pedal edema, calf tenderness Back exam: Present: normal inspection. Absent: CVA tenderness (R), CVA tenderness (L) Neurological exam: Present: alert Skin exam: Present: warm, dry, intact, normal color. Absent: rash Course Vital Signs 12/14/20 12/14/20 18:22 19:52 Temperature 98.2 F Pulse Rate 96 92 Respiratory 18 22 Rate Blood Pressure 123/68 100/66 O2 Sat by Pulse 99 99 Oximetry Medical Decision Making - Lab Data Result diagrams: 12/14/20 18:54 12/14/20 18:54 Lab Results 12/14/20 12/14/20 12/14/20 Range/Units 18:54 18:54 18:54 WBC 11.3 H (3.8-10.6) k/uL RBC 4.49 (3.80-5.40) m/uL Hgb 13.9 (11.4-16.0) gm/dL Hct 40.2 (34.0-46.0) % MCV 89.6 (80.0-100.0) fL MCH 31.0 (25.0-35.0) pg MCHC 34.6 (31.0-37.0) g/dL RDW 12.9 (11.5-15.5) % Plt Count 349 (150-450) k/uL MPV 7.4 Neutrophils % 59 % Lymphocytes % 32 % Monocytes % 5 % Eosinophils % 3 % Basophils % 1 % Neutrophils # 6.6 (1.3-7.7) k/uL Lymphocytes # 3.7 (1.0-4.8) k/uL Monocytes # 0.5 (0-1.0) k/uL Eosinophils # 0.3 (0-0.7) k/uL Basophils # 0.1 (0-0.2) k/uL Sodium 140 (137-145) mmol/L Potassium 4.3 (3.5-5.1) mmol/L Chloride 107 (98-107) mmol/L Carbon Dioxide 25 (22-30) mmol/L Anion Gap 8 mmol/L BUN 9 (7-17) mg/dL Creatinine 0.79 (0.52-1.04) mg/dL Est GFR (CKD-EPI)AfAm >90 (>60 ml/min/1.73 sqM) Est GFR (CKD-EPI)NonAf >90 (>60 ml/min/1.73 sqM) Glucose 107 H (74-99) mg/dL Plasma Lactic Acid Maykel (0.7-2.0) mmol/L Calcium 10.1 (8.4-10.2) mg/dL Total Bilirubin 0.2 (0.2-1.3) mg/dL AST 30 (14-36) U/L ALT 31 (4-34) U/L Alkaline Phosphatase 74 (38-126) U/L Total Protein 6.8 (6.3-8.2) g/dL Albumin 4.2 (3.5-5.0) g/dL Amylase 62 (30-110) U/L Lipase 242 (23-300) U/L Urine Color Yellow Urine Appearance Cloudy H (Clear) Urine pH 5.5 (5.0-8.0) Ur Specific [place] 1.018 (1.001-1.035) Urine Protein Negative (Negative) Urine Glucose (UA) Negative (Negative) Urine Ketones Negative (Negative) Urine Blood Negative (Negative) Urine Nitrite Negative (Negative) Urine Bilirubin Negative (Negative) Urine Urobilinogen <2.0 (<2.0) mg/dL Ur Leukocyte Esterase Negative (Negative) Urine RBC <1 (0-5) /hpf Ur Squamous Epith Cells 11 H (0-4) /hpf Urine Mucus Rare H (None) /hpf 12/14/20 Range/Units 18:54 WBC (3.8-10.6) k/uL RBC (3.80-5.40) m/uL Hgb (11.4-16.0) gm/dL Hct (34.0-46.0) % MCV (80.0-100.0) fL MCH (25.0-35.0) pg MCHC (31.0-37.0) g/dL RDW (11.5-15.5) % Plt Count (150-450) k/uL MPV Neutrophils % % Lymphocytes % % Monocytes % % Eosinophils % % Basophils % % Neutrophils # (1.3-7.7) k/uL Lymphocytes # (1.0-4.8) k/uL Monocytes # (0-1.0) k/uL Eosinophils # (0-0.7) k/uL Basophils # (0-0.2) k/uL Sodium (137-145) mmol/L Potassium (3.5-5.1) mmol/L Chloride (98-107) mmol/L Carbon Dioxide (22-30) mmol/L Anion Gap mmol/L BUN (7-17) mg/dL Creatinine (0.52-1.04) mg/dL Est GFR (CKD-EPI)AfAm (>60 ml/min/1.73 sqM) Est GFR (CKD-EPI)NonAf (>60 ml/min/1.73 sqM) Glucose (74-99) mg/dL Plasma Lactic Acid Maykel 2.0 (0.7-2.0) mmol/L Calcium (8.4-10.2) mg/dL Total Bilirubin (0.2-1.3) mg/dL AST (14-36) U/L ALT (4-34) U/L Alkaline Phosphatase (38-126) U/L Total Protein (6.3-8.2) g/dL Albumin (3.5-5.0) g/dL Amylase (30-110) U/L Lipase (23-300) U/L Urine Color Urine Appearance (Clear) Urine pH (5.0-8.0) Ur Specific [place] (1.001-1.035) Urine Protein (Negative) Urine Glucose (UA) (Negative) Urine Ketones (Negative) Urine Blood (Negative) Urine Nitrite (Negative) Urine Bilirubin (Negative) Urine Urobilinogen (<2.0) mg/dL Ur Leukocyte Esterase (Negative) Urine RBC (0-5) /hpf Ur Squamous Epith Cells (0-4) /hpf Urine Mucus (None) /hpf Disposition Clinical Impression: Intractable abdominal pain, Ventral hernia Disposition: ADMITTED IP TO THIS [facility] Condition: Fair Referrals: None,Stated [Primary Care Provider] - 1-2 days
[2020-12-14 19:06] LABS: Basophils # (A) 0.1 k/uL (0-0.2); Basophils % (A) 1 %; Eosinophils # (A) 0.3 k/uL (0-0.7); Eosinophils % (A) 3 %; HCT 40.2 % (34.0-46.0); HGB 13.9 gm/dL (11.4-16.0); Lymphocytes # (A) 3.7 k/uL (1.0-4.8); Lymphocytes % (A) 32 %; MCHC 34.6 g/dL (31.0-37.0); MCV 89.6 fL (80.0-100.0); Mean Platelet Volume 7.4; Monocytes # (A) 0.5 k/uL (0-1.0); Monocytes % (A) 5 %; Neutrophils # (A) 6.6 k/uL (1.3-7.7); Neutrophils % (A) 59 %; Platelet Count 349 k/uL (150-450); RBC 4.49 m/uL (3.80-5.40); RDW 12.9 % (11.5-15.5); WBC 11.3 k/uL (3.8-10.6)
[2020-12-14 19:15] LABS: ALT 31 U/L (4-34); AST 30 U/L (14-36); African American GFR (CKD) >90 (>60 ml/min/1.73 sqM); Albumin 4.2 g/dL (3.5-5.0); Alkaline Phosphatase 74 U/L (38-126); Amylase 62 U/L (30-110); Anion Gap 8 mmol/L; Blood Urea Nitrogen 9 mg/dL (7-17); Calcium 10.1 mg/dL (8.4-10.2); Carbon Dioxide 25 mmol/L (22-30); Chloride 107 mmol/L (98-107); Glucose 107 mg/dL (74-99); Lipase 242 U/L (23-300); Non-African American GFR(CKD) >90 (>60 ml/min/1.73 sqM); Potassium 4.3 mmol/L (3.5-5.1); Sodium 140 mmol/L (137-145); Total Bilirubin 0.2 mg/dL (0.2-1.3); Total Protein 6.8 g/dL (6.3-8.2)
[2020-12-14 19:31] LABS: Appearance,Urine Cloudy (Clear); Bilirubin,Urine Negative (Negative); Blood,Urine Negative (Negative); Color,Urine Yellow; Glucose,Urine (UA) Negative (Negative); Ketones,Urine Negative (Negative); Leukocyte Esterase,Urine Negative (Negative); Mucus,Urine Rare /hpf; Nitrite,Urine Negative (Negative); PH, Urine 5.5 (5.0-8.0); Protein,Urine Negative (Negative); RBC,Urine <1 /hpf (0-5); Specific Gravity,Urine 1.018 (1.001-1.035); Squamous Epithelial Cell,Urine 11 /hpf (0-4); Urobilinogen,Urine <2.0 mg/dL (<2.0)
--- NOTE | 2020-12-14 19:52 | CT ---
EXAMINATION TYPE: CT abdomen pelvis wo con DATE OF EXAM: 12/14/2020 COMPARISON: November 16, 2020 HISTORY: Right sided abdominal pain and hernia. CT DLP: 1067.4 mGycm Automated exposure control for dose reduction was used. Images obtained from the diaphragm to the floor the pelvis with no contrast. The lung bases are clear. There is no pleural effusion. Heart size is normal. There is no pericardial effusion. Liver spleen stomach pancreas appear intact. Bile ducts are not dilated. There are clips from cholecy stectomy. There is no evidence of pancreatic mass. There is 2 cm low-density oval-shaped right adrenal mass suggestive of benign disease. Kidneys show n ormal size and contour. There is no hydronephrosis. Ureters are not dilated. There is no retroperiton eal adenopathy. Bladder distends smoothly. There is no inguinal hernia. There is no free fluid in the pelvis. There is no sign of a pelvic mass. There is fat stranding in the subcutaneous tissues over t he anterior midline abdomen consistent with previous surgery. There is a ventral hernia containing fa t in the midline abdomen extending to the right side. There are surgical clips at the cecum. Appendix is not seen. There is no mesenteric edema. There is n o ascites or free air. There is no bowel obstruction. There are a few sigmoid diverticula. There is n o sign of diverticulitis. The lumbar vertebra have fairly normal spacing and alignment. Posterior elements are intact. Bony pel vis is intact. The hip joints are intact. IMPRESSION: There is sigmoid diverticulosis without diverticulitis. Previous surgery of the right colon. Postsurg ical changes in the anterior lower abdomen with mid abdominal ventral hernia containing fat. No signi ficant change compared to recent exam.
[2020-12-14] MEDS ORDERED: MAG HYDROX/AL HYDROX/SIMETH 30 ML CUP PO PRN (21:58)
[2020-12-14] MEDS ORDERED: ACETAMINOPHEN TAB 325 MG TAB PO PRN (21:58)
[2020-12-14] MEDS ORDERED: NALOXONE 0.4 MG/ML 1 ML VIAL IV PRN (21:58)
[2020-12-14] MEDS: SODIUM CHLORIDE 0.9% 1,000 ML IV SCH (23:39)
[2020-12-15] MEDS: HYDROmorphone 0.5 MG/0.5 ML SYRINGE IVP PRN ×4 (06:18→21:12)
--- NOTE | 2020-12-15 11:23 | P.GSHP ---
History of Present Illness H&P Date: 12/15/20 Chief Complaint: Abdominal pain 40-year-old female underwent appendectomy by Dr. Reddy last year. Has had intermittent complaints of pain right lower quadrant and midline since that time. Came to the ER yesterday for evaluation. States the pain has been gradually increasing. She was fairly insistent on admission per the ER physicians. White blood cell count slightly elevated at 11.7. CAT scan was performed. CAT scan described a possible fat containing ventral hernia. Patient does not feel a hernia herself. - Review of Systems Comment: The patient denies any acute changes in vision or hearing, no dysphagia or odynophagia, no chest pain or shortness of breath, no dysuria or hematuria, no headache, no runny nose, no rectal bleeding or melena, no unexplained weight loss Past Medical History Past Medical History: GERD/Reflux Additional Past Medical History / Comment(s): Midline catheter for iv infusions, current small opening at umbilicus from appendectomy incision, Migraines, Pancreatic Deficiency, Lower lumbar disease, hypoglycemia. History of Any Multi-Drug Resistant Organisms: MRSA Date of last positivie culture/infection: 05/23/20 MDRO Source:: ABDOMEN Past Surgical History: Appendectomy, Bowel Resection, Cholecystectomy, Hysterectomy, Orthopedic Surgery, Tonsillectomy Additional Past Surgical History / Comment(s): I&D of abdominal incision from appendectomy, (R) hand surgery, (L) hip I&D from spider bite r/t MRSA Past Anesthesia/Blood Transfusion Reactions: No Reported Reaction Additional Past Anesthesia/Blood Transfusion Reaction / Comment(s): SEVERE CLA USTERPHOBIA INCLUDING A MASK ON HER FACE. Past Psychological History: Anxiety, Bipolar, Depression Smoking Status: Current every day smoker Past Alcohol Use History: None Reported Past Drug Use History: None Reported - Past Family History Father History Unknown: Yes Family Medical History: No Reported History Additional Family Medical History / Comment(s): Father is but pt does not know past medical history-they were not in much contact with each other. Mother Family Medical History: Cancer Additional Family Medical History / Comment(s): Mother at the age of 50 years from Cancer metastasis. Mother also had an aneurysm. Sister(s) Additional Family Medical History / Comment(s): Bipolar and Schizoprenia. Son(s) Family Medical History: No Reported History (one son no major medical problems.) Daughter(s) Family Medical History: No Reported History (2 daughters no major medical problems.) Medications and Allergies Home Medications Medication Instructions Recorded Confirmed Type No Known Home Medications 12/14/20 12/14/20 History Allergies Allergy/AdvReac Type Severity Reaction Status Date / Time cephalexin [From Keflex] Allergy Severe Swelling Verified 12/14/20 21:52 clindamycin [From Cleocin] Allergy Anaphylaxis Verified 12/14/20 21:52 levofloxacin Allergy Rash/Hives Verified 12/14/20 21:52 Penicillins Allergy Swelling Verified 12/14/20 21:52 sulfamethoxazole AdvReac Itching Verified 12/14/20 21:52 [From Bactrim] trimethoprim [From Bactrim] AdvReac Itching Verified 12/14/20 21:52 Surgical - Exam Vital Signs Temp Pulse Resp BP Pulse Ox 98.2 F 96 18 123/68 99 12/14/20 18:22 12/14/20 18:22 12/14/20 18:22 12/14/20 18:22 12/14/20 18:22 Physical exam: General: Well-developed, well-nourished HEENT: Normocephalic, sclerae nonicteric Abdomen: Mild distention, mild midline and right lower quadrant tenderness, no palpable hernia Extremities: No edema Neuro: Alert and oriented Results - Labs 12/14/20 18:54 12/14/20 18:54 Abnormal Lab Results - Last 24 Hours (Table) 12/14/20 12/14/20 12/14/20 Range/Units 18:54 18:54 18:54 WBC 11.3 H (3.8-10.6) k/uL Glucose 107 H (74-99) mg/dL Urine Appearance Cloudy H (Clear) Ur Squamous Epith Cells 11 H (0-4) /hpf Urine Mucus Rare H (None) /hpf Diabetes panel 12/14/20 Range/Units 18:54 Sodium 140 (137-145) mmol/L Potassium 4.3 (3.5-5.1) mmol/L Chloride 107 (98-107) mmol/L Carbon Dioxide 25 (22-30) mmol/L BUN 9 (7-17) mg/dL Creatinine 0.79 (0.52-1.04) mg/dL Glucose 107 H (74-99) mg/dL Calcium 10.1 (8.4-10.2) mg/dL AST 30 (14-36) U/L ALT 31 (4-34) U/L Alkaline Phosphatase 74 (38-126) U/L Total Protein 6.8 (6.3-8.2) g/dL Albumin 4.2 (3.5-5.0) g/dL Calcium panel 12/14/20 Range/Units 18:54 Calcium 10.1 (8.4-10.2) mg/dL Albumin 4.2 (3.5-5.0) g/dL Pituitary panel 12/14/20 Range/Units 18:54 Sodium 140 (137-145) mmol/L Potassium 4.3 (3.5-5.1) mmol/L Chloride 107 (98-107) mmol/L Carbon Dioxide 25 (22-30) mmol/L BUN 9 (7-17) mg/dL Creatinine 0.79 (0.52-1.04) mg/dL Glucose 107 H (74-99) mg/dL Calcium 10.1 (8.4-10.2) mg/dL Adrenal panel 12/14/20 Range/Units 18:54 Sodium 140 (137-145) mmol/L Potassium 4.3 (3.5-5.1) mmol/L Chloride 107 (98-107) mmol/L Carbon Dioxide 25 (22-30) mmol/L BUN 9 (7-17) mg/dL Creatinine 0.79 (0.52-1.04) mg/dL Glucose 107 H (74-99) mg/dL Calcium 10.1 (8.4-10.2) mg/dL Total Bilirubin 0.2 (0.2-1.3) mg/dL AST 30 (14-36) U/L ALT 31 (4-34) U/L Alkaline Phosphatase 74 (38-126) U/L Total Protein 6.8 (6.3-8.2) g/dL Albumin 4.2 (3.5-5.0) g/dL Assessment and Plan (1) Intractable abdominal pain Narrative/Plan: Patient with ongoing abdominal pain. CAT scan films did not show an obvious hernia on my review. Keep nothing by mouth. Monitor patient's discomforts. Repeat labs and x-rays tomorrow. Dr. Reddy we'll review the CAT scan films with radiology and determine whether hernia repair is indicated. Current Visit: Yes Status: Acute Code(s): R10.9 - UNSPECIFIED ABDOMINAL PAIN SNOMED Code(s): 90941911
[2020-12-15] MEDS: FAMOTIDINE 20 MG TAB PO SCH ×2 (12:26→21:13)
[2020-12-15] MEDS: SODIUM CHLORIDE 0.9% 1,000 ML IV SCH (14:52)
[2020-12-15] MEDS: MORPHINE SULFATE 4 MG/ML SYRINGE IV PRN (15:03)
[2020-12-15] MEDS: HEPARIN SODIUM,PORCINE/PF 5,000 UNIT/0.5 ML SYRINGE SQ SCH (15:04)
[2020-12-16] MEDS: HYDROmorphone 0.5 MG/0.5 ML SYRINGE IVP PRN ×5 (00:18→23:22)
[2020-12-16] MEDS: HEPARIN SODIUM,PORCINE/PF 5,000 UNIT/0.5 ML SYRINGE SQ SCH ×4 (00:18→23:18)
[2020-12-16] MEDS: SODIUM CHLORIDE 0.9% 1,000 ML IV SCH ×3 (03:55→18:10)
[2020-12-16 07:17] LABS: Basophils # (A) 0.1 k/uL (0-0.2); Basophils % (A) 1 %; Eosinophils # (A) 0.1 k/uL (0-0.7); Eosinophils % (A) 2 %; HGB 12.1 gm/dL (11.4-16.0); Lymphocytes # (A) 3.8 k/uL (1.0-4.8); Lymphocytes % (A) 48 %; MCH 29.9 pg (25.0-35.0); MCHC 32.7 g/dL (31.0-37.0); MCV 91.6 fL (80.0-100.0); Mean Platelet Volume 7.3; Monocytes # (A) 0.3 k/uL (0-1.0); Monocytes % (A) 3 %; Neutrophils # (A) 3.7 k/uL (1.3-7.7); Neutrophils % (A) 46 %; Platelet Count 292 k/uL (150-450); RBC 4.04 m/uL (3.80-5.40); RDW 13.3 % (11.5-15.5)
--- NOTE | 2020-12-16 08:44 | XR ---
2 view abdomen HISTORY: Pain 2 views the abdomen, correlation to CT scan 12/14/2020 There is retained fecal debris throughout the distribution of the colon. Postop changes are noted to the right colon, surgical clips are present in the right upper quadrant. No evident bowel obstruction or pneumoperitoneum. There are some air-fluid levels without bowel distention. IMPRESSION: Correlate for fecal stasis. There may be underlying ileus, enteritis, follow-up as indica tunde
[2020-12-16] MEDS: FAMOTIDINE 20 MG TAB PO SCH ×2 (08:51→20:00)
[2020-12-16] MEDS: MORPHINE SULFATE 4 MG/ML SYRINGE IV PRN ×3 (10:59→19:59)
[2020-12-16 11:41] LABS: African American GFR (CKD) 91.4 (60.0-200.0); Anion Gap 7.6 mmol/L (4.00-12.00); BUN/Creat Ratio 6.67 Ratio (12.00-20.00); Calcium 8.7 mg/dL (8.7-10.3); Carbon Dioxide 22.4 mmol/L (21.6-31.8); Non-African American GFR(CKD) 78.9 (60.0-200.0)
--- NOTE | 2020-12-16 14:19 | P.PN ---
Subjective Progress Note Date: 12/16/20 CHIEF COMPLAINT: Abdominal pain HISTORY OF PRESENT ILLNESS: Surgical service is following regards to patient's ventral hernia. She does have pain along the mid incision and right side of the abdomen. She had appendectomy and small bowel resection for a ruptured appendicitis with abscess on 04/07/2020. Patient does admit that his nausea. No vomiting. Her last bowel movement was 2 days ago. White count has normalized from 11.3-8. She is afebrile. Abdominal x-ray correlate for fecal stasis. There may be underlying ileus, enteritis. PHYSICAL EXAM: VITAL SIGNS: Reviewed. GENERAL: Well-developed in no acute distress. HEENT: No sclera icterus. Extraocular movements grossly intact. Moist buccal mucosa. Head is atraumatic, normocephalic. ABDOMEN: Soft. Nondistended. Tender along the mid incision and into the abdomen. Old incision site is clean dry and intact. NEUROLOGIC: Alert and oriented. Cranial nerves II through XII grossly intact. ASSESSMENT: 1. Abdominal pain 2. Mid abdominal ventral hernia containing fat 3. Fecal stasis PLAN: -Continue conservative management -No surgical intervention planned -Advance diet to full liquids -Add Colace and MiraLAX for fecal stasis -Continue pain medication as needed -GI prophylaxis Pepcid and DVT prophylaxis subcu heparin Physician Cider Maker note has been reviewed by physician. Signing provider agrees with the documented findings, assessment, and plan of care. Objective - Vital Signs Vital signs: Vital Signs Temp 98.3 F 12/16/20 12:57 Pulse 77 12/16/20 12:57 Resp 16 12/16/20 12:57 BP 108/70 12/16/20 12:57 Pulse Ox 97 12/16/20 12:57 Intake & Output 12/15/20 12/16/20 12/16/20 18:59 06:59 18:59 Intake Total 300 Balance 300 Weight 99.79 kg Intake: Intake, IV Titration 300 Amount Sodium Chloride 0.9% 1, 300 000 ml @ 100 mls/hr IV . Q10H [facility] Rx#:[id number] Other: Voiding Method Toilet # Voids 1 - Labs CBC & Chem 7: 12/16/20 06:35 12/16/20 06:35 Labs: Abnormal Lab Results - Last 24 Hours (Table) 12/16/20 Range/Units 06:35 Chloride 110 H (96-109) mmol/L BUN 6.0 L (9.0-27.0) mg/dL BUN/Creatinine Ratio 6.67 L (12.00-20.00) Ratio
[2020-12-16] MEDS: polyethylene glycoL 3350 17 GM POWD.PACK PO SCH (15:53)
[2020-12-16] MEDS: DOCUSATE 100 MG CAP PO SCH (20:00)
[2020-12-17] MEDS: HYDROmorphone 0.5 MG/0.5 ML SYRINGE IVP PRN ×6 (03:11→20:17)
[2020-12-17] MEDS: SODIUM CHLORIDE 0.9% 1,000 ML IV SCH ×3 (03:14→21:12)
[2020-12-17] MEDS: polyethylene glycoL 3350 17 GM POWD.PACK PO SCH (07:48)
[2020-12-17] MEDS: HEPARIN SODIUM,PORCINE/PF 5,000 UNIT/0.5 ML SYRINGE SQ SCH ×3 (07:49→23:22)
[2020-12-17] MEDS: FAMOTIDINE 20 MG TAB PO SCH ×2 (07:49→20:14)
[2020-12-17] MEDS: DOCUSATE 100 MG CAP PO SCH ×2 (07:49→20:14)
--- NOTE | 2020-12-17 13:32 | P.PN ---
Subjective Progress Note Date: 12/17/20 CHIEF COMPLAINT: Abdominal pain HISTORY OF PRESENT ILLNESS: Surgical service is following regards to patient's ventral hernia. She does have pain along the mid incision and right side of the abdomen. Patient reporting that her pain is the same and unchanged. She is complaining of nausea. No vomiting. She did have 2 bowel movements. She had appendectomy and small bowel resection for a ruptured appendicitis with abscess on 04/07/2020. Afebrile. No new labs. PHYSICAL EXAM: VITAL SIGNS: Reviewed. GENERAL: Well-developed in no acute distress. HEENT: No sclera icterus. Extraocular movements grossly intact. Moist buccal mucosa. Head is atraumatic, normocephalic. ABDOMEN: Soft. Nondistended. Tender along the mid incision and into the abdomen. Old incision site is clean dry and intact. NEUROLOGIC: Alert and oriented. Cranial nerves II through XII grossly intact. ASSESSMENT: 1. Abdominal pain 2. Mid abdominal ventral hernia containing fat 3. Fecal stasis PLAN: -Continue conservative management -No surgical intervention planned -Continue full liquid diet -Continue Colace and MiraLAX for fecal stasis -Continue pain medication as needed -Encourage patient to ambulate -GI prophylaxis Pepcid and DVT prophylaxis subcu heparin Physician Architecture Internship note has been reviewed by physician. Signing provider agrees with the documented findings, assessment, and plan of care. Objective - Vital Signs Vital signs: Vital Signs Temp 97.6 F 12/17/20 12:55 Pulse 82 12/17/20 12:55 Resp 18 12/17/20 12:55 BP 127/86 12/17/20 12:55 Pulse Ox 97 12/17/20 12:55 Intake & Output 12/16/20 12/17/20 12/17/20 18:59 06:59 18:59 Intake Total 1200 Balance 1200 Intake: Intake, IV Titration 1200 Amount Sodium Chloride 0.9% 1, 1200 000 ml @ 100 mls/hr IV . Q10H [facility] Rx#:[id number] Other: Voiding Method Toilet Toilet # Voids 1 - Labs CBC & Chem 7: 12/16/20 06:35 12/16/20 06:35
[2020-12-17] MEDS: IOPAMIDOL CONTRAST (ORAL USE) VIAL PO PRN ×2 (16:18→16:53)
--- NOTE | 2020-12-17 18:37 | CT ---
EXAMINATION TYPE: CT abdomen pelvis w con DATE OF EXAM: 12/17/2020 COMPARISON: 12/14/2020 HISTORY: 40-year-old female abdominal pain post tania TECHNIQUE: Contiguous axial scanning of the abdomen and pelvis following administration of 100 ml Iso mera 300 IV contrast. Delayed images through the kidneys and coronal/sagittal reconstructions perform ed. CT DLP: 2621.7 mGycm Automated exposure control for dose reduction was used. FINDINGS: Heart normal size without pericardial effusion. Minimal dependent atelectasis posterior lung bases. N o pleural effusion. No focal liver lesion or biliary ductal dilatation. Portal venous system is patent. Cholecystectomy clips. No abnormal fluid collection within the gallbladder fossa. Stable 2.4 cm nodule the right adrenal gland, likely adrenal adenoma. Left adrenal gland, kidneys, sp tayla, pancreas appear within normal limits. Some scarring and postsurgical change along the anterior midline, similar to 12/14/2020. Soft tissue s tranding and foci of air within the subcutaneous adipose of the lower abdomen likely due to subcutane ous injections. No dilated small bowel, free fluid, or free air. No mesenteric or retroperitoneal lymphadenopathy. Oral contrast progressed family to the rectum. Postsurgical change along the right lower quadrant sug gests prior appendectomy. Minimal diverticular change along the proximal sigmoid. No pericolonic infl ammatory change. Bladder incompletely distended. Uterus surgically absent. Left ovary is visualized with a small 1.1 c m cyst. Right ovary not clearly delineated. No abnormal fluid collection the pelvis or pelvic lymphad enopathy. There is some rectus diastases and some anterior bulging omentum measuring 9.3 cm wide along the supr aumbilical level. Bones: No osseous destructive process. IMPRESSION: 1. STATUS POST CHOLECYSTECTOMY. NO INFLAMMATORY CHANGES OR ABNORMAL FLUID COLLECTION IDENTIFIED IN TH E CHOLECYSTECTOMY BED. 2. POST LAPAROTOMY CHANGES ALONG THE ANTERIOR MIDLINE ABDOMEN. THERE IS SUPRAUMBILICAL RECTUS DIASTAS ES REDEMONSTRATED MEASURING 9.3 CM WIDE WITH SOME ANTERIOR BULGING OF THE OMENTUM. 3. STABLE 2.4 CM RIGHT ADRENAL NODULE, LIKELY ADRENAL ADENOMA.
[2020-12-17] MEDS: ONDANSETRON 4 MG/2 ML VIAL IVP PRN (18:48)
[2020-12-17 20:33] VITALS: RESP 16
[2020-12-18] MEDS: HYDROmorphone 0.5 MG/0.5 ML SYRINGE IVP PRN ×3 (01:03→10:11)
[2020-12-18] MEDS: ONDANSETRON 4 MG/2 ML VIAL IVP PRN ×2 (02:19→10:11)
[2020-12-18] MEDS: SODIUM CHLORIDE 0.9% 1,000 ML IV SCH (05:52)
[2020-12-18] MEDS: HEPARIN SODIUM,PORCINE/PF 5,000 UNIT/0.5 ML SYRINGE SQ SCH (07:27)
[2020-12-18] MEDS: FAMOTIDINE 20 MG TAB PO SCH (07:27)
[2020-12-18] MEDS: DOCUSATE 100 MG CAP PO SCH (07:27)
[2020-12-18] MEDS: polyethylene glycoL 3350 17 GM POWD.PACK PO SCH (07:27)
[2020-12-18 08:02] LABS: Basophils # (A) 0.1 k/uL (0-0.2); Basophils % (A) 1 %; Eosinophils # (A) 0.1 k/uL (0-0.7); Eosinophils % (A) 2 %; HCT 39.1 % (34.0-46.0); HGB 13.1 gm/dL (11.4-16.0); Lymphocytes % (A) 34 %; MCH 30.4 pg (25.0-35.0); MCHC 33.4 g/dL (31.0-37.0); Monocytes # (A) 0.4 k/uL (0-1.0); Monocytes % (A) 4 %; Neutrophils # (A) 5.3 k/uL (1.3-7.7); Neutrophils % (A) 59 %; Platelet Count 305 k/uL (150-450); RBC 4.29 m/uL (3.80-5.40); RDW 12.7 % (11.5-15.5); WBC 8.9 k/uL (3.8-10.6)
[2020-12-18 09:01] LABS: African American GFR (CKD) >90 (>60 ml/min/1.73 sqM); Anion Gap 5 mmol/L; Blood Urea Nitrogen <2 mg/dL (7-17); Carbon Dioxide 25 mmol/L (22-30); Chloride 110 mmol/L (98-107); Glucose 92 mg/dL (74-99); Non-African American GFR(CKD) 84 (>60 ml/min/1.73 sqM); Potassium 3.8 mmol/L (3.5-5.1); Sodium 140 mmol/L (137-145)
[2020-12-18 11:37] VITALS: BP 143/71; PULSE 82; TEMP 98.7
--- NOTE | 2020-12-18 13:13 | P.DS ---
Providers Date of admission: 12/17/20 20:23 Expected date of discharge: 12/18/20 Attending physician: Jamie Reddy Primary care physician: Stated None Hospital Course: Discharge diagnosis 1. Abdominal pain 2. Supraumbilical rectus diastasis measuring 9.3 cm wide with some anterior bulging of the omentum noted on CAT scan 3. Fecal stasis resolved Hospital course This is a 40-year-old female presented with abdominal pain. She also having nausea and vomiting. She had a computed tomography scan of the abdomen and pelvis which showed a mid abdominal ventral hernia containing fat. No sniffing change compared to recent exam. Patient continues to have abdominal pain a repeat computed tomography scan of the abdomen and pelvis with oral and IV contrast was ordered and showed a supraumbilical rectus diastasis measuring 9.3 cm wide with some anterior bulging of the omentum. Patient still having abdominal pain but has shown improvement since admission. She was able to have bowel movements. She was able to eat a small amount of her food. She is afebrile. She is up and ambulating. She is stable for discharge. No surgical intervention was planned for patient. Continue supportive care and follow-up in the outpatient setting. Patient seen and examined with Dr. Reddy. Please refer to chart for any further details. Physician Link Cutter note has been reviewed by physician. Signing provider agrees with the documented findings, assessment, and plan of care. Patient Condition at Discharge: Stable Plan - Discharge Summary Discharge Rx Participant: Yes New Discharge Prescriptions: New HYDROcodone/APAP 5-325MG [[place] 5-325] 1 tab PO Q6HR PRN 3 Days #12 tab PRN Reason: Pain Ibuprofen [Motrin] 600 mg PO Q8HR PRN #30 tab PRN Reason: Pain Discharge Medication List HYDROcodone/APAP 5-325MG [[place] 5-325] 1 tab PO Q6HR PRN 3 Days #12 tab 12/18/20 [Rx] Ibuprofen [Motrin] 600 mg PO Q8HR PRN #30 tab 12/18/20 [Rx] Follow up Appointment(s)/Referral(s): None,Stated [Primary Care Provider] - 1-2 days Jamie Reddy MD [STAFF PHYSICIAN] - 1 Week Activity/Diet/Wound Care/Special Instructions: Diet Regular Discharge Disposition: HOME SELF-CARE
== END 2020-12-18 14:35 | disposition home or self-care (01) | DRG 395 ==
LOC: EC 18:15 → 6NMEDSUR 21:58 → 5NMEDONC 12-15 08:11 → OBSVTOIN 12-17 20:23
PROVIDERS: ADMIT Surgery; ATTEND Surgery
DX: K43.9 Ventral hernia without obstruction or gangrene (principal); Z20.828 Contact with and (suspected) exposure to other viral communicable diseases; K56.41 Fecal impaction; Z90.710 Acquired absence of both cervix and uterus; F41.9 Anxiety disorder, unspecified; F31.9 Bipolar disorder, unspecified; F17.200 Nicotine dependence, unspecified, uncomplicated; K21.9 Gastro-esophageal reflux disease without esophagitis; G43.909 Migraine, unspecified, not intractable, without status migrainosus
CPT/HCPCS: 36415; 74019; 74176; 74177; 80048; 80053; 81001; 82150; 83605; 83690; 85025; 87635; 96361; 96374; 96375; 99285

== ENCOUNTER 2021-01-28 11:38 | Emergency (ER) | payer MEDICARE, OTHER ==
--- NOTE | 2021-01-28 12:28 | XR ---
EXAMINATION TYPE: XR wrist complete RT DATE OF EXAM: 01/28/2021 CLINICAL HISTORY: pain TECHNIQUE: Frontal, lateral and oblique images of the right wrist are obtained. COMPARISON: None. FINDINGS: There is no acute fracture/dislocation evident. The joint spaces appear within normal limits. The o verlying soft tissue appears unremarkable. IMPRESSION: There is no acute fracture or dislocation seen. ICD 10 NO FRACTURE, INITIAL EVALUATION
[2021-01-28] MEDS ORDERED: ACET/COD 300 MG/30 MG STARTER PACK 6 TAB BTL PO STA (12:35)
--- NOTE | 2021-01-28 12:35 | ED ---
Upper Extremity HPI - General Chief Complaint: Extremity Injury, Upper Stated Complaint: rt wrist injury Time Seen by Provider: 01/28/21 11:47 Source: patient, RN notes reviewed Mode of arrival: ambulatory Limitations: no limitations - History of Present Illness Initial Comments: This a 40-year-old female presents emergency Department chief complaint right wrist injury. Patient states that she was moving furniture states that TV/entertainment stand slammed into her wrist she's had pain, bruising. Patient states has not improved. She is [id number] denies any pain proximal to the right wrist. Neurovascular intact - Related Data Home Medications Medication Instructions Recorded Confirmed No Known Home Medications 01/12/21 01/12/21 Allergies Allergy/AdvReac Type Severity Reaction Status Date / Time cephalexin [From Keflex] Allergy Severe Swelling Verified 01/28/21 11:42 clindamycin [From Cleocin] Allergy Anaphylaxis Verified 01/28/21 11:42 levofloxacin Allergy Rash/Hives Verified 01/28/21 11:42 Penicillins Allergy Swelling Verified 01/28/21 11:42 sulfamethoxazole AdvReac Itching Verified 01/28/21 11:42 [From Bactrim] trimethoprim [From Bactrim] AdvReac Itching Verified 01/28/21 11:42 Review of Systems ROS Statement: Those systems with pertinent positive or pertinent negative responses have been documented in the HPI. ROS Other: All systems not noted in ROS Statement are negative. Past Medical History Past Medical History: Deep Vein Thrombosis (DVT), GERD/Reflux Additional Past Medical History / Comment(s): Midline catheter for iv infusions, appendectomy, Migraines, Pancreatic Deficiency, Lower lumbar disease, hypoglycemia. History of Any Multi-Drug Resistant Organisms: MRSA Date of last positivie culture/infection: 05/23/20 MDRO Source:: ABDOMEN Past Surgical History: Appendectomy, Bowel Resection, Cholecystectomy, Hysterectomy, Orthopedic Surgery, Tonsillectomy Additional Past Surgical History / Comment(s): appendectomy, (R) hand surgery, (L) hip I&D from spider bite r/t MRSA Past Anesthesia/Blood Transfusion Reactions: No Reported Reaction Additional Past Anesthesia/Blood Transfusion Reaction / Comment(s): SEVERE CLAUSTERPHOBIA INCLUDING A MASK ON HER FACE. Past Psychological History: Anxiety, Bipolar, Depression Smoking Status: Current every day smoker Additional Past Alcohol Use History / Comment(s): Pt started smoking in 1992 and is a ppd smoker. She states not alcoholic beverages for over 3 years. - Past Family History Father History Unknown: Yes Family Medical History: No Reported History Additional Family Medical History / Comment(s): Father is but pt does not know past medical history-they were not in much contact with each other. Mother Family Medical History: Cancer Additional Family Medical History / Comment(s): Mother at the age of 50 years from Cancer metastasis. Mother also had an aneurysm. Sister(s) Additional Family Medical History / Comment(s): Bipolar and Schizoprenia. Son(s) Family Medical History: No Reported History (one son no major medical problems.) Daughter(s) Family Medical History: No Reported History (2 daughters no major medical problems.) General Exam Limitations: no limitations General appearance: alert, in no apparent distress Head exam: Present: atraumatic, normocephalic, normal inspection Respiratory exam: Present: normal lung sounds bilaterally. Absent: respiratory distress, wheezes, rales, rhonchi, stridor Cardiovascular Exam: Present: regular rate, normal rhythm, normal heart sounds. Absent: systolic murmur, diastolic murmur, rubs, gallop, clicks Extremities exam: Present: other (Right wrist there is bruising, tenderness palpation to the ulnar aspect, neurovascular intact nontender hand or proximal forearm) Course Vital Signs 01/28/21 11:39 Temperature 97.6 F Pulse Rate 96 Respiratory 19 Rate Blood Pressure 112/72 O2 Sat by Pulse 98 Oximetry Medical Decision Making - Medical Decision Making X-rays are negative for acute fracture. Patient has right wrist contusion, sprain will be discharged in stable condition return parameters discussed. Disposition Clinical Impression: Right wrist sprain, Contusion of right wrist Disposition: HOME SELF-CARE Condition: Stable Instructions (If sedation given, give patient instructions): Wrist Injury (ED) Additional Instructions: Please return to the Emergency Department if symptoms worsen or any other concerns. Is patient prescribed a controlled substance at d/c from ED?: No Referrals: None,Stated [Primary Care Provider] - 1-2 days David Tyson DO [Doctor of Osteopathic Medicine] - 1-2 days Time of Disposition: 12:34
[2021-01-28 12:52] VITALS: BP 126/91; PULSE 102; RESP 17; TEMP 98.7
== END 2021-01-28 12:50 | disposition home or self-care (01) ==
LOC: EC 11:38
DX: S63.501A Unspecified sprain of right wrist, initial encounter (principal); F17.200 Nicotine dependence, unspecified, uncomplicated; Z88.1 Allergy status to other antibiotic agents; Z88.0 Allergy status to penicillin; Z88.2 Allergy status to sulfonamides; W22.03XA Walked into furniture, initial encounter; Y93.89 Activity, other specified
CPT/HCPCS: 99284

== ENCOUNTER 2021-02-24 05:08 | Observation (INO) | payer MEDICARE, OTHER ==
[2021-02-24] MEDS ORDERED: SODIUM CHLORIDE 0.9% 1,000 ML IV STA ×2 (05:18→06:50)
[2021-02-24] MEDS ORDERED: MORPHINE SULFATE 4 MG/ML SYRINGE IV STA (05:18)
--- NOTE | 2021-02-24 05:19 | ED ---
Abdominal Pain HPI - General Chief Complaint: Abdominal Pain Stated Complaint: Abd Pain Time Seen by Provider: 02/24/21 05:18 Source: patient, RN notes reviewed, old records reviewed Mode of arrival: ambulatory Limitations: no limitations - History of Present Illness MD Complaint: abdominal pain -: year(s) Location: epigastric, suprapubic Radiation: epigastric, suprapubic Migration to: no migration Severity: moderate Severity scale (1-10): 4 Quality: aching Consistency: constant Improves With: nothing Worsens With: nothing Associated Symptoms: nausea, vomiting, diarrhea - Related Data Home Medications Medication Instructions Recorded Confirmed No Known Home Medications 01/12/21 01/28/21 Allergies Allergy/AdvReac Type Severity Reaction Status Date / Time cephalexin [From Keflex] Allergy Severe Swelling Verified 02/24/21 05:13 clindamycin [From Cleocin] Allergy Anaphylaxis Verified 02/24/21 05:13 levofloxacin Allergy Rash/Hives Verified 02/24/21 05:13 Penicillins Allergy Swelling Verified 02/24/21 05:13 sulfamethoxazole Allergy Itching Verified 02/24/21 05:13 [From Bactrim] trimethoprim [From Bactrim] Allergy Itching Verified 02/24/21 05:13 Review of Systems ROS Statement: Those systems with pertinent positive or pertinent negative responses have been documented in the HPI. ROS Other: All systems not noted in ROS Statement are negative. Past Medical History Past Medical History: Deep Vein Thrombosis (DVT), GERD/Reflux Additional Past Medical History / Comment(s): Midline catheter for iv infusions, appendectomy, Migraines, Pancreatic Deficiency, Lower lumbar disease, hypoglycemia. History of Any Multi-Drug Resistant Organisms: MRSA Date of last positivie culture/infection: 05/23/20 MDRO Source:: ABDOMEN Past Surgical History: Appendectomy, Bowel Resection, Cholecystectomy, Hysterectomy, Orthopedic Surgery, Tonsillectomy Additional Past Surgical History / Comment(s): appendectomy, (R) hand surgery, (L) hip I&D from spider bite r/t MRSA Past Anesthesia/Blood Transfusion Reactions: No Reported Reaction Additional Past Anesthesia/Blood Transfusion Reaction / Comment(s): SEVERE CLAUSTERPHOBIA INCLUDING A MASK ON HER FACE. Past Psychological History: Anxiety, Bipolar, Depression Smoking Status: Current every day smoker Past Alcohol Use History: None Reported Past Drug Use History: None Reported - Past Family History Father History Unknown: Yes Family Medical History: No Reported History Additional Family Medical History / Comment(s): Father is but pt does not know past medical history-they were not in much contact with each other. Mother Family Medical History: Cancer Additional Family Medical History / Comment(s): Mother at the age of 50 years from Cancer metastasis. Mother also had an aneurysm. Sister(s) Additional Family Medical History / Comment(s): Bipolar and Schizoprenia. Son(s) Family Medical History: No Reported History (one son no major medical problems.) Daughter(s) Family Medical History: No Reported History (2 daughters no major medical problems.) General Exam General appearance: alert, in no apparent distress Head exam: Present: atraumatic, normocephalic, normal inspection Eye exam: Present: normal appearance, PERRL, EOMI. Absent: scleral icterus, co njunctival injection, periorbital swelling ENT exam: Present: normal exam, mucous membranes moist Neck exam: Present: normal inspection. Absent: tenderness, meningismus, lymphadenopathy Respiratory exam: Present: normal lung sounds bilaterally. Absent: respiratory distress, wheezes, rales, rhonchi, stridor Cardiovascular Exam: Present: regular rate, normal rhythm, normal heart sounds. Absent: systolic murmur, diastolic murmur, rubs, gallop, clicks GI/Abdominal exam: Present: soft, normal bowel sounds. Absent: distended, tenderness, guarding, rebound, rigid Extremities exam: Present: normal inspection, full ROM, normal capillary refill. Absent: tenderness, pedal edema, joint swelling, calf tenderness Back exam: Present: normal inspection Neurological exam: Present: alert, oriented X3, CN II-XII intact Psychiatric exam: Present: normal affect, normal mood Skin exam: Present: warm, dry, intact, normal color. Absent: rash Course Vital Signs 02/24/21 05:10 Temperature 98.0 F Pulse Rate 105 H Respiratory 18 Rate Blood Pressure 131/88 O2 Sat by Pulse 98 Oximetry Medical Decision Making - Lab Data Result diagrams: 02/24/21 05:39 Lab Results 02/24/21 Range/Units 05:39 WBC 15.8 H (3.8-10.6) k/uL RBC 4.68 (3.80-5.40) m/uL Hgb 14.7 (11.4-16.0) gm/dL Hct 42.2 (34.0-46.0) % MCV 90.2 (80.0-100.0) fL MCH 31.4 (25.0-35.0) pg MCHC 34.8 (31.0-37.0) g/dL RDW 12.9 (11.5-15.5) % Plt Count 398 (150-450) k/uL MPV 7.3 Neutrophils % 60 % Lymphocytes % 33 % Monocytes % 4 % Eosinophils % 2 % Basophils % 1 % Neutrophils # 9.4 H (1.3-7.7) k/uL Lymphocytes # 5.1 H (1.0-4.8) k/uL Monocytes # 0.6 (0-1.0) k/uL Eosinophils # 0.3 (0-0.7) k/uL Basophils # 0.1 (0-0.2) k/uL Disposition Referrals: None,Stated [Primary Care Provider] - 1-2 days
[2021-02-24 05:59] LABS: Basophils # (A) 0.1 k/uL (0-0.2); Basophils % (A) 1 %; Eosinophils # (A) 0.3 k/uL (0-0.7); Eosinophils % (A) 2 %; HCT 42.2 % (34.0-46.0); HGB 14.7 gm/dL (11.4-16.0); Lymphocytes # (A) 5.1 k/uL (1.0-4.8); Lymphocytes % (A) 33 %; MCH 31.4 pg (25.0-35.0); MCHC 34.8 g/dL (31.0-37.0); MCV 90.2 fL (80.0-100.0); Mean Platelet Volume 7.3; Monocytes # (A) 0.6 k/uL (0-1.0); Monocytes % (A) 4 %; Neutrophils # (A) 9.4 k/uL (1.3-7.7); Neutrophils % (A) 60 %; Platelet Count 398 k/uL (150-450); RBC 4.68 m/uL (3.80-5.40); RDW 12.9 % (11.5-15.5); WBC 15.8 k/uL (3.8-10.6)
[2021-02-24] MEDS ORDERED: ONDANSETRON 4 MG/2 ML VIAL IVP STA (06:08)
[2021-02-24 06:14] LABS: ALT 41 U/L (4-34); African American GFR (CKD) >90 (>60 ml/min/1.73 sqM); Albumin 4.8 g/dL (3.5-5.0); Amylase 70 U/L (30-110); Anion Gap 11 mmol/L; Blood Urea Nitrogen 12 mg/dL (7-17); Calcium 10.2 mg/dL (8.4-10.2); Carbon Dioxide 19 mmol/L (22-30); Chloride 108 mmol/L (98-107); Glucose 122 mg/dL (74-99); Lipase 192 U/L (23-300); Non-African American GFR(CKD) >90 (>60 ml/min/1.73 sqM); Sodium 138 mmol/L (137-145); Total Bilirubin 0.7 mg/dL (0.2-1.3)
[2021-02-24 06:24] LABS: AST 44 U/L (14-36); Alkaline Phosphatase 85 U/L (38-126); Potassium 4.9 mmol/L (3.5-5.1)
--- NOTE | 2021-02-24 06:27 | CT ---
EXAMINATION TYPE: CT abdomen pelvis w con DATE OF EXAM: 02/24/2021 COMPARISON: 12/17/2020 HISTORY: Mid to lower abd pain CT DLP: 1745.50 mGycm Automated exposure control for dose reduction was used. CONTRAST: Performed with IV Contrast, patient injected with 100 mL of Isovue 300. Lung bases are clear. There is no pleural effusion. Heart size is normal. There is no pericardial eff usion. Liver spleen stomach pancreas appear intact. The bile ducts are not dilated. There are clips from cho lecystectomy. There is 2.5 cm low-density oval-shaped right adrenal mass unchanged and consistent wit h benign disease. Kidneys show satisfactory contrast opacification. There is no hydronephrosis. Delay ed images show normal renal excretion. Ureters are not dilated. There is no retroperitoneal adenopath y. Bladder distends smoothly. There is no inguinal hernia. There is no free fluid in the pelvis. Ther e is no evidence of a pelvic mass. There is hysterectomy. There is anterior abdominal wall ventral he rnia containing omental fat. This is broad-based and measures approximately 9 cm in width. The lumbar vertebra have normal alignment. Disc spaces are fairly normal. There is no compression fra cture. Posterior elements are intact. The bony pelvis is intact. Hip joints appear normal. There is no mesenteric edema. There is no ascites or free air. There is no evidence of a bowel obstru ction. There is previous surgery at the cecum. Terminal ileum appears normal. Appendix is not seen. T here is some fat stranding on the subcutaneous anterior abdomen consistent with previous surgery. IMPRESSION: No acute abnormality of the abdomen pelvis. No adverse change compared to old exam.
[2021-02-24] MEDS ORDERED: NALOXONE 0.4 MG/ML 1 ML VIAL IV PRN (06:48)
[2021-02-24] MEDS: SODIUM CHLORIDE 0.9% 1,000 ML IV SCH ×3 (07:56→23:00)
[2021-02-24 08:24] LABS: Magnesium 1.8 mg/dL (1.6-2.3); Phosphorus 4.5 mg/dL (2.5-4.5)
[2021-02-24 08:47] LABS: Appearance,Urine Clear (Clear); Bilirubin,Urine Negative (Negative); Blood,Urine Negative (Negative); Color,Urine Light Yellow; Glucose,Urine (UA) Negative (Negative); Ketones,Urine Negative (Negative); Leukocyte Esterase,Urine Negative (Negative); Nitrite,Urine Negative (Negative); PH, Urine 5.5 (5.0-8.0); Protein,Urine Negative (Negative); Urobilinogen,Urine <2.0 mg/dL (<2.0)
[2021-02-24] MEDS: PANTOPRAZOLE 40 MG/10 ML VIAL IV SCH (08:53)
[2021-02-24] MEDS: MORPHINE SULFATE 4 MG/ML SYRINGE IV PRN ×3 (08:53→21:53)
[2021-02-24 09:20] LABS: Specific Gravity,Urine >1.050 (1.001-1.035)
--- NOTE | 2021-02-24 15:29 | P.GSHP ---
History of Present Illness H&P Date: 02/24/21 CHIEF COMPLAINT: Abdominal pain HISTORY OF PRESENT ILLNESS: This is a 40-year-old female with prior history of appendectomy and small bowel removal resection on 04/07/2020 for ruptured appendix. Patient presents to the emergency room with complaints of abdominal pain around her umbilicus. She has been having issues with alternating between constipation and diarrhea. Her last bowel movement was yesterday. She describes her pain as stabbing. She's had episodes of nausea she did have one episode of vomiting yesterday. She apparently had plans to have colonoscopy in the outpatient setting with Dr. Luong. She also reports occasionally she will have small amount of bright red blood with her diarrhea. Her computed tomography scan of the abdomen and pelvis showed no acute abnormality. She did have elevated white count of 15.8. PAST MEDICAL HISTORY: See list. PAST SURGICAL HISTORY: See list. MEDICATIONS: See list. ALLERGIES: See list. SOCIAL HISTORY: No illicit drug use. REVIEW OF SYSTEMS: CONSTITUTIONAL: Denies fever or chills. HEENT: Denies blurred vision, vision changes, or eye pain. Denies hemoptysis CARDIOVASCULAR: Denies chest pain or pressure. RESPIRATORY: No shortness of breath. GASTROINTESTINAL: See HPI for pertinent findings HEMATOLOGIC: Denies bleeding disorders. GENITOURINARY: Denies any blood in urine or increased urinary frequency. SKIN: Denies pruitis. Denies rash. PHYSICAL EXAM: VITAL SIGNS: Reviewed GENERAL: Well-developed in no acute distress. HEENT: No sclera icterus. Extraocular movements grossly intact. Moist buccal mucosa. Head is atraumatic, normocephalic. No nasal drainage. ABDOMEN: Soft. Obese. Nondistended. Tenderness with palpation around the umbilicus. Her old incision is healed. No evidence of erythema. No drainage. NEUROLOGIC: Alert and oriented. Cranial nerves II through XII grossly intact. LABORATORY DATA: WBC is 15.8 hemoglobin 14.7 platelets 398 sodium 138 potassium 4.9 creatinine 0.75-1.5 AST 44 ALT 41 Lipase normal Magnesium 1.8 Urinalysis negative IMAGING: Computed tomography scan no acute abnormality of the abdomen and pelvis. No adverse change compared to old exam. ASSESSMENT: 1. Abdominal pain around the umbilicus 2. Leukocytosis PLAN: -We'll observe patient overnight -Repeat CBC in a.m. -Continue IV fluids -Start regular diet -Continue pain medication as needed -Continue antiemetics -Recommend colonoscopy outpatient with Dr. luong -Anticipate discharge tomorrow -GI prophylaxis Protonix and DVT prophylaxis subcu heparin Physician Fish Packer note has been reviewed by physician. Signing provider agrees with the documented findings, assessment, and plan of care. Past Medical History Past Medical History: Deep Vein Thrombosis (DVT), GERD/Reflux Additional Past Medical History / Comment(s): Midline catheter for iv infusions, appendectomy, Migraines, Pancreatic Deficiency, Lower lumbar disease, hypogl ycemia. History of Any Multi-Drug Resistant Organisms: MRSA Date of last positivie culture/infection: 05/23/20 MDRO Source:: ABDOMEN Past Surgical History: Appendectomy, Bowel Resection, Cholecystectomy, Hysterectomy, Orthopedic Surgery, Tonsillectomy Additional Past Surgical History / Comment(s): appendectomy, (R) hand surgery, (L) hip I&D from spider bite r/t MRSA Past Anesthesia/Blood Transfusion Reactions: No Reported Reaction Additional Past Anesthesia/Blood Transfusion Reaction / Comment(s): SEVERE CLAUSTERPHOBIA INCLUDING A MASK ON HER FACE. Past Psychological History: Anxiety, Bipolar, Depression Smoking Status: Current every day smoker Past Alcohol Use History: None Reported Past Drug Use History: None Reported - Past Family History Father History Unknown: Yes Family Medical History: No Reported History Additional Family Medical History / Comment(s): Father is but pt does not know past medical history-they were not in much contact with each other. Mother Family Medical History: Cancer Additional Family Medical History / Comment(s): Mother at the age of 50 years from Cancer metastasis. Mother also had an aneurysm. Sister(s) Additional Family Medical History / Comment(s): Bipolar and Schizoprenia. Son(s) Family Medical History: No Reported History (one son no major medical problems.) Daughter(s) Family Medical History: No Reported History (2 daughters no major medical problems.) Medications and Allergies Home Medications Medication Instructions Recorded Confirmed Type No Known Home Medications 01/12/21 02/24/21 History Allergies Allergy/AdvReac Type Severity Reaction Status Date / Time cephalexin [From Keflex] Allergy Severe Swelling Verified 02/24/21 07:28 clindamycin [From Cleocin] Allergy Anaphylaxis Verified 02/24/21 07:28 levofloxacin Allergy Rash/Hives Verified 02/24/21 07:28 Penicillins Allergy Swelling Verified 02/24/21 07:28 sulfamethoxazole Allergy Itching Verified 02/24/21 07:28 [From Bactrim] trimethoprim [From Bactrim] Allergy Itching Verified 02/24/21 07:28 Surgical - Exam Vital Signs Temp Pulse Resp BP Pulse Ox 98.0 F 105 H 18 131/88 98 02/24/21 05:10 02/24/21 05:10 02/24/21 05:10 02/24/21 05:10 02/24/21 05:10 Results - Labs 02/24/21 05:39 02/24/21 05:39 Abnormal Lab Results - Last 24 Hours (Table) 02/24/21 02/24/21 02/24/21 Range/Units 05:39 05:39 07:55 WBC 15.8 H (3.8-10.6) k/uL Neutrophils # 9.4 H (1.3-7.7) k/uL Lymphocytes # 5.1 H (1.0-4.8) k/uL Chloride 108 H (98-107) mmol/L Carbon Dioxide 19 L (22-30) mmol/L Glucose 122 H (74-99) mg/dL AST 44 H (14-36) U/L ALT 41 H (4-34) U/L Ur Specific [place] >1.050 H (1.001-1.035) Diabetes panel 02/24/21 Range/Units 05:39 Sodium 138 (137-145) mmol/L Potassium 4.9 (3.5-5.1) mmol/L Chloride 108 H (98-107) mmol/L Carbon Dioxide 19 L (22-30) mmol/L BUN 12 (7-17) mg/dL Creatinine 0.75 (0.52-1.04) mg/dL Glucose 122 H (74-99) mg/dL Calcium 10.2 (8.4-10.2) mg/dL AST 44 H (14-36) U/L ALT 41 H (4-34) U/L Alkaline Phosphatase 85 (38-126) U/L Total Protein 8.0 (6.3-8.2) g/dL Albumin 4.8 (3.5-5.0) g/dL Calcium panel 02/24/21 02/24/21 Range/Units 05:39 07:55 Calcium 10.2 (8.4-10.2) mg/dL Phosphorus 4.5 (2.5-4.5) mg/dL Albumin 4.8 (3.5-5.0) g/dL Pituitary panel 02/24/21 Range/Units 05:39 Sodium 138 (137-145) mmol/L Potassium 4.9 (3.5-5.1) mmol/L Chloride 108 H (98-107) mmol/L Carbon Dioxide 19 L (22-30) mmol/L BUN 12 (7-17) mg/dL Creatinine 0.75 (0.52-1.04) mg/dL Glucose 122 H (74-99) mg/dL Calcium 10.2 (8.4-10.2) mg/dL Adrenal panel 02/24/21 Range/Units 05:39 Sodium 138 (137-145) mmol/L Potassium 4.9 (3.5-5.1) mmol/L Chloride 108 H (98-107) mmol/L Carbon Dioxide 19 L (22-30) mmol/L BUN 12 (7-17) mg/dL Creatinine 0.75 (0.52-1.04) mg/dL Glucose 122 H (74-99) mg/dL Calcium 10.2 (8.4-10.2) mg/dL Total Bilirubin 0.7 (0.2-1.3) mg/dL AST 44 H (14-36) U/L ALT 41 H (4-34) U/L Alkaline Phosphatase 85 (38-126) U/L Total Protein 8.0 (6.3-8.2) g/dL Albumin 4.8 (3.5-5.0) g/dL
[2021-02-24] MEDS: ONDANSETRON 4 MG/2 ML VIAL IVP PRN (16:59)
[2021-02-24] MEDS: HEPARIN SODIUM,PORCINE/PF 5,000 UNIT/0.5 ML SYRINGE SQ SCH (21:55)
[2021-02-25] MEDS: SODIUM CHLORIDE 0.9% 1,000 ML IV SCH (06:40)
[2021-02-25] MEDS: PANTOPRAZOLE 40 MG/10 ML VIAL IV SCH (07:25)
[2021-02-25] MEDS: HEPARIN SODIUM,PORCINE/PF 5,000 UNIT/0.5 ML SYRINGE SQ SCH (07:25)
[2021-02-25] MEDS: MORPHINE SULFATE 4 MG/ML SYRINGE IV PRN ×2 (07:26→13:33)
[2021-02-25 07:41] VITALS: BP 110/71; PULSE 80; RESP 16; TEMP 97.8
[2021-02-25 09:35] LABS: Basophils # (A) 0.06 X 10*3/uL (0.00-0.10); Basophils % (A) 0.6 %; Eosinophils # (A) 0.19 X 10*3/uL (0.04-0.35); Eosinophils % (A) 1.9 %; HCT 38.3 % (37.2-46.3); HGB 12.4 g/dL (12.0-15.0); Lymphocytes # (A) 4.51 X 10*3/uL (0.90-5.00); Lymphocytes % (A) 44.7 %; MCH 30.2 pg (27.0-32.0); MCHC 32.4 g/dL (32.0-37.0); MCV 93.2 fL (80.0-97.0); Mean Platelet Volume 10.9 fL (9.5-12.2); Monocytes # (A) 0.52 X 10*3/uL (0.20-1.00); Monocytes % (A) 5.2 %; Neutrophils # (A) 4.75 X 10*3/uL (1.80-7.70); Platelet Count 288 X 10*3/uL (140-440); RBC 4.11 X 10*6/uL (4.10-5.20); RDW 12.8 % (11.5-14.5); WBC 10.09 X 10*3/uL (4.50-10.00)
[2021-02-25 11:21] LABS: African American GFR (CKD) 105.4 (60.0-200.0); Albumin 3.6 g/dL (3.80-4.90); Albumin/Globulin Ratio 1.71 (1.60-3.17); Anion Gap 8.6 mmol/L (4.00-12.00); Calcium 8.9 mg/dL (8.7-10.3); Carbon Dioxide 22.4 mmol/L (21.6-31.8); Globulin 2.1 g/dL (1.6-3.3); Magnesium 1.7 mg/dL (1.5-2.4); Non-African American GFR(CKD) 90.9 (60.0-200.0); Total Bilirubin 0.1 mg/dL (0.3-1.2); Total Protein 5.7 g/dL (6.2-8.2)
--- NOTE | 2021-02-25 13:17 | P.DS ---
Providers Date of admission: 02/24/21 06:48 Expected date of discharge: 02/25/21 Attending physician: Jamie Reddy Primary care physician: Stated None Hospital Course: Discharge diagnosis 1. Abdominal pain around the umbilicus 2. Leukocytosis improved 3. Chronic abdominal pain Hospital course This is a 40-year-old female with prior history of appendectomy and small bowel removal resection on 04/07/2020 for ruptured appendix. Patient presents to the emergency room with complaints of abdominal pain around her umbilicus. She has been having issues with alternating between constipation and diarrhea. Her last bowel movement was yesterday. She describes her pain as stabbing. She's had episodes of nausea she did have one episode of vomiting yesterday. She apparently had plans to have colonoscopy in the outpatient setting with Dr. Reddy. She also reports occasionally she will have small amount of bright red blood with her diarrhea. Her computed tomography scan of the abdomen and pelvis showed no acute abnormality. Patient treated with IV fluids and antiemetics. Her pain has improved. She is tolerating regular diet. She has been up and ambulating. Her white count has decreased and almost returned to normal at 10.09. Afebrile. She is having flatus. Patient is stable for discharge. She'll have further workup with EGD and colonoscopy in the outpatient setting. Please refer to chart for any further details. Physician Electrical Research Engineer note has been reviewed by physician. Signing provider agrees with the documented findings, assessment, and plan of care. Patient Condition at Discharge: Stable Plan - Discharge Summary Discharge Rx Participant: No New Discharge Prescriptions: No Action No Known Home Medications Discharge Medication List No Known Home Medications 01/12/21 [History] Follow up Appointment(s)/Referral(s): None,Stated [Primary Care Provider] - 1-2 days Jamie Reddy MD [STAFF PHYSICIAN] - 1 Week Activity/Diet/Wound Care/Special Instructions: Diet regular Discharge Disposition: HOME SELF-CARE
[2021-02-25] MEDS: ONDANSETRON 4 MG/2 ML VIAL IVP PRN (13:33)
[2021-02-26] MEDS ORDERED: PANTOPRAZOLE 40 MG TABLET PO SCH (09:00)
== END 2021-02-25 14:20 | disposition home or self-care (01) ==
LOC: EC 05:08 → 1SOBS 06:48 → 6NMEDSUR 16:20
PROVIDERS: ADMIT Surgery; ATTEND Surgery
DX: D72.829 Elevated white blood cell count, unspecified (principal); R19.7 Diarrhea, unspecified; K59.00 Constipation, unspecified; G89.29 Other chronic pain; R10.33 Periumbilical pain; R11.2 Nausea with vomiting, unspecified; K21.9 Gastro-esophageal reflux disease without esophagitis; M51.36 Other intervertebral disc degeneration, lumbar region; F17.200 Nicotine dependence, unspecified, uncomplicated; F31.9 Bipolar disorder, unspecified; F41.9 Anxiety disorder, unspecified; F40.240 Claustrophobia; Z88.1 Allergy status to other antibiotic agents; Z88.2 Allergy status to sulfonamides; Z88.0 Allergy status to penicillin; Z86.14 Personal history of Methicillin resistant Staphylococcus aureus infection; Z86.69 Personal history of other diseases of the nervous system and sense organs; Z90.49 Acquired absence of other specified parts of digestive tract; Z86.718 Personal history of other venous thrombosis and embolism; Z90.710 Acquired absence of both cervix and uterus; Z80.49 Family history of malignant neoplasm of other genital organs; Z80.9 Family history of malignant neoplasm, unspecified
CPT/HCPCS: 96376 ×3; 96372 ×2; 96361; 96374; 96375; 99285; 36415; 80053 ×2; 82150; 83605; 83690; 83735 ×2; 84100 ×2; 85025 ×2; 81003; 74177; G0378 ×2; J2270 ×2; J2405 ×2; C9113 ×2; Q9967; J1644 ×2

== ENCOUNTER 2021-04-16 13:30 | Emergency (ER) | payer MEDICARE, OTHER ==
[2021-04-16 13:34] VITALS: TEMP 98
[2021-04-16] MEDS ORDERED: ONDANSETRON 4 MG/2 ML VIAL IVP STA (14:19)
[2021-04-16] MEDS ORDERED: SODIUM CHLORIDE 0.9% 1,000 ML IV STA (14:19)
[2021-04-16] MEDS ORDERED: MORPHINE SULFATE 4 MG/ML SYRINGE IV STA (14:19)
[2021-04-16] MEDS ORDERED: PANTOPRAZOLE 40 MG/10 ML VIAL IVP STA (14:19)
[2021-04-16 14:44] LABS: Basophils # (A) 0.1 k/uL (0-0.2); Basophils % (A) 1 %; Eosinophils # (A) 0.2 k/uL (0-0.7); Eosinophils % (A) 2 %; HCT 41.5 % (34.0-46.0); HGB 13.9 gm/dL (11.4-16.0); Lymphocytes # (A) 3.1 k/uL (1.0-4.8); Lymphocytes % (A) 32 %; MCH 30.3 pg (25.0-35.0); MCHC 33.6 g/dL (31.0-37.0); MCV 90.1 fL (80.0-100.0); Monocytes # (A) 0.4 k/uL (0-1.0); Monocytes % (A) 4 %; Neutrophils # (A) 5.5 k/uL (1.3-7.7); Neutrophils % (A) 58 %; Platelet Count 384 k/uL (150-450); RDW 12.7 % (11.5-15.5); WBC 9.4 k/uL (3.8-10.6)
[2021-04-16 14:54] LABS: ALT 47 U/L (4-34); AST 40 U/L (14-36); African American GFR (CKD) >90 (>60 ml/min/1.73 sqM); Alkaline Phosphatase 74 U/L (38-126); Amylase 58 U/L (30-110); Anion Gap 9 mmol/L; Blood Urea Nitrogen 6 mg/dL (7-17); Calcium 9.6 mg/dL (8.4-10.2); Carbon Dioxide 18 mmol/L (22-30); Chloride 110 mmol/L (98-107); Glucose 105 mg/dL (74-99); Lipase 189 U/L (23-300); Non-African American GFR(CKD) 88 (>60 ml/min/1.73 sqM); Potassium 4.4 mmol/L (3.5-5.1); Sodium 137 mmol/L (137-145); Total Bilirubin 0.4 mg/dL (0.2-1.3); Total Protein 7.2 g/dL (6.3-8.2)
[2021-04-16 15:04] LABS: Appearance,Urine Clear (Clear); Bilirubin,Urine Negative (Negative); Blood,Urine Negative (Negative); Color,Urine Light Yellow; Glucose,Urine (UA) Negative (Negative); Ketones,Urine Negative (Negative); Leukocyte Esterase,Urine Negative (Negative); Nitrite,Urine Negative (Negative); Protein,Urine Negative (Negative); Specific Gravity,Urine 1.007 (1.001-1.035); Urobilinogen,Urine <2.0 mg/dL (<2.0)
[2021-04-16 16:05] VITALS: BP 114/75; PULSE 79; RESP 20
--- NOTE | 2021-04-16 16:08 | CT ---
EXAMINATION TYPE: CT abdomen pelvis w con DATE OF EXAM: 04/16/2021 COMPARISON: 02/24/2021 HISTORY: acute, abdominal pain, nausea CT DLP: 1872.3 mGycm CONTRAST: CT scan of the abdomen and pelvis is performed without Oral Contrast and with IV Contrast, patient in jected with 100 mL of Isovue 300. FINDINGS: LUNG BASES-: No visible nodule. No infiltrate. LIVER/GB: Hepatic steatosis noted. The gallbladder surgically absent. No space occupying hepatic les ion. Biliary tree is of normal caliber. PANCREAS: No inflammation. No distinct mass. SPLEEN: No splenic enlargement. No lesion seen. ADRENALS: Stable right adrenal adenoma. No thickening. KIDNEYS/BLADDER: No hydronephrosis. No nephrolithiasis. No distinct renal mass. Urinary bladder g rossly unremarkable. BOWEL: Postsurgical changes right hemicolon. The appendix is not clearly visualized. Sigmoid divertic ulosis without diverticulitis. Normal bowel caliber. No inflammation. GENITAL ORGANS: Hysterectomy changes noted. LYMPH NODES: No greater than 1cm abdominal or pelvic lymph nodes are appreciated. AORTA: No significant abnormality. OSSEOUS STRUCTURES: No significant abnormality is seen. OTHER: [place] fat containing ventral hernia noted within the supraumbilical region. IMPRESSION: 1. No acute process identified at this time to account for the patient's symptoms. Chronic changes as noted above.
[2021-04-16] MEDS ORDERED: MAG HYDROX/AL HYDROX/SIMETH 30 ML, HYOSCYAMINE ELIXIR 10 ML, LIDOCAINE VISCOUS 2% 10 ML PO STA ×3 (17:03)
[2021-04-16] MEDS ORDERED: HYDROmorphone 0.5 MG/0.5 ML SYRINGE IVP STA (17:03)
--- NOTE | 2021-04-16 17:26 | ED ---
General Adult HPI - General Chief complaint: Back Pain/Injury Stated complaint: Abd and back pain Time Seen by Provider: 04/16/21 13:57 Source: patient, RN notes reviewed, old records reviewed Mode of arrival: wheelchair Limitations: no limitations - History of Present Illness Initial comments: Patient is a 41-year-old female presenting to the emergency Department with complaints of epigastric abdominal pain as well as low back pain. She states she's had stomach pains on and off for over a year now. States became worse over the past 3 days. She is having some low back discomfort as well, for the last 3 days. She denies any injuries or falls. She denies any fevers or chills, she does have some mild nausea no vomiting. He is also been having diarrhea over the past few days. She has history of appendectomy, bowel resection, cholecystectomy, hysterectomy. She denies any chest pain or shortness of breath, no cough or chills. She denies any dysuria or frequency. She denies history of kidney stones. She has no further complaints at this time. Upon arrival to the ER, her vitals are stable. - Related Data Previous Rx's Medication Instructions Recorded Pantoprazole Sodium [Protonix] 40 mg PO DAILY 14 Days #14 tab 04/16/21 Allergies Allergy/AdvReac Type Severity Reaction Status Date / Time cephalexin [From Keflex] Allergy Severe Swelling Verified 04/16/21 13:32 clindamycin [From Cleocin] Allergy Anaphylaxis Verified 04/16/21 13:32 levofloxacin Allergy Rash/Hives Verified 04/16/21 13:32 Penicillins Allergy Swelling Verified 04/16/21 13:32 sulfamethoxazole Allergy Itching Verified 04/16/21 13:32 [From Bactrim] trimethoprim [From Bactrim] Allergy Itching Verified 04/16/21 13:32 Review of Systems ROS Statement: Those systems with pertinent positive or pertinent negative responses have been documented in the HPI. ROS Other: All systems not noted in ROS Statement are negative. Past Medical History Past Medical History: Deep Vein Thrombosis (DVT), GERD/Reflux Additional Past Medical History / Comment(s): Midline catheter for iv infusions, appendectomy, Migraines, Pancreatic Deficiency, Lower lumbar disease, hypoglycemia. History of Any Multi-Drug Resistant Organisms: MRSA Date of last positivie culture/infection: 05/23/20 MDRO Source:: ABDOMEN Past Surgical History: Appendectomy, Bowel Resection, Cholecystectomy, Hysterectomy, Orthopedic Surgery, Tonsillectomy Additional Past Surgical History / Comment(s): appendectomy, (R) hand surgery, (L) hip I&D from spider bite r/t MRSA Past Anesthesia/Blood Transfusion Reactions: No Reported Reaction Additional Past Anesthesia/Blood Transfusion Reaction / Comment(s): SEVERE CLAUSTERPHOBIA INCLUDING A MASK ON HER FACE. Past Psychological History: Anxiety, Bipolar, Depression Smoking Status: Current every day smoker Past Alcohol Use History: None Reported Past Drug Use History: None Reported - Past Family History Father History Unknown: Yes Family Medical History: No Reported History Additional Family Medical History / Comment(s): Father is but pt does not know past medical history-they were not in much contact with each other. Mother Family Medical History: Cancer Additional Family Medical History / Comment(s): Mother at the age of 50 years from Cancer metastasis. Mother also had an aneurysm. Sister(s) Additional Family Medical History / Comment(s): Bipolar and Schizoprenia. Son(s) Family Medical History: No Reported History (one son no major medical problems.) Daughter(s) Family Medical History: No Reported History (2 daughters no major medical problems.) General Exam - General Exam Comments Initial Comments: GENERAL: Patient is well-developed and well-nourished. Patient is nontoxic and in mild distress. HEAD: Atraumatic, normocephalic. EYES: Pupils equal round and reactive to light, extraocular movements intact, sclera anicteric, conjunctiva are normal. Eyelids were unremarkable. ENT: Nares patent, oropharynx clear without exudates. Moist mucous membranes. NECK: Normal range of motion, supple without lymphadenopathy or JVD. LUNGS: Unlabored respirations. Breath sounds clear to auscultation bilaterally and equal. No wheezes rales or rhonchi. HEART: Regular rate and rhythm without murmurs, rubs or gallops. ABDOMEN: Soft, tender to palpation in the epigastric and suprapubic region. normoactive bowel sounds. No guarding, no rebound. No masses appreciated. : Deferred MUSCULOSKELETAL: Normal extremities with adequate strength and normal range of motion, no pitting or edema. No clubbing or cyanosis. She has some mild tenderness across the lumbar paraspinals. NEUROLOGICAL: Patient is alert and oriented x 3. Motor and sensory are also intact. Cranial nerves II through XII grossly intact. Symmetrical smile. Normal speech, normal gait. PSYCH: Normal mood, normal affect. SKIN: Warm, Dry, normal turgor, no rashes or lesions noted. Limitations: no limitations Course Vital Signs 04/16/21 04/16/21 13:32 16:00 Temperature 98.0 F Pulse Rate 92 79 Respiratory 22 20 Rate Blood Pressure 114/74 114/75 O2 Sat by Pulse 97 100 Oximetry Medical Decision Making - Medical Decision Making Patient is a 41-year-old female presenting with epigastric, suprapubic and lower back pain over the past 3-4 days. She has had some mild diarrhea. Vital signs are stable, no fevers. No chest pain or shortness of breath. Patient's lab reveal a normal white count, stable hemoglobin, lactic acid slightly elevated at 2.3, feeling this most likely reactive. Rest of her labs are within normal limits including normal troponin, lipase is 189. Urine shows no evidence of infection or hematuria. CT of the abdomen and pelvis reveals no acute findings at this time. Patient received some fluids, pain control, she's been resting comfortably. I discussed the patient that this could be related to a mild ulcer. I recommended starting Protonix over the next couple weeks and follow up with GI. She is agreeable to this and is stable for discharge. Return parameters were discussed with her and she verbalized understanding. Case discussed with Dr. French. - Lab Data Result diagrams: 04/16/21 14:31 04/16/21 14:31 Lab Results 04/16/21 04/16/21 04/16/21 Range/Units 14:31 14:31 14:31 WBC 9.4 (3.8-10.6) k/uL RBC 4.60 (3.80-5.40) m/uL Hgb 13.9 (11.4-16.0) gm/dL Hct 41.5 (34.0-46.0) % MCV 90.1 (80.0-100.0) fL MCH 30.3 (25.0-35.0) pg MCHC 33.6 (31.0-37.0) g/dL RDW 12.7 (11.5-15.5) % Plt Count 384 (150-450) k/uL MPV 8.0 Neutrophils % 58 % Lymphocytes % 32 % Monocytes % 4 % Eosinophils % 2 % Basophils % 1 % Neutrophils # 5.5 (1.3-7.7) k/uL Lymphocytes # 3.1 (1.0-4.8) k/uL Monocytes # 0.4 (0-1.0) k/uL Eosinophils # 0.2 (0-0.7) k/uL Basophils # 0.1 (0-0.2) k/uL Sodium 137 (137-145) mmol/L Potassium 4.4 (3.5-5.1) mmol/L Chloride 110 H (98-107) mmol/L Carbon Dioxide 18 L (22-30) mmol/L Anion Gap 9 mmol/L BUN 6 L (7-17) mg/dL Creatinine 0.82 (0.52-1.04) mg/dL Est GFR (CKD-EPI)AfAm >90 (>60 ml/min/1.73 sqM) Est GFR (CKD-EPI)NonAf 88 (>60 ml/min/1.73 sqM) Glucose 105 H (74-99) mg/dL Lactic Ac Sepsis Rflx Plasma Lactic Acid [place] (0.7-2.0) mmol/L Calcium 9.6 (8.4-10.2) mg/dL Total Bilirubin 0.4 (0.2-1.3) mg/dL AST 40 H (14-36) U/L ALT 47 H (4-34) U/L Alkaline Phosphatase 74 (38-126) U/L Troponin I (0.000-0.034) ng/mL Total Protein 7.2 (6.3-8.2) g/dL Albumin 4.0 (3.5-5.0) g/dL Amylase 58 (30-110) U/L Lipase 189 (23-300) U/L Urine Color Light Yellow Urine Appearance Clear (Clear) Urine pH 5.0 (5.0-8.0) Ur Specific [place] 1.007 (1.001-1.035) Urine Protein Negative (Negative) Urine Glucose (UA) Negative (Negative) Urine Ketones Negative (Negative) Urine Blood Negative (Negative) Urine Nitrite Negative (Negative) Urine Bilirubin Negative (Negative) Urine Urobilinogen <2.0 (<2.0) mg/dL Ur Leukocyte Esterase Negative (Negative) 04/16/21 04/16/21 04/16/21 Range/Units 14:31 14:31 14:58 WBC (3.8-10.6) k/uL RBC (3.80-5.40) m/uL Hgb (11.4-16.0) gm/dL Hct (34.0-46.0) % MCV (80.0-100.0) fL MCH (25.0-35.0) pg MCHC (31.0-37.0) g/dL RDW (11.5-15.5) % Plt Count (150-450) k/uL MPV Neutrophils % % Lymphocytes % % Monocytes % % Eosinophils % % Basophils % % Neutrophils # (1.3-7.7) k/uL Lymphocytes # (1.0-4.8) k/uL Monocytes # (0-1.0) k/uL Eosinophils # (0-0.7) k/uL Basophils # (0-0.2) k/uL Sodium (137-145) mmol/L Potassium (3.5-5.1) mmol/L Chloride (98-107) mmol/L Carbon Dioxide (22-30) mmol/L Anion Gap mmol/L BUN (7-17) mg/dL Creatinine (0.52-1.04) mg/dL Est GFR (CKD-EPI)AfAm (>60 ml/min/1.73 sqM) Est GFR (CKD-EPI)NonAf (>60 ml/min/1.73 sqM) Glucose (74-99) mg/dL Lactic Ac Sepsis Rflx Y Plasma Lactic Acid [place] 2.3 H* (0.7-2.0) mmol/L Calcium (8.4-10.2) mg/dL Total Bilirubin (0.2-1.3) mg/dL AST (14-36) U/L ALT (4-34) U/L Alkaline Phosphatase (38-126) U/L Troponin I <0.012 (0.000-0.034) ng/mL Total Protein (6.3-8.2) g/dL Albumin (3.5-5.0) g/dL Amylase (30-110) U/L Lipase (23-300) U/L Urine Color Urine Appearance (Clear) Urine pH (5.0-8.0) Ur Specific [place] (1.001-1.035) Urine Protein (Negative) Urine Glucose (UA) (Negative) Urine Ketones (Negative) Urine Blood (Negative) Urine Nitrite (Negative) Urine Bilirubin (Negative) Urine Urobilinogen (<2.0) mg/dL Ur Leukocyte Esterase (Negative) Disposition Clinical Impression: Abdominal pain, Low back pain Disposition: HOME SELF-CARE Condition: Stable Instructions (If sedation given, give patient instructions): Abdominal Pain (ED) Additional Instructions: Please return to the Emergency Department if symptoms worsen or any other concerns. Recommended protonix daily for the next 2 weeks. Please follow-up with GI doctor as discussed. Prescriptions: Pantoprazole Sodium [Protonix] 40 mg PO DAILY 14 Days #14 tab Is patient prescribed a controlled substance at d/c from ED?: No Referrals: None,Stated [Primary Care Provider] - 1-2 days Mary Baez MD [STAFF PHYSICIAN] - 1-2 days Time of Disposition: 17:25
== END 2021-04-16 17:40 | disposition home or self-care (01) ==
LOC: EC 13:30
DX: R10.13 Epigastric pain (principal); M54.5 Low back pain; R11.0 Nausea; R19.7 Diarrhea, unspecified; F17.200 Nicotine dependence, unspecified, uncomplicated; Z86.718 Personal history of other venous thrombosis and embolism; Z88.0 Allergy status to penicillin; Z88.1 Allergy status to other antibiotic agents; Z88.2 Allergy status to sulfonamides; Z90.49 Acquired absence of other specified parts of digestive tract
CPT/HCPCS: 36415; 80053; 82150; 83605; 83690; 84484; 85025; 81003; 74177; 99284; 96374; 96375; 96361; J2270; J2405; C9113; J1170; Q9967

== ENCOUNTER 2021-07-12 16:24 | Emergency (ER) | payer MEDICARE, OTHER ==
[2021-07-12 17:40] VITALS: BP 116/75; PULSE 98; RESP 20; TEMP 98
[2021-07-12] MEDS ORDERED: KETOROLAC 15 MG/ML 1 ML VIAL IM STA (18:49)
[2021-07-12] MEDS ORDERED: methylPREDNISolone SOD SUCCI 125 MG/2 ML VIAL IM ONE (18:49)
--- NOTE | 2021-07-12 18:53 | ED ---
Back Pain HPI - General Chief Complaint: Back Pain/Injury Stated Complaint: back pain Time Seen by Provider: 07/12/21 18:24 Source: patient, RN notes reviewed Limitations: no limitations - History of Present Illness Initial Comments: 41-year-old female complaining of left lower back pain with radiation down her left leg. Patient denied any injury or trauma. She notes this been going on for a while. Patient denied any history of sciatica. She denied any saddle anesthesia or bladder or bowel incontinence/retention. She denied any chest pain tenderness of breath headache nausea vomiting diarrhea constipation fever fatigue chills. - Related Data Previous Rx's Medication Instructions Recorded Pantoprazole Sodium [Protonix] 40 mg PO DAILY 14 Days #14 tab 04/16/21 predniSONE 50 mg PO DAILY #5 tab 07/12/21 Allergies Allergy/AdvReac Type Severity Reaction Status Date / Time cephalexin [From Keflex] Allergy Severe Swelling Verified 07/12/21 17:40 clindamycin [From Cleocin] Allergy Anaphylaxis Verified 07/12/21 17:40 levofloxacin Allergy Rash/Hives Verified 07/12/21 17:40 Penicillins Allergy Swelling Verified 07/12/21 17:40 sulfamethoxazole Allergy Itching Verified 07/12/21 17:40 [From Bactrim] trimethoprim [From Bactrim] Allergy Itching Verified 07/12/21 17:40 Review of Systems ROS Statement: Those systems with pertinent positive or pertinent negative responses have been documented in the HPI. ROS Other: All systems not noted in ROS Statement are negative. Past Medical History Past Medical History: Deep Vein Thrombosis (DVT), GERD/Reflux Additional Past Medical History / Comment(s): Midline catheter for iv infusions, appendectomy, Migraines, Pancreatic Deficiency, Lower lumbar disease, hypoglycemia. History of Any Multi-Drug Resistant Organisms: MRSA Date of last positivie culture/infection: 05/23/20 MDRO Source:: ABDOMEN Past Surgical History: Appendectomy, Bowel Resection, Cholecystectomy, Hysterectomy, Orthopedic Surgery, Tonsillectomy Additional Past Surgical History / Comment(s): appendectomy, (R) hand surgery, (L) hip I&D from spider bite r/t MRSA Past Anesthesia/Blood Transfusion Reactions: No Reported Reaction Additional Past Anesthesia/Blood Transfusion Reaction / Comment(s): SEVERE CLAUSTERPHOBIA INCLUDING A MASK ON HER FACE. Past Psychological History: Anxiety, Bipolar, Depression Smoking Status: Current every day smoker Past Alcohol Use History: None Reported Past Drug Use History: None Reported - Past Family History Father History Unknown: Yes Family Medical History: No Reported History Additional Family Medical History / Comment(s): Father is but pt does not know past medical history-they were not in much contact with each other. Mother Family Medical History: Cancer Additional Family Medical History / Comment(s): Mother at the age of 50 years from Cancer metastasis. Mother also had an aneurysm. Sister(s) Additional Family Medical History / Comment(s): Bipolar and Schizoprenia. Son(s) Family Medical History: No Reported History (one son no major medical problems.) Daughter(s) Family Medical History: No Reported History (2 daughters no major medical problems.) General Exam Limitations: no limitations General appearance: alert, in no apparent distress Head exam: Present: atraumatic, normocephalic, normal inspection Eye exam: Present: normal appearance, PERRL, EOMI. Absent: scleral icterus, conjunctival injection, periorbital swelling ENT exam: Present: normal exam, mucous membranes moist Neck exam: Present: normal inspection Respiratory exam: Present: normal lung sounds bilaterally. Absent: respiratory distress, wheezes, rales, rhonchi, stridor Cardiovascular Exam: Present: regular rate, normal rhythm, normal heart sounds. Absent: systolic murmur, diastolic murmur, rubs, gallop, clicks GI/Abdominal exam: Present: soft, normal bowel sounds. Absent: distended, tenderness, guarding, rebound, rigid Extremities exam: Present: normal inspection, full ROM, normal capillary refill. Absent: tenderness, pedal edema, joint swelling, calf tenderness Back exam: Present: normal inspection, tenderness (Left SI) Neurological exam: Present: alert, oriented X3 Psychiatric exam: Present: normal affect, normal mood Skin exam: Present: warm, dry, intact, normal color. Absent: rash Course Vital Signs 07/12/21 17:38 Temperature 98 F Pulse Rate 98 Respiratory 20 Rate Blood Pressure 116/75 O2 Sat by Pulse 100 Oximetry Medical Decision Making - Medical Decision Making 41-year-old female In the left lower back pain with radiation down left leg. 125 mg of Solu-Medrol, 15 g of Toradol ordered. Upon physical exam patient was tender over her left sciatica, consistent with sciatica and lumbar radiculopathy. Case discussed with Dr. Parra Disposition Clinical Impression: Sciatica, Lumbar radiculopathy Disposition: HOME SELF-CARE Condition: Stable Instructions (If sedation given, give patient instructions): Acute Low Back Pain (ED) Additional Instructions: Please return to the Emergency Department if symptoms worsen or any other concerns. Follow-up with primary care in 1-2 days. Takes steroid as prescribed. Tylenol Motrin alternating every 3 hours for pain control. Is patient prescribed a controlled substance at d/c from ED?: No Referrals: None,Stated [Primary Care Provider] - 1-2 days Time of Disposition: 18:53
== END 2021-07-12 19:15 | disposition home or self-care (01) ==
LOC: EC 16:24
DX: M54.42 Lumbago with sciatica, left side (principal); M54.16 Radiculopathy, lumbar region; F17.200 Nicotine dependence, unspecified, uncomplicated; Z88.1 Allergy status to other antibiotic agents; Z88.0 Allergy status to penicillin; Z88.2 Allergy status to sulfonamides
CPT/HCPCS: 99283; 96372; J2930; J1885

== ENCOUNTER 2021-09-01 18:02 | Emergency (ER) | payer MEDICARE, OTHER ==
[2021-09-01 19:20] VITALS: BP 117/78; PULSE 101; RESP 18; TEMP 98.4
[2021-09-01] MEDS ORDERED: KETOROLAC 15 MG/ML 1 ML VIAL IVP STA (22:13)
[2021-09-01 22:14] LABS: Basophils # (A) 0.1 k/uL (0-0.2); Basophils % (A) 1 %; Eosinophils # (A) 0.3 k/uL (0-0.7); Eosinophils % (A) 2 %; HGB 15.2 gm/dL (11.4-16.0); Lymphocytes # (A) 4.9 k/uL (1.0-4.8); Lymphocytes % (A) 40 %; MCH 30.4 pg (25.0-35.0); MCHC 33.1 g/dL (31.0-37.0); MCV 92.1 fL (80.0-100.0); Mean Platelet Volume 7.7; Monocytes # (A) 0.4 k/uL (0-1.0); Monocytes % (A) 3 %; Neutrophils # (A) 6.5 k/uL (1.3-7.7); Neutrophils % (A) 52 %; Platelet Count 340 k/uL (150-450); RBC 4.99 m/uL (3.80-5.40); RDW 12.3 % (11.5-15.5); WBC 12.4 k/uL (3.8-10.6)
--- NOTE | 2021-09-01 22:16 | ED ---
Abdominal Pain HPI - General Chief Complaint: Abdominal Pain Stated Complaint: Lump on side of abd Time Seen by Provider: 09/01/21 21:49 Source: patient Mode of arrival: wheelchair Limitations: no limitations - History of Present Illness Initial Comments: This patient is a 41-year-old woman who complains of intermittent, sharp, severe periumbilical abdominal pains of been going on for about a year, since she had appendectomy surgery. The patient states that is episode seems to been recurring for at least 2-3 days. The pains are worse with movement. She has not noted change in urination or bowel movements. No fever or chills. MD Complaint: abdominal pain Onset/Timin -: year(s) Location: periumbilical Radiation: none Migration to: no migration Severity: severe Quality: stabbing Consistency: intermittent Improves With: nothing Worsens With: nothing Associated Symptoms: denies other symptoms - Related Data Home Medications Medication Instructions Recorded Confirmed Ibuprofen [Motrin Ib] 800 mg PO Q8H PRN 09/01/21 09/01/21 Allergies Allergy/AdvReac Type Severity Reaction Status Date / Time cephalexin [From Keflex] Allergy Severe THROAT Verified 09/01/21 22:08 Swelling clindamycin [From Cleocin] Allergy Anaphylaxis Verified 09/01/21 22:08 levofloxacin Allergy Rash/Hives Verified 09/01/21 22:08 Penicillins Allergy Swelling Verified 09/01/21 22:08 sulfamethoxazole Allergy Itching Verified 09/01/21 22:08 [From Bactrim] trimethoprim [From Bactrim] Allergy Itching Verified 09/01/21 22:08 Review of Systems ROS Statement: Those systems with pertinent positive or pertinent negative responses have been documented in the HPI. ROS Other: All systems not noted in ROS Statement are negative. Constitutional: Denies: fever, chills Respiratory: Denies: cough, dyspnea Cardiovascular: Denies: chest pain, palpitations, edema Gastrointestinal: Reports: abdominal pain. Denies: nausea, vomiting, diarrhea, constipation, hematemesis, melena, hematochezia Genitourinary: Denies: dysuria, hematuria, abnormal menses Musculoskeletal: Denies: back pain Skin: Denies: rash Neurological: Denies: headache Past Medical History Past Medical History: Deep Vein Thrombosis (DVT), GERD/Reflux Additional Past Medical History / Comment(s): Midline catheter for iv infusions, appendectomy, Migraines, Pancreatic Deficiency, Lower lumbar disease, hypoglycemia. History of Any Multi-Drug Resistant Organisms: MRSA Date of last positivie culture/infection: 05/23/20 MDRO Source:: ABDOMEN Past Surgical History: Appendectomy, Bowel Resection, Cholecystectomy, Hysterectomy, Orthopedic Surgery, Tonsillectomy Additional Past Surgical History / Comment(s): appendectomy, (R) hand surgery, (L) hip I&D from spider bite r/t MRSA Past Anesthesia/Blood Transfusion Reactions: No Reported Reaction Additional Past Anesthesia/Blood Transfusion Reaction / Comment(s): SEVERE CLAUSTERPHOBIA INCLUDING A MASK ON HER FACE. Past Psychological History: Anxiety, Bipolar, Depression Smoking Status: Current every day smoker Past Alcohol Use History: None Reported Past Drug Use History: None Reported - Past Family History Father History Unknown: Yes Family Medical History: No Reported History Additional Family Medical History / Comment(s): Father is but pt does not know past medical history-they were not in much contact with each other. Mother Family Medical History: Cancer Additional Family Medical History / Comment(s): Mother at the age of 50 years from Cancer metastasis. Mother also had an aneurysm. Sister(s) Additional Family Medical History / Comment(s): Bipolar and Schizoprenia. Son(s) Family Medical History: No Reported History (one son no major medical problems.) Daughter(s) Family Medical History: No Reported History (2 daughters no major medical problems.) General Exam Limitations: no limitations General appearance: alert, in no apparent distress Head exam: Present: atraumatic, normocephalic Eye exam: Present: normal appearance. Absent: scleral icterus, conjunctival injection Neck exam: Present: normal inspection Respiratory exam: Present: normal lung sounds bilaterally. Absent: respiratory distress, wheezes, rales, rhonchi, stridor Cardiovascular Exam: Present: regular rate, normal rhythm, normal heart sounds. Absent: systolic murmur, diastolic murmur, rubs, gallop GI/Abdominal exam: Present: soft, tenderness. Absent: distended, guarding, rebound, rigid, mass, pulsatile mass, hernia Extremities exam: Present: normal inspection, normal capillary refill. Absent: pedal edema, calf tenderness Back exam: Present: normal inspection. Absent: CVA tenderness (R), CVA tenderness (L) Neurological exam: Present: alert Skin exam: Present: warm, dry, intact, normal color. Absent: rash Course Vital Signs 09/01/21 19:18 Temperature 98.4 F Pulse Rate 101 H Respiratory 18 Rate Blood Pressure 117/78 O2 Sat by Pulse 100 Oximetry Medical Decision Making - Lab Data Result diagrams: 09/01/21 21:50 09/01/21 21:50 Lab Results 09/01/21 09/01/21 09/01/21 Range/Units 21:50 21:50 22:24 WBC 12.4 H (3.8-10.6) k/uL RBC 4.99 (3.80-5.40) m/uL Hgb 15.2 (11.4-16.0) gm/dL Hct 46.0 (34.0-46.0) % MCV 92.1 (80.0-100.0) fL MCH 30.4 (25.0-35.0) pg MCHC 33.1 (31.0-37.0) g/dL RDW 12.3 (11.5-15.5) % Plt Count 340 (150-450) k/uL MPV 7.7 Neutrophils % 52 % Lymphocytes % 40 % Monocytes % 3 % Eosinophils % 2 % Basophils % 1 % Neutrophils # 6.5 (1.3-7.7) k/uL Lymphocytes # 4.9 H (1.0-4.8) k/uL Monocytes # 0.4 (0-1.0) k/uL Eosinophils # 0.3 (0-0.7) k/uL Basophils # 0.1 (0-0.2) k/uL Sodium 137 (137-145) mmol/L Potassium (3.5-5.1) mmol/L Chloride 106 (98-107) mmol/L Carbon Dioxide 20 L (22-30) mmol/L Anion Gap 11 mmol/L BUN 15 (7-17) mg/dL Creatinine 0.77 (0.52-1.04) mg/dL Est GFR (CKD-EPI)AfAm >90 (>60 ml/min/1.73 sqM) Est GFR (CKD-EPI)NonAf >90 (>60 ml/min/1.73 sqM) Glucose 131 H (74-99) mg/dL Calcium 9.9 (8.4-10.2) mg/dL Total Bilirubin 2.3 H (0.2-1.3) mg/dL AST 75 H (14-36) U/L ALT 52 H (4-34) U/L Alkaline Phosphatase 69 (38-126) U/L Total Protein 10.1 H (6.3-8.2) g/dL Albumin 5.7 H (3.5-5.0) g/dL Amylase 73 (30-110) U/L Lipase 208 (23-300) U/L Urine Color Yellow Urine Appearance Clear (Clear) Urine pH 5.5 (5.0-8.0) Ur Specific [place] 1.024 (1.001-1.035) Urine Protein Negative (Negative) Urine Glucose (UA) Negative (Negative) Urine Ketones Negative (Negative) Urine Blood Negative (Negative) Urine Nitrite Negative (Negative) Urine Bilirubin Negative (Negative) Urine Urobilinogen <2.0 (<2.0) mg/dL Ur Leukocyte Esterase Negative (Negative) Urine HCG, Qual (Not Detectd) 09/01/21 Range/Units 22:24 WBC (3.8-10.6) k/uL RBC (3.80-5.40) m/uL Hgb (11.4-16.0) gm/dL Hct (34.0-46.0) % MCV (80.0-100.0) fL MCH (25.0-35.0) pg MCHC (31.0-37.0) g/dL RDW (11.5-15.5) % Plt Count (150-450) k/uL MPV Neutrophils % % Lymphocytes % % Monocytes % % Eosinophils % % Basophils % % Neutrophils # (1.3-7.7) k/uL Lymphocytes # (1.0-4.8) k/uL Monocytes # (0-1.0) k/uL Eosinophils # (0-0.7) k/uL Basophils # (0-0.2) k/uL Sodium (137-145) mmol/L Potassium (3.5-5.1) mmol/L Chloride (98-107) mmol/L Carbon Dioxide (22-30) mmol/L Anion Gap mmol/L BUN (7-17) mg/dL Creatinine (0.52-1.04) mg/dL Est GFR (CKD-EPI)AfAm (>60 ml/min/1.73 sqM) Est GFR (CKD-EPI)NonAf (>60 ml/min/1.73 sqM) Glucose (74-99) mg/dL Calcium (8.4-10.2) mg/dL Total Bilirubin (0.2-1.3) mg/dL AST (14-36) U/L ALT (4-34) U/L Alkaline Phosphatase (38-126) U/L Total Protein (6.3-8.2) g/dL Albumin (3.5-5.0) g/dL Amylase (30-110) U/L Lipase (23-300) U/L Urine Color Urine Appearance (Clear) Urine pH (5.0-8.0) Ur Specific [place] (1.001-1.035) Urine Protein (Negative) Urine Glucose (UA) (Negative) Urine Ketones (Negative) Urine Blood (Negative) Urine Nitrite (Negative) Urine Bilirubin (Negative) Urine Urobilinogen (<2.0) mg/dL Ur Leukocyte Esterase (Negative) Urine HCG, Qual Not Detected (Not Detectd) Disposition Clinical Impression: Abdominal pain Disposition: HOME SELF-CARE Condition: Good Instructions (If sedation given, give patient instructions): Abdominal Pain (ED) Is patient prescribed a controlled substance at d/c from ED?: No Referrals: None,Stated [Primary Care Provider] - 1-2 days
[2021-09-01 22:25] LABS: ALT 52 U/L (4-34); AST 75 U/L (14-36); African American GFR (CKD) >90 (>60 ml/min/1.73 sqM); Albumin 5.7 g/dL (3.5-5.0); Alkaline Phosphatase 69 U/L (38-126); Amylase 73 U/L (30-110); Anion Gap 11 mmol/L; Blood Urea Nitrogen 15 mg/dL (7-17); Calcium 9.9 mg/dL (8.4-10.2); Carbon Dioxide 20 mmol/L (22-30); Chloride 106 mmol/L (98-107); Glucose 131 mg/dL (74-99); Lipase 208 U/L (23-300); Non-African American GFR(CKD) >90 (>60 ml/min/1.73 sqM); Sodium 137 mmol/L (137-145); Total Bilirubin 2.3 mg/dL (0.2-1.3); Total Protein 10.1 g/dL (6.3-8.2)
[2021-09-01 22:31] LABS: Appearance,Urine Clear (Clear); Bilirubin,Urine Negative (Negative); Blood,Urine Negative (Negative); Color,Urine Yellow; Glucose,Urine (UA) Negative (Negative); Ketones,Urine Negative (Negative); Leukocyte Esterase,Urine Negative (Negative); Nitrite,Urine Negative (Negative); PH, Urine 5.5 (5.0-8.0); Protein,Urine Negative (Negative); Specific Gravity,Urine 1.024 (1.001-1.035); Urobilinogen,Urine <2.0 mg/dL (<2.0)
--- NOTE | 2021-09-01 22:48 | CT ---
EXAMINATION TYPE: CT abdomen pelvis wo con DATE OF EXAM: 09/01/2021 COMPARISON: 04/16/2021 HISTORY: new lump on left side CT DLP: 1126.2 mGycm Automated exposure control for dose reduction was used. Images obtained from the diaphragm to the floor the pelvis without contrast. Lung bases are clear. There is no pleural effusion. There is no pericardial effusion. Heart size is n ormal. Liver spleen and stomach pancreas appear intact. Bile ducts are nondilated. There are clips from chol ecystectomy. There is 3 cm low-density oval-shaped right adrenal mass suggestive of benign disease. Unchanged. Kid neys of normal size. There is no hydronephrosis. The ureters are not dilated. There is no retroperito rochelle adenopathy. There is surgery of the right colon. There is no evidence of pelvic mass. Bladder is almost empty. There is no free fluid in the pelvis. There is no inguinal hernia. There is no mesenteric edema. There is no ascites or free air. There is no sign of a bowel obstructio n. There is broad-based anterior abdominal wall hernia that contains fat. Unchanged. Lumbar vertebrae have normal alignment. There is no compression fracture. Bony pelvis is intact. The hip joints are intact. There is no intestinal wall thickening. There is surgical changes on the intra -abdominal wall at the umbilicus. IMPRESSION: Previous abdominal surgery. No acute abnormality of the abdomen and pelvis. No bowel obstruction.
[2021-09-02] MEDS ORDERED: HYDROcodone/APAP 7.5-325MG 1 EACH TAB ONE
[2021-09-02] MEDS ORDERED: HYDROcodone/APAP 7.5-325MG 1 EACH TAB PO ONE (00:20)
== END 2021-09-02 00:15 | disposition home or self-care (01) ==
LOC: EC 18:02
DX: R10.9 Unspecified abdominal pain (principal); F17.200 Nicotine dependence, unspecified, uncomplicated; Z88.2 Allergy status to sulfonamides; Z88.0 Allergy status to penicillin; Z88.1 Allergy status to other antibiotic agents
CPT/HCPCS: 36415; 80053; 82150; 83690; 85025; 81003; 81025; 74176; 99284; 96374; J1885

== ENCOUNTER 2021-10-21 08:41 | Observation (INO) | payer MEDICARE, OTHER ==
[2021-10-20 08:46] VITALS: BMI 40.3
[~2021-10-21 08:41] MED LIST: ACETAMINOPHEN TAB 500 MG TAB PO PRN; HEPARIN SODIUM,PORCINE/PF 5,000 UNIT/0.5 ML SYRINGE SQ PRN; LIDOCAINE 1% (10MG/ML) FOR IV START INTRADERMA PRN; VANCOMYCIN 1,500 MG in SODIUM CHLORIDE 0.9% 250 ML IVPB PRN
[2021-10-21 09:12] LABS: Glucose,Whole Blood 108 mg/dL (75-99)
[2021-10-21 09:43] LABS: Basophils # (A) 0.1 k/uL (0-0.2); Basophils % (A) 1 %; Eosinophils # (A) 0.3 k/uL (0-0.7); Eosinophils % (A) 2 %; HCT 42.3 % (34.0-46.0); HGB 13.9 gm/dL (11.4-16.0); Lymphocytes % (A) 27 %; MCH 30.3 pg (25.0-35.0); MCHC 32.8 g/dL (31.0-37.0); MCV 92.1 fL (80.0-100.0); Mean Platelet Volume 7.8; Monocytes # (A) 0.5 k/uL (0-1.0); Monocytes % (A) 5 %; Neutrophils # (A) 7.2 k/uL (1.3-7.7); Neutrophils % (A) 64 %; Platelet Count 321 k/uL (150-450); RBC 4.59 m/uL (3.80-5.40); RDW 12.1 % (11.5-15.5); WBC 11.2 k/uL (3.8-10.6)
[2021-10-21] MEDS: LACTATED RINGERS 1,000 ML IV SCH (09:45)
[2021-10-21] MEDS: ONDANSETRON 4 MG/2 ML VIAL IVP ONE ×2 (09:45→15:57)
[2021-10-21] MEDS ORDERED: MIDAZOLAM 2 MG/2 ML VIAL IVP ONE (09:51)
[2021-10-21] MEDS ORDERED: fentaNYL (PF) 50 MCG/ML 2 ML AMP IVP ONE (09:51)
--- NOTE | 2021-10-21 10:19 | P.GSHP ---
History of Present Illness H&P Date: 10/21/21 Chief Complaint: Incisional hernia This is a 41-year-old female who presents today for open repair of incisional hernia. Patient previous history of exploratory laparotomy for appendicitis. Patient developed an incisional hernia. Patient had complaints of pain and tenderness at her incision. There is a palpable masses just above the incision. Past Medical History Past Medical History: Asthma, GERD/Reflux Additional Past Medical History / Comment(s): hx ruptured appendix resulting in bowel resection, hx Midline catheter for iv infusions, Migraines, hx pancreatitis, Lower lumbar disease, hypoglycemia. History of Any Multi-Drug Resistant Organisms: MRSA Date of last positivie culture/infection: 05/23/20 MDRO Source:: ABDOMEN Past Surgical History: Appendectomy, Bowel Resection, Cholecystectomy, Hyst erectomy, Orthopedic Surgery, Tonsillectomy Additional Past Surgical History / Comment(s): (R) hand surgery, (L) hip I&D from spider bite r/t MRSA, Past Anesthesia/Blood Transfusion Reactions: No Reported Reaction Additional Past Anesthesia/Blood Transfusion Reaction / Comment(s): SEVERE CLAUSTROPHOBIA INCLUDING A MASK ON HER FACE. Smoking Status: Current every day smoker - Past Family History Father History Unknown: Yes Family Medical History: No Reported History Additional Family Medical History / Comment(s): Father is but pt does not know past medical history-they were not in much contact with each other. Mother Family Medical History: Cancer, Respiratory Disorder Additional Family Medical History / Comment(s): Mother at the age of 50 years from Cancer metastasis. Mother also had an aneurysm. Sister(s) Additional Family Medical History / Comment(s): Bipolar and Schizoprenia. Son(s) Family Medical History: No Reported History (one son no major medical problems.) Daughter(s) Family Medical History: No Reported History (2 daughters no major medical problems.) Medications and Allergies Home Medications Medication Instructions Recorded Confirmed Type Naproxen Sodium [Aleve] 220 mg PO Q12HR PRN 10/20/21 10/20/21 History Allergies Allergy/AdvReac Type Severity Reaction Status Date / Time cephalexin [From Keflex] Allergy Severe THROAT Verified 10/21/21 08:54 Swelling clindamycin [From Cleocin] Allergy Anaphylaxis Verified 10/21/21 08:54 levofloxacin Allergy Rash/Hives Verified 10/21/21 08:54 Penicillins Allergy Swelling Verified 10/21/21 08:54 sulfamethoxazole Allergy Itching Verified 10/21/21 08:54 [From Bactrim] trimethoprim [From Bactrim] Allergy Itching Verified 10/21/21 08:54 Surgical - Exam Vital Signs Temp Pulse Resp BP Pulse Ox 97.9 F 95 16 129/76 97 10/21/21 08:59 10/21/21 08:59 10/21/21 08:59 10/21/21 08:59 10/21/21 08:59 Morbid obesity. Patient smells of tobacco - General well developed, well nourished, no distress - Eyes PERRL - ENT normal pinna - Neck no masses - Respiratory normal expansion - Abdomen Abdomen: soft, non tender Hernia: incisional (5 cm incision hernia located above the incision) Results - Labs 10/21/21 09:35 Abnormal Lab Results - Last 24 Hours (Table) 10/21/21 10/21/21 Range/Units 09:07 09:35 WBC 11.2 H (3.8-10.6) k/uL POC Glucose (mg/dL) 108 H (75-99) mg/dL Assessment and Plan Assessment: Incisional hernia. We'll perform open repair. Patient had lengthy discussion regarding the risk of infection. If she has a previous MRSA infection. Patient's obesity and smoking history will increase her risk of infection.
[2021-10-21] MEDS ORDERED: MIDAZOLAM 2 MG/2 ML VIAL ONE (10:37)
[2021-10-21] MEDS ORDERED: SUCCINYLCHOLINE CHLORIDE 100 MG/5 ML SYR IV ONE (10:37)
[2021-10-21] MEDS ORDERED: LIDOCAINE 1% INJ 10MG/ML (20 ML MDV) ONE (10:37)
[2021-10-21] MEDS ORDERED: KETOROLAC 15 MG/ML 1 ML VIAL ONE (10:37)
[2021-10-21] MEDS ORDERED: ROCURONIUM 10 MG/ML (5 ML VIAL) IV ONE (10:37)
[2021-10-21] MEDS ORDERED: ALBUTEROL HFA INHALER INHALATION ONE (10:37)
[2021-10-21] MEDS ORDERED: ROPIVACAINE 5 MG/ML 30 ML VIAL ONE (10:37)
[2021-10-21] MEDS ORDERED: HYDROmorphone (PF) 1 MG/ML ONE (10:37)
[2021-10-21] MEDS ORDERED: fentaNYL (PF) 50 MCG/ML 2 ML AMP ONE (10:37)
[2021-10-21] MEDS ORDERED: PROPOFOL 10 MG/ML 20 ML VIAL IV ONE (10:37)
[2021-10-21] MEDS ORDERED: NEOSTIGMINE 1 MG/ML 10 ML VIAL ONE (10:37)
[2021-10-21] MEDS ORDERED: DEXAMETHASONE SOD PHOSPHATE 4 MG/ML 1 ML VIAL ONE (10:37)
[2021-10-21] MEDS ORDERED: KETAMINE 10 MG/ML 20 ML VIAL ONE (10:37)
[2021-10-21] MEDS ORDERED: GLYCOPYRROLATE 0.2 MG/ML 2 ML VIAL ONE (10:37)
[2021-10-21] MEDS ORDERED: SODIUM CHLORIDE 0.9% (PF) 10 ML VIAL ONE (10:37)
--- NOTE | 2021-10-21 11:00 | P.ANPRN ---
Procedure Note - Anesthesia - Nerve Block Performed Bilateral Rectus Abdominis Single Time Out Performed: Yes Date of Procedure: 10/21/21 Procedure Start Time: 09:50 Procedure Stop Time: 10:03 Location of Patient: PreOp Indication: Requested by Surgeon Specifically requested for management of pain by DrVilma: Jamie Reddy Sedation Type: Sedate with meaningful contact maintained Preparation: Sterile Prep Position: Supine Needle Types: Pajunk Needle Gauge: 21 Ultrasound used to visualize needle placement: Yes Ultrasound used to observe medication spread: Yes Injectate: 0.5% Ropivacaine (see comment for volume) (15 ml + 15 ml 0.9 % NS + 4 mg Dexamethasone per side) Blood Aspirated: No Pain Paresthesia on Injection Noted: No Resistance on Injection: Normal Image Stored and Saved: Yes Events: Uneventful and Well Tolerated
[2021-10-21] MEDS ORDERED: ACETAMINOPHEN TAB 325 MG TAB PO PRN (11:55)
[2021-10-21] MEDS ORDERED: LACTATED RINGERS 1,000 ML IV ONE ×2 (11:55→12:29)
[2021-10-21] MEDS ORDERED: traMADol 50 MG TAB PO PRN (11:55)
[2021-10-21] MEDS ORDERED: NALOXONE 0.4 MG/ML 1 ML VIAL IV PRN (11:55)
[2021-10-21] MEDS: HYDROmorphone 0.5 MG/0.5 ML SYRINGE IVP PRN ×6 (12:05→20:17)
[2021-10-21] MEDS ORDERED: ONDANSETRON 4 MG/2 ML VIAL IVP ONE (12:18)
[2021-10-21] MEDS ORDERED: HYDROmorphone 0.5 MG/0.5 ML SYRINGE IVP ONE (13:50)
[2021-10-21] MEDS: HYDROcodone/APAP 5-325MG 1 EACH TAB PO PRN (15:39)
[2021-10-21] MEDS: KETOROLAC 15 MG/ML 1 ML VIAL IVP SCH (17:00)
[2021-10-22] MEDS: KETOROLAC 15 MG/ML 1 ML VIAL IVP SCH ×4 (00:20→17:02)
[2021-10-22] MEDS: HYDROmorphone 0.5 MG/0.5 ML SYRINGE IVP PRN ×4 (03:42→19:46)
[2021-10-22] MEDS: LACTATED RINGERS 1,000 ML IV SCH (05:27)
[2021-10-22] MEDS: ENOXAPARIN 40 MG/0.4 ML SYRINGE SQ SCH (08:04)
[2021-10-22] MEDS: HYDROcodone/APAP 5-325MG 1 EACH TAB PO PRN ×2 (08:04→14:10)
[2021-10-22] MEDS: ONDANSETRON 4 MG/2 ML VIAL IVP PRN ×2 (10:55→16:06)
--- NOTE | 2021-10-22 12:04 | P.CONS ---
History of Present Illness - History of Present Illness This is a pleasant 41 years old female with past medical history of Asthma, GERD/Reflux,hx ruptured appendix resulting in bowel resection, Migraines, hx pancreatitis, Lower lumbar disease, hypoglycemia, Bipolar, Depression,Current every day smoker Patient presents with incisional hernia and a lump on the incision of her previous surgery. Patient underwent surgical hernia repair yesterday. Today postop day #1. She still have some pain at the surgery site which is expected. No bowel movement yet. Hemodynamically stable. WC 11.2 She is on Pepcid, Lovenox and Ringer lactate 1 25 mL/h Review of Systems Review of systems CONSTITUTIONAL: No fever, no malaise, no fatigue. HEENT: No recent visual problems or hearing problems. Denied any sore throat. CARDIOVASCULAR: No orthopnea, PND, no palpitations, no syncope. PULMONARY: No shortness of breath, no cough, no hemoptysis. GASTROINTESTINAL: No diarrhea, no nausea, no vomiting, no abdominal pain. Normoactive bowel sounds. NEUROLOGICAL: No headaches, no weakness, no numbness. HEMATOLOGICAL: Denies any bleeding or petechiae. GENITOURINARY: Denies any burning micturition, frequency, or urgency. MUSCULOSKELETAL/RHEUMATOLOGICAL: Denies any joint pain, swelling, or any muscle pain. ENDOCRINE: Denies any polyuria or polydipsia. Past Medical History Past Medical History: Asthma, GERD/Reflux Additional Past Medical History / Comment(s): hx ruptured appendix resulting in bowel resection, hx Midline catheter for iv infusions, Migraines, hx pancreatitis, Lower lumbar disease, hypoglycemia. History of Any Multi-Drug Resistant Organisms: MRSA Year Discovered:: 05/23/20 MDRO Source:: ABDOMEN Past Surgical History: Appendectomy, Bowel Resection, Cholecystectomy, Hysterectomy, Orthopedic Surgery, Tonsillectomy Additional Past Surgical History / Comment(s): (R) hand surgery, (L) hip I&D from spider bite r/t MRSA, Past Anesthesia/Blood Transfusion Reactions: No Reported Reaction Additional Past Anesthesia/Blood Transfusion Reaction / Comm: SEVERE CLAUSTROPHOBIA INCLUDING A MASK ON HER FACE. Past Psychological History: Anxiety, Bipolar, Depression Additional Psychological History / Comment(s): no current medications Smoking Status: Current every day smoker Past Alcohol Use History: None Reported Additional Past Alcohol Use History / Comment(s): smokes 1PPD for >20 yrs Past Drug Use History: None Reported - Past Family History Father History Unknown: Yes Family Medical History: No Reported History Additional Family Medical History / Comment(s): Father is but pt does not know past medical history-they were not in much contact with each other. Mother Family Medical History: Cancer, Respiratory Disorder Additional Family Medical History / Comment(s): Mother at the age of 50 years from Cancer metastasis. Mother also had an aneurysm. Sister(s) Additional Family Medical History / Comment(s): Bipolar and Schizoprenia. Son(s) Family Medical History: No Reported History (one son no major medical problems.) Daughter(s) Family Medical History: No Reported History (2 daughters no major medical problems.) Medications and Allergies Home Medications Medication Instructions Recorded Confirmed Type Naproxen Sodium [Aleve] 220 mg PO Q12HR PRN 10/20/21 10/20/21 History Allergies Allergy/AdvReac Type Severity Reaction Status Date / Time cephalexin [From Keflex] Allergy Severe THROAT Verified 10/21/21 08:54 Swelling clindamycin [From Cleocin] Allergy Anaphylaxis Verified 10/21/21 08:54 levofloxacin Allergy Rash/Hives Verified 10/21/21 08:54 Penicillins Allergy Swelling Verified 10/21/21 08:54 sulfamethoxazole Allergy Itching Verified 10/21/21 08:54 [From Bactrim] trimethoprim [From Bactrim] Allergy Itching Verified 10/21/21 08:54 Physical Exam Vitals: Vital Signs Temp Pulse Pulse Resp BP Pulse Ox 10/22/21 07:44 98.5 F 89 121/71 96 10/22/21 01:25 98.1 F 87 20 101/64 94 L 10/21/21 19:19 98.5 F 97 20 120/76 91 L 10/21/21 15:43 98.5 F 90 17 114/76 92 L 10/21/21 15:00 85 16 118/66 96 10/21/21 14:30 82 16 133/62 97 10/21/21 14:15 80 16 121/58 96 10/21/21 14:04 80 16 114/61 95 10/21/21 13:45 77 16 114/58 95 10/21/21 13:30 78 16 118/63 96 10/21/21 13:15 86 16 120/80 97 10/21/21 13:00 76 16 111/74 98 10/21/21 12:45 76 16 122/76 97 10/21/21 12:30 74 16 118/75 97 10/21/21 12:15 74 16 115/69 97 10/21/21 12:00 75 18 117/70 94 L 10/21/21 11:45 77 16 121/70 96 10/21/21 11:33 99.3 F 87 16 132/73 94 L 10/21/21 10:35 79 116 H 117/67 95 10/21/21 08:59 97.9 F 95 16 129/76 97 Intake and Output 10/21/21 10/22/21 10/22/21 22:59 06:59 14:59 Other: Voiding Method Bedpan # Voids 1 2 -GENERAL: The patient is alert and oriented x3, not in any acute distress obese HEENT: Pupils are round and equally reacting to light. EOMI. No scleral icterus. No conjunctival pallor. Normocephalic, atraumatic. No pharyngeal erythema. No thyromegaly. CARDIOVASCULAR: S1 and S2 present. No murmurs, rubs, or gallops. PULMONARY: Chest is clear to auscultation, no wheezing or crackles. -ABDOMEN: Soft, nontender, nondistended, normoactive bowel sounds. No palpable organomegaly. Surgical wound with a dressing in a Place, rest of exam is deferred to surgery primary team MUSCULOSKELETAL: No joint swelling or deformity. EXTREMITIES: No cyanosis, clubbing, or pedal edema. NEUROLOGICAL: Gross neurological examination did not reveal any focal deficits. SKIN: No rashes. no petechiae. Results CBC & Chem 7: 10/21/21 09:35 Labs: Abnormal Lab Results - Last 24 Hours (Table) 10/21/21 10/21/21 Range/Units 09:07 09:35 WBC 11.2 H (3.8-10.6) k/uL POC Glucose (mg/dL) 108 H (75-99) mg/dL Assessment and Plan Assessment: Incisional hernia status post hernia repair on 10/21 Asthma, not an active issue History of GERD, not an active issue History of migraine History of bipolar and depression, not active tissue Nicotine dependence, patient is counseled. Obesity with BMI of 40.4 Plan: This is a pleasant 41 years old female presents with hernia repair Continue with pain management and DVT prophylaxis Monitor vitals and electrolytes Labs and medication were reviewed.. Continue same treatment. Continue with symptomatic treatment. Resume home medication. Monitor lytes and vitals. DVT and GI prophylaxis. Further recommendationsas per clinical course of the patient DVT prophylaxis: Subcutaneous Lovenox GI Prophylaxis: Pepcid Thank you for consulting us
--- NOTE | 2021-10-22 15:55 | P.PN ---
Subjective Progress Note Date: 10/22/21 CHIEF COMPLAINT: Incisional hernia HISTORY OF PRESENT ILLNESS: Patient is status post open incisional hernia repair. Patient complaining of nausea and abdominal pain this morning. She did report some decrease in her pain with medications. She is passing a small amount of flatus. She tolerated clear liquids this morning. She is postop day #1. Afebrile. No new labs today. Patient is status post nerve block for pain PHYSICAL EXAM: VITAL SIGNS: Reviewed. GENERAL: Well-developed in no acute distress. HEENT: No sclera icterus. Extraocular movements grossly intact. Moist buccal mucosa. Head is atraumatic, normocephalic. ABDOMEN: Soft. Nondistended. Tenderness noted around incision site. Incision site clean dry and intact except for small amount of oozing blood at the center of the incision. NEUROLOGIC: Alert and oriented. Cranial nerves II through XII grossly intact. ASSESSMENT: 1. Incisional hernia status post open repair of incisional hernia PLAN: -Continue current pain management -Encourage patient to ambulate -Advance diet as tolerated -Social work consult regarding patient's living situation. She is currently living in a hotel -Continue supportive care -Anticipate discharge tomorrow -GI prophylaxis Pepcid and DVT prophylaxis Lovenox Physician Certified Adaptive Physical Educator note has been reviewed by physician. Signing provider agrees with the documented findings, assessment, and plan of care. Objective - Vital Signs Vital signs: Vital Signs Temp 98.5 F 10/22/21 14:00 Pulse 86 10/22/21 14:00 Resp 20 10/22/21 01:25 BP 127/82 10/22/21 14:00 Pulse Ox 95 10/22/21 14:00 Intake & Output 10/21/21 10/22/21 10/22/21 18:59 06:59 18:59 Intake Total 1250 Output Total 25 Balance 1225 Weight 106.8 kg Intake: IV 1250 Output: Estimated Blood Loss 25 Other: Voiding Method Bedpan # Voids 1 2 - Labs CBC & Chem 7: 10/21/21 09:35
[2021-10-22] MEDS: FAMOTIDINE 20 MG/2 ML VIAL IV SCH (19:47)
[2021-10-23] MEDS: KETOROLAC 15 MG/ML 1 ML VIAL IVP SCH ×3 (00:19→12:22)
[2021-10-23] MEDS: LACTATED RINGERS 1,000 ML IV SCH (08:02)
[2021-10-23] MEDS: ENOXAPARIN 40 MG/0.4 ML SYRINGE SQ SCH (08:03)
[2021-10-23] MEDS: HYDROcodone/APAP 5-325MG 1 EACH TAB PO PRN (08:05)
[2021-10-23] MEDS: FAMOTIDINE 20 MG/2 ML VIAL IV SCH (08:32)
--- NOTE | 2021-10-23 08:40 | P.PN ---
Subjective This is a pleasant 41 years old female with past medical history of Asthma, GERD/Reflux,hx ruptured appendix resulting in bowel resection, Migraines, hx pancreatitis, Lower lumbar disease, hypoglycemia, Bipolar, Depression,Current every day smoker Patient presents with incisional hernia and a lump on the incision of her previous surgery. Patient underwent surgical hernia repair yesterday. Today postop day #1. She still have some pain at the surgery site which is expected. No bowel movement yet. Hemodynamically stable. WC 11.2 She is on Pepcid, Lovenox and Ringer lactate 125 mL/h 10/23/2021 Patient lying in bed comfortable, no distress. She has some pain at the surgical site is expected. She is afebrile and hemodynamically stable. Blood pressure 126/71. WBC was mildly elevated yesterday at 11.2, most likely reactive, repeat WBC is pending today. She is on full liquid diet currently and tolerance that's all she states. Patient states that she does not have a primary care doctor so she was instructed to call her insurance provider to find a nearby PCP and she agrees. Objective - Vital Signs Vital signs: Vital Signs Temp 97.8 F 10/23/21 07:18 Pulse 79 10/23/21 07:18 Resp 17 10/23/21 07:18 BP 126/71 10/23/21 07:18 Pulse Ox 95 10/23/21 07:18 Intake & Output 10/22/21 10/23/21 10/23/21 18:59 06:59 18:59 Other: Voiding Method Toilet # Voids 2 - Exam -GENERAL: The patient is alert and oriented x3, not in any acute distress obese HEENT: Pupils are round and equally reacting to light. EOMI. No scleral icterus. No conjunctival pallor. Normocephalic, atraumatic. No pharyngeal erythema. No thyromegaly. CARDIOVASCULAR: S1 and S2 present. No murmurs, rubs, or gallops. PULMONARY: Chest is clear to auscultation, no wheezing or crackles. -ABDOMEN: Soft, nontender, nondistended, normoactive bowel sounds. No palpable organomegaly. Surgical wound with a dressing in a Place, rest of exam is deferred to surgery primary team MUSCULOSKELETAL: No joint swelling or deformity. EXTREMITIES: No cyanosis, clubbing, or pedal edema. NEUROLOGICAL: Gross neurological examination did not reveal any focal deficits. SKIN: No rashes. no petechiae. - Labs CBC & Chem 7: 10/21/21 09:35 Assessment and Plan Assessment: Incisional hernia status post hernia repair on 10/21 Asthma, not an active issue History of GERD, not an active issue History of migraine History of bipolar and depression, not active tissue Nicotine dependence, patient is counseled. Obesity with BMI of 40.4 Plan: This is a pleasant 41 years old female presents with hernia repair Continue with pain management and DVT prophylaxis Follow-up WBC count Monitor vitals and electrolytes Labs and medication were reviewed.. Continue same treatment. Continue with symptomatic treatment. Resume home medication. Monitor lytes and vitals. DVT and GI prophylaxis. Further recommendationsas per clinical course of the patient DVT prophylaxis: Subcutaneous Lovenox GI Prophylaxis: Pepcid We recommend patient follow up with PCP in one week after discharge, and she was instructed with the same Thank you for consulting us
[2021-10-23 09:44] LABS: Basophils # (A) 0.08 X 10*3/uL (0.00-0.10); Basophils % (A) 0.7 %; Eosinophils # (A) 0.12 X 10*3/uL (0.04-0.35); Eosinophils % (A) 1.1 %; HCT 38.6 % (37.2-46.3); HGB 12.4 g/dL (12.0-15.0); Immature Grans, Automated 0.3 %; Lymphocytes # (A) 4.44 X 10*3/uL (0.90-5.00); Lymphocytes % (A) 41.4 %; MCH 29.5 pg (27.0-32.0); MCHC 32.1 g/dL (32.0-37.0); MCV 91.7 fL (80.0-97.0); Mean Platelet Volume 10.8 fL (9.5-12.2); Monocytes # (A) 0.65 X 10*3/uL (0.20-1.00); Monocytes % (A) 6.1 %; NRBC Per 100 WBC 0 /100 WBCS (0.0-0.0); Neutrophils % (A) 50.4 %; Platelet Count 336 X 10*3/uL (140-440); RBC 4.21 X 10*6/uL (4.10-5.20); RDW 12.2 % (11.5-14.5); WBC 10.72 X 10*3/uL (4.50-10.00)
--- NOTE | 2021-10-23 13:56 | P.DS ---
Providers Date of admission: 10/22/21 14:00 Expected date of discharge: 10/23/21 Attending physician: Jamie Reddy Consults: 10/21/21 11:55 Consult Physician Routine Consulting Provider: Austin Silvestre Consult Reason/Comments: Medical management Do you want consulting provider notified?: Yes Primary care physician: Stated None Hospital Course: Discharge diagnosis 1. Incisional hernia status post open repair of incisional hernia Hospital course This is a 41-year-old female with an incisional hernia. She is status post open repair of incisional hernia. She tolerated surgery well. Her pain is controlled. She has been up and ambulating. She is tolerating diet. She is having flatus. She is afebrile. Her incision site is clean dry and intact with a very small amount of blood oozing at the middle of the incision. She is stable for discharge. Please refer to chart for any further details. Physician Pressroom Supervisor note has been reviewed by physician. Signing provider agrees with the documented findings, assessment, and plan of care. Patient Condition at Discharge: Stable Plan - Discharge Summary Discharge Rx Participant: Yes New Discharge Prescriptions: New Docusate [Colace] 100 mg PO BID #30 capsule HYDROcodone/APAP 5-325MG [[place] 5-325] 1 tab PO Q6HR PRN 3 Days #12 tab PRN Reason: Pain Continue Naproxen Sodium [Aleve] 220 mg PO Q12HR PRN PRN Reason: Pain Discharge Medication List Naproxen Sodium [Aleve] 220 mg PO Q12HR PRN 10/20/21 [History] Docusate [Colace] 100 mg PO BID #30 capsule 10/23/21 [Rx] HYDROcodone/APAP 5-325MG [[place] 5-325] 1 tab PO Q6HR PRN 3 Days #12 tab 10/23/21 [Rx] Follow up Appointment(s)/Referral(s): Jamie Reddy MD [STAFF PHYSICIAN] - 10/29/21 1:15 pm Activity/Diet/Wound Care/Special Instructions: No driving while taking [place] No lifting over 10 pounds You may shower. No soaking or tub baths for 2 weeks Very light activity until you are reevaluated at your follow up appointment with your surgeon Discharge Disposition: HOME SELF-CARE
[2021-10-23 14:41] VITALS: BP 106/67; PULSE 94; RESP 18; TEMP 97.9
--- NOTE | 2021-11-16 08:02 | P.OP ---
Date of Procedure: 10/21/21 Preoperative Diagnosis: Incisional hernia Postoperative Diagnosis: Incisional hernia Procedure(s) Performed: Open repair of incisional hernia Anesthesia: YOANA Surgeon: Jamie Reddy Estimated Blood Loss (ml): 10 Pathology: none sent Condition: stable Disposition: PACU Description of Procedure: The patient's placed on the operating table in the supine position. She received general endotracheal tube anesthesia. Her abdomen was prepped and draped usual sterile fashion. The skin was incised over top the hernia. The hernias located superior portion of her midline incision. His left cautery the subcutaneous tissue divided. The subcutaneous tissues quite thick. There is approximately 2 inches in depth the subcutaneous tissue. The hernia defect was then visualized. The hernia sac was dissected free from some taste tissues. Due to the patient's previous history of MRSA infection and her significant antibiotic ALLERGY. Decided not to use mesh. The hernia defect was then closed using [id number] 0 Ethibond suture. Once the fascia was closed. The wound U stitches. There is no bleeding seen. The skin was closed lilian. Patient top she will was sent to recovery room in stable condition.
== END 2021-10-23 14:53 | disposition home or self-care (01) ==
LOC: OR 08:41 → 4SSUR 11:33 → OR 10-22 13:47 → 4SSUR 10-22 14:00
PROVIDERS: ADMIT Surgery; ATTEND Surgery
DX: K43.2 Incisional hernia without obstruction or gangrene (principal); J45.909 Unspecified asthma, uncomplicated; K21.9 Gastro-esophageal reflux disease without esophagitis; F17.210 Nicotine dependence, cigarettes, uncomplicated; G43.909 Migraine, unspecified, not intractable, without status migrainosus; F40.240 Claustrophobia; E16.2 Hypoglycemia, unspecified; E66.01 Morbid (severe) obesity due to excess calories; Z68.41 Body mass index [BMI] 40.0-44.9, adult; F31.9 Bipolar disorder, unspecified; F41.9 Anxiety disorder, unspecified; Z86.14 Personal history of Methicillin resistant Staphylococcus aureus infection; Z71.9 Counseling, unspecified; Z71.6 Tobacco abuse counseling; Z90.49 Acquired absence of other specified parts of digestive tract; Z90.710 Acquired absence of both cervix and uterus; Z88.0 Allergy status to penicillin; Z88.1 Allergy status to other antibiotic agents; Z88.2 Allergy status to sulfonamides; Z80.9 Family history of malignant neoplasm, unspecified; Z81.8 Family history of other mental and behavioral disorders; Z83.6 Family history of other diseases of the respiratory system; Z82.49 Family history of ischemic heart disease and other diseases of the circulatory system
CPT/HCPCS: 49560; 64999; 86900; 86901; 85025 ×2; 86850; G0378 ×2; J2250; J3370; J1100; J2710; J2405 ×2; J2001; J1650 ×2; J3010; J1170 ×3; J2795; J1885 ×3; J0330; J2704; J1644

== ENCOUNTER 2021-11-02 23:52 | Inpatient (IN) | payer MEDICARE, OTHER ==
[2021-11-03] MEDS ORDERED: NALOXONE 0.4 MG/ML 1 ML VIAL IV PRN (01:27)
[2021-11-03] MEDS ORDERED: ACETAMINOPHEN TAB 325 MG TAB PO PRN (01:27)
[2021-11-03] MEDS ORDERED: MORPHINE SULFATE 4 MG/ML SYRINGE IV STA (01:36)
[2021-11-03] MEDS ORDERED: VANCOMYCIN IV PER PHARMACY 1 EACH MISC MISCELLANE PRN (01:36)
--- NOTE | 2021-11-03 01:36 | ED ---
General Adult HPI - General Chief complaint: Skin/Abscess/Foreign Body Stated complaint: Post Op Infection Time Seen by Provider: 11/02/21 23:58 Source: patient, EMS Mode of arrival: EMS Limitations: no limitations - History of Present Illness Initial comments: This patient is a 41-year-old woman who is transferred here from [facility] for concerns about possible abdominal wall incision infection. The patient had a ventral hernia repair October [address] Reddy. The patient had routine postop follow-up and then reportedly had a couple of the sutures removed so to facilitate drainage of a hematoma or seroma. Patient states that over the past 2 or 3 days the amount of drainage has appeared to increase. The patient states that she is also having a lack of energy feeling very fatigued. She could not identify any other systemic symptoms. No fever or chills. No chest pain, dyspnea, palpitations. No change in urination or bowel movements. The patient was seen in the emergency department [place] where she had labs revealing a leukocytosis of 15.3 thousand. She had computed tomography scan that did reveal fluid collection with some evidence of inflammation, possibly indicative of infection. She was given antibiotics there, one dose of metronidazole 500 mg IV. -: days(s) Location: abdomen Radiation: non-radiation Quality: dull Consistency: constant Improves with: none Worsens with: none Associated Symptoms: denies other symptoms Treatments Prior to Arrival: other - Related Data Previous Rx's Medication Instructions Recorded Acetaminophen [Tylenol Extra 500 mg PO Q6HR #30 tablet 11/07/21 Strength] Doxycycline Hyclate 100 mg PO Q12H 10 Days #20 tab 11/07/21 Ibuprofen [Motrin] 600 mg PO Q6HR PRN #30 tab 11/07/21 Allergies Allergy/AdvReac Type Severity Reaction Status Date / Time cephalexin [From Keflex] Allergy Severe Anaphylaxis Verified 11/03/21 12:06 clindamycin [From Cleocin] Allergy Anaphylaxis Verified 11/03/21 12:06 levofloxacin Allergy Rash/Hives Verified 11/03/21 12:06 Penicillins Allergy Swelling Verified 11/03/21 12:06 of entire body sulfamethoxazole Allergy Itching Verified 11/03/21 12:06 [From Bactrim] trimethoprim [From Bactrim] Allergy Itching Verified 11/03/21 12:06 Review of Systems ROS Statement: Those systems with pertinent positive or pertinent negative responses have been documented in the HPI. ROS Other: All systems not noted in ROS Statement are negative. Constitutional: Denies: fever, chills Respiratory: Denies: cough, dyspnea Cardiovascular: Denies: chest pain, palpitations Endocrine: Reports: fatigue Gastrointestinal: Reports: as per HPI, abdominal pain. Denies: nausea, vomiting, diarrhea, constipation Genitourinary: Denies: dysuria, hematuria Musculoskeletal: Denies: back pain Skin: Denies: rash Neurological: Denies: headache Past Medical History Past Medical History: Asthma, GERD/Reflux Additional Past Medical History / Comment(s): hx ruptured appendix resulting in bowel resection, hx Midline catheter for iv infusions, Migraines, hx pancreatitis, Lower lumbar disease, hypoglycemia. History of Any Multi-Drug Resistant Organisms: MRSA Date of last positivie culture/infection: 05/23/20 MDRO Source:: ABDOMEN Past Surgical History: Appendectomy, Bowel Resection, Cholecystectomy, Hysterectomy, Orthopedic Surgery, Tonsillectomy Additional Past Surgical History / Comment(s): (R) hand surgery, (L) hip I&D from spider bite r/t MRSA, Past Anesthesia/Blood Transfusion Reactions: No Reported Reaction Additional Past Anesthesia/Blood Transfusion Reaction / Comment(s): SEVERE CLAUSTROPHOBIA INCLUDING A MASK ON HER FACE. Past Psychological History: Anxiety, Bipolar, Depression Smoking Status: Current every day smoker Past Alcohol Use History: None Reported Past Drug Use History: None Reported - Past Family History Father History Unknown: Yes Family Medical History: No Reported History Additional Family Medical History / Comment(s): Father is but pt does not know past medical history-they were not in much contact with each other. Mother Family Medical History: Cancer, Respiratory Disorder Additional Family Medical History / Comment(s): Mother at the age of 50 years from Cancer metastasis. Mother also had an aneurysm. Sister(s) Additional Family Medical History / Comment(s): Bipolar and Schizoprenia. Son(s) Family Medical History: No Reported History (one son no major medical problems.) Daughter(s) Family Medical History: No Reported History (2 daughters no major medical problems.) General Exam Limitations: no limitations General appearance: alert, in no apparent distress Head exam: Present: atraumatic, normocephalic Eye exam: Present: normal appearance. Absent: scleral icterus, conjunctival injection Neck exam: Present: normal inspection Respiratory exam: Present: normal lung sounds bilaterally. Absent: respiratory distress, wheezes, rales, rhonchi, stridor Cardiovascular Exam: Present: regular rate, normal rhythm, normal heart sounds. Absent: systolic murmur, diastolic murmur, rubs, gallop GI/Abdominal exam: Present: soft. Absent: distended, tenderness, guarding, rebound, rigid, mass Extremities exam: Present: normal inspection, normal capillary refill. Absent: pedal edema, calf tenderness Back exam: Present: normal inspection. Absent: CVA tenderness (R), CVA tenderness (L) Neurological exam: Present: alert Skin exam: Present: warm, dry, intact, normal color. Absent: rash Course Vital Signs 11/03/21 11/03/21 11/03/21 00:04 02:08 04:08 Temperature 97.7 F Pulse Rate 88 79 89 Respiratory 16 18 20 Rate Blood Pressure 118/60 131/79 111/61 O2 Sat by Pulse 98 95 95 Oximetry 11/03/21 11/03/21 11/03/21 08:56 10:57 11:49 Temperature Pulse Rate 94 78 96 Respiratory 18 16 Rate Blood Pressure 107/77 115/67 113/72 O2 Sat by Pulse 93 L 98 97 Oximetry Medical Decision Making - Lab Data Result diagrams: 11/07/21 06:32 11/07/21 11:07 Lab Results 11/03/21 11/04/21 11/04/21 Range/Units 07:59 06:07 06:07 WBC 11.76 H (4.50-10.00) X 10*3/uL RBC 3.95 L (4.10-5.20) X 10*6/uL Hgb 11.6 L (12.0-15.0) g/dL Hct 36.5 L (37.2-46.3) % MCV 92.4 (80.0-97.0) fL MCH 29.4 (27.0-32.0) pg MCHC 31.8 L (32.0-37.0) g/dL RDW 12.2 (11.5-14.5) % Plt Count 343 (140-440) X 10*3/uL MPV 10.8 (9.5-12.2) fL Immature Gran % (Auto) 0.4 % Absolute Nucleated RBC 0 (0.00-0.00) X 10*3/uL Neutrophils % 50.3 % Lymphocytes % 38.4 % Monocytes % 7.1 % Eosinophils % 2.9 % Basophils % 0.9 % Immature Gran # 0.05 H (0.00-0.04) X 10*3/uL Neutrophils # 5.91 (1.80-7.70) X 10*3/uL Lymphocytes # 4.51 (0.90-5.00) X 10*3/uL Monocytes # 0.84 (0.20-1.00) X 10*3/uL Eosinophils # 0.34 (0.04-0.35) X 10*3/uL Basophils # 0.11 H (0.00-0.10) X 10*3/uL NRBC/100 WBC Diff 0 (0.0-0.0) /100 WBCS Sodium 139 (135-145) mmol/L Potassium 4.3 (3.5-5.5) mmol/L Chloride 107 (96-109) mmol/L Carbon Dioxide 23.0 (20.0-27.5) mmol/L Anion Gap 9.00 L (10.00-18.00) mmol/L BUN 14.7 (9.0-27.0) mg/dL Creatinine 0.93 0.9 (0.52-1.04) mg/dL Est GFR (CKD-EPI)AfAm 88 90.8 (>60 ml/min/1.73 sqM) Est GFR (CKD-EPI)NonAf 76 78.3 (>60 ml/min/1.73 sqM) BUN/Creatinine Ratio 16.33 (12.00-20.00) Ratio Glucose 105 (70-110) mg/dL Calcium 8.8 (8.7-10.3) mg/dL Disposition Clinical Impression: Wound infection after surgery Narrative: Possible infection of abdominal surgical incision Disposition: ADMITTED IP TO THIS HOSP Condition: Good
[2021-11-03] MEDS ORDERED: VANCOMYCIN 1,750 MG in SODIUM CHLORIDE 0.9% 500 ML 500 ML IVPB ONE (01:45)
[2021-11-03] MEDS: SODIUM CHLORIDE 0.9% 1,000 ML IV SCH ×3 (01:50→23:49)
[2021-11-03] MEDS: KETOROLAC 15 MG/ML 1 ML VIAL IVP PRN (05:46)
[2021-11-03] MEDS: ONDANSETRON 4 MG/2 ML VIAL IVP PRN (05:47)
[2021-11-03] MEDS ORDERED: HYDROmorphone 1 MG/ML 1 ML SYRINGE IVP PRN (10:26)
[2021-11-03] MEDS: VANCOMYCIN 1,750 MG in SODIUM CHLORIDE 0.9% 500 ML 500 ML IVPB SCH ×2 (12:44→23:49)
--- NOTE | 2021-11-03 14:27 | P.CONS ---
History of Present Illness - Reason for Consult Consult date: 11/03/21 Medical management - Chief Complaint Abdominal wound infection - History of Present Illness Patient is a 41-year-old female with a known history of recent incisional hernia open repair on 10/21/2021 initially presented to [facility] with complaints of discharge from the midline abdominal incision. Patient states that she has been having purulent discharge for the past 1 week at the surgical site and also having fever and chills and malaise and symptoms have been going for 1 week. Denied any complaints of chest pain. Patient felt nauseous. No episodes of vomiting. No diarrhea. No headache or dizziness or lightheadedness. Patient initially had appendectomy and 2020 and had a postop complication with intra-abdominal infection. Patient was placed on IV antibiotics via PICC line at the time due to MRSA. Patient later developed ventral area within the abdominal wall muscles from previous surgeries. Patient had ventral hernia repair on 10/21/2021. Patient is supposed to follow-up with Dr. Vences on 10/29/2021. Patient also had 3 lilian removed at that time. She has been h aving chills and also purulent discharge from the wound site. Patient had CT of the abdomen pelvis done at [facility] which showed postsurgical changes midline ventral abdomen with associated cutaneous lilian and area dehiscence seen centrally. At the incision site with there are 2 adjacent are 1 large lobulated fluid collection extending from the skin surface to the superficial surface of the abdominal wall musculature measuring up to 3.6 x 3.0 x 98.9 cm concerning for abscess formation. There is inflammatory changes within the adjacent subcutaneous tissues with skin thickening concerning for cellulitis. No well-defined fluid collection within the peritoneum to suggest abscess formation. At the inferior aspect of the Incision site there is a nondistended loop of small bowel around the anterior abdominal with demonstrate mild wall thickening. Likely reactive enteritis. No bowel obstruction. 3 cm right inguinal gland nodule not compatible with lipid rich adenoma. Laboratory data at [facility] showed WBC 4.71 hemoglobin 13.5 and platelets 439 urinalysis negative for infection sodium 138 potassium 4.0 chloride 105 bicarb is 24 BUN 14 and creatinine 0.9. Calcium 9.0 liver enzymes are not elevated lactate 2.0 lipase 297 and blood sugar 119 pulse ox was 97% on room air. Review of Systems Constitutional: Patient does complain of fever and chills at home and generalized weakness and malaise. Abdomen: Patient denied nausea vomiting and diarrhea and abdominal pain. Cardiovascular: Patient denies any chest pain or short of breath no palpitations. Respiratory: patient denied any cough is from production. No shortness of breath Neurologic: Patient denied any numbness or tingling headache. Musculoskeletal: Patient denies any complaints of joint swelling or deformity. Skin: Abdominal wound infection Psychiatric: Negative Endocrine: No heat or cold intolerance. No recent weight gain. Genitourinary: No dysuria or hematuria. All other 14 point ROS negative except the above Past Medical History Past Medical History: Asthma, GERD/Reflux Additional Past Medical History / Comment(s): Ruptured appendix that resulted in bowel resection, migraines, low back pain/. DDD/scoliosis, pancreatic deficiency/chronic pancreatitis, past ETOH abuse/quit drinking 3.5 years ago, hypoglycemia, occasional vertigo. History of Any Multi-Drug Resistant Organisms: MRSA Year Discovered:: 05/23/20 MDRO Source:: ABDOMEN Past Surgical History: Appendectomy, Bowel Resection, Cholecystectomy, Hernia Repair, Hysterectomy, Orthopedic Surgery, Tonsillectomy, Tubal Ligation Additional Past Surgical History / Comment(s): 10/21/21 Incisional hernia repair with mesh, appendectomy with bowel resection, R hand surgery for infection, L hip spider bite/MRSA and had I&D, EGD, colonoscopies. Past Anesthesia/Blood Transfusion Reactions: No Reported Reaction Additional Past Anesthesia/Blood Transfusion Reaction / Comm: SEVERE CLAUSTROPHOBIA INCLUDING A MASK ON HER FACE. Smoking Status: Current every day smoker - Past Family History Father History Unknown: Yes Family Medical History: No Reported History Additional Family Medical History / Comment(s): Father is but pt does not know past medical history-they were not in much contact with each other. Mother Family Medical History: Cancer, Respiratory Disorder Additional Family Medical History / Comment(s): Mother at the age of 50 years from Cancer metastasis. Mother also had an aneurysm. Sister(s) Additional Family Medical History / Comment(s): Bipolar and Schizoprenia. Son(s) Family Medical History: No Reported History (one son no major medical problems.) Daughter(s) Family Medical History: No Reported History (2 daughters no major medical problems.) Medications and Allergies Home Medications Medication Instructions Recorded Confirmed Type No Known Home Medications 11/03/21 11/03/21 History Allergies Allergy/AdvReac Type Severity Reaction Status Date / Time cephalexin [From Keflex] Allergy Severe Anaphylaxis Verified 11/03/21 12:06 clindamycin [From Cleocin] Allergy Anaphylaxis Verified 11/03/21 12:06 levofloxacin Allergy Rash/Hives Verified 11/03/21 12:06 Penicillins Allergy Swelling Verified 11/03/21 12:06 of entire body sulfamethoxazole Allergy Itching Verified 11/03/21 12:06 [From Bactrim] trimethoprim [From Bactrim] Allergy Itching Verified 11/03/21 12:06 Physical Exam Vitals: Vital Signs Temp Pulse Pulse Resp BP BP Pulse Ox 11/03/21 12:41 98.6 F 80 18 114/71 98 11/03/21 12:07 80 18 11/03/21 11:49 96 16 113/72 97 11/03/21 10:57 78 115/67 98 11/03/21 08:56 94 18 107/77 93 L 11/03/21 04:08 89 20 111/61 95 11/03/21 02:08 79 18 131/79 95 11/03/21 00:04 97.7 F 88 16 118/60 98 Intake and Output 11/02/21 11/03/21 11/03/21 22:59 06:59 14:59 Intake Total 275 Balance 275 Intake: Oral 275 Other: Voiding Method Toilet Weight 105.233 kg 105.233 kg PHYSICAL EXAMINATION: Patient is lying in the bed comfortably, no acute distress, awake alert and oriented.. HEENT: Normocephalic. Neck is supple. Pupils reactive. Nostrils clear. Oral cavity is moist. Neck reveals no JVD, carotid bruits, or thyromegaly. CHEST EXAMINATION: Trachea is central. Symmetrical expansion. Lung beyer clear to auscultation and percussion. CARDIAC: Normal S1, S2 with no gallops. No murmurs ABDOMEN: Soft. Patient does have midline incision wound with no purulent drainage. Tenderness and surrounding redness. Bowel sounds normal. No organomegaly. No abdominal bruits. Extremities: reveal no edema. No clubbing or cyanosis Neurologically awake, alert, oriented x3 with well-coordinated movements. No focal deficits noted Skin: No rash or skin lesions. Psychiatric: Coperative. Nonsuicidal Musculoskeletal: No joint swelling or deformity. Normal range of motion. Results CBC & Chem 7: 11/03/21 07:59 Assessment and Plan Assessment: Midline abdominal postsurgical incision wound site infection with fluid collection possible abscess and surrounding cellulitis. 3 cm adrenal nodule right side. Patient will need endocrinology follow-up and MRI of the abdomen with adrenal mass protocol., Which has been informed to the patient. Morbid obesity 39.8 DVT prophylaxis with Lovenox subcu Plan: Patient will be continued on antibiotics in the form of vancomycin. Incision site lilian were removed by surgery. May need abscess/seroma drainage, possibly IR guided. ID was consulted for evaluation. We will continue to f tete and further recommendations based on the clinical course. Thank you for your consult. Time with Patient: Greater than 30
--- NOTE | 2021-11-03 15:34 | P.GSHP ---
History of Present Illness H&P Date: 11/03/21 CHIEF COMPLAINT: Abdominal pain HISTORY OF PRESENT ILLNESS: This is a 41-year-old female who is a transfer from [facility] for concerns of possible infection at the abdominal incision site. There were concerns for seroma. Patient reports over the last couple days she noticed increased purulent drainage from the incision site. She had been in the office to see Dr. Phillips on 10/29/2021 for drainage at the incision site. She had a few of the lilian removed at the umbilicus. Patient had a incisional hernia repair on 10/21/[address] Luong. Patient initially went to [facility] due to increased abdominal pain and drainage from her incision site. She had a computed tomography scan abdomen and pelvis which did show evidence of focal fluid collection. She had elevated white count of 15.3. She was started on IV antibiotics and transferred to [facility] to be e valuated by surgeon. Patient reports feeling nauseous. She reports that she may have had fever. She is currently afebrile. She is admitted to the hospital with concerns for possible seroma. Patient does have a known history of MRSA. She is currently on IV vancomycin. Patient seen and examined with Dr. luong PAST MEDICAL HISTORY: hx ruptured appendix resulting in bowel resection, hx Midline catheter for iv infusions, Migraines, hx pancreatitis, Lower lumbar disease, hypoglycemia. PAST SURGICAL HISTORY: appendectomy, Bowel Resection, Cholecystectomy, Hysterectomy, Orthopedic Surger y, Tonsillectomy MEDICATIONS: See list. ALLERGIES: See list. SOCIAL HISTORY: No illicit drug use. REVIEW OF SYSTEMS: CONSTITUTIONAL: Denies fever or chills. HEENT: Denies blurred vision, vision changes, or eye pain. Denies hemoptysis CARDIOVASCULAR: Denies chest pain or pressure. RESPIRATORY: No shortness of breath. GASTROINTESTINAL: See HPI for pertinent findings HEMATOLOGIC: Denies bleeding disorders. GENITOURINARY: Denies any blood in urine or increased urinary frequency. SKIN: Denies pruitis. Denies rash. PHYSICAL EXAM: VITAL SIGNS: Reviewed GENERAL: Well-developed in no acute distress. HEENT: No sclera icterus. Extraocular movements grossly intact. Moist buccal mucosa. Head is atraumatic, normocephalic. No nasal drainage. ABDOMEN: Soft. Obese. Nondistended. Incision site minimal erythema noted along the incision. The umbilicus area is dehisced with some purulent serous drainage noted. NEUROLOGIC: Alert and oriented. Cranial nerves II through XII grossly intact. LABORATORY DATA: IMAGING: Computed tomography scan from [place] demonstrated postsurgical changes midline ventral abdomen with associated cutaneous lilian an area of dehiscence seen centrally. At the incision site there are 2 adjacent or 1 large lobulated fluid collection extending from the skin surface to the superficial surface of the abdomen wall motion which are measuring 3.6 x 3.0 x 8.9 cm and 2 x 3.6 x 3.8 cm concerning for abscess formation. There is inflammation within the adjacent subcutaneous tissues with skin thickening concerning of cellulitis. There is also inflammation/flat fluid. No well-defined fluid collection within the peritoneum to suggest abscess formation. The right anterior abdominal wall musculature muscles is bulking in appearance but compared to the left, nonspecific and could be postsurgical in nature or infection in nature. At the inferior aspect of the incision site/postsurgical site there is nondistended loops of small bowel along the anterior abdomen demonstrates mild wall thickening likely reactive enteritis. No bowel obstruction. Centimeter right adrenal gland nodule noncompatible with lipid rich adenoma. Further evaluation with postcontrast MRI of the abdomen utilizing adrenal mass protocol is recommended ASSESSMENT: 1. Abdominal seroma at incision site. Dr. Luong drained the seroma at bedside. Serosanguineous fluid was expelled from the incision site at the umbilicus. Also he removed the lilian from the incision site. 2. Status post Incisional hernia repair on October 21 3. Prior history of abdominal wound infection with MRSA PLAN: -Continue local wound care -Continue antibiotics -Continue pain medication as needed -Consult infectious disease RE: seroma -Consult service for medical management -Repeat labs in a.m. Physician In Classroom Tutor note has been reviewed by physician. Signing provider agrees with the documented findings, assessment, and plan of care. Past Medical History Past Medical History: Asthma, GERD/Reflux Additional Past Medical History / Comment(s): Ruptured appendix that resulted in bowel resection, migraines, low back pain/. DDD/scoliosis, pancreatic deficiency/chronic pancreatitis, past ETOH abuse/quit drinking 3.5 years ago, hypoglycemia, occasional vertigo. History of Any Multi-Drug Resistant Organisms: MRSA Date of last positivie culture/infection: 11/6/20 MDRO Source:: ABDOMEN Past Surgical History: Appendectomy, Bowel Resection, Cholecystectomy, Hernia Repair, Hysterectomy, Orthopedic Surgery, Tonsillectomy, Tubal Ligation Additional Past Surgical History / Comment(s): 10/21/21 Incisional hernia repair with mesh, appendectomy with bowel resection, R hand surgery for infection, L hip spider bite/MRSA and had I&D, EGD, colonoscopies. Past Anesthesia/Blood Transfusion Reactions: No Reported Reaction Additional Past Anesthesia/Blood Transfusion Reaction / Comment(s): SEVERE CLAUSTROPHOBIA INCLUDING A MASK ON HER FACE. Smoking Status: Current every day smoker - Past Family History Father History Unknown: Yes Family Medical History: No Reported History Additional Family Medical History / Comment(s): Father is but pt does not know past medical history-they were not in much contact with each other. Mother Family Medical History: Cancer, Respiratory Disorder Additional Family Medical History / Comment(s): Mother at the age of 50 years from Cancer metastasis. Mother also had an aneurysm. Sister(s) Additional Family Medical History / Comment(s): Bipolar and Schizoprenia. Son(s) Family Medical History: No Reported History (one son no major medical problems.) Daughter(s) Family Medical History: No Reported History (2 daughters no major medical problems.) Medications and Allergies Home Medications Medication Instructions Recorded Confirmed Type No Known Home Medications 11/03/21 11/03/21 History Allergies Allergy/AdvReac Type Severity Reaction Status Date / Time cephalexin [From Keflex] Allergy Severe Anaphylaxis Verified 11/03/21 12:06 clindamycin [From Cleocin] Allergy Anaphylaxis Verified 11/03/21 12:06 levofloxacin Allergy Rash/Hives Verified 11/03/21 12:06 Penicillins Allergy Swelling Verified 11/03/21 12:06 of entire body sulfamethoxazole Allergy Itching Verified 11/03/21 12:06 [From Bactrim] trimethoprim [From Bactrim] Allergy Itching Verified 11/03/21 12:06 Surgical - Exam Vital Signs Temp Pulse Resp BP Pulse Ox 97.7 F 88 16 118/60 98 11/03/21 00:04 11/03/21 00:04 11/03/21 00:04 11/03/21 00:04 11/03/21 00:04 Results - Labs 11/03/21 07:59 Diabetes panel 04/19/22 Range/Units 07:59 Creatinine 0.93 (0.52-1.04) mg/dL Pituitary panel 11/03/21 Range/Units 07:59 Creatinine 0.93 (0.52-1.04) mg/dL Adrenal panel 11/03/21 Range/Units 07:59 Creatinine 0.93 (0.52-1.04) mg/dL
[2021-11-03] MEDS: HYDROmorphone 1 MG/ML 1 ML SYRINGE IVP PRN ×2 (16:38→23:46)
[2021-11-04] MEDS: ONDANSETRON 4 MG/2 ML VIAL IVP PRN ×2 (00:16→21:49)
--- NOTE | 2021-11-04 00:28 | P.CONS ---
History of Present Illness - Reason for Consult Consult date: 11/03/21 seroma Requesting physician: Lorri Faulkner - Chief Complaint Abdominal pain and drainage x few days - History of Present Illness Patient is a 41-year-old female who recently did have a incisional hernia repair on 10/21/2021, apparently the patient mention she did have a follow- up visit with the surgeon and there was some erythema around the incision site however there is no concern for infection and no antibiotic was prescribed patient subsequently presenting to the [facility] concerning for abdominal pain that seem to have been getting worse for the last few days described the pain to be sharp almost 10 out of 10 and the patient mention there was some purulent drainage from her abdominal wound, patient was evaluated at the outside facility in this patient who did have a CT of abdominal pelvis with evidence of focal fluid collection patient did have a white count of 15.3 patient subsequently has been transferred to this facility for further management patient was started on IV vancomycin infectious disease was consulted for further management of antibiotic therapy Review of Systems Positive point has been mentioned in the HPI rest of the systems are negative Past Medical History Past Medical History: Asthma, GERD/Reflux Additional Past Medical History / Comment(s): Ruptured appendix that resulted in bowel resection, migraines, low back pain/. DDD/scoliosis, pancreatic deficiency/chronic pancreatitis, past ETOH abuse/quit drinking 3.5 years ago, hypoglycemia, occasional vertigo. History of Any Multi-Drug Resistant Organisms: MRSA Year Discovered:: 05/23/20 MDRO Source:: ABDOMEN Past Surgical History: Appendectomy, Bowel Resection, Cholecystectomy, Hernia Repair, Hysterectomy, Orthopedic Surgery, Tonsillectomy, Tubal Ligation Additional Past Surgical History / Comment(s): 10/21/21 Incisional hernia repair with mesh, appendectomy with bowel resection, R hand surgery for infection, L hip spider bite/MRSA and had I&D, EGD, colonoscopies. Past Anesthesia/Blood Transfusion Reactions: No Reported Reaction Additional Past Anesthesia/Blood Transfusion Reaction / Comm: SEVERE CLAUSTROPHOBIA INCLUDING A MASK ON HER FACE. Smoking Status: Current every day smoker - Past Family History Father History Unknown: Yes Family Medical History: No Reported History Additional Family Medical History / Comment(s): Father is but pt does not know past medical history-they were not in much contact with each other. Mother Family Medical History: Cancer, Respiratory Disorder Additional Family Medical History / Comment(s): Mother at the age of 50 years from Cancer metastasis. Mother also had an aneurysm. Sister(s) Additional Family Medical History / Comment(s): Bipolar and Schizoprenia. Son(s) Family Medical History: No Reported History (one son no major medical problems.) Daughter(s) Family Medical History: No Reported History (2 daughters no major medical problems.) Medications and Allergies Home Medications Medication Instructions Recorded Confirmed Type No Known Home Medications 11/03/21 11/03/21 History Allergies Allergy/AdvReac Type Severity Reaction Status Date / Time cephalexin [From Keflex] Allergy Severe Anaphylaxis Verified 11/03/21 12:06 clindamycin [From Cleocin] Allergy Anaphylaxis Verified 11/03/21 12:06 levofloxacin Allergy Rash/Hives Verified 11/03/21 12:06 Penicillins Allergy Swelling Verified 11/03/21 12:06 of entire body sulfamethoxazole Allergy Itching Verified 11/03/21 12:06 [From Bactrim] trimethoprim [From Bactrim] Allergy Itching Verified 11/03/21 12:06 Physical Exam Vitals: Vital Signs Temp Pulse Pulse Resp BP BP Pulse Ox 11/03/21 12:41 98.6 F 80 18 114/71 98 11/03/21 12:07 80 18 11/03/21 11:49 96 16 113/72 97 11/03/21 10:57 78 115/67 98 11/03/21 08:56 94 18 107/77 93 L 11/03/21 04:08 89 20 111/61 95 11/03/21 02:08 79 18 131/79 95 11/03/21 00:04 97.7 F 88 16 118/60 98 Intake and Output 11/02/21 11/03/21 11/03/21 22:59 06:59 14:59 Intake Total 275 Balance 275 Intake: Oral 275 Other: Voiding Method Toilet Weight 105.233 kg 105.233 kg GENERAL DESCRIPTION: Middle-aged male lying in bed, no distress. No tachypnea or accessory muscle of respiration use. HEENT: Shows Pallor , no scleral icterus. Oral mucous membrane is dry. No pharyngeal erythema or thrush NECK: Trachea central, no thyromegaly. LUNGS: Unlabored breathing. Clear to auscultation anteriorly. No wheeze or crackle. HEART: S1, S2, regular rate and rhythm. No loud murmur ABDOMEN: Soft, mild distention middle abdominal wound packed with some surrounding redness EXTREMITIES: No edema of feet. SKIN: No rash, no masses palpable. NEUROLOGICAL: The patient is awake, alert, oriented x3, mood and affect normal. Results CBC & Chem 7: 11/03/21 07:59 Assessment and Plan (1) Intra-abdominal abscess post-procedure Current Visit: No Status: Acute Code(s): T81.43XA - INFCT FOL A PROCEDURE, ORGAN AND SPACE SURGICAL SITE, INIT SNOMED Code(s): 0029748 Plan: 1patient presented to hospital with abdominal pain and purulent drainage in this patient who did have a CT at the outside facility with evidence of fluid collection concerning for possible seroma versus infected seroma in this patient who did have a history of MRSA infection in the past will need to cover for that pathogen. 2patient with multiple antibiotic allergies that would limit the number of antibiotics safe to use. 3aerobic and anaerobic wound culture to guide further antibiotic therapy. 4vancomycin pharmacy to dose target trough of 15 while watching kidney functi on and vancomycin trough closely. We will follow on clinical condition and cultures to further adjust medication if needed Thank you for this consultation will follow this patient along with you Time with Patient: Greater than 30
[2021-11-04] MEDS: HYDROmorphone 1 MG/ML 1 ML SYRINGE IVP PRN ×3 (05:50→17:55)
[2021-11-04 09:12] LABS: Basophils # (A) 0.11 X 10*3/uL (0.00-0.10); Basophils % (A) 0.9 %; Eosinophils # (A) 0.34 X 10*3/uL (0.04-0.35); Eosinophils % (A) 2.9 %; HCT 36.5 % (37.2-46.3); HGB 11.6 g/dL (12.0-15.0); Immature Grans, Automated 0.4 %; Lymphocytes # (A) 4.51 X 10*3/uL (0.90-5.00); Lymphocytes % (A) 38.4 %; MCH 29.4 pg (27.0-32.0); MCHC 31.8 g/dL (32.0-37.0); MCV 92.4 fL (80.0-97.0); Mean Platelet Volume 10.8 fL (9.5-12.2); Monocytes # (A) 0.84 X 10*3/uL (0.20-1.00); Monocytes % (A) 7.1 %; NRBC Per 100 WBC 0 /100 WBCS (0.0-0.0); Neutrophils # (A) 5.91 X 10*3/uL (1.80-7.70); Neutrophils % (A) 50.3 %; Platelet Count 343 X 10*3/uL (140-440); RBC 3.95 X 10*6/uL (4.10-5.20); RDW 12.2 % (11.5-14.5); WBC 11.76 X 10*3/uL (4.50-10.00)
[2021-11-04 09:29] LABS: African American GFR (CKD) 90.8 (60.0-200.0); BUN/Creat Ratio 16.33 Ratio (12.00-20.00); Blood Urea Nitrogen 14.7 mg/dL (9.0-27.0); Calcium 8.8 mg/dL (8.7-10.3); Non-African American GFR(CKD) 78.3 (60.0-200.0); Potassium 4.3 mmol/L (3.5-5.5)
[2021-11-04] MEDS: VANCOMYCIN 1,750 MG in SODIUM CHLORIDE 0.9% 500 ML 500 ML IVPB SCH (11:43)
--- NOTE | 2021-11-04 15:23 | P.PN ---
Subjective Progress Note Date: 11/04/21 CHIEF COMPLAINT: Abdominal seroma HISTORY OF PRESENT ILLNESS: Patient reports slight improvement in her abdominal pain. She did require IV pain medication during the night. She's had minimal serosanguineous drainage from the incision site. Denies any nausea or vomiting. Last bowel movement was 1 day ago. She is tolerating regular diet. Afebrile. WBC is 11.76 hemoglobin 11.6 platelets 343 creatinine 0.9 wound culture results pending PHYSICAL EXAM: VITAL SIGNS: Reviewed. GENERAL: Well-developed in no acute distress. HEENT: No sclera icterus. Extraocular movements grossly intact. Moist buccal mucosa. Head is atraumatic, normocephalic. ABDOMEN: Soft. Nondistended. Diffuse tenderness with palpation of the abdomen and near the incision. Decreased erythema noted along the incisional line. Drainage from the open area at the incision is serosanguineous NEUROLOGIC: Alert and oriented. Cranial nerves II through XII grossly intact. ASSESSMENT: 1. Abdominal seroma 2. Status post Incisional hernia repair on October 21 3. Prior history of abdominal wound infection with MRSA PLAN: -Continue local wound care -Continue antibiotics per ID service -Continue pain medication as needed -Ultram added for oral pain medication -Patient can shower -Encouraged patient ambulate -Consult social work regarding patient's living situation. Patient currently living at a hotel. -DVT prophylaxis subcu heparin and GI prophylaxis Pepcid Physician Director Of Strategic Communications note has been reviewed by physician. Signing provider agrees with the documented findings, assessment, and plan of care. Objective - Vital Signs Vital signs: Vital Signs Temp 98.1 F 11/04/21 14:54 Pulse 91 11/04/21 14:54 Resp 16 11/04/21 14:54 BP 112/72 11/04/21 14:54 Pulse Ox 98 11/04/21 14:54 Intake & Output 11/03/21 11/04/21 11/04/21 18:59 06:59 18:59 Intake Total 515 995 Balance 515 995 Weight 105.233 kg Intake: Oral 515 995 Other: Voiding Method Toilet Toilet Toilet # Voids 2 - Labs CBC & Chem 7: 11/04/21 06:07 11/04/21 06:07 Labs: Abnormal Lab Results - Last 24 Hours (Table) 11/04/21 11/04/21 Range/Units 06:07 06:07 WBC 11.76 H (4.50-10.00) X 10*3/uL RBC 3.95 L (4.10-5.20) X 10*6/uL Hgb 11.6 L (12.0-15.0) g/dL Hct 36.5 L (37.2-46.3) % MCHC 31.8 L (32.0-37.0) g/dL Immature Gran # 0.05 H (0.00-0.04) X 10*3/uL Basophils # 0.11 H (0.00-0.10) X 10*3/uL Anion Gap 9.00 L (10.00-18.00) mmol/L Microbiology - Last 24 Hours (Table) 11/04/21 00:10 Gram Stain - Preliminary Abdomen Wound Culture - Preliminary 11/04/21 00:10 Anaerobic Culture - Preliminary Abdomen
[2021-11-04] MEDS: SODIUM CHLORIDE 0.9% 1,000 ML IV SCH (17:55)
[2021-11-04] MEDS: FAMOTIDINE 20 MG TAB PO SCH (21:49)
[2021-11-04] MEDS: traMADol 50 MG TAB PO PRN (21:49)
[2021-11-04] MEDS: HEPARIN SODIUM,PORCINE/PF 5,000 UNIT/0.5 ML SYRINGE SQ SCH (21:50)
--- NOTE | 2021-11-04 22:27 | P.PN ---
Subjective Progress Note Date: 11/04/21 Patient is a 41-year-old female with a known history of recent incisional hernia open repair on 10/21/2021 initially presented to [facility] with complaints of discharge from the midline abdominal incision. Patient states that she has been having purulent discharge for the past 1 week at the surgical site and also having fever and chills and malaise and symptoms have been going for 1 week. Denied any complaints of chest pain. Patient felt nauseous. No episodes of vomiting. No diarrhea. No headache or dizziness or lightheadedness. Patient initially had appendectomy and 2020 and had a postop complication with intra-abdominal infection. Patient was placed on IV antibiotics via PICC line a t the time due to MRSA. Patient later developed ventral area within the abdominal wall muscles from previous surgeries. Patient had ventral hernia repair on 10/21/2021. Patient is supposed to follow-up with Dr. Vences on 10/29/2021. Patient also had 3 lilian removed at that time. She has been greene ving chills and also purulent discharge from the wound site. Patient had CT of the abdomen pelvis done at [facility] which showed postsurgical changes midline ventral abdomen with associated cutaneous lilian and area dehiscence seen centrally. At the incision site with there are 2 adjacent are 1 large lobulated fluid collection extending from the skin surface to the superficial surface of the abdominal wall musculature measuring up to 3.6 x 3.0 x 98.9 cm concerning for abscess formation. There is inflammatory changes within the adjacent subcutaneous tissues with skin thickening concerning for cellulitis. No well-defined fluid collection within the peritoneum to suggest abscess formation. At the inferior aspect of the Incision site there is a nondistended loop of small bowel around the anterior abdominal with demonstrate mild wall thickening. Likely reactive enteritis. No bowel obstruction. 3 cm right inguinal gland nodule not compatible with lipid rich adenoma. Laboratory data at [facility] showed WBC 4.71 hemoglobin 13.5 and platelets 439 urinalysis negative for infection sodium 138 potassium 4.0 chloride 105 bicarb is 24 BUN 14 and creatinine 0.9. Calcium 9.0 liver enzymes are not elevated lactate 2.0 lipase 297 and blood sugar 119 pulse ox was 97% on room air. 11/04/2021 Patient is currently lying in the bed. Awake alert and oriented x3. Abdominal discomfort at the surgical site did improve. Patient is being continued pain management. Currently being continued antibiotics in the form of vancomycin. Wound cultures were sent today. Patient has been afebrile. No nausea vomiting abdominal pain or diarrhea. Tolerating oral diet. No cough or sputum production. Current medications reviewed. Objective - Vital Signs Vital signs: Vital Signs Temp 98.2 F 11/04/21 07:00 Pulse 74 11/04/21 07:00 Resp 18 11/04/21 08:00 BP 110/70 11/04/21 07:00 Pulse Ox 97 11/04/21 07:00 Intake & Output 11/03/21 11/04/21 11/04/21 18:59 06:59 18:59 Intake Total 515 240 Balance 515 240 Weight 105.233 kg Intake: Oral 515 240 Other: Voiding Method Toilet Toilet Toilet # Voids 2 - Exam PHYSICAL EXAMINATION: Patient is lying in the bed comfortably, no acute distress, awake alert and oriented.. HEENT: Normocephalic. Neck is supple. Pupils reactive. Nostrils clear. Oral cavity is moist. Neck reveals no JVD, carotid bruits, or thyromegaly. CHEST EXAMINATION: Trachea is central. Symmetrical expansion. Lung beyer clear to auscultation and percussion. CARDIAC: Normal S1, S2 with no gallops. No murmurs ABDOMEN: Soft. Patient does have midline incision wound with no purulent drainage. Tenderness and surrounding redness. Bowel sounds normal. No organomegaly. No abdominal bruits. Extremities: reveal no edema. No clubbing or cyanosis Neurologically awake, alert, oriented x3 with well-coordinated movements. No focal deficits noted Skin: No rash or skin lesions. Psychiatric: Coperative. Nonsuicidal Musculoskeletal: No joint swelling or deformity. Normal range of motion. - Labs CBC & Chem 7: 11/04/21 06:07 11/04/21 06:07 Labs: Abnormal Lab Results - Last 24 Hours (Table) 11/04/21 11/04/21 Range/Units 06:07 06:07 WBC 11.76 H (4.50-10.00) X 10*3/uL RBC 3.95 L (4.10-5.20) X 10*6/uL Hgb 11.6 L (12.0-15.0) g/dL Hct 36.5 L (37.2-46.3) % MCHC 31.8 L (32.0-37.0) g/dL Immature Gran # 0.05 H (0.00-0.04) X 10*3/uL Basophils # 0.11 H (0.00-0.10) X 10*3/uL Anion Gap 9.00 L (10.00-18.00) mmol/L Assessment and Plan Assessment: Midline abdominal postsurgical incision wound site infection with fluid collection possible abscess and surrounding cellulitis. 3 cm adrenal nodule right side. Patient will need endocrinology follow-up and MRI of the abdomen with adrenal mass protocol., Which has been informed to the patient. Morbid obesity 39.8 DVT prophylaxis with Lovenox subcu Plan: Patient will be continued on antibiotics in the form of vancomycin. Incision site lilian were removed by surgery. Wound cultures were sent. Continue with IV antibiotics and wound care.. We will continue to follow and further recommendations based on the clinical course.
--- NOTE | 2021-11-04 23:28 | P.PN ---
Subjective Progress Note Date: 11/04/21 Principal diagnosis: Abdominal seroma versus infected seroma Patient is a 41-year-old female with recent incisional hernia repair on 10/21/2021 admitted to the hospital with abdominal pain and some purulent drainage from the middle part of incision with abnormal CT at the outside facility and elevated white count concern for possible infection versus seroma. On today's evaluation that is 11/04/2021, the patient denies having any fever with chills, patient is still complaining of abdominal pain, denies any chest pain shortness of breath or cough no vomiting or diarrhea Objective - Vital Signs Vital signs: Vital Signs Temp 98.2 F 11/04/21 07:00 Pulse 74 11/04/21 07:00 Resp 18 11/04/21 08:00 BP 110/70 11/04/21 07:00 Pulse Ox 97 11/04/21 07:00 Intake & Output 11/03/21 11/04/21 11/04/21 18:59 06:59 18:59 Intake Total 515 240 Balance 515 240 Weight 105.233 kg Intake: Oral 515 240 Other: Voiding Method Toilet Toilet Toilet # Voids 2 - Exam GENERAL DESCRIPTION: Middle-aged female lying in bed in no distress RESPIRATORY SYSTEM: Unlabored breathing , decreased breath sounds at bases HEART: S1 S2 regular rate and rhythm , ABDOMEN: Soft , mild distention midline abdominal wound which is deep no surrounding redness EXTREMITIES: No edema feet - Labs CBC & Chem 7: 11/04/21 06:07 11/04/21 06:07 Labs: Abnormal Lab Results - Last 24 Hours (Table) 11/04/21 11/04/21 Range/Units 06:07 06:07 WBC 11.76 H (4.50-10.00) X 10*3/uL RBC 3.95 L (4.10-5.20) X 10*6/uL Hgb 11.6 L (12.0-15.0) g/dL Hct 36.5 L (37.2-46.3) % MCHC 31.8 L (32.0-37.0) g/dL Immature Gran # 0.05 H (0.00-0.04) X 10*3/uL Basophils # 0.11 H (0.00-0.10) X 10*3/uL Anion Gap 9.00 L (10.00-18.00) mmol/L Microbiology - Last 24 Hours (Table) 11/04/21 00:10 Anaerobic Culture - Preliminary Abdomen 11/04/21 00:10 Wound Culture - Preliminary Abdomen Assessment and Plan (1) Intra-abdominal abscess post-procedure Current Visit: Yes Status: Acute Code(s): T81.43XA - INFCT FOL A PROCEDURE, ORGAN AND SPACE SURGICAL SITE, INIT SNOMED Code(s): 1334647 Plan: 1patient presented to hospital with abdominal pain and purulent drainage in this patient who did have a CT at the outside facility with evidence of fluid collection concerning for possible seroma versus infected seroma in this patient who did have a history of MRSA infection in the past will need to cover for that pathogen. 2patient with multiple antibiotic allergies that would limit the number of antibiotics safe to use. 3aerobic and anaerobic wound culture to guide further antibiotic therapy. 4patient to continue with vancomycin pharmacy to dose target trough of 15 while waiting for the culture finalized local wound care with Aquacel silver rope packing daily Time with Patient: Less than 30
[2021-11-05] MEDS: HYDROmorphone 1 MG/ML 1 ML SYRINGE IVP PRN ×4 (00:17→20:06)
[2021-11-05] MEDS: VANCOMYCIN 1,750 MG in SODIUM CHLORIDE 0.9% 500 ML 500 ML IVPB SCH ×3 (00:18→23:15)
[2021-11-05] MEDS: HEPARIN SODIUM,PORCINE/PF 5,000 UNIT/0.5 ML SYRINGE SQ SCH ×2 (07:54→20:05)
[2021-11-05] MEDS: FAMOTIDINE 20 MG TAB PO SCH ×2 (07:54→20:05)
[2021-11-05] MEDS: SODIUM CHLORIDE 0.9% 1,000 ML IV SCH ×2 (07:55→20:05)
[2021-11-05] MEDS ORDERED: VANCOMYCIN TROUGH DUE 1 EACH MISC MISCELLANE ONE (11:00)
[2021-11-05 11:09] LABS: Basophils # (A) 0.1 k/uL (0-0.2); Basophils % (A) 1 %; Eosinophils # (A) 0.3 k/uL (0-0.7); Eosinophils % (A) 3 %; HCT 39.1 % (34.0-46.0); HGB 12.7 gm/dL (11.4-16.0); Lymphocytes # (A) 3.6 k/uL (1.0-4.8); Lymphocytes % (A) 40 %; MCH 30.2 pg (25.0-35.0); MCHC 32.4 g/dL (31.0-37.0); MCV 93.2 fL (80.0-100.0); Mean Platelet Volume 7.8; Monocytes # (A) 0.5 k/uL (0-1.0); Monocytes % (A) 6 %; Neutrophils # (A) 4.4 k/uL (1.3-7.7); Neutrophils % (A) 49 %; Platelet Count 299 k/uL (150-450); RBC 4.19 m/uL (3.80-5.40); RDW 12.2 % (11.5-15.5)
[2021-11-05 11:19] LABS: African American GFR (CKD) >90 (>60 ml/min/1.73 sqM); Anion Gap 9 mmol/L; Blood Urea Nitrogen 11 mg/dL (7-17); Calcium 8.9 mg/dL (8.4-10.2); Carbon Dioxide 20 mmol/L (22-30); Chloride 109 mmol/L (98-107); Glucose 108 mg/dL (74-99); Non-African American GFR(CKD) 85 (>60 ml/min/1.73 sqM); Potassium 4.3 mmol/L (3.5-5.1); Sodium 138 mmol/L (137-145)
--- NOTE | 2021-11-05 14:22 | P.PN ---
Subjective Progress Note Date: 11/05/21 CHIEF COMPLAINT: Abdominal seroma HISTORY OF PRESENT ILLNESS: Patient reports slight improvement in her abdominal pain. She has required IV pain medications. She's had minimal serosanguineous drainage from the incision site. Denies any nausea or vomiting. She is tolerating regular diet. She is having flatus. Afebrile. WBC 11.76 down to 9. Wound Cultures pending Patient seen with Dr. Reddy PHYSICAL EXAM: VITAL SIGNS: Reviewed. GENERAL: Well-developed in no acute distress. HEENT: No sclera icterus. Extraocular movements grossly intact. Moist buccal mucosa. Head is atraumatic, normocephalic. ABDOMEN: Soft. Nondistended. Diffuse tenderness with palpation of the abdomen and near the incision. Decreased erythema noted along the incisional line. minimal drainage has Aquacel dressing packed in incision NEUROLOGIC: Alert and oriented. Cranial nerves II through XII grossly intact. ASSESSMENT: 1. Abdominal seroma 2. Status post Incisional hernia repair on October 21 3. Prior history of abdominal wound infection with MRSA PLAN: -Continue local wound care -Continue antibiotics per ID service -Continue pain medication as needed -Ultram added for oral pain medication -Patient can shower -Encouraged patient ambulate -Possible discharge tomorrow -DVT prophylaxis subcu heparin and GI prophylaxis Pepcid Physician Social Media Analyst note has been reviewed by physician. Signing provider agrees with the documented findings, assessment, and plan of care. Objective - Vital Signs Vital signs: Vital Signs Temp 98.0 F 11/05/21 13:20 Pulse 87 11/05/21 13:20 Resp 14 11/05/21 13:20 BP 128/86 11/05/21 13:20 Pulse Ox 96 11/05/21 13:20 Intake & Output 11/04/21 11/05/21 11/05/21 18:59 06:59 18:59 Intake Total 995 240 Balance 995 240 Intake: Oral 995 240 Other: Voiding Method Toilet Toilet # Voids 2 - Labs CBC & Chem 7: 11/05/21 10:47 11/05/21 10:47 Labs: Abnormal Lab Results - Last 24 Hours (Table) 11/05/21 Range/Units 10:47 Chloride 109 H (98-107) mmol/L Carbon Dioxide 20 L (22-30) mmol/L Glucose 108 H (74-99) mg/dL Microbiology - Last 24 Hours (Table) 11/04/21 00:10 Gram Stain - Preliminary Abdomen Wound Culture - Preliminary 11/04/21 00:10 Anaerobic Culture - Preliminary Abdomen
[2021-11-05] MEDS: ONDANSETRON 4 MG/2 ML VIAL IVP PRN (16:25)
[2021-11-05] MEDS: KETOROLAC 15 MG/ML 1 ML VIAL IVP PRN ×2 (16:25→23:15)
--- NOTE | 2021-11-05 23:31 | P.PN ---
Subjective Progress Note Date: 11/05/21 Principal diagnosis: Abdominal seroma versus infected seroma Patient is a 41-year-old female with recent incisional hernia repair on 10/21/2021 admitted to the hospital with abdominal pain and some purulent drainage from the middle part of incision with abnormal CT at the outside facility and elevated white count concern for possible infection versus seroma. On today's evaluation that is 11/05/2021, the patient remains to be afebrile, patient continues to be complaining of abdominal pain, the patient denies any chest pain shortness of breath or cough no vomiting or diarrhea Objective - Vital Signs Vital signs: Vital Signs Temp 98.0 F 11/05/21 13:20 Pulse 87 11/05/21 13:20 Resp 14 11/05/21 13:20 BP 128/86 11/05/21 13:20 Pulse Ox 96 11/05/21 13:20 Intake & Output 11/04/21 11/05/21 11/05/21 18:59 06:59 18:59 Intake Total 995 240 Balance 995 240 Intake: Oral 995 240 Other: Voiding Method Toilet Toilet # Voids 2 - Exam GENERAL DESCRIPTION: Middle-aged female lying in bed in no distress RESPIRATORY SYSTEM: Unlabored breathing , decreased breath sounds at bases HEART: S1 S2 regular rate and rhythm , ABDOMEN: Soft , mild distention midline abdominal wound which is deep no surrounding redness EXTREMITIES: No edema feet - Labs CBC & Chem 7: 11/05/21 10:47 11/05/21 10:47 Labs: Abnormal Lab Results - Last 24 Hours (Table) 11/05/21 Range/Units 10:47 Chloride 109 H (98-107) mmol/L Carbon Dioxide 20 L (22-30) mmol/L Glucose 108 H (74-99) mg/dL Microbiology - Last 24 Hours (Table) 11/04/21 00:10 Gram Stain - Preliminary Abdomen Wound Culture - Preliminary 11/04/21 00:10 Anaerobic Culture - Preliminary Abdomen Assessment and Plan (1) Intra-abdominal abscess post-procedure Current Visit: Yes Status: Acute Code(s): T81.43XA - INFCT FOL A PROCEDURE, ORGAN AND SPACE SURGICAL SITE, INIT SNOMED Code(s): 8588240 Plan: 1patient presented to hospital with abdominal pain and purulent drainage in this patient who did have a CT at the outside facility with evidence of fluid collection concerning for possible seroma versus infected seroma in this patient who did have a history of MRSA infection in the past will need to cover for that pathogen. 2patient with multiple antibiotic allergies that would limit the number of antibiotics safe to use. 3aerobic and anaerobic wound culture are currently pending 4patient did have minimal Improvement as the patient white count has normalized, patient to continue with vancomycin pharmacy to dose target trough of 15 while waiting for the culture finalized local wound care with Aquacel silver rope packing daily Time with Patient: Less than 30
[2021-11-06] MEDS: HYDROmorphone 1 MG/ML 1 ML SYRINGE IVP PRN ×4 (05:45→23:58)
[2021-11-06] MEDS: HEPARIN SODIUM,PORCINE/PF 5,000 UNIT/0.5 ML SYRINGE SQ SCH ×2 (09:41→20:02)
[2021-11-06] MEDS: FAMOTIDINE 20 MG TAB PO SCH ×2 (09:41→20:02)
[2021-11-06] MEDS: SODIUM CHLORIDE 0.9% 1,000 ML IV SCH (09:43)
[2021-11-06] MEDS: traMADol 50 MG TAB PO PRN ×2 (11:19→20:07)
[2021-11-06] MEDS: VANCOMYCIN 1,750 MG in SODIUM CHLORIDE 0.9% 500 ML 500 ML IVPB SCH ×2 (13:42→23:59)
--- NOTE | 2021-11-06 15:07 | P.PN ---
Subjective Progress Note Date: 11/06/21 CHIEF COMPLAINT: Abdominal seroma HISTORY OF PRESENT ILLNESS: Patient reports slight improvement in her abdominal pain. She has required IV pain medications. No significant drainage from the incision. Denies any nausea or vomiting. She is tolerating regular diet. She is having flatus. She reports ambulating in the hallway. Afebrile. WBC 9.01 culture growing Staphylococcus aureus Patient seen with Dr. Reddy PHYSICAL EXAM: VITAL SIGNS: Reviewed. GENERAL: Well-developed in no acute distress. HEENT: No sclera icterus. Extraocular movements grossly intact. Moist buccal mucosa. Head is atraumatic, normocephalic. ABDOMEN: Soft. Nondistended. Diffuse tenderness with palpation of the abdomen and near the incision. Erythema along incision line resolved. Aquacel dressing in place NEUROLOGIC: Alert and oriented. Cranial nerves II through XII grossly intact. ASSESSMENT: 1. Abdominal seroma 2. Status post Incisional hernia repair on October 21 3. Prior history of abdominal wound infection with MRSA PLAN: -Continue local wound care -Continue antibiotics per ID service -Awaiting wound culture results and ID antibiotic recommendations -Hep-Lock IV fluids -new Abdominal binder ordered -Continue pain medication as needed -Shower daily -Encouraged patient ambulate -Possible discharge tomorrow -DVT prophylaxis subcu heparin and GI prophylaxis Pepcid Physician Moisture Meter Reader note has been reviewed by physician. Signing provider agrees with the documented findings, assessment, and plan of care. Objective - Vital Signs Vital signs: Vital Signs Temp 97.8 F 11/06/21 14:51 Pulse 86 11/06/21 14:51 Resp 18 11/06/21 14:51 BP 134/78 11/06/21 14:51 Pulse Ox 98 11/06/21 14:51 Intake & Output 11/05/21 11/06/21 11/06/21 18:59 06:59 18:59 Intake Total 960 355 Balance 960 355 Intake: Oral 960 355 Other: # Voids 2 2 - Labs CBC & Chem 7: 11/05/21 10:47 11/05/21 10:47 Labs: Microbiology - Last 24 Hours (Table) 11/04/21 00:10 Anaerobic Culture - Preliminary Abdomen 11/04/21 00:10 Gram Stain - Final Abdomen Wound Culture - Final Staphylococcus aureus
--- NOTE | 2021-11-06 21:39 | P.PN ---
Subjective Progress Note Date: 11/06/21 Principal diagnosis: Abdominal seroma versus infected seroma Patient is a 41-year-old female with recent incisional hernia repair on 10/21/2021 admitted to the hospital with abdominal pain and some purulent drainage from the middle part of incision with abnormal CT at the outside facility and elevated white count concern for possible infection versus seroma. On today's evaluation that is 11/06/2021, the patient continues to be afebrile, patient denies any chest pain shortness of breath or cough , the patient is still complaining of abdominal pain but no vomiting or diarrhea Objective - Vital Signs Vital signs: Vital Signs Temp 97.9 F 11/06/21 07:59 Pulse 78 11/06/21 07:59 Resp 18 11/06/21 07:59 BP 112/73 11/06/21 07:59 Pulse Ox 96 11/06/21 07:59 Intake & Output 11/05/21 11/06/21 11/06/21 18:59 06:59 18:59 Intake Total 960 237 Balance 960 237 Intake: Oral 960 237 Other: # Voids 2 2 - Exam GENERAL DESCRIPTION: Middle-aged female lying in bed in no distress RESPIRATORY SYSTEM: Unlabored breathing , decreased breath sounds at bases HEART: S1 S2 regular rate and rhythm , ABDOMEN: Soft , mild distention midline abdominal wound which is deep no surrounding redness EXTREMITIES: No edema feet - Labs CBC & Chem 7: 11/05/21 10:47 11/05/21 10:47 Labs: Microbiology - Last 24 Hours (Table) 11/04/21 00:10 Gram Stain - Final Abdomen Wound Culture - Final Staphylococcus aureus Assessment and Plan (1) Intra-abdominal abscess post-procedure Current Visit: Yes Status: Acute Code(s): T81.43XA - INFCT FOL A PROCEDURE, ORGAN AND SPACE SURGICAL SITE, INIT SNOMED Code(s): 9370658 Plan: 1patient presented to hospital with abdominal pain and purulent drainage in this patient who did have a CT at the outside facility with evidence of fluid collection concerning for possible seroma versus infected seroma in this patient who did have a history of MRSA infection in the past will need to cover for that pathogen. 2patient with multiple antibiotic allergies that would limit the number of antibiotics safe to use. 3aerobic and anaerobic wound culture are currently pending 4patient abdominal culture had been finalized with MSSA however the patient to have ALLERGY to penicillin and cephalexin continue with the vancomycin and if continued to improve from a finish therapy with oral doxycycline Time with Patient: Less than 30
[2021-11-07] MEDS: HYDROmorphone 1 MG/ML 1 ML SYRINGE IVP PRN ×2 (06:26→11:46)
[2021-11-07] MEDS: HEPARIN SODIUM,PORCINE/PF 5,000 UNIT/0.5 ML SYRINGE SQ SCH (07:15)
[2021-11-07] MEDS: FAMOTIDINE 20 MG TAB PO SCH (07:15)
[2021-11-07 07:34] VITALS: PULSE 83; TEMP 98
--- NOTE | 2021-11-07 10:30 | P.PN ---
Progress Note - Text Progress Note Date: 11/07/21 Patient's resting comfortably in bed. She denies any significant pain. On exam vital signs are stable. Abdomen soft. Patient's wound culture is growing staph. We will defer to infectious disease for appropriate oral antibiotic selection.
[2021-11-07] MEDS ORDERED: VANCOMYCIN TROUGH DUE 1 EACH MISC MISCELLANE ONE (11:00)
[2021-11-07 11:42] LABS: Basophils # (A) 0.06 X 10*3/uL (0.00-0.10); Basophils % (A) 0.7 %; Eosinophils # (A) 0.28 X 10*3/uL (0.04-0.35); Eosinophils % (A) 3.4 %; HCT 37.6 % (37.2-46.3); HGB 12.1 g/dL (12.0-15.0); Immature Grans, Automated 0.6 %; Lymphocytes # (A) 3.33 X 10*3/uL (0.90-5.00); Lymphocytes % (A) 40.6 %; MCH 29.6 pg (27.0-32.0); MCHC 32.2 g/dL (32.0-37.0); MCV 91.9 fL (80.0-97.0); Mean Platelet Volume 10.6 fL (9.5-12.2); Monocytes % (A) 6.1 %; NRBC Per 100 WBC 0 /100 WBCS (0.0-0.0); Neutrophils # (A) 3.98 X 10*3/uL (1.80-7.70); Neutrophils % (A) 48.6 %; Platelet Count 307 X 10*3/uL (140-440); RBC 4.09 X 10*6/uL (4.10-5.20); RDW 12.2 % (11.5-14.5)
[2021-11-07] MEDS: VANCOMYCIN 1,750 MG in SODIUM CHLORIDE 0.9% 500 ML 500 ML IVPB SCH (11:46)
[2021-11-07 11:49] LABS: African American GFR (CKD) 104.7 (60.0-200.0); Anion Gap 11.9 mmol/L (10.00-18.00); Calcium 9.1 mg/dL (8.7-10.3); Carbon Dioxide 21.1 mmol/L (20.0-27.5); Non-African American GFR(CKD) 90.3 (60.0-200.0); Potassium 4.4 mmol/L (3.5-5.5)
[2021-11-07 11:49] LABS: African American GFR (CKD) >90 (>60 ml/min/1.73 sqM); Non-African American GFR(CKD) 88 (>60 ml/min/1.73 sqM)
[2021-11-07 13:22] VITALS: BP 113/79; RESP 14
[2021-11-08] MEDS ORDERED: VANCOMYCIN 1,500 MG in SODIUM CHLORIDE 0.9% 250 ML IVPB SCH ×2
--- NOTE | 2021-11-11 10:24 | CDI ---
Documentation Clarification Form Date: 11/11/2021 09:37:05 AM From: Claire Boo RN, CCDS Admit Date: 11/04/2021 10:53:00 AM Patient Name: Lia Gates Visit Number: [id number] Discharge Date: 11/07/2021 03:16:00 PM ATTENTION: The Clinical Documentation Specialists (CDI) and [facility] Coding Staff appreciate your assistance in clarifying documentation. Please respond to the clarification below the line at the bottom and electronically sign. The CDI & [facility] Coding staff will review the response and follow-up if needed. Please note: Queries are made part of the Legal Health Record. If you have any questions, please contact the author of this message via ITS. Dr. Jamie Reddy There is documentation of intra-abdominal abscess post-procedure, seroma versus infected seroma in the ID consult and subsequent progress. Additional clarification is requested. 11/03 H/P: Abdominal seroma at incision site. History/Risk Factors: MRSA Infection, GERD/Reflux, Bipolar, Current smoker Clinical Indicators: 41-year-old female transferred from [facility] for concerns for possible abdominal wall incision. She had ventral hernia repair October [address] scan reveal fluid collection with some evidence of inflammation, possibly indicative of infection. 11/03 Vital sign: 116/60 88 16 97.7 98 % RA 11/03 WBC 15.3; 11/04 11.7 11/03 CT Scan: At the incision site there are 2 adjacent or 1 large lobulated fluid collection extending from the skin surface to the superficial surface of the abdomen wall motion which are measuring 3.6 x3.0 x8.9 cm and 2 x3.6 x 3.8 cm concerning for abscess formation. There is inflammation within the adjacent subcutaneous tissue with skin thickening concerning of cellulitis. No well- defined fluid collection within the peritoneum to suggest abscess formation 11/04 Wound culture-Final: Staphylococcus aureus Treatment: Vancomycin 1,750 MG IVPB ONCE, Pharmacy to dose target trough of 15 monitor kidney function 11/03-11/07 Aquacel silver rope packing daily Dilaudid 1 MG IVP Q6HR PRN (11/03-11/07 Toradol 15 MG IVP Q 6 HR PRN 11/03-11/05 Ultram 50 MG PO TID PRN (11/04-11/06) Can you please clarify if you are treating? [ ] Intra-abdominal abscess post -procedure [ xxx} Abdominal seroma, post-procedure, infected culture positive for Staphylococcus aureus [ ] Intra-abdominal abbess post-procedure and infected Seroma positive for Staphylococcus aureus [ ] Other, please specify [ ] Unable to determine (Template Last Revised: September 2020) MTDD
--- NOTE | 2021-11-14 23:30 | P.PN ---
Subjective Progress Note Date: 11/07/21 Principal diagnosis: Abdominal seroma versus infected seroma Patient is a 41-year-old female with recent incisional hernia repair on 10/21/2021 admitted to the hospital with abdominal pain and some purulent drainage from the middle part of incision with abnormal CT at the outside facility and elevated white count concern for possible infection versus seroma. On today's evaluation that is 11/07/2021, the patient remains to be afebrile, patient denies any chest pain shortness of breath or cough , the patient abdominal pain has decreased in intensity, the patient denies vomiting or diarrhea, patient overall feeling better and wants to home Objective - Vital Signs Vital signs: Vital Signs Temp 98.0 F 11/07/21 07:33 Pulse 83 11/07/21 07:33 Resp 12 11/07/21 07:33 BP 111/75 11/07/21 07:33 Pulse Ox 97 11/07/21 07:33 Intake & Output 11/06/21 11/07/21 11/07/21 18:59 06:59 18:59 Intake Total 473 240 Balance 473 240 Intake: Oral 473 240 Other: Voiding Method Toilet # Voids 2 1 - Exam GENERAL DESCRIPTION: Middle-aged female lying in bed in no distress RESPIRATORY SYSTEM: Unlabored breathing , decreased breath sounds at bases HEART: S1 S2 regular rate and rhythm , ABDOMEN: Soft , mild distention midline abdominal wound which is deep no surrounding redness EXTREMITIES: No edema feet - Labs CBC & Chem 7: 11/07/21 06:32 11/07/21 11:07 Labs: Abnormal Lab Results - Last 24 Hours (Table) 11/07/21 Range/Units 06:32 RBC 4.09 L (4.10-5.20) X 10*6/uL Immature Gran # 0.05 H (0.00-0.04) X 10*3/uL Microbiology - Last 24 Hours (Table) 11/04/21 00:10 Anaerobic Culture - Preliminary Abdomen 11/04/21 00:10 Gram Stain - Final Abdomen Wound Culture - Final Staphylococcus aureus Assessment and Plan (1) Intra-abdominal abscess post-procedure Status: Acute Code(s): T81.43XA - INFCT FOL A PROCEDURE, ORGAN AND SPACE SURGICAL SITE, INIT SNOMED Code(s): 1279486 Plan: 1patient presented to hospital with abdominal pain and purulent drainage in this patient who did have a CT at the outside facility with evidence of fluid collection concerning for possible seroma versus infected seroma in this patient who did have a history of MRSA infection in the past will need to cover for that pathogen. 2patient with multiple antibiotic allergies that would limit the number of antibiotics safe to use. 3aerobic and anaerobic wound culture are currently pending 4patient abdominal culture had been finalized with MSSA however the patient to have ALLERGY to penicillin and cephalexin patient seemed to have clinically improved with IV vancomycin and she will finish therapy with oral doxycycline 100 mg twice a day for 10 days prescription sent to pharmacy if any worsening pain Drainage or fever to let us know right away Time with Patient: Less than 30
== END 2021-11-07 15:16 | disposition home or self-care (01) | DRG 863 ==
LOC: EC 23:52 → 6NMEDSUR 11-03 01:24 → OBSVTOIN 11-04 10:53
PROVIDERS: ADMIT Surgery; ATTEND Surgery
DX: T81.43XA Infection following a procedure, organ and space surgical site, initial encounter (principal); L76.34 Postprocedural seroma of skin and subcutaneous tissue following other procedure; K86.1 Other chronic pancreatitis; L03.311 Cellulitis of abdominal wall; E27.8 Other specified disorders of adrenal gland; F17.200 Nicotine dependence, unspecified, uncomplicated; F31.9 Bipolar disorder, unspecified; F40.240 Claustrophobia; J45.909 Unspecified asthma, uncomplicated; K52.9 Noninfective gastroenteritis and colitis, unspecified; M41.9 Scoliosis, unspecified; Z86.14 Personal history of Methicillin resistant Staphylococcus aureus infection; Z90.710 Acquired absence of both cervix and uterus; Y83.8 Other surgical procedures as the cause of abnormal reaction of the patient, or of later complication, without mention of misadventure at the time of the procedure; Z90.49 Acquired absence of other specified parts of digestive tract; E66.01 Morbid (severe) obesity due to excess calories; Z68.39 Body mass index [BMI] 39.0-39.9, adult
CPT/HCPCS: 80048; 80202; 82565; 85025; 87070; 87075; 87077; 87186; 87205; 96361; 96365; 96366; 96375; 99285

== ENCOUNTER 2022-05-17 07:55 | Day surgery (SDC) | payer MEDICARE, OTHER ==
[~2022-05-17 07:55] MED LIST changes: -LIDOCAINE 1% (10MG/ML) FOR IV START INTRADERMA PRN; -VANCOMYCIN 1,500 MG in SODIUM CHLORIDE 0.9% 250 ML IVPB PRN
[2022-05-17] MEDS ORDERED: ONDANSETRON 4 MG/2 ML VIAL ONE (09:52)
[2022-05-17] MEDS ORDERED: LACTATED RINGERS 1,000 ML IV ONE ×4 (10:14→15:24)
[2022-05-17] MEDS ORDERED: DEXAMETHASONE SOD PHOSPHATE 4 MG/ML 1 ML VIAL IVP ONE (10:15)
--- NOTE | 2022-05-17 11:35 | P.GSHP ---
History of Present Illness H&P Date: 05/17/22 Chief Complaint: Incisional hernia Is a 42-year-old female who has previously history of exploratory laparotomy. Patient developed hernia superior portion of her midline scar. Patient presents today for open repair of incisional hernia Past Medical History Past Medical History: Asthma, Deep Vein Thrombosis (DVT), GERD/Reflux Additional Past Medical History / Comment(s): hx ruptured appendix resulting in bowel resection, hx Midline catheter for iv infusions, Migraines, hx pancreatitis, Lower lumbar disease, pre diabetic,colonoscopy. had a blood clot to arm with midline catheter.. History of Any Multi-Drug Resistant Organisms: MRSA Date of last positivie culture/infection: 05/23/20 MDRO Source:: ABDOMEN Past Surgical History: Appendectomy, Bowel Resection, Cholecystectomy, Hysterectomy, Orthopedic Surgery, Tonsillectomy Additional Past Surgical History / Comment(s): (R) hand surgery, (L) hip I&D from spider bite r/t MRSA, Past Anesthesia/Blood Transfusion Reactions: No Reported Reaction Additional Past Anesthesia/Blood Transfusion Reaction / Comment(s): SEVERE CLAUSTROPHOBIA INCLUDING A MASK ON HER FACE. Smoking Status: Current every day smoker - Past Family History Father History Unknown: Yes Family Medical History: No Reported History Additional Family Medical History / Comment(s): Father is but pt does not know past medical history-they were not in much contact with each other. Mother Family Medical History: Cancer, Respiratory Disorder Additional Family Medical History / Comment(s): Mother at the age of 50 years from Cancer metastasis. Mother also had an aneurysm. Sister(s) Additional Family Medical History / Comment(s): Bipolar and Schizoprenia. Son(s) Family Medical History: No Reported History (one son no major medical problems.) Daughter(s) Family Medical History: No Reported History (2 daughters no major medical problems.) Medications and Allergies Home Medications Medication Instructions Recorded Confirmed Type OLANZapine [ZyPREXA] 20 mg PO DAILY 05/12/22 05/17/22 History Omeprazole [PriLOSEC] 40 mg PO DAILY 05/12/22 05/17/22 History Allergies Allergy/AdvReac Type Severity Reaction Status Date / Time cephalexin [From Keflex] Allergy Severe Anaphylaxis Verified 05/17/22 10:18 Penicillins Allergy Mild Swelling Verified 05/17/22 10:18 of entire body clindamycin [From Cleocin] Allergy Anaphylaxis Verified 05/17/22 10:18 levofloxacin Allergy Rash/Hives Verified 05/17/22 10:18 sulfamethoxazole Allergy Itching Verified 05/17/22 10:18 [From Bactrim] trimethoprim [From Bactrim] Allergy Itching Verified 05/17/22 10:18 Surgical - Exam Vital Signs Temp Pulse Resp BP Pulse Ox 97.5 F L 77 16 139/84 99 05/17/22 09:59 05/17/22 09:59 05/17/22 09:59 05/17/22 09:59 05/17/22 09:59 - General well developed, well nourished, no distress - Eyes PERRL - ENT normal pinna - Neck no masses - Respiratory normal expansion - Cardiovascular Rhythm: regular - Abdomen Abdomen: soft, non tender Hernia: incisional (10 cm incisional hernia located above the umbilicus) Assessment and Plan Assessment: Incisional hernia. We'll perform open repair with mesh.
[2022-05-17] MEDS ORDERED: fentaNYL (PF) 50 MCG/ML 2 ML AMP ONE (11:58)
[2022-05-17] MEDS ORDERED: MIDAZOLAM 2 MG/2 ML VIAL ONE (11:58)
[2022-05-17] MEDS ORDERED: SUCCINYLCHOLINE CHLORIDE 200 MG/10 ML VIAL IV ONE (11:58)
[2022-05-17] MEDS ORDERED: HYDROmorphone (PF) 1 MG/ML ONE (11:58)
[2022-05-17] MEDS ORDERED: NEOSTIGMINE 1 MG/ML 10 ML VIAL ONE (11:58)
[2022-05-17] MEDS ORDERED: ROCURONIUM 10 MG/ML (5 ML VIAL) IV ONE (11:58)
[2022-05-17] MEDS ORDERED: diphenhydrAMINE 50 MG/ML 1 ML VIAL ONE (11:58)
[2022-05-17] MEDS ORDERED: PROPOFOL 10 MG/ML 20 ML VIAL IV ONE (11:58)
[2022-05-17] MEDS ORDERED: GLYCOPYRROLATE 0.2 MG/ML 2 ML VIAL ONE (11:58)
[2022-05-17] MEDS ORDERED: LIDOCAINE 2% INJ 20 MG/ML (2 ML VIAL) ONE (11:58)
[2022-05-17] MEDS ORDERED: NALOXONE 0.4 MG/ML 1 ML VIAL IV PRN (13:20)
[2022-05-17] MEDS ORDERED: ONDANSETRON 4 MG/2 ML VIAL IVP PRN (13:20)
[2022-05-17] MEDS ORDERED: ALBUTEROL NEBULIZED 2.5 MG/3 ML INHALATION ONE (13:44)
[2022-05-17] MEDS: KETOROLAC 15 MG/ML 1 ML VIAL IVP SCH ×3 (13:44→23:10)
[2022-05-17] MEDS ORDERED: HYDROmorphone 0.5 MG/0.5 ML SYRINGE IVP ONE ×3 (13:50→14:43)
--- NOTE | 2022-05-17 15:21 | P.OP ---
Date of Procedure: 05/17/22 Preoperative Diagnosis: rincisional hernia Postoperative Diagnosis: incisional hernia Procedure(s) Performed: open repair of incisional hernia with mesh Anesthesia: YOANA Surgeon: Jamie Reddy Estimated Blood Loss (ml): 5 Pathology: none sent Condition: stable Disposition: PACU Description of Procedure: The patient's placed on the operative table in the supine position. She received general endotracheal tube anesthesia. Her abdomen was prepped and draped usual fashion. The patient appears midline laparotomy scar. The instrument hernia appeared to be located superior portion of her scar. This was just above the umbilicus. The sutures incising blunt and sharp dissection with cautery the subcutaneous tissues were divided. The hernia appeared to be extending along the entire scar. This point the fascia was dissected free using cautery. The fascia extremity was exposed. The hernia defect measured approximately 5 x 20 cm the fascia was then reapproximated using. 0 Ethibond suture. After this was performed. The fascia was repaired with #1 Abdi fix suture. A piece of Prolene mesh was cut to appropriate size placed on top of the fascia. This was secured to the secure strap tacker. A TANA drains placed over top the mesh and brought through separate stab incision in the right upper quadrant. Vinod's fascia close [place]. Skin was closed lilian. Dressing applied. Patient tolerated the procedure well. She was sent to recovery room in stable condition.
[2022-05-17] MEDS: HYDROmorphone 1 MG/ML 1 ML SYRINGE IVP PRN ×2 (15:43→19:35)
[2022-05-17] MEDS: traMADol 50 MG TAB PO PRN (18:23)
[2022-05-18] MEDS: traMADol 50 MG TAB PO PRN (00:15)
[2022-05-18] MEDS: HYDROmorphone 1 MG/ML 1 ML SYRINGE IVP PRN ×2 (00:15→07:36)
[2022-05-18] MEDS: KETOROLAC 15 MG/ML 1 ML VIAL IVP SCH ×2 (05:54→11:08)
[2022-05-18 08:17] VITALS: BP 136/76; PULSE 89; RESP 19; TEMP 98.5
[2022-05-18] MEDS ORDERED: ENOXAPARIN 40 MG/0.4 ML SYRINGE SQ SCH (09:00)
--- NOTE | 2022-05-18 10:34 | P.DS ---
Providers Expected date of discharge: 05/18/22 Attending physician: Jamie Reddy Consults: 05/17/22 13:20 Consult Physician Routine Consulting Provider: Austin Silvestre Consult Reason/Comments: Medical management Do you want consulting provider notified?: Yes Primary care physician: She Sierra MD Hospital Course: Discharge diagnosis 1. Incisional hernia status post open repair of incisional hernia with mesh Hospital course This is a 42-year-old female with previous history of exploratory laparotomy. She's developed a incisional hernia. She is status post open repair of incisional hernia with mesh. She tolerated surgery well. She is tolerating diet. Her pain is controlled. She is afebrile. She is up and ambulating. She is stable for discharge. Physician Fine Grade Bulldozer Operator note has been reviewed by physician. Signing provider agrees with the documented findings, assessment, and plan of care. Patient Condition at Discharge: Stable Plan - Discharge Summary Discharge Rx Participant: Yes New Discharge Prescriptions: New Docusate [Colace] 100 mg PO BID #30 capsule Ibuprofen [Motrin] 600 mg PO Q8HR PRN #30 tab PRN Reason: Pain traMADol HCl [Ultram] 50 mg PO Q6HR PRN 3 Days #12 tab PRN Reason: Pain Continue OLANZapine [ZyPREXA] 20 mg PO DAILY Omeprazole [PriLOSEC] 40 mg PO DAILY Discharge Medication List OLANZapine [ZyPREXA] 20 mg PO DAILY 05/12/22 [History] Omeprazole [PriLOSEC] 40 mg PO DAILY 05/12/22 [History] Docusate [Colace] 100 mg PO BID #30 capsule 05/18/22 [Rx] Ibuprofen [Motrin] 600 mg PO Q8HR PRN #30 tab 05/18/22 [Rx] traMADol HCl [Ultram] 50 mg PO Q6HR PRN 3 Days #12 tab 05/18/22 [Rx] Follow up Appointment(s)/Referral(s): Jamie Reddy MD [STAFF PHYSICIAN] - 05/24/22 8:20 am Activity/Diet/Wound Care/Special Instructions: No driving while taking Ultram No lifting over 10 pounds Shower daily. No soaking or tub baths for 2 weeks Very light activity until you are reevaluated at your follow up appointment with your surgeon Keep a log of TANA drain output and bring with you to your follow-up appointment Milk/strip drains 2-3 times a day Discharge Disposition: HOME SELF-CARE
[2022-05-18 11:42] LABS: Basophils % (A) 0 %; Eosinophils # (A) 0.3 k/uL (0-0.7); Eosinophils % (A) 2 %; HCT 33.1 % (34.0-46.0); HGB 11.1 gm/dL (11.4-16.0); Lymphocytes # (A) 3.4 k/uL (1.0-4.8); Lymphocytes % (A) 26 %; MCH 30.9 pg (25.0-35.0); MCHC 33.4 g/dL (31.0-37.0); MCV 92.5 fL (80.0-100.0); Mean Platelet Volume 8.3; Monocytes # (A) 0.5 k/uL (0-1.0); Monocytes % (A) 4 %; Neutrophils # (A) 8.7 k/uL (1.3-7.7); Neutrophils % (A) 67 %; Platelet Count 298 k/uL (150-450); RBC 3.58 m/uL (3.80-5.40); RDW 12.8 % (11.5-15.5); WBC 13.1 k/uL (3.8-10.6)
[2022-05-18 12:19] LABS: African American GFR (CKD) >90 (>60 ml/min/1.73 sqM); Anion Gap 13 mmol/L; Blood Urea Nitrogen 12 mg/dL (7-17); Carbon Dioxide 21 mmol/L (22-30); Chloride 104 mmol/L (98-107); Glucose 140 mg/dL (74-99); Non-African American GFR(CKD) >90 (>60 ml/min/1.73 sqM); Potassium 3.8 mmol/L (3.5-5.1); Sodium 138 mmol/L (137-145)
--- NOTE | 2022-05-18 15:28 | P.CONS ---
History of Present Illness - Reason for Consult Consult date: 05/18/22 Medical management, postop incisional hernia repair - History of Present Illness This is a 42-year-old female who was recently admitted under surgical services for open repair of incisional hernia with mesh via exploratory laparotomy. Agent did develop an incisional hernia and is here for repair. Patient follows with Dr. Sierra in the outpatient setting with a past medical history of upper extremity DVT, gastroesophageal reflux disease, tobacco use, obesity. Patient was mildly elevated white blood count of 13.1 today most likely reactive as patient is afebrile with no reports of shortness of breath denies any burning or dysuria with urination. Recommend outpatient follow-up with repeat labs and this was discussed with the patient. She is currently maintained on clear liquid diet and tolerating and has been ambulating. Recommend continue with incentive spirometer use at least 10 times every hour while awake. Review Of Systems: Constitutional: No fever, no chills, no night sweats. No weight change. No weakness, fatigue or lethargy. No daytime sleepiness. EENT: No headache. No blurred vision or double vision, no loss of vision. No loss of Hearing, no ringing in the ears, no dizziness. No nasal drainage or congestion. No epistaxis. No sore throat. Lungs: No shortness of breath, cough, no sputum production. No wheezing. Cardiovascular: No chest pain, no lower extremity edema. No palpitations. No paroxysmal nocturnal dyspnea. No orthopnea. No lightheadedness or dizziness. No syncopal episodes. Abdominal: Reports some mild abdominal pain. No nausea, vomiting. No diarrhea. No constipation. No bloody or tarry stools.. No loss of appetite. Reports tolerating diet and belching with no reports of gas or bowel movement Genitourinary: No dysuria, increased frequency, urgency. No urinary retention. Musculoskeletal: No myalgias. No muscle weakness, no gait dysfunction, no f requent falls. No back pain. No neck pain. Integumentary: No wounds, no lesions. No rash or pruritus. No unusual bruising. No change in hair or nails. Neurologic: No aphasia. No facial droop. No change in mentation. No head injury. No headache. No paralysis. No paresthesia. Psychiatric: No depression. No anxiety. No mood swings. Endocrine: No abnormal blood sugars. No weight change. No excessive sweating or thirst. No cold intolerance. PHYSICAL EXAMINATION: GENERAL: The patient is alert and oriented x4, Well developed, well nourished. Morbidly Obese HEENT: Pupils are round and equally reacting to light. EOMI. no scleral icterus. No conjunctival pallor. Normocephalic, atraumatic. No pharyngeal erythema. No thyromegaly. CARDIOVASCULAR: S1 and S2 muffled PULMONARY: diminished breath sounds bilaterally with no wheezing or rhonchi noted. ABDOMEN: soft. mildly tender on exam. obese. non-distended, sluggish bowel sounds. No palpable organomegaly. MUSCULOSKELETAL: No joint swelling or deformity. EXTREMITIES: No cyanosis, clubbing, or pedal edema. NEUROLOGICAL: Gross neurological examination did not reveal any focal deficits. SKIN: No rashes. Assessment: Incisional hernia, postop open repair of incisional hernia with mesh day #1 Mild leukocytosis of 13.1, most likely reactive secondary to above as patient is afebrile with shortness of breath or burning with urination Morbid obesity with a body mass index of 41.7 History of DVT from a PICC line in the upper extremity History of gastroesophageal reflux disease Continued ongoing nicotine abuse History of anxiety/depression GI prophylaxis DVT prophylaxis Full code Plan: Recommend to continue with current medications and management per general surgery services. Patient is seen in follow-up postop day #1 reports she is up and walking and having some belching and tolerating current diet on clear liq uids and denies passing gas or bowel movement. Patient is postop incisional hernia repair with mesh and was open procedure. Surgical dressings are dry and intact and abdominal binder is noted. Patient with incentive spirometer and encourage the patient to take home and continue using at least 10 times every hour while awake. Patient encouraged to follow-up with her primary care provider Dr. Sierra this week. Patient will also need close outpatient follow-up with surgery that is scheduled for 1 week. Home medications have been resumed. Mild leukocytosis this morning of 13.1 recommend following up with repeat labs in the next few days. Patient is afebrile denies chest pain or shortness of breath denies any difficulty or burning with urination. We will continue to follow along closely with general surgery during hospitalization. Thank you kindly for this consultation. Patient is scheduled to be discharged today. The impression and plan of care has been dictated by Nimisha Wiley, nurse practitioner as directed. Dr. Nirmala MOSS I have performed a history and examination and MDM of this patient, discussed the same with the dictator, and agree with the dictator's assessment and plan as written ,documented as a scribe. Based on total visit time, I have performed more than 50% of the visit. Any additional findings or plans will be noted. Past Medical History Past Medical History: Asthma, Deep Vein Thrombosis (DVT), GERD/Reflux Additional Past Medical History / Comment(s): hx ruptured appendix resulting in bowel resection, hx Midline catheter for iv infusions, Migraines, hx pancreatitis, Lower lumbar disease, pre diabetic,colonoscopy. had a blood clot to arm with midline catheter.. History of Any Multi-Drug Resistant Organisms: MRSA Year Discovered:: 05/23/20 MDRO Source:: ABDOMEN Past Surgical History: Appendectomy, Bowel Resection, Cholecystectomy, Hernia Repair, Hysterectomy, Orthopedic Surgery, Tonsillectomy Additional Past Surgical History / Comment(s): (R) hand surgery, (L) hip I&D from spider bite r/t MRSA, open hernia repair Past Anesthesia/Blood Transfusion Reactions: No Reported Reaction Additional Past Anesthesia/Blood Transfusion Reaction / Comm: SEVERE CLAUSTROPHOBIA INCLUDING A MASK ON HER FACE. Past Psychological History: Anxiety, Bipolar, Depression Additional Psychological History / Comment(s): Pt resides with her spouse. She does not drive, spouse drives. Smoking Status: Current every day smoker, Heavy tobacco smoker Past Alcohol Use History: None Reported Additional Past Alcohol Use History / Comment(s): Pt started smoking in 1992. stopped smoking 02/2022. smoked 2 ppks day for 25 yrs. Pt has not drank alcohol in 3.5 years. Past Drug Use History: None Reported - Past Family History Father History Unknown: Yes Family Medical History: No Reported History Additional Family Medical History / Comment(s): Father is but pt does not know past medical history-they were not in much contact with each other. Mother Family Medical History: Cancer, Respiratory Disorder Additional Family Medical History / Comment(s): Mother at the age of 50 years from Cancer metastasis. Mother also had an aneurysm. Sister(s) Additional Family Medical History / Comment(s): Bipolar and Schizoprenia. Son(s) Family Medical History: No Reported History (one son no major medical problems.) Daughter(s) Family Medical History: No Reported History (2 daughters no major medical problems.) Medications and Allergies Home Medications Medication Instructions Recorded Confirmed Type OLANZapine [ZyPREXA] 20 mg PO DAILY 05/12/22 05/17/22 History Omeprazole [PriLOSEC] 40 mg PO DAILY 05/12/22 05/17/22 History Docusate [Colace] 100 mg PO BID #30 capsule 05/18/22 Rx Ibuprofen [Motrin] 600 mg PO Q8HR PRN #30 tab 05/18/22 Rx traMADol HCl [Ultram] 50 mg PO Q6HR PRN 3 Days #12 tab 05/18/22 Rx Allergies Allergy/AdvReac Type Severity Reaction Status Date / Time cephalexin [From Keflex] Allergy Severe Anaphylaxis Verified 05/17/22 10:18 Penicillins Allergy Mild Swelling Verified 05/17/22 10:18 of entire body clindamycin [From Cleocin] Allergy Anaphylaxis Verified 05/17/22 10:18 levofloxacin Allergy Rash/Hives Verified 05/17/22 10:18 sulfamethoxazole Allergy Itching Verified 05/17/22 10:18 [From Bactrim] trimethoprim [From Bactrim] Allergy Itching Verified 05/17/22 10:18 Physical Exam Vitals: Vital Signs Temp Pulse Pulse Resp BP BP Pulse Ox 05/18/22 08:00 98.5 F 89 19 136/76 95 05/18/22 02:00 97.9 F 83 17 101/63 96 05/17/22 20:00 98.8 F 98 15 141/73 96 05/17/22 15:47 98.2 F 85 24 158/94 95 05/17/22 14:55 73 17 125/75 97 05/17/22 14:40 74 16 146/83 97 05/17/22 14:25 76 16 170/82 99 05/17/22 14:10 87 16 158/69 95 05/17/22 13:55 73 16 150/86 100 05/17/22 13:40 72 17 155/80 100 05/17/22 13:28 98 F 86 16 152/76 99 05/17/22 09:59 97.5 F L 77 16 139/84 99 Intake and Output 05/17/22 05/18/22 05/18/22 22:59 06:59 14:59 Intake Total 800 1440 120 Output Total 20 Balance 800 1420 120 Intake: IV 800 Oral 1440 120 Output: Drainage 20 Right Lower Abdomen 20 Other: # Voids 1 2 Weight 110.2 kg Results CBC & Chem 7: 05/18/22 11:28 05/18/22 11:28
== END 2022-05-18 13:35 | disposition home or self-care (01) ==
LOC: OR 07:55 → 4SSUR 13:28 → OR 05-18 13:35
PROVIDERS: ATTEND Surgery
DX: K43.2 Incisional hernia without obstruction or gangrene (principal); J45.909 Unspecified asthma, uncomplicated; K21.9 Gastro-esophageal reflux disease without esophagitis; G43.909 Migraine, unspecified, not intractable, without status migrainosus; R73.03 Prediabetes; F17.200 Nicotine dependence, unspecified, uncomplicated; Z90.49 Acquired absence of other specified parts of digestive tract; Z98.84 Bariatric surgery status; Z90.710 Acquired absence of both cervix and uterus; Z98.890 Other specified postprocedural states; Z90.89 Acquired absence of other organs; F40.240 Claustrophobia; Z80.8 Family history of malignant neoplasm of other organs or systems; Z79.899 Other long term (current) drug therapy; Z88.0 Allergy status to penicillin; Z88.1 Allergy status to other antibiotic agents; Z88.2 Allergy status to sulfonamides
CPT/HCPCS: 80048; 85025; 49560; 49568; C1781; J1100; J0690; J2405 ×2; J1650; J1170 ×3; J1885 ×2

== ENCOUNTER 2022-06-07 07:59 | Observation (INO) | payer MEDICARE, OTHER ==
[~2022-06-07 07:59] MED LIST changes: +Pre Op ABX Message 1 EACH MISC MISCELLANE ONE
[2022-06-07 08:33] LABS: Glucose,Whole Blood 121 mg/dL (70-110)
[2022-06-07] MEDS ORDERED: ONDANSETRON 4 MG/2 ML VIAL ONE (08:38)
--- NOTE | 2022-06-07 08:43 | P.GSHP ---
History of Present Illness H&P Date: 06/07/22 Chief Complaint: Chronic abdominal wound This is a 42-year-old female presents today for debridement abdominal wall. Patient recent repair of large incisional hernia. Patient developed ischemic fat and some chronic seroma. Patient resents today for debridement of abdominal wall Past Medical History Past Medical History: Asthma, Deep Vein Thrombosis (DVT), GERD/Reflux, Skin Disorder Additional Past Medical History / Comment(s): hx ruptured appendix resulting in bowel resection, hx Midline catheter for iv infusions, Migraines, hx pancreatitis, Lower lumbar disease, pre diabetic, had a blood clot to arm with midline catheter, recent adm. & abd. surg. [facility], lilian removed today from incision-still w/TANA drain, drsg. to incision History of Any Multi-Drug Resistant Organisms: MRSA Date of last positivie culture/infection: 2020 MDRO Source:: ABDOMEN Past Surgical History: Appendectomy, Bowel Resection, Cholecystectomy, Hernia Repair, Hysterectomy, Orthopedic Surgery, Tonsillectomy Additional Past Surgical History / Comment(s): (R) hand surgery, (L) hip I&D from spider bite r/t MRSA, open incisional hernia repair w/mesh 05-17-22 Past Anesthesia/Blood Transfusion Reactions: No Reported Reaction Additional Past Anesthesia/Blood Transfusion Reaction / Comment(s): SEVERE CLAUSTROPHOBIA INCLUDING A MASK ON HER FACE. Smoking Status: Current every day smoker, Heavy tobacco smoker - Past Family History Father History Unknown: Yes Family Medical History: No Reported History Additional Family Medical History / Comment(s): Father is but pt does not know past medical history-they were not in much contact with each other. Mother Family Medical History: Cancer, Respiratory Disorder Additional Family Medical History / Comment(s): Mother at the age of 50 years from Cancer metastasis. Mother also had an aneurysm. Sister(s) Additional Family Medical History / Comment(s): Bipolar and Schizoprenia. Son(s) Family Medical History: No Reported History (one son no major medical problems.) Daughter(s) Family Medical History: No Reported History (2 daughters no major medical problems.) Medications and Allergies Home Medications Medication Instructions Recorded Confirmed Type OLANZapine [ZyPREXA] 20 mg PO DAILY 05/12/22 06/07/22 History Omeprazole [PriLOSEC] 40 mg PO DAILY PRN 05/12/22 06/07/22 History Docusate [Colace] 100 mg PO BID #30 capsule 05/18/22 06/07/22 Rx diphenhydrAMINE [Benadryl] 25 mg PO BID PRN 06/03/22 06/07/22 History Allergies Allergy/AdvReac Type Severity Reaction Status Date / Time cephalexin [From Keflex] Allergy Severe Anaphylaxis Verified 06/07/22 08:18 Penicillins Allergy Mild Swelling Verified 06/07/22 08:18 of entire body clindamycin [From Cleocin] Allergy Anaphylaxis Verified 06/07/22 08:18 levofloxacin Allergy Rash/Hives Verified 06/07/22 08:18 sulfamethoxazole Allergy Itching Verified 06/07/22 08:18 [From Bactrim] trimethoprim [From Bactrim] Allergy Itching Verified 06/07/22 08:18 Surgical - Exam - General well developed, well nourished, no distress - Eyes PERRL - ENT normal pinna - Neck no masses - Respiratory normal expansion - Cardiovascular Rhythm: regular - Abdomen Abdomen is obese. There is a midline scar. The inferior portion of the scar shows thickening of the abdominal wall with some chronic cellulitic changes and evidence of ischemic subcutaneous fat. Results - Labs Abnormal Lab Results - Last 24 Hours (Table) 06/07/22 Range/Units 08:29 POC Glucose (mg/dL) 121 H (70-110) mg/dL Assessment and Plan Assessment: Ischemic abdominal wall with evidence of colitis. Patient undergo debridement of abdominal wall and placement of wound VAC
[2022-06-07] MEDS ORDERED: DEXAMETHASONE SOD PHOSPHATE 4 MG/ML 1 ML VIAL IVP ONE (08:54)
[2022-06-07] MEDS ORDERED: LACTATED RINGERS 1,000 ML IV ONE ×2 (08:54→09:50)
[2022-06-07] MEDS ORDERED: SUCCINYLCHOLINE CHLORIDE 200 MG/10 ML VIAL IV ONE (09:00)
[2022-06-07] MEDS ORDERED: fentaNYL (PF) 50 MCG/ML 2 ML AMP ONE (09:00)
[2022-06-07] MEDS ORDERED: MIDAZOLAM 2 MG/2 ML VIAL ONE (09:00)
[2022-06-07] MEDS ORDERED: PROPOFOL 10 MG/ML 20 ML VIAL IV ONE (09:00)
[2022-06-07] MEDS ORDERED: NALOXONE 0.4 MG/ML 1 ML VIAL IV PRN (09:50)
[2022-06-07] MEDS ORDERED: ACETAMINOPHEN TAB 325 MG TAB PO PRN (09:50)
--- NOTE | 2022-06-07 09:50 | P.OP ---
Date of Procedure: 06/07/22 Preoperative Diagnosis: Abdominal wall wound Postoperative Diagnosis: Abdominal wound Procedure(s) Performed: Debridement of abdominal wall necrotic skin and fat Anesthesia: YOANA Surgeon: Jamie Reddy Estimated Blood Loss (ml): 25 Pathology: other (Ischemic skin and fat) Condition: stable Disposition: PACU Description of Procedure: The patient's placed on the operating table in the supine position. She received general endotracheal tube anesthesia. Her abdomen was prepped and draped usual sterile fashion. The patient had a previous midline scar from her incisional hernia. The inferior portion of this appeared to have evidence of some chronic ischemia. There was fat necrosis seen where the fat was very hard underneath the skin. The wound was reviewed. The wound was a aspirated and then a tissue culture and wound culture was performed. The skin skin and fat wa s then sharply debrided. The wound measured 16 x 20 x 8 cm. The previously placed mesh appeared to be well covered. There is no evidence of any exposed mesh. The hemostasis was achieved left cautery. The black foam for the wound VAC was placed into the wound. In the wound VAC system was applied. Patient top she will sent to recovery room stable condition.
[2022-06-07] MEDS ORDERED: HYDROmorphone 0.5 MG/0.5 ML SYRINGE IVP ONE ×2 (10:10→11:16)
[2022-06-07] MEDS: KETOROLAC 15 MG/ML 1 ML VIAL IVP SCH ×3 (13:36→23:25)
[2022-06-07] MEDS: ONDANSETRON 4 MG/2 ML VIAL IVP PRN ×2 (13:36→19:02)
[2022-06-07] MEDS: HYDROmorphone 0.5 MG/0.5 ML SYRINGE IVP PRN ×3 (15:09→21:17)
[2022-06-07] MEDS ORDERED: PANTOPRAZOLE 40 MG TABLET PO PRN (15:44)
[2022-06-07] MEDS ORDERED: diphenhydrAMINE 25 MG CAP PO PRN (15:44)
[2022-06-07 16:41] LABS: Glucose,Whole Blood 157 mg/dL (70-110)
[2022-06-07] MEDS ORDERED: VANCOMYCIN IV PER PHARMACY 1 EACH MISC MISCELLANE PRN (22:51)
--- NOTE | 2022-06-07 23:35 | P.CONS ---
History of Present Illness - Reason for Consult Consult date: 06/07/22 Abdominal wound surgical Requesting physician: Jamie Reddy - Chief Complaint Abdominal pain and wound x days - History of Present Illness Patient is a 42-year-old female with multiple abdominal surgery history of abdominal wall infection secondary to MRSA apparently has been evaluated in the outpatient setting by her surgeon and apparently the patient did have a area of lump and nonhealing wound that has been treated with an oral abetting outpatient setting patient was electively admitted to the hospital she was taken to the OR and this patient s/p debridement of the abdominal wall necrotic skin and fat and application of the wound VAC no clear mention of any purulence patient was subsequently admitted to the hospital after surgery infectious disease was consulted for management of antibiotic and local wound care. Patient currently denies having any fever or any chills and did not mention any fever at home patient denies having any chest pain or shortness of breath or cough no nausea vomiting has been complaining of some abdominal pain more of a dull aching to sharp 5-6 or 10 no radiation denies any diarrhea or urinary symptoms Review of Systems Positive point has been mentioned in the HPI rest of the systems are negative Past Medical History Past Medical History: Asthma, Deep Vein Thrombosis (DVT), GERD/Reflux, Skin Disorder Additional Past Medical History / Comment(s): hx ruptured appendix resulting in bowel resection, hx Midline catheter for iv infusions, Migraines, hx pancreatitis, Lower lumbar disease, pre diabetic, had a blood clot to arm with midline catheter, recent adm. & abd. surg. [facility], lilian removed today from incision-still w/TANA drain, drsg. to incision History of Any Multi-Drug Resistant Organisms: MRSA Year Discovered:: 2020 MDRO Source:: ABDOMEN Past Surgical History: Appendectomy, Bowel Resection, Cholecystectomy, Hernia Repair, Hysterectomy, Orthopedic Surgery, Tonsillectomy Additional Past Surgical History / Comment(s): (R) hand surgery, (L) hip I&D from spider bite r/t MRSA, open incisional hernia repair w/mesh 05-17-22 Past Anesthesia/Blood Transfusion Reactions: No Reported Reaction Additional Past Anesthesia/Blood Transfusion Reaction / Comm: SEVERE CLAUSTROPHOBIA INCLUDING A MASK ON HER FACE. Smoking Status: Current every day smoker, Heavy tobacco smoker - Past Family History Father History Unknown: Yes Family Medical History: No Reported History Additional Family Medical History / Comment(s): Father is but pt does not know past medical history-they were not in much contact with each other. Mother Family Medical History: Cancer, Respiratory Disorder Additional Family Medical History / Comment(s): Mother at the age of 50 years from Cancer metastasis. Mother also had an aneurysm. Sister(s) Additional Family Medical History / Comment(s): Bipolar and Schizoprenia. Son(s) Family Medical History: No Reported History (one son no major medical problems.) Daughter(s) Family Medical History: No Reported History (2 daughters no major medical problems.) Medications and Allergies Home Medications Medication Instructions Recorded Confirmed Type OLANZapine [ZyPREXA] 20 mg PO DAILY 05/12/22 06/07/22 History Omeprazole [PriLOSEC] 40 mg PO DAILY PRN 05/12/22 06/07/22 History Docusate [Colace] 100 mg PO BID #30 capsule 05/18/22 06/07/22 Rx diphenhydrAMINE [Benadryl] 25 mg PO BID PRN 06/03/22 06/07/22 History HYDROcodone/APAP 5-325MG [[place] 1 tab PO Q6HR PRN 3 Days #12 tab 06/08/22 Rx 5-325] Doxycycline Hyclate 100 mg PO BID 14 Days #28 tab 06/09/22 Rx Allergies Allergy/AdvReac Type Severity Reaction Status Date / Time cephalexin [From Keflex] Allergy Severe Anaphylaxis Verified 06/07/22 08:18 Penicillins Allergy Mild Swelling Verified 06/07/22 08:18 of entire body clindamycin [From Cleocin] Allergy Anaphylaxis Verified 06/07/22 08:18 levofloxacin Allergy Rash/Hives Verified 06/07/22 08:18 sulfamethoxazole Allergy Itching Verified 06/07/22 08:18 [From Bactrim] trimethoprim [From Bactrim] Allergy Itching Verified 06/07/22 08:18 Physical Exam Vitals: Vital Signs Temp Pulse Resp BP Pulse Ox 06/07/22 12:30 88 16 103/63 98 06/07/22 12:00 85 16 99/58 97 06/07/22 11:30 89 16 98/59 98 06/07/22 11:14 88 16 101/58 97 06/07/22 10:59 87 16 101/66 97 11/21/22 10:44 92 16 104/54 97 06/07/22 10:29 91 16 112/64 97 06/07/22 10:14 93 16 116/63 97 06/07/22 09:59 97 16 120/71 98 06/07/22 09:44 98.8 F 102 H 16 115/66 98 06/07/22 08:20 98.2 F 79 17 122/65 95 Intake and Output 06/06/22 06/07/22 06/07/22 22:59 06:59 14:59 Intake Total 350 Output Total 25 Balance 325 Intake: IV 350 Output: Estimated Blood Loss 25 Other: Weight 110.4 kg GENERAL DESCRIPTION: Middle-aged female lying in bed, no distress. No tachypnea or accessory muscle of respiration use. HEENT: Shows Pallor , no scleral icterus. Oral mucous membrane is dry. No pharyngeal erythema or thrush NECK: Trachea central, no thyromegaly. LUNGS: Unlabored breathing. Clear to auscultation anteriorly. No wheeze or crackle. HEART: S1, S2, regular rate and rhythm. No loud murmur ABDOMEN: Soft, no tenderness , abdominal wound is covered with a wound VAC EXTREMITIES: No edema of feet. SKIN: No rash, no masses palpable. NEUROLOGICAL: The patient is awake, alert, oriented x3, mood and affect normal. Results CBC & Chem 7: 06/09/22 06:50 06/09/22 06:50 Labs: Abnormal Lab Results - Last 24 Hours (Table) 06/07/22 Range/Units 08:29 POC Glucose (mg/dL) 121 H (70-110) mg/dL Assessment and Plan (1) Open abdominal wall wound Status: Acute Code(s): S31.109A - UNSP OPN WND ABD WALL, UNSP Q W/O PENET PERIT CAV, INIT SNOMED Code(s): 500452099 Plan: 1patient with a chronic nonhealing abdominal wound in this patient who did have a 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 2patient with multiple antibiotic allergies that would limit the number of antibiotics safe to use. 3we will empirically start patient vancomycin while waiting for condition to stabilize. 4continue with the wound VAC keeping in mind large wound and the patient has she will need outpatient wound VAC. We will follow on clinical condition and cultures to further adjust medication if needed Thank you for this consultation will follow this patient along with you Time with Patient: Greater than 30
[2022-06-08] MEDS ORDERED: VANCOMYCIN 1,750 MG in SODIUM CHLORIDE 0.9% 500 ML 500 ML IVPB ONE ×2
[2022-06-08] MEDS: HYDROmorphone 0.5 MG/0.5 ML SYRINGE IVP PRN ×6 (00:19→19:48)
--- NOTE | 2022-06-08 03:06 | CONS ---
CONSULTATION REASON FOR CONSULTATION: Advice regarding DVT and other medical issues requested by Dr. Reddy. HISTORY OF PRESENT ILLNESS: This is a 42-year-old woman with a past medical history of asthma, DVT, and multiple medical problems, underwent abdominal wall debridement by Dr. Reddy. Patient tolerated the procedure well. There is no history of any fever, rigors, or chills. No history of chest pain or palpitations at this time. PAST MEDICAL HISTORY: Reviewed include asthma, DVT, rest of the history as well as the chart is reviewed. HOME MEDICATIONS: Reviewed include Benadryl, doses and rest of the medications reviewed. ALLERGIES: Also reviewed include Keflex, other allergies noted. FAMILY HISTORY: History of cancer, respiratory disorder. SOCIAL HISTORY: Previous history of smoking. No history of alcohol. REVIEW OF SYSTEMS: A 14-point review is negative except as mentioned earlier. PHYSICAL EXAMINATION: VITAL SIGNS: Pulse is 80, blood pressure 107/70, respirations 16. HEENT: Conjunctivae normal. NECK: No jugular venous distention. CARDIOVASCULAR: S1, S2 muffled. No murmurs. RESPIRATIONS: Decreased respirations at the bases. No rhonchi, no crackles. ABDOMEN: Soft, status post surgery. LEGS: No edema. NERVOUS SYSTEM: No focal deficits. SKIN: No rash. JOINTS: No active arthropathy. LABS: Glucose 121. ASSESSMENT: 1. Status post abdominal wall wound debridement. 2. History of asthma. 3. History of deep vein thrombosis. 4. History of gastroesophageal reflux disease. 5. Multiple medical issues. RECOMMENDATIONS: This 42-year-old woman presented with multiple medical issues. At this time, I recommend to continue current medications, resume the home medications. Symptomatic treatment. DVT prophylaxis. Proton pump inhibitors. We will follow the patient closely with you. Patient may be asked to follow up with primary physician closely. MMODL / IJN: [id number] /
[2022-06-08] MEDS: KETOROLAC 15 MG/ML 1 ML VIAL IVP SCH ×4 (05:55→23:12)
[2022-06-08] MEDS: ONDANSETRON 4 MG/2 ML VIAL IVP PRN ×2 (06:04→20:36)
[2022-06-08] MEDS: OLANZapine 10 MG TAB PO SCH (08:01)
[2022-06-08] MEDS: ENOXAPARIN 40 MG/0.4 ML SYRINGE SQ SCH (08:02)
[2022-06-08 10:26] LABS: Basophils # (A) 0.03 X 10*3/uL (0.00-0.10); Basophils % (A) 0.2 %; Eosinophils % (A) 0.8 %; HCT 30.3 % (37.2-46.3); HGB 9.8 g/dL (12.0-15.0); Immature Grans, Automated 0.6 %; Lymphocytes # (A) 3.79 X 10*3/uL (0.90-5.00); Lymphocytes % (A) 30.2 %; MCH 29.5 pg (27.0-32.0); MCHC 32.3 g/dL (32.0-37.0); MCV 91.3 fL (80.0-97.0); Mean Platelet Volume 9.8 fL (9.5-12.2); Monocytes # (A) 0.68 X 10*3/uL (0.20-1.00); Monocytes % (A) 5.4 %; NRBC Per 100 WBC 0 /100 WBCS (0.0-0.0); Neutrophils # (A) 7.89 X 10*3/uL (1.80-7.70); Neutrophils % (A) 62.8 %; Platelet Count 498 X 10*3/uL (140-440); RBC 3.32 X 10*6/uL (4.10-5.20); RDW 12.3 % (11.5-14.5); WBC 12.56 X 10*3/uL (4.50-10.00)
[2022-06-08 10:46] LABS: ALT 43 U/L (8-44); AST 19 U/L (13-35); African American GFR (CKD) 102.1 (60.0-200.0); Albumin 3.6 g/dL (3.8-4.9); Albumin/Globulin Ratio 1.41 (1.60-3.17); Alkaline Phosphatase 83 U/L (41-126); BUN/Creat Ratio 17.24 Ratio (12.00-20.00); Calcium 9.1 mg/dL (8.7-10.3); Carbon Dioxide 25.2 mmol/L (20.0-27.5); Chloride 105 mmol/L (96-109); Globulin 2.6 g/dL (1.6-3.3); Glucose 125 mg/dL (70-110); Non-African American GFR(CKD) 88.1 (60.0-200.0); Potassium 4.1 mmol/L (3.5-5.5); Sodium 139 mmol/L (135-145); Total Bilirubin <0.15 mg/dL (0.30-1.20); Total Protein 6.1 g/dL (6.2-8.2)
[2022-06-08] MEDS: VANCOMYCIN 1,750 MG in SODIUM CHLORIDE 0.9% 500 ML 500 ML IVPB SCH ×2 (12:52→23:51)
--- NOTE | 2022-06-08 13:32 | P.PN ---
Subjective Progress Note Date: 06/08/22 CHIEF COMPLAINT: Abdominal wall wound HISTORY OF PRESENT ILLNESS: Patient is postop day #1 status post debridement of abdominal wall necrotic skin and fat. Per Dr. luong no evidence of infection. Skin had shown ischemic changes. Patient has wound VAC in place. Her pain is tolerable. Afebrile. WBC is 12.56 Hgb 9.8 platelets 498 sodium 139 potassium 4.1 creatinine 0.8 cultures pending. Patient followed by infectious disease PHYSICAL EXAM: VITAL SIGNS: Reviewed. GENERAL: Well-developed in no acute distress. HEENT: No sclera icterus. Extraocular movements grossly intact. Moist buccal mucosa. Head is atraumatic, normocephalic. ABDOMEN: Soft. Nondistended. Wound VAC lower mid abdomen NEUROLOGIC: Alert and oriented. Cranial nerves II through XII grossly intact. ASSESSMENT: 1. Abdominal wall wound with necrotic skin and fat status post debridement 2. Leukocytosis PLAN: -Continue wound VAC -hr manager to arrange wound VAC for home -Dr. Luong does not recommend antibiotics at discharge but will await further recommendations per ID service Physician Facilities [employer] note has been reviewed by physician. Signing provider agrees with the documented findings, assessment, and plan of care. Objective - Vital Signs Vital signs: Vital Signs Temp 97.7 F 06/08/22 07:17 Pulse 78 06/08/22 07:17 Resp 18 06/08/22 07:45 BP 102/71 06/08/22 07:17 Pulse Ox 97 06/08/22 07:17 FiO2 Intake & Output 06/07/22 06/08/22 06/08/22 18:59 06:59 18:59 Intake Total 350 120 Output Total 25 Balance 325 120 Weight 110.4 kg Intake: IV 350 Oral 120 Output: Estimated Blood Loss 25 Other: # Voids 3 3 - Labs CBC & Chem 7: 06/08/22 06:39 06/08/22 06:39 Labs: Abnormal Lab Results - Last 24 Hours (Table) 06/07/22 06/08/22 06/08/22 Range/Units 16:37 06:39 06:39 WBC 12.56 H (4.50-10.00) X 10*3/uL RBC 3.32 L (4.10-5.20) X 10*6/uL Hgb 9.8 L (12.0-15.0) g/dL Hct 30.3 L (37.2-46.3) % Plt Count 498 H (140-440) X 10*3/uL Immature Gran # 0.07 H (0.00-0.04) X 10*3/uL Neutrophils # 7.89 H (1.80-7.70) X 10*3/uL Anion Gap 9.00 L (10.00-18.00) mmol/L Glucose 125 H (70-110) mg/dL POC Glucose (mg/dL) 157 H (70-110) mg/dL Total Bilirubin <0.15 L (0.30-1.20) mg/dL Total Protein 6.1 L (6.2-8.2) g/dL Albumin 3.6 L (3.8-4.9) g/dL Albumin/Globulin Ratio 1.41 L (1.60-3.17) g/dL Microbiology - Last 24 Hours (Table) 06/07/22 09:39 Gram Stain - Preliminary Abdomen Tissue Culture - Preliminary 06/07/22 09:39 Gram Stain - Preliminary Abdomen Wound Culture - Preliminary 06/07/22 09:39 Anaerobic Culture - Preliminary Abdomen 06/07/22 09:39 Anaerobic Culture - Preliminary Abdomen
[2022-06-08] MEDS: HYDROcodone/APAP 5-325MG 1 EACH TAB PO PRN ×2 (17:38→23:12)
[2022-06-09] MEDS: HYDROmorphone 0.5 MG/0.5 ML SYRINGE IVP PRN ×5 (00:40→14:37)
--- NOTE | 2022-06-09 02:46 | PN ---
PROGRESS NOTE DATE OF SERVICE: 06/08/2022 SUBJECTIVE: This 42-year-old woman, who was admitted after abdominal wall wound debridement, is being closely monitored at this time. No chest pain. No palpitations. No fever. No shortness of breath. White count is 12.56. Cultures are negative so far. OBJECTIVE: VITAL SIGNS: Pulse is 78, blood pressure 119/70, respirations 18. HEENT: Conjunctivae normal. NECK: No JVD. CARDIOVASCULAR: S1, S2. RESPIRATION: Breath sounds diminished at the bases. ABDOMEN: Soft, status post surgery. LEGS: No edema. No swelling. LABORATORY DATA: Reviewed. The previous cultures in the computer shows MSSA few months ago and MRSA few years ago. ASSESSMENT: 1. Status post abdominal wall wound debridement. 2. History of asthma. 3. History of deep vein thrombosis. 4. History of gastroesophageal reflux disease. 5. Multiple medical issues. RECOMMENDATIONS: I recommend to continue current medications and symptomatic treatment. I would recommend to repeat labs. Incentive spirometry. Otherwise, await cultures. Further recommendations to follow. MMODL / IJN: [id number] /
[2022-06-09] MEDS: KETOROLAC 15 MG/ML 1 ML VIAL IVP SCH (05:56)
[2022-06-09] MEDS: ONDANSETRON 4 MG/2 ML VIAL IVP PRN (05:56)
[2022-06-09 07:57] VITALS: RESP 17
[2022-06-09] MEDS: OLANZapine 10 MG TAB PO SCH (08:34)
[2022-06-09] MEDS: ENOXAPARIN 40 MG/0.4 ML SYRINGE SQ SCH (08:35)
[2022-06-09 10:52] LABS: Basophils # (A) 0.07 X 10*3/uL (0.00-0.10); Basophils % (A) 0.7 %; Eosinophils # (A) 0.47 X 10*3/uL (0.04-0.35); Eosinophils % (A) 4.7 %; HCT 32.3 % (37.2-46.3); HGB 9.9 g/dL (12.0-15.0); Immature Grans, Automated 0.4 %; Lymphocytes # (A) 4.45 X 10*3/uL (0.90-5.00); Lymphocytes % (A) 44.3 %; MCH 29.6 pg (27.0-32.0); MCHC 30.7 g/dL (32.0-37.0); MCV 96.4 fL (80.0-97.0); Mean Platelet Volume 9.7 fL (9.5-12.2); Monocytes # (A) 0.52 X 10*3/uL (0.20-1.00); Monocytes % (A) 5.2 %; NRBC Per 100 WBC 0 /100 WBCS (0.0-0.0); Neutrophils % (A) 44.7 %; Platelet Count 449 X 10*3/uL (140-440); RBC 3.35 X 10*6/uL (4.10-5.20); RDW 12.5 % (11.5-14.5); WBC 10.05 X 10*3/uL (4.50-10.00)
[2022-06-09 11:18] LABS: African American GFR (CKD) 103.9 (60.0-200.0); BUN/Creat Ratio 18.75 Ratio (12.00-20.00); Calcium 8.8 mg/dL (8.7-10.3); Non-African American GFR(CKD) 89.7 (60.0-200.0); Potassium 4.7 mmol/L (3.5-5.5)
[2022-06-09] MEDS: VANCOMYCIN 1,750 MG in SODIUM CHLORIDE 0.9% 500 ML 500 ML IVPB SCH (11:24)
--- NOTE | 2022-06-09 12:05 | P.DS ---
Providers Date of admission: 06/08/22 08:03 Expected date of discharge: 06/09/22 Attending physician: Jamie Reddy Consults: 06/07/22 09:50 Consult Physician Routine Consulting Provider: Dara Galo Consult Reason/Comments: Medical management Do you want consulting provider notified?: Yes 06/07/22 09:52 Consult Physician Routine Consulting Provider: Austin Silvestre Consult Reason/Comments: Medical management Do you want consulting provider notified?: Yes Primary care physician: She Sierra MD Hospital Course: Is a 42-year-old female underwent debridement abdominal wall for ischemic skin and subcutaneous fat. Patient will back place. Patient did well postoperatively. Procedures: Debridement abdominal wall Patient Condition at Discharge: Good Plan - Discharge Summary Discharge Rx Participant: No New Discharge Prescriptions: New HYDROcodone/APAP 5-325MG [Rogers 5-325] 1 tab PO Q6HR PRN 3 Days #12 tab PRN Reason: Pain No Action OLANZapine [ZyPREXA] 20 mg PO DAILY Docusate [Colace] 100 mg PO BID #30 capsule diphenhydrAMINE [Benadryl] 25 mg PO BID PRN PRN Reason: takes w/bactrim for itching Omeprazole [PriLOSEC] 40 mg PO DAILY PRN PRN Reason: Heartburn Discharge Medication List OLANZapine [ZyPREXA] 20 mg PO DAILY 05/12/22 [History] Omeprazole [PriLOSEC] 40 mg PO DAILY PRN 05/12/22 [History] Docusate [Colace] 100 mg PO BID #30 capsule 05/18/22 [Rx] diphenhydrAMINE [Benadryl] 25 mg PO BID PRN 06/03/22 [History] HYDROcodone/APAP 5-325MG [Rogers 5-325] 1 tab PO Q6HR PRN 3 Days #12 tab 06/08/22 [Rx] Follow up Appointment(s)/Referral(s): [facility], [NON-STAFF] - As Needed Jamie Reddy MD [STAFF PHYSICIAN] - 06/15/22 2:20 pm Dara Galo MD [STAFF PHYSICIAN] - 1 Week Discharge Disposition: HOME WITH HOME HEALTH SERVICES
[2022-06-09 14:38] VITALS: BP 106/65; PULSE 87; TEMP 98.1
[2022-06-09] MEDS: HYDROcodone/APAP 5-325MG 1 EACH TAB PO PRN (15:53)
[2022-06-09] MEDS ORDERED: VANCOMYCIN TROUGH DUE 1 EACH MISC MISCELLANE ONE (23:00)
--- NOTE | 2022-06-09 23:55 | PN ---
PROGRESS NOTE DATE OF SERVICE: 06/09/2022 SUBJECTIVE: This is a 42-year-old woman, who was admitted with abdominal wall wound infection. Debridement is being closely monitored. No chest pain. No palpitations. No fever. PHYSICAL EXAMINATION: VITAL SIGNS: Pulse 87, blood pressure 106/65, respirations 17. HEENT: Conjunctivae normal. NECK: No JVD. CARDIOVASCULAR: S1, S2 muffled. RESPIRATIONS: Breath sounds diminished at the bases. No rhonchi. No crackles. ABDOMEN: Soft, status post surgery. LABS: WBC 10.5. Other labs are noted. ASSESSMENT: 1. Status post abdominal wall wound debridement. 2. History of asthma. 3. History of deep venous thrombosis. 4. History of gastroesophageal reflux disease. 5. Multiple medical issues. RECOMMENDATIONS: Recommend to continue current medications. Continue incentive spirometry. Deep venous thrombosis prophylaxis. Closely follow with Infectious Disease. Guarded prognosis. Further recommendations to follow. MMODL / IJN: [id number] /
--- NOTE | 2022-06-16 23:36 | P.PN ---
Subjective Progress Note Date: 06/08/22 Principal diagnosis: Abdominal wound Patient is a 42-year-old female with multiple abdominal surgeries admitted to the hospital with concern for possible fat necrosis and is status post debridement of the abdominal wall wound and application of the wound VAC. On today's evaluation that is 06/08/2022, the patient denies having any fever or any chills patient abdominal pain is controlled patient denies having any chest pain or shortness of breath or cough no nausea no vomiting no diarrhea Objective - Vital Signs Vital signs: Vital Signs Temp 97.7 F 06/08/22 07:17 Pulse 78 06/08/22 07:17 Resp 18 06/08/22 07:45 BP 102/71 06/08/22 07:17 Pulse Ox 97 06/08/22 07:17 FiO2 Intake & Output 06/07/22 06/08/22 06/08/22 18:59 06:59 18:59 Intake Total 350 120 Output Total 25 Balance 325 120 Weight 110.4 kg Intake: IV 350 Oral 120 Output: Estimated Blood Loss 25 Other: # Voids 3 3 - Exam GENERAL DESCRIPTION: Middle-aged female lying in bed in no distress RESPIRATORY SYSTEM: Unlabored breathing , decreased breath sounds at bases HEART: S1 S2 regular rate and rhythm , ABDOMEN: Soft , no tenderness, abdominal wounds covered with a wound VAC EXTREMITIES: No edema feet - Labs CBC & Chem 7: 06/09/22 06:50 06/09/22 06:50 Labs: Abnormal Lab Results - Last 24 Hours (Table) 06/07/22 06/08/22 06/08/22 Range/Units 16:37 06:39 06:39 WBC 12.56 H (4.50-10.00) X 10*3/uL RBC 3.32 L (4.10-5.20) X 10*6/uL Hgb 9.8 L (12.0-15.0) g/dL Hct 30.3 L (37.2-46.3) % Plt Count 498 H (140-440) X 10*3/uL Immature Gran # 0.07 H (0.00-0.04) X 10*3/uL Neutrophils # 7.89 H (1.80-7.70) X 10*3/uL Anion Gap 9.00 L (10.00-18.00) mmol/L Glucose 125 H (70-110) mg/dL POC Glucose (mg/dL) 157 H (70-110) mg/dL Total Bilirubin <0.15 L (0.30-1.20) mg/dL Total Protein 6.1 L (6.2-8.2) g/dL Albumin 3.6 L (3.8-4.9) g/dL Albumin/Globulin Ratio 1.41 L (1.60-3.17) g/dL Microbiology - Last 24 Hours (Table) 06/07/22 09:39 Gram Stain - Preliminary Abdomen Tissue Culture - Preliminary 06/07/22 09:39 Gram Stain - Preliminary Abdomen Wound Culture - Preliminary 06/07/22 09:39 Anaerobic Culture - Preliminary Abdomen 06/07/22 09:39 Anaerobic Culture - Preliminary Abdomen Assessment and Plan (1) Open abdominal wall wound Status: Acute Code(s): S31.109A - UNSP OPN WND ABD WALL, UNSP Q W/O PENET PERIT CAV, INIT SNOMED Code(s): 738523539 Plan: 1patient with a chronic nonhealing abdominal wound in this patient who did have a 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 2patient with multiple antibiotic allergies that would limit the number of antibiotics safe to use. 3patient to continue with vancomycin while waiting for condition to stabilize. 4patient continue with the wound VAC keeping in mind large wound and the patient has she will need outpatient wound VAC, case may need to is working on getting it arranged. Time with Patient: Less than 30
--- NOTE | 2022-06-16 23:38 | P.PN ---
Subjective Progress Note Date: 06/09/22 Principal diagnosis: Abdominal wound Patient is a 42-year-old female with multiple abdominal surgeries admitted to the hospital with concern for possible fat necrosis and is status post debridement of the abdominal wall wound and application of the wound VAC. On today's evaluation that is 06/09/2022, the patient remains to be afebrile, patient abdominal pain is controlled with pain medication patient denies having any chest pain or shortness of breath or cough no nausea no vomiting no diarrhea Objective - Vital Signs Vital signs: Vital Signs Temp 97.8 F 06/09/22 07:56 Pulse 79 06/09/22 09:20 Resp 17 06/09/22 09:20 BP 109/70 06/09/22 07:56 Pulse Ox 97 06/09/22 07:56 FiO2 Intake & Output 06/08/22 06/09/22 06/09/22 18:59 06:59 18:59 Intake Total 720 300 Balance 720 300 Intake: Oral 720 300 Other: Voiding Method Toilet Toilet # Voids 5 4 - Exam GENERAL DESCRIPTION: Middle-aged female lying in bed in no distress RESPIRATORY SYSTEM: Unlabored breathing , decreased breath sounds at bases HEART: S1 S2 regular rate and rhythm , ABDOMEN: Soft , no tenderness, abdominal wounds covered with a wound VAC EXTREMITIES: No edema feet - Labs CBC & Chem 7: 06/09/22 06:50 06/09/22 06:50 Labs: Abnormal Lab Results - Last 24 Hours (Table) 06/09/22 06/09/22 Range/Units 06:50 06:50 WBC 10.05 H (4.50-10.00) X 10*3/uL RBC 3.35 L (4.10-5.20) X 10*6/uL Hgb 9.9 L (12.0-15.0) g/dL Hct 32.3 L (37.2-46.3) % MCHC 30.7 L (32.0-37.0) g/dL Plt Count 449 H (140-440) X 10*3/uL Eosinophils # 0.47 H (0.04-0.35) X 10*3/uL Anion Gap 9.00 L (10.00-18.00) mmol/L Microbiology - Last 24 Hours (Table) 06/07/22 09:39 Anaerobic Culture - Preliminary Abdomen 06/07/22 09:39 Anaerobic Culture - Preliminary Abdomen 06/07/22 09:39 Gram Stain - Preliminary Abdomen Tissue Culture - Preliminary 06/07/22 09:39 Gram Stain - Final Abdomen Wound Culture - Final Assessment and Plan (1) Open abdominal wall wound Status: Acute Code(s): S31.109A - UNSP OPN WND ABD WALL, UNSP Q W/O PENET PERIT CAV, INIT SNOMED Code(s): 709249037 Plan: 1patient with a chronic nonhealing abdominal wound in this patient who did have a 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 2patient with multiple antibiotic allergies that would limit the number of antibiotics safe to use. 3patient will be given short course of doxycycline on discharge 4patient continue with the wound VAC which has been arranged for the outpatient and close outpatient follow-up in the wound care center Time with Patient: Less than 30
== END 2022-06-09 16:04 | disposition home health service (06) ==
LOC: OR 07:59 → 4SSUR 12:25 → OR 06-08 08:03
PROVIDERS: ADMIT Surgery; ATTEND Surgery
DX: T81.42XA Infection following a procedure, deep incisional surgical site, initial encounter (principal); I96 Gangrene, not elsewhere classified; L03.311 Cellulitis of abdominal wall; J45.909 Unspecified asthma, uncomplicated; K21.9 Gastro-esophageal reflux disease without esophagitis; Z86.14 Personal history of Methicillin resistant Staphylococcus aureus infection; Z90.49 Acquired absence of other specified parts of digestive tract; Z90.710 Acquired absence of both cervix and uterus; F17.200 Nicotine dependence, unspecified, uncomplicated; G43.909 Migraine, unspecified, not intractable, without status migrainosus; R73.03 Prediabetes; Z79.899 Other long term (current) drug therapy; Z88.1 Allergy status to other antibiotic agents; Z88.0 Allergy status to penicillin; Z88.2 Allergy status to sulfonamides; Z86.718 Personal history of other venous thrombosis and embolism; Z81.8 Family history of other mental and behavioral disorders; Z82.49 Family history of ischemic heart disease and other diseases of the circulatory system; Z80.9 Family history of malignant neoplasm, unspecified; Z83.6 Family history of other diseases of the respiratory system
CPT/HCPCS: 88304; 80053; 80048; 85025 ×2; 87070; 87205; 87075; 11005; G0378 ×2; J2250; J3370 ×2; J0330; J1100; J2405 ×3; J1650 ×2; J3010; J1885 ×3; J2704; J1170 ×3; J1644